=== PATIENT | male | born 1955 | race Hispanic/Latino ===

== ENCOUNTER 2019-05-05 11:26 | Emergency (ER) | payer OTHER ==
[~2019-05-05] VITALS: Ht 180.3 cm; Wt 149.7 kg
[~2019-05-05 11:26] MED LIST changes: -FENTANYL CITRATE/PF 100MCG/2 ML INJ ONE; -LIDOCAINE HCL 2% LOCAL INJ 5 ML SDV VIAL INJ ONE; -MIDAZOLAM HCL 2 MG/2 ML VIAL ONE; -ONDANSETRON HCL INJ 2MG/ML 2ML 2 MG/ML VIAL ONE; -PROPOFOL IV EMULSION 10 MG/ML 20 ML VIAL ONE
--- NOTE | 2019-05-05 12:22 | Diagnostic Imaging Report ---
EXAM: HIP LEFT 2-3 VW (+/- PELVIS) DATE: 05/05/2019 11:31 AM INDICATION: Fall, hip pain COMPARISON: None FINDINGS: AP view of the pelvis as well as 2 views of the left hip obtained. There is no evidence for acute fracture or dislocation. No focal lytic or blastic abnormality is identified. There is mild joint space narrowing noted bilaterally. There are degenerative changes of the visualized lumbosacral spine. Suspected phleboliths noted within the pelvis. The remaining visualized intra-abdominal contents are unremarkable. The surrounding soft tissues demonstrate no significant abnormalities. IMPRESSION: No acute radiographic abnormality identified within the pelvis or left hip. Signed by: Dr. Amol Flores MD on 05/05/2019 12:19 PM
--- NOTE | 2019-05-05 12:32 | Diagnostic Imaging Report ---
EXAM: WRIST COMPLETE RIGHT DATE: 05/05/2019 11:31 AM INDICATION: Fall COMPARISON: None IMPRESSION: There are advanced degenerative changes within the wrist with associated soft tissue calcifications and subchondral sclerosis which limits evaluation for acute process. The distal radius and ulna are intact. Suspected chronic changes noted of the scaphoid and lunate. Allowing for limitations, no obvious acute carpal fracture or dislocation is appreciated. Vascular calcifications are noted. No radiopaque foreign body is appreciated. Signed by: Dr. Amol Flores MD on 05/05/2019 12:29 PM
--- NOTE | 2019-05-05 12:39 | Diagnostic Imaging Report ---
History: Fall in front of lobby Comparison studies:None Technique: Axial images were obtained from the brain and cervical spine. Coronal and sagittal images reconstructed from the axial data. Intravenous contrast: None Dose modulation, iterative reconstruction, and/or weight based adjustment of the mA/kV was utilized to reduce the radiation dose to as low as reasonably achievable. Findings: Head CT: Scalp/skull: No abnormalities. No fractures, blastic or lytic lesions. Brain sulci: Appropriate for age. Ventricles: Normal in size and configuration. No hydrocephalus. Extra-axial spaces: No masses. No fluid collections. Parenchyma: Few subtle hypodensities of the periventricular and deep white matter, most commonly seen with mild chronic microvascular ischemic changes. No masses, hemorrhage, acute or chronic cortical vascular insults. Sellar/suprasellar region: No abnormalities. Craniocervical junction: Patent foramen magnum. No Chiari one malformation. Atherosclerotic calcifications of carotid siphons. Cervical spine CT: Fractures: None. Soft tissues: No gross abnormalities. Atlantoaxial articulation: No acute abnormality. Alignment: Straightening of the normal lordosis. No scoliosis. Cervicomedullary junction: No abnormalities. Patent foramen magnum. Vertebrae: No infection or neoplasm. Degenerative changes: Decreased intervertebral space with sclerotic changes at C3-4 and C6-7. Posterior disc osteophyte complex at C3-4 and C6-7 results in mild central canal stenosis. Multilevel degenerative foraminal narrowing, moderate left at C3-4, moderate bilateral at C5-6 and C6-7. Incidental findings: Atherosclerotic calcifications of the carotid bulbs. Impression: Head CT: 1. No acute abnormality. Cervical spine CT: 1. No acute abnormalities. 2. Cannot exclude ligament, spinal cord and or vascular abnormalities on the basis of this examination. Signed by: DR Sam Gonzalez M.D. on 05/05/2019 12:36 PM
== END 2019-05-05 13:48 | disposition home or self-care (01) ==
LOC: ER 11:26
DX: S63.511A Sprain of carpal joint of right wrist, initial encounter (principal); M25.552 Pain in left hip; W01.0XXA Fall on same level from slipping, tripping and stumbling without subsequent striking against object, initial encounter; Y92.238 Other place in hospital as the place of occurrence of the external cause; I10 Essential (primary) hypertension; E11.9 Type 2 diabetes mellitus without complications; D64.9 Anemia, unspecified; K74.60 Unspecified cirrhosis of liver
CPT/HCPCS: 70450; 72125; 99283

== ENCOUNTER → 2019-05-05 | Day surgery (SDC) | payer OTHER ==
[2019-05-01 12:27] LABS: EOSINOPHILS # (AUTO) 0.2 (0.0-0.4); EOSINOPHILS % 5.5 % (0.0-6.0); HEMATOCRIT 31.4 % (38.2-49.6); HEMOGLOBIN 8.9 g/dL (14.0-18.0); LYMPHOCYTES # (AUTO) 0.7 (1.0-3.2); LYMPHOCYTES % 21.5 % (18.0-39.1); MEAN CORPUSCULAR HEMOGLOBIN 22.5 pg (28-32); MEAN CORPUSCULAR HGB CONC 28.3 g/dL (31-35); MEAN CORPUSCULAR VOLUME 79.5 fL (81-99); MONOCYTES # (AUTO) 0.4 (0.2-0.8); MONOCYTES % 13.2 % (4.4-11.3); NEUTROPHILS # (AUTO) 1.8 (2.1-6.9); NEUTROPHILS % 58.5 % (38.7-80.0); PLATELET COUNT 92 x10e3/uL (140-360); RED BLOOD COUNT 3.95 x10e6/uL (4.3-5.7); RED CELL DISTRIBUTION WIDTH 25.8 % (11.7-14.4)
[2019-05-01 12:52] LABS: INR 1.16; PROTHROMBIN TIME 15.6 seconds (11.9-14.5)
[2019-05-01 12:53] LABS: PARTIAL THROMBOPLASTIN TIME 32.4 seconds (23.8-35.5)
[2019-05-01 13:01] LABS: ALANINE AMINOTRANSFERASE 32 IU/L (0-55); ALBUMIN 3.1 g/dL (3.5-5.0); ALBUMIN/GLOBULIN RATIO 0.7 (0.8-2.0); ALKALINE PHOSPHATASE 127 IU/L (40-150); ANION GAP 9.1 mmol/L (8-16); BLOOD UREA NITROGEN 10 mg/dL (7-26); BUN/CREATININE RATIO 13 (6-25); CALCIUM 11.4 mg/dL (8.4-10.2); CARBON DIOXIDE 25 mmol/L (22-29); CHLORIDE 101 mmol/L (98-107); CREATININE, SERUM 0.78 mg/dL (0.72-1.25); EST GLOMERULAR FILTRATION RATE > 60 ML/MIN (60-); GLUCOSE 184 mg/dL (74-118); POTASSIUM 4.1 mmol/L (3.5-5.1); SODIUM 131 mmol/L (136-145)
[2019-05-01 21:00] LABS: HYPOCHROMASIA MODERATE; PLATELET ESTIMATE SLIGHTLY DECREASED; PLATELET MORPHOLOGY COMMENT NORMAL; POIKILOCYTOSIS SLIG; RBC MORPHOLOGY COMMENT NORMAL
[~2019-05-05] MED LIST: ASPIR 8181 MG PO; ATORVASTATIN CA20 MG PO; FENTANYL CITRATE/PF 100MCG/2 ML INJ ONE; GABAPENTIN400 MG PO; GLIPIZIDE ER5 MG PO; IRBESARTAN150 MG PO; IRON PO; LIDOCAINE HCL 2% LOCAL INJ 5 ML SDV VIAL INJ ONE; METFORMIN HCL500 MG PO; MIDAZOLAM HCL 2 MG/2 ML VIAL ONE; ONDANSETRON HCL INJ 2MG/ML 2ML 2 MG/ML VIAL ONE; PEPCID20 MG PO; PROPOFOL IV EMULSION 10 MG/ML 20 ML VIAL ONE; PROPRANOLOL HCL40 MG PO; TRIAMTERENE-HCTZ1 EA PO
--- OUTSIDE RECORDS SUMMARY | 2019-05-05 13:55 | XMS REPORT ---
Author Author [facility] Address Unknown Phone Unavailable Care Team Providers Care Supervisor [employer] Name Role Phone Martell CÁRDENAS Unavailable Unavailable Problems This patient has no known problems. Allergies, Adverse Reactions, Alerts This patient has no known allergies or adverse reactions. Medications This patient has no known medications. Results Test Description Test Time Test Comments Text Results Atomic Results Result Comments CT BRAIN WO 2019-05-05 12:24:00 [facility] [address] [address] Patient Name: JAROD WATT MR #: [id number] : 1955 Age/Sex: 63/M Req #: [id number] Adm Physician: Ordered by: SHANTANU CÁRDENAS MD Report #: [id number] Location: ER Room/Bed: Procedure: [id number] CT/CT BRAIN WO Exam Date: 05/05/19 Exam Time: 1140 REPORT STATUS: Signed History: Fall in front of lobby Comparison studies:None Technique: Axial images were obtained from the brain and cervical spine. Coronal and sagittal images reconstructed from the axial data. Intravenous contrast: None Dose modulation, iterative reconstruction, and/or weight based adjustment of the mA/kV was utilized to reduce the radiation dose to as low as reasonably achievable. Findings: Head CT: Scalp/skull: No abnormalities. No fractures, blastic or lytic lesions. Brain sulci: Appropriate for age. Ventricles: Normal in size and configuration. No hydrocephalus. Extra-axial spaces: No masses. No fluid collections. Parenchyma: Few subtle hypodensities of the periventricular and deep white matter, most commonly seen with mild chronic microvascular ischemic changes. No masses, hemorrhage, acute or chronic cortical vascular insults. Sellar/suprasellar region: No abnormalities. Craniocervical junction: Patent foramen magnum. No Chiari one malformation. Atherosclerotic calcifications of carotid siphons. Cervical spine CT: Fractures: None. Soft tissues: No gross abnormalities. Atlantoaxial articulation: No acute abnormality. Alignment: Straightening of the normal lordosis. No scoliosis. Cervicomedullary junction: No abnormalities. Patent foramen magnum. Vertebrae: No infection or neoplasm. Degenerative changes: Decreased intervertebral space with sclerotic changes at C3-4 and C6-7. Posterior disc osteophyte complex at C3-4 and C6-7 results in mild central canal stenosis. Multilevel degenerative foraminal narrowing, moderate left at C3-4, moderate bilateral at C5-6 and C6-7. Incidental findings: Atherosclerotic calcifications of the carotid bulbs. Impression: Head CT: 1. No acute abnormality. Cervical spine CT: 1. No acute abnormalities. 2. Cannot exclude ligament, spinal cord and or vascular abnormalities on the basis of this examination. Signed by: DR Sam Gonzalez M.D. on 05/05/2019 12:36 PM Dictated By: SAM HERNANDEZ MD 1236 Transcribed By: BELINDA on 05/05/19 1236 COPY TO: SHANTANU CÁRDENAS MD CT CERVICAL SPINE WO 2019-05-05 12:24:00 [address] [address] Patient Name: JAROD WATT MR #: [id number] : 1955 Age/Sex: 63/M Req #: [id number] Adm Physician: Ordered by: SHANTANU CÁRDENAS MD Report #: [id number] Location: ER Room/Bed: Procedure: [id number] CT/CT CERVICAL SPINE WO Exam Date: 05/05/19 Exam Time: 1140 REPORT STATUS: Signed History: Fall in front of lobby Comparison studies:None Technique: Axial images were obtained from the brain and cervical spine. Coronal and sagittal images reconstructed from the axial data. Intravenous contrast: None Dose modulation, iterative reconstruction, and/or weight based adjustment of the mA/kV was utilized to reduce the radiation dose to as low as reasonably achievable. Findings: Head CT: Scalp/skull: No abnormalities. No fractures, blastic or lytic lesions. Brain sulci: Appropriate for age. Ventricles: Normal in size and configuration. No hydrocephalus. Extra-axial spaces: No masses. No fluid collections. Parenchyma: Few subtle hypodensities of the periventricular and deep white matter, most commonly seen with mild chronic microvascular ischemic changes. No masses, hemorrhage, acute or chronic cortical vascular insults. Sellar/suprasellar region: No abnormalities. Craniocervical junction: Patent foramen magnum. No Chiari one malformation. Atherosclerotic calcifications of carotid siphons. Cervical spine CT: Fractures: None. Soft tissues: No gross abnormalities. Atlantoaxial articulation: No acute abnormality. Alignment: Straightening of the normal l ordosis. No scoliosis. Cervicomedullary junction: No abnormalities. Patent foramen magnum. Vertebrae: No infection or neoplasm. Degenerative changes: Decreased intervertebral space with sclerotic changes at C3-4 and C6-7. Posterior disc osteophyte complex at C3-4 and C6-7 results in mild central canal stenosis. Multilevel degenerative foraminal narrowing, moderate left at C3-4, moderate bilateral at C5-6 and C6-7. Incidental findings: Atherosclerotic calcifications of the carotid bulbs. Impression: Head CT: 1. No acute abnormality. Cervical spine CT: 1. No acute abnormalities. 2. Cannot exclude ligament, spinal cord and or vascular abnormalities on the basis of this examination. Signed by: DR Sam Gonzalez M.D. on 05/05/2019 12:36 PM Dictated By: SAM HERNANDEZ MD 1236 Transcribed By: BELINDA on 05/05/19 1236 COPY TO: SHANTANU CÁRDENAS MD WRIST COMPLETE RIGHT 2019-05-05 12:21:00 [address] [address] Patient Name: JAROD WATT MR #: [id number] : 1955 Age/Sex: 63/M Req #: [id number] Adm Physician: Ordered by: SHANTANU CÁRDENAS MD Report #: [id number] Location: ER Room/Bed: Procedure: [id number] DX/WRIST COMPLETE RIGHT Exam Date: 05/05/19 Exam Time: 1140 REPORT STATUS: Signed EXAM: WRIST COMPLETE RIGHT DATE: 05/05/2019 11:31 AM INDICATION: Fall COMPARISON: None IMPRESSION: There are advanced degenerative changes within the wrist with associated soft tissue calcifications and subchondral sclerosis which limits evaluation for acute process. The distal radius and ulna are intact. Suspected chronic changes noted of the scaphoid and lunate. Allowing for limitations, no obvious acute carpal fracture or dislocation is appreciated. Vascular calcifications are noted. No radiopaque foreign body is appreciated. Signed by: Dr. Amol Flores MD on 05/05/2019 12:29 PM Dictated By: AMOL FLORES MD 1229 Transcribed By: BELINDA on 05/05/19 1229 COPY TO: SHANTANU CÁRDENAS MD HIP LEFT 2-3 VW (+/- PELVIS) 2019-05-05 12:16:00 [facility] [place] [address] Patient Name: JAROD WATT MR #: [id number] : 1955 Age/Sex: 63/M Req #: [id number] Adm Physician: Ordered by: SHANTANU CÁRDENAS MD Report #: [id number] Location: ER Room/Bed: Procedure: [id number] DX/HIP LEFT 2-3 VW (+/- PELVIS) Exam Date: Exam Time: REPORT STATUS: Signed EXAM: HIP LEFT 2-3 VW (+/- PELVIS) DATE: 05/05/2019 11:31 AM INDICATION: Fall, hip pain COMPARISON: None FINDINGS: AP view of the pelvis as well as 2 views of the left hip obtained. There is no evidence for acute fracture or dislocation. No focal lytic or blastic abnormality is identified. There is mild joint space narrowing noted bilaterally. There are degenerative changes of the visualized lumbosacral spine. Suspected phleboliths noted within the pelvis. The remaining visualized intra-abdominal contents are unremarkable. The surrounding soft tissues demonstrate no significant abnormalities. IMPRESSION: No acute radiographic abnormality identified within the pelvis or left hip. Signed by: Dr. Amol Flores MD on 05/05/2019 12:19 PM Dictated By: AMOL FLORES MD 18 Transcribed By: BELINDA on 05/05/191218 COPY TO: SHANTANU CÁRDENAS MD
[2019-05-05 17:25] VITALS: BP 154/88
== END | disposition home or self-care (01) ==
LOC: OR 13:53
PROVIDERS: ATTEND Internal Medicine Gastroenterology
DX: K74.60 Unspecified cirrhosis of liver (principal); I85.10 Secondary esophageal varices without bleeding; K29.50 Unspecified chronic gastritis without bleeding; K31.89 Other diseases of stomach and duodenum; K76.6 Portal hypertension; K44.9 Diaphragmatic hernia without obstruction or gangrene; K72.90 Hepatic failure, unspecified without coma; D50.9 Iron deficiency anemia, unspecified; I10 Essential (primary) hypertension; E78.5 Hyperlipidemia, unspecified; E11.9 Type 2 diabetes mellitus without complications; Z01.810 Encounter for preprocedural cardiovascular examination; Z01.812 Encounter for preprocedural laboratory examination; Z79.84 Long term (current) use of oral hypoglycemic drugs; Z79.82 Long term (current) use of aspirin; Z79.899 Other long term (current) drug therapy; Z68.41 Body mass index [BMI] 40.0-44.9, adult; Z80.0 Family history of malignant neoplasm of digestive organs
CPT/HCPCS: 36415; 43239; 80053; 82948; 85025; 85610; 85730; 93005; J2001; J2250; J2405; J3010

== ENCOUNTER 2019-05-07 15:33 | Emergency (ER) | payer OTHER ==
[~2019-05-07] VITALS: Ht 180.3 cm; Wt 149.7 kg
[2019-05-07 16:23] LABS: BASOPHILS % 0.9 % (0.0-1.0); EOSINOPHILS # (AUTO) 0.2 (0.0-0.4); EOSINOPHILS % 5.4 % (0.0-6.0); HEMATOCRIT 35.8 % (38.2-49.6); HEMOGLOBIN 10.5 g/dL (14.0-18.0); LYMPHOCYTES # (AUTO) 0.8 (1.0-3.2); MEAN CORPUSCULAR HEMOGLOBIN 23.3 pg (28-32); MEAN CORPUSCULAR HGB CONC 29.3 g/dL (31-35); MEAN CORPUSCULAR VOLUME 79.6 fL (81-99); MONOCYTES # (AUTO) 0.6 (0.2-0.8); MONOCYTES % 13.7 % (4.4-11.3); NEUTROPHILS # (AUTO) 2.8 (2.1-6.9); NEUTROPHILS % 62.8 % (38.7-80.0); PLATELET COUNT 123 x10e3/uL (140-360); RED CELL DISTRIBUTION WIDTH 23.5 % (11.7-14.4)
[2019-05-07 16:38] LABS: ALANINE AMINOTRANSFERASE 27 IU/L (0-55); ALBUMIN 3.3 g/dL (3.5-5.0); ALBUMIN/GLOBULIN RATIO 0.7 (0.8-2.0); ALKALINE PHOSPHATASE 113 IU/L (40-150); ANION GAP 9.3 mmol/L (8-16); BLOOD UREA NITROGEN 14 mg/dL (7-26); BUN/CREATININE RATIO 10 (6-25); CALCIUM 11.7 mg/dL (8.4-10.2); CARBON DIOXIDE 25 mmol/L (22-29); CHLORIDE 100 mmol/L (98-107); CREATINE KINASE 36 IU/L (30-200); EST GLOMERULAR FILTRATION RATE 51 ML/MIN (60-); GLUCOSE 193 mg/dL (74-118); LIPASE 53 U/L (8-78); POTASSIUM 4.3 mmol/L (3.5-5.1); SODIUM 130 mmol/L (136-145)
== END 2019-05-07 17:29 | disposition home or self-care (01) ==
LOC: ER 15:33
DX: R53.1 Weakness (principal); N28.9 Disorder of kidney and ureter, unspecified; E87.1 Hypo-osmolality and hyponatremia; E83.52 Hypercalcemia
CPT/HCPCS: 36415; 80053; 82550; 82553; 83690; 83880; 84484; 85025; 99283

== ENCOUNTER → 2019-07-03 | Outpatient (CLI) | payer OTHER ==
[~2019-07-03] MED LIST changes: +ASPIRIN EC81 MG PO; +FERROUS SULFAT325 MG PO; +Folic acid PO; +GLIPIZIDE5 MG PO; +IRBESARTAN300 MG PO; +LACTULOSE10 GM/15 M PO; +LACTULOSE20 GM/30 M PO; +PANTOPRAZOLE SO40 MG PO; +PROPRANOLOL HCL20 MG PO; +THERA-M1 EACH PO
[2019-07-03 12:28] LABS: BASOPHILS % 0.8 % (0.0-1.0); EOSINOPHILS # (AUTO) 0.1 (0.0-0.4); EOSINOPHILS % 4.1 % (0.0-6.0); HEMATOCRIT 26.9 % (38.2-49.6); HEMOGLOBIN 7.7 g/dL (14.0-18.0); LYMPHOCYTES # (AUTO) 0.7 (1.0-3.2); LYMPHOCYTES % 27.8 % (18.0-39.1); MEAN CORPUSCULAR HGB CONC 28.6 g/dL (31-35); MEAN CORPUSCULAR VOLUME 76.9 fL (81-99); MONOCYTES # (AUTO) 0.3 (0.2-0.8); MONOCYTES % 11.8 % (4.4-11.3); NEUTROPHILS # (AUTO) 1.4 (2.1-6.9); NEUTROPHILS % 55.1 % (38.7-80.0); PLATELET COUNT 91 x10e3/uL (140-360); RED CELL DISTRIBUTION WIDTH 15.9 % (11.7-14.4)
[2019-07-03 12:43] LABS: INR 1.15; PARTIAL THROMBOPLASTIN TIME 30.8 seconds (23.8-35.5); PROTHROMBIN TIME 15.4 seconds (11.9-14.5)
[2019-07-03 12:52] LABS: ALANINE AMINOTRANSFERASE 42 IU/L (0-55); ALBUMIN 3.1 g/dL (3.5-5.0); ALBUMIN/GLOBULIN RATIO 0.7 (0.8-2.0); ALKALINE PHOSPHATASE 135 IU/L (40-150); ANION GAP 11.2 mmol/L (8-16); BLOOD UREA NITROGEN 12 mg/dL (7-26); BUN/CREATININE RATIO 13 (6-25); CALCIUM 10.9 mg/dL (8.4-10.2); CARBON DIOXIDE 22 mmol/L (22-29); CHLORIDE 109 mmol/L (98-107); CREATININE, SERUM 0.94 mg/dL (0.72-1.25); EST GLOMERULAR FILTRATION RATE > 60 ML/MIN (60-); GLUCOSE 231 mg/dL (74-118); POTASSIUM 4.2 mmol/L (3.5-5.1); SODIUM 138 mmol/L (136-145)
== END ==
LOC: DX 13:30 → EDSTATUS 07-07 08:30
PROVIDERS: ATTEND Internal Medicine Gastroenterology
DX: Z01.818 Encounter for other preprocedural examination (principal); K72.90 Hepatic failure, unspecified without coma; Z11.59 Encounter for screening for other viral diseases
CPT/HCPCS: 36415; 80053; 85025; 85610; 85730; 87635

== ENCOUNTER 2019-07-04 19:23 | Emergency (ER) | payer OTHER ==
[~2019-07-04] VITALS: Ht 180.3 cm; Wt 149.7 kg
[~2019-07-04 19:23] MED LIST changes: -ASPIRIN EC81 MG PO; -FERROUS SULFAT325 MG PO; -Folic acid PO; -GLIPIZIDE5 MG PO; -IRBESARTAN300 MG PO; -LACTULOSE10 GM/15 M PO; -PROPRANOLOL HCL20 MG PO
[2019-07-04] MEDS ORDERED: SODIUM CHLORIDE 0.9% 1000ML 1,000 ML IV STA ×3 (19:29→20:28)
[2019-07-04] MEDS ORDERED: ACETAMINOPHEN 325 MG TAB PO STA (19:36)
[2019-07-04 20:09] LABS: BASOPHILS % 0.2 % (0.0-1.0); EOSINOPHILS # (AUTO) 0.1 (0.0-0.4); EOSINOPHILS % 0.7 % (0.0-6.0); HEMATOCRIT 29.2 % (38.2-49.6); HEMOGLOBIN 8.5 g/dL (14.0-18.0); LYMPHOCYTES # (AUTO) 0.2 (1.0-3.2); LYMPHOCYTES % 2.2 % (18.0-39.1); MEAN CORPUSCULAR HEMOGLOBIN 22.1 pg (28-32); MEAN CORPUSCULAR HGB CONC 29.1 g/dL (31-35); MEAN CORPUSCULAR VOLUME 75.8 fL (81-99); MONOCYTES # (AUTO) 0.3 (0.2-0.8); MONOCYTES % 3.4 % (4.4-11.3); NEUTROPHILS # (AUTO) 8.6 (2.1-6.9); NEUTROPHILS % 93.1 % (38.7-80.0); PLATELET COUNT 93 x10e3/uL (140-360); RED BLOOD COUNT 3.85 x10e6/uL (4.3-5.7); RED CELL DISTRIBUTION WIDTH 15.9 % (11.7-14.4)
[2019-07-04 20:32] LABS: ALANINE AMINOTRANSFERASE 41 IU/L (0-55); ALBUMIN 3.3 g/dL (3.5-5.0); ALBUMIN/GLOBULIN RATIO 0.8 (0.8-2.0); ALKALINE PHOSPHATASE 136 IU/L (40-150); ANION GAP 14.3 mmol/L (8-16); BLOOD UREA NITROGEN 11 mg/dL (7-26); BUN/CREATININE RATIO 11 (6-25); CARBON DIOXIDE 20 mmol/L (22-29); CHLORIDE 106 mmol/L (98-107); CREATINE KINASE 61 IU/L (30-200); EST GLOMERULAR FILTRATION RATE > 60 ML/MIN (60-); GLUCOSE 132 mg/dL (74-118); LIPASE 42 U/L (8-78); POTASSIUM 4.3 mmol/L (3.5-5.1); SODIUM 136 mmol/L (136-145)
--- NOTE | 2019-07-04 20:59 | Diagnostic Imaging Report ---
EXAMINATION: CHEST SINGLE (PORTABLE) INDICATION: Altered mental status COMPARISON: None FINDINGS: TUBES and LINES: None. LUNGS: Low lung volumes. Bibasilar haziness. Prominent central pulmonary vasculature. PLEURA: No pleural effusion or pneumothorax. HEART AND MEDIASTINUM: The cardiomediastinal silhouette is unremarkable. BONES AND SOFT TISSUES: No acute osseous lesion. Soft tissues are unremarkable. UPPER ABDOMEN: Suspect pneumoperitoneum under the right hemidiaphragm. IMPRESSION: Suspect pneumoperitoneum. Recommend abdominal CT. Low lung volumes with subtle haziness in the lower lungs can be due to atelectasis although pneumonia is possible. Findings discussed with Dr. Tay at 8:52 PM on 07/04/[address] Poe via telephone. Signed by: Ish Poe DO on 07/04/2019 8:55 PM
--- NOTE | 2019-07-04 21:03 | Diagnostic Imaging Report ---
CT BRAIN WO HISTORY: Altered mental status COMPARISON: Head CT 05/05/2019 Technique: Noncontrast axial scans were obtained from skull base to the vertex. Coronal and sagittal reconstructions obtained from the axial data. One or more of the following dose reduction techniques were used: Automated exposure control, adjustment of the mA and/or kV according to patient size, and/or utilization of iterative reconstruction technique. Beam hardening artifacts obscure some details. DISCUSSION: Scalp/Skull: Unremarkable. Brain sulci: Mildly prominent. Ventricles: Compensatory dilatation. Extra-axial spaces: No masses or fluid collections. Carotid siphon calcifications are present. Parenchyma: Mild bilateral deep white matter hypodensity is likely chronic microvascular ischemic change. Otherwise, no masses, hemorrhage, or large vascular territory acute infarct. Dural sinuses: No abnormal densities. Sellar/Suprasellar region: Intact. Skull base: Intact. Incidental findings: None. IMPRESSION: 1. No acute intracranial abnormalities. 2. Mild supratentorial chronic microvascular ischemic change. Mild generalized cerebral volume loss. Signed by: Dr. Neville Bang M.D. on 07/04/2019 8:59 PM
[2019-07-04 21:20] LABS: ANISOCYTOSIS SLIGHT; BAND NEUTROPHILS % (MANUAL) 6 %; LYMPHOCYTES % (MANUAL) 2 % (19-48); MICROCYTOSIS SLIGHT; MONOCYTES % (MANUAL) 5 % (3.4-9.0); NEUTROPHILS % (MANUAL) 87 % (40-74); RBC MORPHOLOGY COMMENT NORMAL
[2019-07-04 21:21] LABS: PLATELET ESTIMATE SLIGHTLY DECREASED; PLATELET MORPHOLOGY COMMENT NORMAL
[2019-07-04] MEDS ORDERED: VANCOMYCIN 1GM/NS 250 ML 250 ML IV STA (21:47)
--- NOTE | 2019-07-04 22:14 | Diagnostic Imaging Report ---
EXAM: CT Abdomen and Pelvis WITHOUT contrast INDICATION: Concern for pneumoperitoneum on chest x-ray COMPARISON: None. TECHNIQUE: Abdomen and pelvis were scanned utilizing a multidetector helical scanner from the lung base to the pubic symphysis without administration of IV contrast. Absence of intravenous contrast decreases sensitivity for detection of focal lesions and vascular pathology. Coronal and sagittal reformations were obtained. Routine protocol was performed. IV CONTRAST: None ORAL CONTRAST: None COMPLICATIONS: None RADIATION DOSE: Total DLP: 1629 mGy*cm Estimated effective dose: (DLP x 0.015 x size factor) mSv CTDIvol has been reviewed. It is below the limits set by the Radiation Protocol Committee (RPC). Dose modulation, iterative reconstruction, and/or weight based adjustment of the mA/kV was utilized to reduce the radiation dose to as low as reasonably achievable. FINDINGS: LINES and TUBES: None. LOWER THORAX: Bibasilar atelectasis. Triple vessel coronary artery calcific atherosclerosis. HEPATOBILIARY: Shrunken nodular liver. Trace perihepatic ascites. Multiple calcified hepatic granulomas. Mild heterogeneity in the right hepatic lobe. No biliary ductal dilation. GALLBLADDER: No radio-opaque stones or sludge. No wall thickening. SPLEEN: Splenomegaly. PANCREAS: No focal masses or ductal dilatation. ADRENALS: A 1.7 cm benign lipid rich left adrenal adenoma. KIDNEYS/URETERS: No hydronephrosis. No cystic or solid mass lesions. No stones. Bilateral perinephric fat stranding. GI TRACT: No abnormal distention, wall thickening, or evidence of bowel obstruction. Appendix is not clearly identified. There is however no fat stranding or adenopathy in the right lower quadrant to suggest appendicitis. PELVIC ORGANS/BLADDER: Unremarkable. LYMPH NODES: No lymphadenopathy. VESSELS: Vascular calcifications. PERITONEUM / RETROPERITONEUM: No free air or fluid. BONES: Degenerative changes. SOFT TISSUES: Bilateral gynecomastia. IMPRESSION: 1. No pneumoperitoneum. Low lung volumes with bibasilar atelectasis. Basilar atelectasis likely generated the appearance of pneumoperitoneum on the same day chest x-ray. 2. Hepatic cirrhosis and portal hypertension with splenomegaly. Indeterminate/nonspecific mild right hepatic lobe heterogeneity, recommend nonemergent liver MRI with contrast. 3. Bilateral perinephric fat stranding can be due to renal insufficiency or senescence, although pyelonephritis can cause this finding. Correlate with urinalysis. 4. Triple vessel coronary artery calcific atherosclerosis. Signed by: Ish Poe DO on 07/04/2019 10:11 PM
--- NOTE | 2019-07-04 22:40 | NUR ---
REPORT CALLED TO [facility] AT THIS TIME.
--- NOTE | 2019-07-04 22:43 | NUR ---
Attending PCP: [facility]: Ford Ulrich Lactic acidosis 5.0. Rx as septic shock Febrile syndrome; Urine pending, mildly abnormal kidneys on CT. Abnormal chest radiography, atelectasis vs lung injury (primary pneumonia vs secondary lung injury) + some lung crackles. Immunosuppressed; cirrhosis, DM, weakness, ETOH dependency quit 01/2019 Encephalopathy; toxic/metabolic, hepatic (ammonia level 117) Due to hospital bed issues, defer admit for now. Due to patient need, transfer for higher level of care.
[2019-07-04] MEDS ORDERED: ACETAMINOPHEN 325 MG TAB PO PRN (22:45)
[2019-07-04] MEDS ORDERED: THIAMINE HCL 100 MG TAB PO ONE (22:45)
[2019-07-04] MEDS ORDERED: LACTULOSE SYRUP 20 GM/30 ML UDC PO ONE (22:45)
--- NOTE | 2019-07-04 23:12 | NUR ---
EMS HERE FOR TRANSPORT TO [facility].
[2019-07-05] MEDS ORDERED: PIPER-TAZ 3.375 GM 50 ML IV SCH
--- NOTE | 2019-07-05 00:14 | History and Physical ---
PRIMARY CARE DOCTOR: Dr. Patric Pete. HOSPITAL DOCTOR: Ford Ulrich MD CHIEF COMPLAINT: Weakness. HISTORY OF PRESENT ILLNESS: Mr. Rod is a pleasant 63-year-old gentleman with weakness. The patient was noted to be weaker over last two days. He is barely able to get up even though he has a weak baseline. However, there is a pattern of worsening and progression and the patient not able to get up out of bed at all. He comes to the emergency room. In the emergency room, it is noted that he has temperature of 102.[address] The patient with CT chest demonstrating normal creatinine 1.0, nonspecific, mostly unremarkable LFTs, but lactic acid was 5.0. Chest x-ray was limited inspiration, but otherwise clear. Of note, he had abdominal pelvic CT done because chest x-ray showed possible air under diaphragm, but there was no large amount of air on the abdominal pelvic CT that were noted on preliminary review. However, there was mild ground-glass opacities in the lungs bilaterally, which either due to technique, limitation of poor inspiration versus true pneumonia. At this point, the patient was recommended for hospitalization. PAST MEDICAL HISTORY: Cirrhosis alcoholic, peptic ulcer disease from March 2019, awaiting repeat endoscopy by Dr. Dalton, diabetes, hypertension, hyperlipidemia, obesity, generalized weakness, he is not getting up out of the house at baseline and diabetic neuropathy. MEDICATIONS: Medication list reviewed per the chart record. ALLERGIES: NO KNOWN DRUG ALLERGIES. SOCIAL HISTORY: The patient smoked for about 5 years total, but quit long ago. The patient was drinking alcohol 12-24 beers a day versus 16 ounce daily, but he quit in January 2019 due to medical cirrhosis issues that were evolving. No drugs. The patient lives with his . The patient does not get out the house at all due to COVID-19 pending. His gets out about once a week to the store and they are not seeing family members they profess. FAMILY HISTORY: Noncontributory. REVIEW OF SYSTEMS: Cannot get reliably as the patient is altered. OBJECTIVE: VITAL SIGNS: The patient with 106 temperature now better, other vitals noted per electronic record. Heart rate 102-94. GENERAL: Generally he is pale, in bed, mildly confused. HEENT: Normocephalic, atraumatic. There is no pain around his sinuses or mouth that is perceivable externally. NECK: Supple. Throat midline. LUNGS: Bilateral air entry, few crackles. CARDIOVASCULAR: S1, S2. No murmurs, rubs, or gallops. ABDOMEN: Soft, nontender, obese. EXTREMITIES: No clubbing, no cyanosis. There is 1+ leg edema. INTEGUMENT: No rash. No purpura. NEUROLOGIC: He is alert and oriented x1. He does say this is some kind of medical facility and the patient knows who the President of [employer] is, but does not know who the President of [facility] is. LABORATORY DATA: 4.3 potassium, 20 bicarbonate, 11 BUN, 1.0 creatinine. 11.0 calcium, 37 AST, ammonia level 117, CK 61, BNP 34, albumin 3.3. Lipase normal. 9.2 white count, 29 hematocrit, MCV is 76 with platelet count 93,000. 87% neutrophils and 6% bands. Abdominal pelvic CT has been finalized and they agree there is no pneumoperitoneum, but there is some bilateral perinephric fat stranding around the kidneys, nonspecific with additional indeterminate nonspecific mild right hepatic lobe heterogeneity recommended for liver MRI. IMPRESSION AND PLAN: 1. Severe sepsis. 2. Toxic metabolic encephalopathy. Hepatic encephalopathy. 3. Abnormal chest radiography, pneumonia versus atelectasis versus secondary lung injury. 4. Abnormal renal radiography, possible pyelonephritis versus other UTI complicated. 5. Microcytic anemia. 6. Known cirrhosis alcoholic. 7. Portal hypertension by history. 8. Diabetes. 9. Hypertension. 10. Hyperlipidemia. 11. Obesity. 12. Baseline weakness and debility, partly from diabetic neuropathy. 13. Low platelets. 14. Mild hypoalbuminemia. 15. Lactic acidosis, compatible with septic shock. 16. Continue fluid loading at this time. Antibiotics broad spectrum. We wait await urine specimen and if it is not too diagnostic, we will likely perform chest CT. Follow up electrolytes. Give thiamine as well as lactulose. Check iron studies and thyroid studies. For now, the patient remains in very guarded to critical condition. There will be considerations to transfer him to higher level of care. Follow up calcium, ensure it normalizes. Thank you very much, Dr. Pete and Dr. Ulrich, who I am covering for. Please call for questions. MD LUKE Frank/YON /[id number]
== END 2019-07-04 23:34 | disposition other institution (70) ==
LOC: ER 19:23
DX: R65.21 Severe sepsis with septic shock (principal); N16 Renal tubulo-interstitial disorders in diseases classified elsewhere; K74.60 Unspecified cirrhosis of liver; I25.10 Atherosclerotic heart disease of native coronary artery without angina pectoris; E11.9 Type 2 diabetes mellitus without complications; I10 Essential (primary) hypertension; E78.5 Hyperlipidemia, unspecified; N62 Hypertrophy of breast
CPT/HCPCS: 36415; 70450; 71045; 74176; 80053; 82140; 82550; 82553; 83605; 83690; 83880; 84484; 85025; 87040; 93005; 99284; J2543; J3370; J7030

== ENCOUNTER 2019-07-31 14:25 | Inpatient (IN) | payer OTHER ==
[~2019-07-31] VITALS: Ht 180.3 cm; Wt 149.7 kg
--- OUTSIDE RECORDS SUMMARY | 2019-07-31 14:27 | XMS REPORT | Clinical Summary ---
Author Author [facility] Organization [facility] Address Unknown Phone Unavailable Care Team Providers Care Curriculum Facilitator Name Role Phone PCP Unavailable Allergies Comments Active Allergy Reactions Severity Noted Date Penicillins 07/05/2019 Medications End Date Status Medication Sig Dispensed Refills Start Date Active lactulose (CHRONULAC) 10 Take 10 g by 0 gram/15 mL (15 mL) mouth 2 (two) solution times daily. Active atorvastatin (LIPITOR) 20 Take 20 mg by 0 MG tablet mouth daily. Active famotidine (PEPCID) 40 MG Take 40 mg by 0 tablet mouth 2 (two) times daily. Active propranoloL (INDERAL) 20 Take 20 mg by 0 MG tablet mouth 2 (two) times daily. Active pantoprazole (PROTONIX) Take 40 mg by 0 40 MG tablet mouth daily. Active multivitamin (THERAGRAN) Take 1 tablet 0 tablet by mouth daily. 07/09/2020 Active ferrous sulfate 325 (65 Take 1 tablet 60 tablet 3 FE) MG tablet (325 mg 0 total) by mouth 2 (two) times daily. 07/10/2020 Active folic acid (FOLVITE) 1 MG Take 1 tablet 30 tablet 3 tablet (1 mg total) 0 by mouth daily. Active rifAXIMin 550 mg Tab Take 1 tablet 60 tablet 3 (550 mg 0 total) by mouth 2 (two) times daily. 07/10/2019 Discontinued irbesartan (AVAPRO) 300 Take 300 mg 0 MG tablet by mouth nightly. 07/10/2019 Discontinued triamterene-hydroCHLOROth Take 1 0 iazide (DYAZIDE) 37.5-25 capsule by mg per capsule mouth every morning. 07/10/2019 Discontinued metFORMIN (GLUCOPHAGE) Take 500 mg 0 500 MG tablet by mouth 3 (three) times daily with meals. 07/10/2019 Discontinued glipiZIDE (GLUCOTROL) 5 Take 5 mg by 0 MG tablet mouth 2 (two) times daily before meals. 07/10/2019 Discontinued gabapentin (NEURONTIN) Take 400 mg 0 400 MG capsule by mouth 3 (three) times daily. 07/10/2019 Discontinued amoxicillin-clavulanate Take 1 tablet 14 tablet 0 (AUGMENTIN) 875-125 mg by mouth 0 per tablet every 12 (twelve) hours for 7 days. 07/10/2019 Discontinued ferrous sulfate 325 (65 Take 1 tablet 60 tablet 3 FE) MG tablet (325 mg 0 total) by mouth 2 (two) times daily. 07/10/2019 Discontinued folic acid (FOLVITE) 1 MG Take 1 tablet 30 tablet 3 tablet (1 mg total) 0 by mouth daily. 07/10/2019 Discontinued rifAXIMin 550 mg Tab Take 1 tablet 60 tablet 3 (550 mg 0 total) by mouth 2 (two) times daily. 07/10/2019 Discontinued amoxicillin-clavulanate Take 1 tablet 14 tablet 0 (AUGMENTIN) 875-125 mg by mouth 0 per tablet every 12 (twelve) hours for 7 days. 07/17/2019 amoxicillin-clavulanate Take 1 tablet 14 tablet 0 (AUGMENTIN) 875-125 mg by mouth 0 per tablet every 12 (twelve) hours for 7 days. Active Problems Problem Noted Date Altered mental status, unspecified 07/05/2019 Alcoholic cirrhosis 07/05/2019 Anemia 07/05/2019 Type 2 diabetes mellitus 07/05/2019 Hyperlipidemia 07/05/2019 Acute metabolic encephalopathy 07/05/2019 Severe sepsis 07/05/2019 Coronary artery disease involving [place] coronary art ghada of [place] heart 07/05/2019 without angina pectoris Cirrhosis of liver with ascites 07/05/2019 Thrombocytopenia 07/05/2019 Hypomagnesemia 07/05/2019 Hypophosphatemia 07/05/2019 Iron deficiency anemia 07/05/2019 Encounters Care Team Description Date Type Specialty Brittany Aldridge MA 07/16/2019 Abstract Hepatology 07/05/2019 Travel Luis E Herring MD Trevino Castillo, Sergio, MD Vernon, Kimberly Ann, MD Kulkarni, Becca Van MD Severe sepsis (HCC); Acute metabolic encephalopathy; Alcoholic cirrhosis of liver with ascites (HCC); Iron deficiency anemia, unspecified iron deficiency anemia type; Hypomagnesemia; Hypophosphatemia; Thrombocytopenia (HCC); Acute hepatic encephalopathy; Portal hypertension (HCC); Other ascites; Fever, unspecified fever cause; Pain, dental; Pancytopenia (HCC); Liver masses; Acute periapical abscess; Hepatocellular carcinoma (HCC) 07/04/2019 [facility] Internal Id dicine - Encounter 07/10/2019 Luis E Herring MD transfer 07/04/2019 Telephone Critical Care Medic ine after 07/30/2018 Social History Date Tobacco Use Types Packs/Day Years Used Never Smoker Smokeless Tobacco: Never Used Alcohol Use Drinks/Week oz/Week Comments No quit 7 months ago Alcohol Habits Answer Date Recorded How often do you have a drink containing alcohol? Never 07/05/2019 How many drinks containing alcohol do you have on No t asked a typical day when you are drinking? How often do you have six or more drinks on one Not asked occasion? Sex Assigned at Date Recorded Not on file Industry Job Start Date Occupation Not on file Not on file Not on file Travel End Travel History Travel Start No recent travel history available. Last Filed Vital Signs Time Taken Vital Sign Reading 07/10/2019 4:54 PM CDT Blood Pressure 136/64 07/10/2019 4:54 PM CDT Pulse 88 07/10/2019 4:54 PM CDT Temperature 36.8 C (98.2 F) 07/10/2019 4:54 PM CDT Respiratory Rate 19 07/10/2019 4:54 PM CDT Oxygen Saturation 93% - Inhaled Oxygen - Concentration 07/10/2019 3:00 AM CDT Weight 127.5 kg (281 lb) 07/05/2019 3:00 AM CDT Height 175.2 cm (5' 8.98") 07/10/2019 3:00 AM CDT Body Mass Index 41.53 Plan of Treatment Not on file Procedures Comments Procedure Name Priority Date/Time Associated Diag nosis REPORT OF PROCEDURE - 07/13/2019 ENDOSCOPY SCAN 1:40 PM CDT RHYTHM STRIP - SCAN 07/13/2019 1:40 PM CDT POCT-GLUCOSE METER Routine 07/10/2019 4:57 PM CDT POCT-GLUCOSE METER Routine 07/10/2019 11:55 AM CDT POCT-GLUCOSE METER Routine 07/10/2019 7:12 AM CDT CBC W/PLT COUNT & AUTO Routine 07/10/2019 DIFFERENTIAL 3:31 AM CDT PT/APTT Routine 07/10/2019 3:31 AM CDT CBC W/PLT COUNT & AUTO Routine 07/10/2019 DIFFERENTIAL 3:31 AM CDT POCT-GLUCOSE METER Routine 07/09/2019 8:41 PM CDT TISSUE EXAM AP Routine 07/09/2019 1:18 PM CDT US LIVER BIOPSY Routine 07/09/2019 1:15 PM CDT POCT-GLUCOSE METER Routine 07/09/2019 7:47 AM CDT CBC W/PLT COUNT & AUTO Routine 07/09/2019 DIFFERENTIAL 6:06 AM CDT HISTOPLASMA AB BY Routine 07/09/2019 COMPLEMENT FIXATION 6:06 AM CDT PT/APTT Routine 07/09/2019 6:06 AM CDT CBC W/PLT COUNT & AUTO Routine 07/09/2019 DIFFERENTIAL 6:06 AM CDT POCT-GLUCOSE METER Routine 07/08/2019 8:38 PM CDT TRANSFUSION SERVICE 07/08/2019 REPORT - SCAN 5:52 PM CDT POCT-GLUCOSE METER Routine 07/08/2019 4:36 PM CDT POCT-GLUCOSE METER Routine 07/08/2019 11:47 AM CDT POCT-GLUCOSE METER Routine 07/08/2019 7:50 AM CDT CBC W/PLT COUNT & AUTO Routine 07/08/2019 DIFFERENTIAL 4:57 AM CDT PT/APTT Routine 07/08/2019 4:57 AM CDT CBC W/PLT COUNT & AUTO Routine 07/08/2019 DIFFERENTIAL 4:57 AM CDT PREPARE LEUKO-REDUCED RBC Routine 07/07/2019 11:54 PM CDT ECHOCARDIOGRAM REPORT - 07/07/2019 SCAN 9:10 PM CDT POCT-GLUCOSE METER Routine 07/07/2019 9:06 PM CDT TRANSFUSION SERVICE 07/07/2019 REPORT - SCAN 5:[address] MAXILLOFACIAL WITH IV Routine 07/07/2019 CONTRAST 5:[address] ABDOMEN - LIVER Routine 07/07/2019 EVALUATION WITHOUT/WITH 5:48 PM CDT IV CONTRAST CT CHEST WITH IV CONTRAST Routine 07/07/2019 5:48 PM CDT POCT-GLUCOSE METER Routine 07/07/2019 4:22 PM CDT 2D ECHO W/ DOPPLER Routine 07/07/2019 (CW/PW/COLOR) 11:43 AM CDT POCT-GLUCOSE METER Routine 07/07/2019 11:08 AM CDT POTASSIUM STAT 07/07/2019 10:44 AM CDT PHOSPHORUS Routine 07/07/2019 10:44 AM CDT MAGNESIUM Routine 07/07/2019 10:44 AM CDT VANCOMYCIN LEVEL, TROUGH Timed 07/07/2019 10:44 AM CDT PHOSPHORUS Routine 07/07/2019 6:13 AM CDT MAGNESIUM Routine 07/07/2019 6:13 AM CDT (CELLAVISION MANUAL DIFF) Routine 07/07/2019 4:29 AM CDT CBC W/PLT COUNT & AUTO Routine 07/07/2019 DIFFERENTIAL 4:29 AM CDT CBC W/PLT COUNT & AUTO Routine 07/07/2019 DIFFERENTIAL 4:29 AM CDT BASIC METABOLIC PANEL (7) Add-On 07/07/2019 3:47 AM CDT PT/APTT Routine 07/07/2019 3:47 AM CDT HEPATIC FUNCTION PANEL Routine 07/07/2019 3:47 AM CDT PHOSPHORUS Routine 07/07/2019 3:47 AM CDT MAGNESIUM Routine 07/07/2019 3:47 AM CDT TRANSFUSE LEUKO-REDUCED Routine 07/07/2019 RED BLOOD CELLS 1:10 AM CDT POCT-GLUCOSE METER Routine 07/06/2019 11:51 PM CDT RESPIRATORY PANEL [facility] Routine 07/06/2019 11:08 PM CDT SARS-COV2/RT-PCR (HS & Routine 07/06/2019 REF LABS) 11:08 PM CDT ABORH, MANUAL STAT 07/06/2019 6:48 PM CDT TYPE AND SCREEN, Routine 07/06/2019 AUTOMATED 6:29 PM CDT MR ABDOMEN WITH & WITHOUT Routine 07/06/2019 IV CONTRAST 6:25 PM CDT HEMOGLOBIN AND HEMATOCRIT Routine 07/06/2019 8:41 AM CDT (CELLAVISION MANUAL DIFF) Routine 07/06/2019 4:01 AM CDT CBC W/PLT COUNT & AUTO Routine 07/06/2019 DIFFERENTIAL 4:01 AM CDT BASIC METABOLIC PANEL (7) Routine 07/06/2019 4:01 AM CDT HEPATIC FUNCTION PANEL Routine 07/06/2019 4:01 AM CDT PHOSPHORUS Routine 07/06/2019 4:01 AM CDT MAGNESIUM Routine 07/06/2019 4:01 AM CDT CBC W/PLT COUNT & AUTO Routine 07/06/2019 DIFFERENTIAL 4:01 AM CDT PROCALCITONIN Routine 07/06/2019 4:00 AM CDT PT/APTT Routine 07/06/2019 4:00 AM CDT US ABDOMEN COMPLETE Routine 07/06/2019 3:10 AM CDT BLOOD CULTURE Routine 07/06/2019 12:22 AM CDT BLOOD CULTURE Routine 07/06/2019 12:22 AM CDT POCT-GLUCOSE METER Routine 07/06/2019 12:10 AM CDT POCT-GLUCOSE METER Routine 07/05/2019 5:20 PM CDT LEGIONELLA URINE ANTIGEN Routine 07/05/2019 4:47 PM CDT URINALYSIS W/ REFLEX Routine 07/05/2019 URINE CULTURE 4:47 PM CDT POCT-GLUCOSE METER Routine 07/05/2019 12:02 PM CDT MISCELLANEOUS LAB ORDER Routine 07/05/2019 11:59 AM CDT PHOSPHORUS Routine 07/05/2019 9:23 AM CDT MAGNESIUM Routine 07/05/2019 9:23 AM CDT BASIC METABOLIC PANEL (7) Routine 07/05/2019 9:23 AM CDT POCT-GLUCOSE METER Routine 07/05/2019 6:22 AM CDT ALPHA FETOPROTEIN (AFP), Routine 07/05/2019 TUMOR MARKER 5:52 AM CDT HEPATITIS C ANTIBODY Routine 07/05/2019 5:52 AM CDT LACTIC ACID, VENOUS STAT 07/05/2019 5:52 AM CDT XR CHEST 1 VIEW STAT 07/05/2019 PORTABLE/BEDSIDE 2:40 AM CDT LIPID PANEL Routine 07/05/2019 1:49 AM CDT HEPATITIS A PANEL Routine 07/05/2019 1:25 AM CDT HEPATITIS B PANEL Routine 07/05/2019 1:25 AM CDT LACTATE DEHYDROGENASE Routine 07/05/2019 (LDH) 1:25 AM CDT RETICULOCYTE COUNT Routine 07/05/2019 1:25 AM CDT VITAMIN B12 Routine 07/05/2019 1:25 AM CDT FOLATE, SERUM Routine 07/05/2019 1:25 AM CDT FERRITIN Routine 07/05/2019 1:25 AM CDT IRON, TIBC, % SAT. Routine 07/05/2019 (WITHOUT FERRITIN) 1:25 AM CDT TSH/FREE T4 IF INDICATED Routine 07/05/2019 1:25 AM CDT LIPASE Routine 07/05/2019 1:25 AM CDT HIV-1 ANTIGEN WITH Routine 07/05/2019 HIV-1/2 ANTIBODY 1:25 AM CDT TROPONIN I Routine 07/05/2019 1:25 AM CDT CREATINE KINASE (CK) Routine 07/05/2019 1:25 AM CDT LACTIC ACID, VENOUS Routine 07/05/2019 1:25 AM CDT AMMONIA Routine 07/05/2019 1:25 AM CDT HEPATIC FUNCTION PANEL Routine 07/05/2019 1:25 AM CDT PHOSPHORUS Routine 07/05/2019 1:25 AM CDT MAGNESIUM Routine 07/05/2019 1:25 AM CDT BLOOD CULTURE Routine 07/05/2019 1:25 AM CDT BLOOD GAS, VENOUS Routine 07/05/2019 1:24 AM CDT CBC W/PLT COUNT & AUTO Routine 07/05/2019 DIFFERENTIAL 12:53 AM CDT BASIC METABOLIC PANEL (7) Routine 07/05/2019 12:53 AM CDT FIBRINOGEN Routine 07/05/2019 12:53 AM CDT PROTHROMBIN TIME/INR Routine 07/05/2019 12:53 AM CDT CBC W/PLT COUNT & AUTO Routine 07/05/2019 DIFFERENTIAL 12:53 AM CDT BLOOD CULTURE Routine 07/05/2019 12:53 AM CDT after 07/30/2018 Results * EKG-SCANNED (07/13/2019 1:40 PM CDT) Narrative Performed At This result has an attachment that is n ot available. * RHYTHM STRIP - SCAN (07/13/2019 1:40 PM CDT) Narrative Performed At This result has an attachment that is n ot available. * POC-Glucose meter (07/10/2019 4:57 PM CDT) Only the most recent of 17 results within the time period is included. POC-Glucose Meter 137 (H)Comment: : TESTED AT 70 - 110 mg/dL [place] [id number] [facility] [id number]: Fur Tailor/Etl Analyst ID = [id number] for CELINA MCGOVERN Specimen Blood Performing Organization Address City/State/Zipcode Ph one Number [address] [address] [facility] * PT/aPTT (07/10/2019 3:31 AM CDT) Only the most recent of 5 results within the time period is included. Protime 15.4 (H) 11.9 - 14.2 seconds [facility] INR 1.3 <=5.9 [facility] PTT 36.5 (H) 22.5 - 36.0 seconds [facility] Specimen Blood Narrative Performed At Effective 07/23/2018: PT Reference Range Change [facility] New: 11.9-14.2Previous: 11.7-14.7 [facility] MEDICAL CE NTER RECOMMENDED COUMADIN/WARFARIN INR THERA PY RANGES STANDARD DOSE: 2.0-3.0Includes: PRO PHYLAXIS for venous thrombosis, systemic embolization; TREATMENT for venous thro mbosis and/or pulmonary embolus. HIGH RISK: Target INR is 2.5-3.5 for pa tients wiht mechanical heart valves. Performing Organization Address City/State/Zipcode Ph one Number [place] [address] [facility] * CBC with platelet count + automated diff (07/10/2019 3:31 AM CDT) Only the most recent of 6 results within the time period is included. WBC 3.4 (L) 3.5 - 10.5 K/L [facility] RBC 3.67 (L) 4.63 - 6.08 M/L [facility] Hemoglobin 8.4 (L) 13.7 - 17.5 GM/DL [facility] Hematocrit 28.1 (L) 40.1 - 51.0 % [facility] MCV 76.6 (L) 79.0 - 92.2 fL [facility] MCH 22.9 (L) 25.7 - 32.2 pg [facility] MCHC 29.9 (L) 32.3 - 36.5 GM/DL [facility] RDW 19.5 (H) 11.6 - 14.4 % [facility] Platelets 79 (L) 150 - 450 K/CU MM [facility] MPV Comment: Unable to report due [facility] to abnormal Platelet [facility] population distribution. nRBC 0 0 - 0 /100 WBC [facility] % Neutros 63 % [facility] % Lymphs 22 % [facility] % Monos 11 % [facility] % Eos 3 % [facility] % Baso 1 % [facility] # Neutros 2.12 1.78 - 5.38 K/L [facility] # Lymphs 0.73 (L) 1.32 - 3.57 K/L [facility] # Monos 0.36 0.30 - 0.82 K/L [facility] # Eos 0.10 0.04 - 0.54 K/L [facility] # Baso 0.02 0.01 - 0.08 K/L [facility] Immature 2 (H) 0 - 1 % [facility] Granulocytes-Relative [facility] Specimen Blood Performing Organization Address City/State/Zipcode Ph one Number [facility] [address] [place], [place] [address] [facility]ENTER * Tissue Exam (07/09/2019 1:18 PM CDT) Case Report Surgical Pathology [facility] Case: [id number] Authorizing Provider:Becca Price,Collected: 07/09/2019 01:18 PM Ordering Location: [address] Received: 07/09/2019 03:59 PM Service Pathologist: Javier Palencia MD Specimen:Biopsy, Liver DIAGNOSIS LIVER, NEEDLE BIOPSIES OF MASS [facility] EDUIN [facility] - HEPATOCELLULAR CARCINOMA, [facility] WELL DIFFERENTIATED Signing Pathologist Direct Phone Line: [phone] CPT Code(s) 29113, 96720, 49[address] ARLEEN CORTES [facility] CLINICAL HISTORY Liver mass, approximately 5 cm [facility] Operation: Biopsy [facility] SPECIMEN SOURCE Liver right lobe [facility] HEALT H [facility] GROSS DESCRIPTION Specimen is received in one [facility] part. [facility] Part A. Received in formalin labeled with the patient's name, accession number and "liver biopsy" are three lujan to red-brown needle core biopsies measuring 0.5, 1.0, and 1.7 cm long and are all 0.1 cm in diameter. The specimen is submitted in toto in cassette A1. ALEKSANDAR/pl MICROSCOPIC DESCRIPTION Sections show tumor tissue [facility] Estevan Vann [facility]IN [facility] composed of atypical [facility] hepatocytes disposed in thickened trabeculae with very focal pseudoglandular architecture. The reticulin stain highlights the thickened trabeculae. Immunostain for glypican 3 is negative. SPECIAL STUDIES The interpretation of this [facility] GutierrezEstevan [facility] case included the use of [facility] immunohistochemistry or special stains. Control Slides Examined: In-house known positive controls were evaluated along with the test tissue. These control slides run alongside of the patients sample show appropriate staining. Internal positive and negative controls when available are evaluated Immunohistochemistry technical testing was performed at [facility] Pathology Laboratory where it was developed and its performance characteristics were determined. It has not been cleared or approved by the U.S. Food and Drug Administration. The FDA has determined that such clearance or approval is not necessary. The test is used for clinical purposes. It should not be regarded as investigational or for research. This laboratory is certified under the Clinical Laboratory Improvement Amendments of 1988 (CLIA-88) as qualified to perform high complexity clinical laboratory testing. Specimen Tissue - Biopsy, Liver Performing Organization Address City/State/Zipcode Ph one Number [facility] EDUIN [facility] [address], [place] [address] MEDICAL CENTER * US liver biopsy (07/09/2019 1:15 PM CDT) Specimen Narrative Performed At FINAL REPORT [employer] [facility] Procedure: Ultrasound-Guided right hepa tic mass core biopsy: Pre/post-procedure diagnosis: Hepatic m ass [employer] Shop Manager: Amol Flores MD Assistants: MD Clive (Fellow) Sedation: Moderate sedation was adminis tered. 1 mg of Versed and50 mcg of fentanyl IV was used for moderat e sedation monitored under my direction. Total intra-service time of sedation [id number]. The patient's vital signs were monitored th roughout the procedure and recorded in the patient's medical recor d by the nurse. Local Anesthesia: 8 cc 1% Xylocaine Approach: Right upper quadrant, percuta neous Specimen: Total of three 18 G core biop sy samples; samples were delivered to pathology in formalin solu tion. Estimated blood loss: Less than 5 cc. Technique/findings: Informed written consent was obtained. Discussion of risks, benefits, and alternatives were made with the pat ient. The patient expressed understanding and agreed to proceed. A universal timeout was performed prior to starting the procedu re. Initial ultrasound images demonstrate h eterogeneous solid mass within the right hepatic lobe measuring up to 5.5 x 8.1 cm, corresponding with the lesion noted on the recent steven or CT and MRI examinations. This lesion was targeted for biopsy. Th e right upper quadrant was prepped and draped in sterile fashion. 1% lidocaine was used for local anesthesia. Using ultrasound guid ance, following acquisition of permanent images, a 17-gauge introducer needle was advanced into the right hepatic mass. A 18-gauge core bio psy needle was used coaxially to obtain three core biopsy samples. Th e introducer needle was removed and tract embolized using Gelfo am slurry. A sterile dressing was applied. Post procedure sonogram reveals no clive jose. The patient tolerated the procedure well without immediate co mplication. Impression: Successful, uncomplicated ultrasound-gu ided right hepatic mass core biopsy. Signed: Amol Flores MD Report Verified Date/Time: 0 08:45:00 Reading Location: [place] [id number] Angio Bod y Reading Room Procedure Note Interface, External Ris In - 07/10/2019 8:47 AM CDT FINAL REPORT Procedure: Ultrasound-Guided right hepatic mass core biopsy: Pre/post-procedure diagnosis: Hepatic mass [employer] Shop Manager: Amol Flores MD Assistants: MD Clive (Fellow) Sedation: Moderate sedation was administered. 1 mg of Versed and 50 mcg of fentanyl IV was used for moderate sedation monitored under my direction. Total intra-service time of sedation was 20 minutes. The patient's vital signs were monitored throughout the procedure and recorded in the patient's medical record by the nurse. Local Anesthesia: 8 cc 1% Xylocaine Approach: Right upper quadrant, percutaneous Specimen: Total of three 18 G core biopsy samples; samples were delivered to pathology in formalin solution. Estimated blood loss: Less than 5 cc. Technique/findings: Informed written consent was obtained. Discussion of risks, benefits, and alternatives were made with the patient. The patient expressed understanding and agreed to proceed. A universal timeout was performed prior to starting the procedure. Initial ultrasound images demonstrate heterogeneous solid mass within the right hepatic lobe measuring up to 5.5 x 8.1 cm, corresponding with the lesion noted on the recent prior CT and MRI examinations. This lesion was targeted for biopsy. The right upper quadrant was prepped and draped in sterile fashion. 1% lidocaine was used for local anesthesia. Using ultrasound guidance, following acquisition of permanent images, a 17-gauge introducer needle was advanced into the right hepatic mass. A 18-gauge core biopsy needle was used coaxially to obtain three core biopsy samples. The introducer needle was removed and tract embolized using Gelfoam slurry. A sterile dressing was applied. Post procedure sonogram reveals no hematoma. The patient tolerated the procedure well without immediate complication. Impression: Successful, uncomplicated ultrasound-guided right hepatic mass core biopsy. Signed: Amol Flores MD Report Verified Date/Time: 07/10/2019 08:45:00 Reading Location: [place] [address] Angio Body Reading Room Performing Organization Address City/State/Zipcode Ph one Number [facility] * Histoplasma Ab by Complement fixation (07/09/2019 6:06 AM CDT) Yeast Phase Antibody <1:8 [facility] Mycelial Phase Antibody <1:8 [facility] Comment: INCORPORATED REFERENCE RANGE:<1:8 INTERPRETI VE CRITERIA: <1:8Antibody Not Detected > or = 1:8Antibody Detected Complement-fixation (CF) titers greater than or equal to 1:8 are generally considered evidence indicative of histoplasmosis. Higher titers increase the probability of infection. However, positive titers are also seen with fungal infections other than histoplasmosis, and confirmation of antibody specificity with immunodiffusion procedures is recommended. Changing titers are useful both in diagnosis and in assessment of treatment efficacy. This test was developed and its analytical performance characteristics have been determined by [facility]. It has not been cleared or approved by FDA. This assay has been validated pursuant to the CLIA regulations and is used for clinical purposes. Specimen Blood Narrative Performed At Performing Lab [facility] [employer]. [address] [place] [id number] Natan Whelan MD Performing Organization Address [facility]/Pending Sale To [facility] one Number [facility], [address] [place] [id number] * TRANSFUSION SERVICE REPORT - SCAN (07/08/2019 5:52 PM CDT) Only the most recent of 2 results within the time period is included. Narrative Performed At This result has an attachment that is n ot available. * Prepare Leuko-Red RBC (07/07/2019 11:54 PM CDT) CROSSMATCH COMPATIBLE SAFETRACE TX Unit ABO B Pos SAFETRACE TX UNIT NUMBER [id number] SAFETRACE TX Status TX_TIMEINCHART SAFETRACE TX Blood Bank Product RED BLOOD CELLS SAFETRACE TX PRODUCT CODE [id number] SAFETRACE TX Specimen Other Performing Organization Address [facility] Ph one Number S[facility] [place] * ECHOCARDIOGRAM REPORT - SCAN (07/07/2019 9:10 PM CDT) Narrative Performed At This result has an attachment that is n ot available. * CT abdomen - liver evaluation without/with iv contrast (07/07/2019 5:48 PM CDT) Specimen Narrative Performed At FINAL REPORT [employer] CT of the Chest dated 07/07/2019 CLINICAL INFORMATION: Liver lesion, > 1 cm, US nondiagnostic Comment:Axial images of the chest w ere obtained from thoracic inlet to the upper abdomen trace intravenous contrast. This exam was performed according to r departmental dose-optimization program, which includ es automated exposure control, adjustment of the mA and/or kV accordin g to patient size and/or use of interactive reconstruction technique . Heart is normal in size. Vascular calci fication is seen in the thoracic aorta. Great vessels are unrem arkable. No adenopathy in the mediastinum or perihilar region. Trache a and mainstem bronchi are patent. Vague groundglass pulmonary parenchymal disease is seen in both lungs specifically in the upper lobes. This i s not typical appearance of Covid-19 pneumonia. No nodular, mass le salvador or airspace disease is noted.No interstitial disease or br onchiectasis is present. No pleural effusion or pleural based ma ss seen. Impression: Nonspecific groundglass pul monary parenchyma disease in both lungs. ABDOMINAL CT DATED 07/07/2019 CLINICAL INFORMATION:Liver lesion, > 1cm, US nondiagnostic TECHNIQUE:Axial images of the abdom en were obtained from diaphragm to the upper pelvis with and without in travenous contrast. This exam was performed according to [facility] departmental dose-optimization program, which includ es automated exposure control, adjustment of the mA and/or kV accordin g to patient size and/or use of interactive reconstruction technique . COMMENT: Liver is cirrhotic in appearan ce with the ureter margins. Ill-defined nonenhancing hypodense lesi on is seen in the segment 6 and 7 of the liver measuring approximat cornel 3.8 x 5.4 x 6.8 cm. This lesion is not typical of hepatocellular carcinoma, cannot be excluded. Spleen is enlarged measuring 15.6 x 6.9 x 20 cm. The splenic, superior mesenteric, portal, a nd hepatic veins are patent. Main portal vein measures approximately 1.7 cm. There is recannulization periumbilical vein. Gal lbladder is contracted. No gallstone or biliary dilatation is note d. Pancreas and right adrenal are unremark able.A 1.4 x 2.2 cm mass is seen in the left adrenal. The attenuati on of the left adrenal mass measures 33 Hounsfield units on the pre contrast study, 49 Hounsfield units on the arterial phase examination and, and 45 Hounsfield unit on the images on the delayed examinatio n. Both kidneys are normal in size and fun ctioning with prompt bilateral excretion. No hydronephrosis, solid or cystic mass is seen in either kidney. Scattered diverticular disease is seen in the large bowel without diverticulitis. The small bowel is norm al in caliber. Appendix is not visualized. Vascular calcification is seen in the a bdominal aorta and bilateral iliac arteries. IMPRESSION: 1. Cirrhosis with splenomegaly and port al hypertension. 2. Hypodense mass in the segment 6/7 of the liver. Recommend tissue diagnosis. 3. Left adrenal mass. Signed: Silvestre De Luna MD Report Verified Date/Time: 0 18:18:34 Reading Location: [facility] C013Y CT Body Reading Room Procedure Note Interface, External Ris In - 07/07/2019 6:20 PM CDT FINAL REPORT CT of the Chest dated 07/07/2019 CLINICAL INFORMATION: Liver lesion, > 1cm, US nondiagnostic Comment: Axial images of the chest were obtained from thoracic inlet to the upper abdomen trace intravenous contrast. This exam was performed according to our departmental dose-optimization program, which includes automated exposure control, adjustment of the mA and/or kV according to patient size and/or use of interactive reconstruction technique. Heart is normal in size. Vascular calcification is seen in the thoracic aorta. Great vessels are unremarkable. No adenopathy in the mediastinum or perihilar region. Trachea and mainstem bronchi are patent. Vague groundglass pulmonary parenchymal disease is seen in both lungs specifically in the upper lobes. This is not typical appearance of Covid-19 pneumonia. No nodular, mass lesion or airspace disease is noted. No interstitial disease or bronchiectasis is present. No pleural effusion or pleural based mass seen. Impression: Nonspecific groundglass pulmonary parenchyma disease in both lungs. ABDOMINAL CT DATED 07/07/2019 CLINICAL INFORMATION: Liver lesion, > 1cm, US nondiagnostic TECHNIQUE: Axial images of the abdomen were obtained from diaphragm to the upper pelvis with and without intravenous contrast. This exam was performed according to our departmental dose-optimization program, which includes automated exposure control, adjustment of the mA and/or kV according to patient size and/or use of interactive reconstruction technique. COMMENT: Liver is cirrhotic in appearance with the ureter margins. Ill-defined nonenhancing hypodense lesion is seen in the segment 6 and 7 of the liver measuring approximately 3.8 x 5.4 x 6.8 cm. This lesion is not typical of hepatocellular carcinoma, cannot be excluded. Spleen is enlarged measuring 15.6 x 6.9 x 20 cm. The splenic, superior mesenteric, portal, and hepatic veins are patent. Main portal vein measures approximately 1.7 cm. There is recannulization periumbilical vein. Gallbladder is contracted. No gallstone or biliary dilatation is noted. Pancreas and right adrenal are unremarkable. A 1.4 x 2.2 cm mass is seen in the left adrenal. The attenuation of the left adrenal mass measures 33 Hounsfield units on the precontrast study, 49 Hounsfield units on the arterial phase examination and, and 45 Hounsfield unit on the images on the delayed examination. Both kidneys are normal in size and functioning with prompt bilateral excretion. No hydronephrosis, solid or cystic mass is seen in either kidney. Scattered diverticular disease is seen in the large bowel without diverticulitis. The small bowel is normal in caliber. Appendix is not visualized. Vascular calcification is seen in the abdominal aorta and bilateral iliac arteries. IMPRESSION: 1. Cirrhosis with splenomegaly and salomón l hypertension. 2. Hypodense mass in the segment 6/7 of the liver. Recommend tissue diagnosis. 3. Left adrenal mass. Signed: Silvestre De Luna MD Report Verified Date/Time: 07/07/2019 18:18:34 Reading Location: [address] Body Reading Room Performing Organization Address City/State/Zipcode Ph one Number [employer] * CT maxillofacial with IV contrast (07/07/2019 5:48 PM CDT) Specimen Narrative Performed At FINAL REPORT [employer] EXAM: CT, MAXILLOFACIAL AREA, CONTRAST CLINICAL INDICATION:Dental abscess. TECHNIQUE: Helical CT examination of th e face with IV contrast. Axial, sagittal and coronal reformation s were generated. This exam was performed according to our [facility] dose-optimization program, which includes automated expos ure control, adjustment of the mA and/or kV according to patient size and/or use of iterative reconstruction technique. COMPARISON:None. FINDINGS: Facial Soft Tissues: No ring enhancing collection or fat stranding. Mildly enlarged left level III lymph no de up to 1.8 cm diameter (axial image 52) Osseous Structures: No acute fracture o r dislocation. Degenerative changes of the included cervical spine including advanced degenerative disc disease at C3-C4 mild anterolisthesis of C4 on C5. There are periapical lucencies of the l eft mandibular molars including of teeth numbers 14 and 15. T here is cortical breakthrough on the buccal surface of tooth 15. No s ignificant dental caries. Intraorbital Contents: Prior bilateral lens surgery Included Intracranial Structures: Mild chronic deep white matter ischemic changes. Paranasal Sinuses:Predominantly jovi ar Tympanomastoid Cavities:Clear. IMPRESSION: Mild left mandibular periodontal diseas e including periapical lucency of tooth 15 with cortical breakthrough along the buccal surface. No abscess or soft tissue inflammation. Enlarged left level III lymph node is n onspecific and may be reactive. Signed: Silvestre Hood MD Report Verified Date/Time: 0 23:27:53 Procedure Note Interface, External Ris In - 07/07/2019 11:31 PM CDT FINAL REPORT EXAM: CT, MAXILLOFACIAL AREA, CONTRAST CLINICAL INDICATION: Dental abscess. TECHNIQUE: Helical CT examination of the face with IV contrast. Axial, sagittal and coronal reformations were generated. This exam was performed according to our departmental dose-optimization program, which includes automated exposure control, adjustment of the mA and/or kV according to patient size and/or use of iterative reconstruction technique. COMPARISON: None. FINDINGS: Facial Soft Tissues: No ring enhancing collection or fat stranding. Mildly enlarged left level III lymph node up to 1.8 cm diameter (axial image 52) Osseous Structures: No acute fracture or dislocation. Degenerative changes of the included cervical spine including advanced degenerative disc disease at C3-C4 mild anterolisthesis of C4 on C5. There are periapical lucencies of the left mandibular molars including of teeth numbers 14 and 15. There is cortical breakthrough on the buccal surface of tooth 15. No significant dental caries. Intraorbital Contents: Prior bilateral lens surgery Included Intracranial Structures: Mild chronic deep white matter ischemic changes. Paranasal Sinuses: Predominantly clear Tympanomastoid Cavities: Clear. IMPRESSION: Mild left mandibular periodontal disease including periapical lucency of tooth 15 with cortical breakthrough along the buccal surface. No abscess or soft tissue inflammation. Enlarged left level III lymph node is nonspecific and may be reactive. Signed: Silvestre Hood MD Report Verified Date/Time: 07/07/2019 23:27:53 Performing Organization Address City/State/Zipcode Ph one Number [employer] * CT chest with IV contrast (07/07/2019 5:48 PM CDT) Specimen Narrative Performed At FINAL REPORT [employer] CT of the Chest dated 07/07/2019 CLINICAL INFORMATION: Liver lesion, > 1 cm, US nondiagnostic Comment:Axial images of the chest w ere obtained from thoracic inlet to the upper abdomen trace intravenous contrast. This exam was performed according to [facility] departmental dose-optimization program, which includ es automated exposure control, adjustment of the mA and/or kV accordin g to patient size and/or use of interactive reconstruction technique . Heart is normal in size. Vascular calci fication is seen in the thoracic aorta. Great vessels are unrem arkable. No adenopathy in the mediastinum or perihilar region. Trache a and mainstem bronchi are patent. Vague groundglass pulmonary parenchymal disease is seen in both lungs specifically in the upper lobes. This i s not typical appearance of Covid-19 pneumonia. No nodular, mass le salvador or airspace disease is noted.No interstitial disease or br onchiectasis is present. No pleural effusion or pleural based ma ss seen. Impression: Nonspecific groundglass pul monary parenchyma disease in both lungs. ABDOMINAL CT DATED 07/07/2019 CLINICAL INFORMATION:Liver lesion, > 1cm, US nondiagnostic TECHNIQUE:Axial images of the abdom en were obtained from diaphragm to the upper pelvis with and without in travenous contrast. This exam was performed according to r departmental dose-optimization program, which includ es automated exposure control, adjustment of the mA and/or kV accordin g to patient size and/or use of interactive reconstruction technique . COMMENT: Liver is cirrhotic in appearan ce with the ureter margins. Ill-defined nonenhancing hypodense lesi on is seen in the segment 6 and 7 of the liver measuring approximat cornel 3.8 x 5.4 x 6.8 cm. This lesion is not typical of hepatocellular carcinoma, cannot be excluded. Spleen is enlarged measuring 15.6 x 6.9 x 20 cm. The splenic, superior mesenteric, portal, a nd hepatic veins are patent. Main portal vein measures approximately 1.7 cm. There is recannulization periumbilical vein. Gal lbladder is contracted. No gallstone or biliary dilatation is note d. Pancreas and right adrenal are unremark able.A 1.4 x 2.2 cm mass is seen in the left adrenal. The attenuati on of the left adrenal mass measures 33 Hounsfield units on the pre contrast study, 49 Hounsfield units on the arterial phase examination and, and 45 Hounsfield unit on the images on the delayed examinatio n. Both kidneys are normal in size and fun ctioning with prompt bilateral excretion. No hydronephrosis, solid or cystic mass is seen in either kidney. Scattered diverticular disease is seen in the large bowel without diverticulitis. The small bowel is norm al in caliber. Appendix is not visualized. Vascular calcification is seen in the a bdominal aorta and bilateral iliac arteries. IMPRESSION: 1. Cirrhosis with splenomegaly and port al hypertension. 2. Hypodense mass in the segment 6/7 of the liver. Recommend tissue diagnosis. 3. Left adrenal mass. Signed: Silvestre De Luna MD Report Verified Date/Time: 0 18:18:34 Reading Location: [facility] C013Y CT Body Reading Room Procedure Note Interface, External Ris In - 07/07/2019 6:20 PM CDT FINAL REPORT CT of the Chest dated 07/07/2019 CLINICAL INFORMATION: Liver lesion, > 1cm, US nondiagnostic Comment: Axial images of the chest were obtained from thoracic inlet to the upper abdomen trace intravenous contrast. This exam was performed according to our departmental dose-optimization program, which includes automated exposure control, adjustment of the mA and/or kV according to patient size and/or use of interactive reconstruction technique. Heart is normal in size. Vascular calcification is seen in the thoracic aorta. Great vessels are unremarkable. No adenopathy in the mediastinum or perihilar region. Trachea and mainstem bronchi are patent. Vague groundglass pulmonary parenchymal disease is seen in both lungs specifically in the upper lobes. This is not typical appearance of Covid-19 pneumonia. No nodular, mass lesion or airspace disease is noted. No interstitial disease or bronchiectasis is present. No pleural effusion or pleural based mass seen. Impression: Nonspecific groundglass pulmonary parenchyma disease in both lungs. ABDOMINAL CT DATED 07/07/2019 CLINICAL INFORMATION: Liver lesion, > 1cm, US nondiagnostic TECHNIQUE: Axial images of the abdomen were obtained from diaphragm to the upper pelvis with and without intravenous contrast. This exam was performed according to our departmental dose-optimization program, which includes automated exposure control, adjustment of the mA and/or kV according to patient size and/or use of interactive reconstruction technique. COMMENT: Liver is cirrhotic in appearance with the ureter margins. Ill-defined nonenhancing hypodense lesion is seen in the segment 6 and 7 of the liver measuring approximately 3.8 x 5.4 x 6.8 cm. This lesion is not typical of hepatocellular carcinoma, cannot be excluded. Spleen is enlarged measuring 15.6 x 6.9 x 20 cm. The splenic, superior mesenteric, portal, and hepatic veins are patent. Main portal vein measures approximately 1.7 cm. There is recannulization periumbilical vein. Gallbladder is contracted. No gallstone or biliary dilatation is noted. Pancreas and right adrenal are unremarkable. A 1.4 x 2.2 cm mass is seen in the left adrenal. The attenuation of the left adrenal mass measures 33 Hounsfield units on the precontrast study, 49 Hounsfield units on the arterial phase examination and, and 45 Hounsfield unit on the images on the delayed examination. Both kidneys are normal in size and functioning with prompt bilateral excretion. No hydronephrosis, solid or cystic mass is seen in either kidney. Scattered diverticular disease is seen in the large bowel without diverticulitis. The small bowel is normal in caliber. Appendix is not visualized. Vascular calcification is seen in the abdominal aorta and bilateral iliac arteries. IMPRESSION: 1. Cirrhosis with splenomegaly and salomón l hypertension. 2. Hypodense mass in the segment 6/7 of the liver. Recommend tissue diagnosis. 3. Left adrenal mass. Signed: Silvestre De Luna MD Report Verified Date/Time: 07/07/2019 18:18:34 Reading Location: [facility] B1 C013Y CT Body Reading Room Performing Organization Address City/State/Zipcode Ph one Number [employer] [facility] * 2D Echo W/Doppler(CW/PW/Color) (07/07/2019 11:43 AM CDT) Ejection Fraction [facility] ECHO HEARTLAB [facility] Specimen Narrative Performed At Transthoracic Echocardiography Report (TTE) [facility] ECH O HEARTLAB Demographics [facility] Patient Name JSEUS ROD Date o f Study07/07/2019 [id number] Gender Male Visit Number [id number] Unknown Accession Number [id number] Room Num [id number] Date of Birth1955Refe rring Physician Age63 year(s)Horse [employer] Manager Abed Jaydon Interpreting Physician Luda Rodriguez MD Procedure Type of Study TTE procedure:2DECHO W DO PPLER(CW/PW/COLOR) (Routine) Indications:Evaluation of suspected pul monary hypertension. Clinical History HGB 7.5 HCT 25.3 % DM HTN Contrast Medium: Definity. Amount - 2 m l Height: 69 inches Weight: 131.54 kg (29 0 lbs) BSA: 2.42 m^2 BMI: 42.83 kg/m^2 HR: 80 bpm BP: 132/63 mmHg Summary Global LV systolic function normal No evidence of LV hypertrophy. LA size is mildly enlarged (35-41 ml/m2 ) . LV diastolic function is indeterminate. The right ventricular chamber size and systolic function are within normal limits. Unable to estimate peak systolic PA pre ssure; inadequate TR velocity signal. The estimated RA pressure by IVC dynami cs indeterminate . Previous Study No prior exam available for comparison. Signature Findings Left Ventricle Global L V systolic function normal LVEF by Gonsalves's method of disk assessment is normal (55-60%) . No evidence of LV hypertrophy. LV diastolic function is indeterminate. Left AtriumLA s ize is mildly enlarged (35-41 ml/m2) . Right VentricleThe righ t ventricular chamber size and systolic function are within normal limits. Right Atrium RA siz e is normal. Aortic Valve Normal AoV structure. Mitral Valve Normal MV structure. Mild mitral regurgitation. Tricuspid ValveTV struc ture is normal. Unable to estimate peak systolic PA pressure; inadequate TR velocity signal. Pulmonic Valve Normal P V structure appears normal by available views. Aorta Aortic root size (SInus of Valsalva diameter) is normal . PericardiumNo p ericardial effusion is visualized. IVC/SVC/PA/PV/PleuralThe estimated RA pressure by IVC dynamics indeterminate . Chambers/Structures Left Atrium LA Dimension: 5.33 cm LA Area: 26.28 cm^2 LA Volume: 87.86 ml LA Vol. Index: 36 ml/m^2 Left Ventricle LVIDd: 4.33 cm LVEDV:79.7 ml LVIDs: 2.67 cm LV Septum Diastolic: 1.06 cm LV PW Diastolic: 1.07 cm LV FS: 38.3 % LVEDV Gonsalves's:85.59 ml LVESV Gonsalves's:41.31 ml LVEDVI: 35 ml/m^2 LVEF Gonsalves's: 51.7 % LVESVI: 17 ml/m^2 LVOT Diameter: 2.05 cm Right Ventricle RVOT VTI: 17.54 cm Doppler/Quantitative Measurements Mitral Valve MV Peak E-Wave: 0.88 m/s MV Peak A-Wave: 0.94 m/s E/A Ratio: 0.93 Peak Gradient: 3.08 mmHg Deceleration Time: 243.9 msec MV Jann. Peak: Tissue Doppler E' Septal Velocity: 0.09 m/s E/E': 9.83 E' Lateral Velocity: 0.08 m/s Aortic Valve Peak Velocity: 1.46 m/s Mean Velocity: 0.86 m/s Peak Gradient: 8.56 mmHg Mean Gradient: 3.8 mmHg AV Area (continuity): 3.55 cm^2 AV VTI: 29.31 cm AV DVI: 1.08 LVOT Peak Velocity: 1.35 m/s Peak Gradient: 7.33 mmHg Mean Velocity: 0.87 m/s Mean Gradient: 3.63 mmHg LVOT Diameter: 2.05 cm LVOT VTI: 31.56 cm LVOT Area: 3.3 cm^2 LVOT SV:104.12 ml LVOT CO: 8.33 l/min LVOT CI: 3.44 l/min/m^2 Procedure Note Interface, External Ris In - 07/07/2019 1:43 PM CDT Transthoracic Echocardiography Report (TTE) Demographics Patient Name JESUS ROD Date of Study 07/07/2019 Gender Male Visit Number [id number] Race Unknown Accession Number [id number] Room Number 955 Date of 1955 Referring Physician Age 63 year(s) 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 Clinical History HGB 7.5 HCT 25.3 % DM HTN Contrast Medium: Definity. Amount - 2 ml Height: 69 inches Weight: 131.54 kg (290 lbs) BSA: 2.42 m^2 BMI: 42.83 kg/m^2 HR: 80 bpm BP: 132/63 mmHg Summary Global LV systolic function normal No evidence of LV hypertrophy. LA size is mildly enlarged (35-41 ml/m2) . LV diastolic function is indeterminate. The right ventricular chamber size and systolic function are within normal limits. Unable to estimate peak systolic PA pressure; inadequate TR velocity signal. The estimated RA pressure by IVC dynamics indeterminate . Previous Study No prior exam available for comparison. Signature Findings Left Ventricle Global LV systolic function normal LVEF by Gonsalves's method of disk assessment is normal (55-60%) . No evidence of LV hypertrophy. LV diastolic function is indeterminate. Left Atrium LA size is mildly enlarged (35-41 ml/m2) . Right Ventricle The right ventricular chamber size and systolic function are within normal limits. Right Atrium RA size is normal. Aortic Valve Normal AoV structure. Mitral Valve Normal MV structure. Mild mitral regurgitation. Tricuspid Valve TV structure is normal. Unable to estimate peak systolic PA pressure; inadequate TR velocity signal. Pulmonic Valve Normal PV structure appears normal by available views. Aorta Aortic root size (SInus of Valsalva diameter) is normal . Pericardium No pericardial effusion is visualized. IVC/SVC/PA/PV/Pleural The estimated RA pressure by IVC dynamics indeterminate . Chambers/Structures Left Atrium LA Dimension: 5.33 cm LA Area: 26.28 cm^2 LA Volume: 87.86 ml LA Vol. Index: 36 ml/m^2 Left Ventricle LVIDd: 4.33 cm LVEDV:79.7 ml LVIDs: 2.67 cm LV Septum Diastolic: 1.06 cm LV PW Diastolic: 1.07 cm LV FS: 38.3 % LVEDV Gonsalves's:85.59 ml LVESV Gonsalves's:41.31 ml LVEDVI: 35 ml/m^2 LVEF Gonsalves's: 51.7 % LVESVI: 17 ml/m^2 LVOT Diameter: 2.05 cm Right Ventricle RVOT VTI: 17.54 cm Doppler/Quantitative Measurements Mitral Valve MV Peak E-Wave: 0.88 m/s MV Peak A-Wave: 0.94 m/s E/A Ratio: 0.93 Peak Gradient: 3.08 mmHg Deceleration Time: 243.9 msec MV Jann. Peak: Tissue Doppler E' Septal Velocity: 0.09 m/s E/E': 9.83 E' Lateral Velocity: 0.08 m/s Aortic Valve Peak Velocity: 1.46 m/s Mean Velocity: 0.86 m/s Peak Gradient: 8.56 mmHg Mean Gradient: 3.8 mmHg AV Area (continuity): 3.55 cm^2 AV VTI: 29.31 cm AV DVI: 1.08 LVOT Peak Velocity: 1.35 m/s Peak Gradient: 7.33 mmHg Mean Velocity: 0.87 m/s Mean Gradient: 3.63 mmHg LVOT Diameter: 2.05 cm LVOT VTI: 31.56 cm LVOT Area: 3.3 cm^2 LVOT SV:104.12 ml LVOT CO: 8.33 l/min LVOT CI: 3.44 l/min/m^2 Performing Organization Address [facility]/Pending Sale To [facility] one Number [facility] ECHO HEARTLAB MKCKESSON CPACS * Potassium (07/07/2019 10:44 AM CDT) Potassium 3.5 3.5 - 5.1 meq/L [facility] Specimen Blood Narrative Performed At [employer] [facility] Performing Organization Address [facility]/Pending Sale To [facility] one [place] [phone] [place] [address] * Phosphorus (07/07/2019 10:44 AM CDT) Only the most recent of 6 results within the time period is included. Phosphorus 2.1 (L) 2.3 - 4.7 mg/dL [facility] Specimen Blood Narrative Performed At [employer] [facility] Performing Organization Address [facility]/Pending Sale To [facility] one Number [place] [phone] [place] [address] * Magnesium (07/07/2019 10:44 AM CDT) Only the most recent of 6 results within the time period is included. Magnesium 1.2 (L) 1.6 - 2.6 mg/dL [facility] Specimen Blood Narrative Performed At Fur Tailor ID [facility] Performing Organization Address [facility] Ph one [place] [address] [facility] * Vancomycin level, trough (07/07/2019 10:44 AM CDT) Vancomycin Tr 12.7 10.0 - 20.0 ug/mL [facility] Specimen Blood Narrative Performed At Fur Tailor ID - NTP [facility] Performing Organization Address City/State/Zipcode Ph one Number [address] [address] [facility] * Manual Differential (07/07/2019 4:29 AM CDT) Only the most recent of 2 results within the time period is included. % Neutros 79 % [facility] % Lymphs 11 % [facility] % Monos 6 % [facility] % Eos 1 % [facility] % Bands 2 0 - 10 % [facility] # Neutros 1.90 1.78 - 5.38 K/ul [facility] # Lymphs 0.26 (L) 1.32 - 3.57 K/ul [facility] # Monos 0.14 (L) 0.30 - 0.82 K/uL [facility] # Eos 0.02 (L) 0.04 - 0.54 K/uL [facility] # Bands 0.05 0.00 - 0.80 K/uL [facility] Total Counted 100 [facility] WBC Morphology Normal [facility] Platelet Morphology Normal [facility] Polychromasia 2+ moderate [facility] Hypochromia 1+ few [facility] Target Cells 2+ moderate [facility] Artifact Present [facility] Platelet Conc Decreased [facility] Specimen Blood Narrative Performed At Fur Tailor ID - [id number] [facility] Fur Tailor ID - [facility] User comments: Slide comments: Performing Organization Address [facility] Ph one Number [facility] [address] [place], [place] [address] [facility] * Hepatic function panel (07/07/2019 3:47 AM CDT) Only the most recent of 3 results within the time period is included. Protein, Total 4.8 (L) 6.0 - 8.3 gm/dL [facility] Albumin 2.2 (L) 3.5 - 5.0 g/dL [facility] Total Bilirubin 0.4 0.2 - 1.2 mg/dL [facility] Bilirubin, Direct 0.3 0.1 - 0.5 mg/dL [facility] Alkaline Phosphatase 53 40 - 150 U/L [facility] AST 40 (H) 5 - 34 U/L [facility] ALT 31 6 - 55 U/L [facility] Specimen Blood Narrative Performed At Fur Tailor ID - PIAYA L [facility] Performing Organization Address City/[facility] Ph one Number [place] [phone] [facility] * Basic Metabolic Panel (07/07/2019 3:47 AM CDT) Only the most recent of 4 results within the time period is included. Sodium 138 136 - 145 meq/L [facility] Potassium 2.1 (LL) 3.5 - 5.1 meq/L [facility] Chloride 117 (H) 98 - 107 meq/L [facility] CO2 16 (L) 22 - 29 meq/L [facility] BUN 7 7 - 21 mg/dL [facility] Creatinine 0.61 0.57 - 1.25 mg/dL [facility] Glucose 98 70 - 105 mg/dL [facility] Calcium 7.4 (L) 8.4 - 10.2 mg/dL [facility] EGFR Comment: INSUFFICIENT CLINICAL [facility] DATA TO CALCULATE ESTIMATED [facility] GFR. Specimen Blood Narrative Performed At Fur Tailor ID - LA [facility] Fur Tailor ID - NTP [facility] Performing Organization Address City/State/Zipcode Ph one Number [address] [facility] * Transfuse Leuko-Red RBC (07/07/2019 1:10 AM CDT) Only the most recent of 2 results within the time period is included. * SARS-CoV2/RT-PCR (Symptomatic ONLY) (07/06/2019 11:08 PM CDT) SARS-COV2/RT-PCR Not Detected Not Detected, Negative [facility] SARS-COV-2 PERFORMING LAB [facility] Specimen Other Narrative Performed At Negative results do not preclude SARS-C oV-2 infection and should not be used as [facility] the sole basis for patient management decisions. Nega tive results must be [facility] combined with clinical observations, pa tient history, and epidemiological information. A false negative result ma y occur if a specimen is improperly collected, transported or handled. The limit of detection for this assay i s 250 copies/mL. This SARS CoV-2 test is a rapid, real-t jaye RT-PCR test intended for the qualitative detection of nucleic acid f rom SARS-CoV-2 in a nasopharyngeal swab specimen collected from individuals marci pected of COVID-19 by their healthcare provider. This test has not been Food and Drug Ad ministration (FDA) cleared or approved and has been authorized by FDA under an Emergency Use Authorization (EUA). This EUA will be effective until the declara tion that circumstances exist justifying the authorization of the emergency use of in vitro diagnostic tests for detection and/or diagnosis of COVID-19 is terminated under Section 564(b)(2) of the Act or the EUA is revoked under Sec tion 564(g) of the Act. Fact Sheet for Healthcare Providers: https://www.Only-apartments/Documents/Xpert%20Xpress%20SARS%20CoV-2/Fact%20Sheets/30 2-3802%67TAQV-GTJ-1%20HEALTHCARE%20PROV IDERS%20FACT%20SHEET.pdf Fact Sheet for Healthcare Patients: https://www.Only-apartments/Documents/Xpert%20Xpress%20SARS%20CoV-2/Fact%20Sheets/30 2-3801%89JLCN-EDQ-7%20PATIENT%20FACT%20 SHEET.pdf Performing Laboratory: [address] [place] [address] Performing Organization Address City/State[facility] Ph one Number [place] [address] [facility] * Respiratory Panel [facility] (07/06/2019 11:08 PM CDT) Human Metapneumovirus Not detected Not detected, Equivocal [facility] Rhinovirus Not detected Not detected, Equivocal [facility] Influenza A Not detected Not detected, Equivocal [facility] INFLUENZA A (NO SUBTYPE) [facility] Influenza A subtype H1 [facility] Influenza A Subtype H3 [facility] Influenza A Subtype [facility] H1-2009 [facility] Influenza B Not detected Not detected, Equivocal [facility] Respiratory Syncytial Not detected Not detected, Equivocal [facility] Virus [facility] Parainfluenza Virus 1 Not detected Not detected, Equivocal [facility] Parainfluenza Virus 2 Not detected Not detected, Equivocal [facility] Parainfluenza virus 3 Not detected Not detected, Equivocal [facility] Parainfluenza Virus 4 Not detected Not detected, Equivocal [facility] Adenovirus Not detected Not detected, Equivocal [facility] Coronavirus 229E Not detected Not detected, Equivocal [facility] Coronavirus HKU1 Not detected Not detected, Equivocal [facility] Coronavirus NL63 Not detected Not detected, Equivocal [facility] Coronavirus OC43 Not detected Not detected, Equivocal [facility] Bordetella Pertussis Not detected Not detected, Equivocal [facility] Chlamydophila Pneumoniae Not detected Not detected, Equivoc al [facility] Mycoplasma Pneumoniae Not detected Not detected, Equivocal [facility] Specimen Nasopharyngeal Narrative Performed At Other viruses and bacteria not targeted by this PCR p sharmaine cannot be excluded; [facility] therefore clinical correlation and follow up of serol ogy, culture results, and [facility] other molecular studies is required. Th e results are not intended to be used as the sole means for clinical diagnosis o r patient management decisions. This sample was tested at the [facility] using the [employer] FilmArray Respiratory Panel. It is FDA cleared and has been verified and approved by the [facility] Molecular Diagnos tics Laboratory for clinical use on nasopharyngeal swab specimens. The performance of the FilmArray RP has not been established in individuals who received influenza vaccine.Recent a dministration of a nasal influenza vaccine may cause false positive result s for Influenza A and/or Influenza B. Performing Organization Address City/State/Zipcode Ph one Number [facility] [address] [place] [id number] [facility] * ALISIA, manual (07/06/2019 6:48 PM CDT) ABO Grouping B [facility] Rh Factor POS [facility] Specimen Blood Performing Organization Address City/State/Zipcode Ph one Number [facility] [address] [place] [address] [facility] * Type and screen, automated (07/06/2019 6:29 PM CDT) ABO/RH AUTOMATED (BEAKER) B POSITIVE [facility] Ab Scrn NEGATIVE [facility] Specimen Blood Performing Organization Address City/State/Zipcode Ph one Number [facility] [address] [place] [address] [facility] * MR abdomen without & with IV contrast (07/06/2019 6:25 PM CDT) Specimen Narrative Performed At FINAL REPORT [employer] TECHNIQUE: MRI of the abdomen WITHOUT a nd WITH intravenous contrast. INDICATION: Liver lesion. COMPARISON: Ultrasound earlier today. FINDINGS: Exam is markedly limited seco ndary to motion artifact. Arterial phase exam was not obtained. LOWER THORAX: Unremarkable. LIVER: Cirrhotic morphology of the live r.. In segment 5-6 of the liver there is a 7.2 x 6.3 cm heterogen eous mass which demonstrates peripheral enhancement on postcontrast images.. There is also a 3.5 cm hypoenhancing mass within segment IV b. There is an additional 1.5 cm T2 hyperintense lesion in segment II adjacent to gallbladder fossa. There is also a 1.4 cm T2 hyperi ntense lesion in the periphery of segment . There is also 1.6 cm T2 hyperintense focus inferiorly within segment V. BILIARY: There is mild nonspecific gall bladder wall thickening likely related to cirrhosis.. No biliary ducta l dilatation or filling defect. SPLEEN: Spleen is enlarged measuring 17 cm in craniocaudal dimension.. PANCREAS: No focal masses or ductal dil atation. ADRENALS: 2 cm left adrenal nodule whic h demonstrates signal loss on opposed phase images consistent with li pid rich adenoma.. KIDNEYS/URETERS: No hydronephrosis or s olid mass lesions. PERITONEUM/RETROPERITONEUM: No free flu id. LYMPH NODES: No lymphadenopathy. VESSELS: Unremarkable. GI TRACT: No distention or wall thicken ing. BONES AND SOFT TISSUES: Unremarkable. IMPRESSION: Limited exam secondary to motion artifa ct and lack of arterial phase exam. Cirrhosis with multiple masses in the b ilateral hepatic lobes which are not adequately characterized on thi s exam but are suspicious for hepatocellular carcinoma. Further evalu ation with CT liver protocol is recommended. Sequelae of portal hypertension. No renal mass. Signed: Elizabeth Rankin MD Report Verified Date/Time: 0 18:40:36 Reading Location: [address] Transiti onor Reading Room Procedure Note Interface, External Ris In - 07/06/2019 6:42 PM CDT FINAL REPORT TECHNIQUE: MRI of the abdomen WITHOUT and WITH intravenous contrast. INDICATION: Liver lesion. COMPARISON: Ultrasound earlier today. FINDINGS: Exam is markedly limited secondary to motion artifact. Arterial phase exam was not obtained. LOWER THORAX: Unremarkable. LIVER: Cirrhotic morphology of the liver.. In segment 5-6 of the liver there is a 7.2 x 6.3 cm heterogeneous mass which demonstrates peripheral enhancement on postcontrast images.. There is also a 3.5 cm hypoenhancing mass within segment IVb. There is an additional 1.5 cm T2 hyperintense lesion in segment VIII adjacent to gallbladder fossa. There is also a 1.4 cm T2 hyperintense lesion in the periphery of segment . There is also 1.6 cm T2 hyperintense focus inferiorly within segment V. BILIARY: There is mild nonspecific gallbladder wall thickening likely related to cirrhosis.. No biliary ductal dilatation or filling defect. SPLEEN: Spleen is enlarged measuring 17 cm in craniocaudal dimension.. PANCREAS: No focal masses or ductal dilatation. ADRENALS: 2 cm left adrenal nodule which demonstrates signal loss on opposed phase images consistent with lipid rich adenoma.. KIDNEYS/URETERS: No hydronephrosis or solid mass lesions. PERITONEUM/RETROPERITONEUM: No free fluid. LYMPH NODES: No lymphadenopathy. VESSELS: Unremarkable. GI TRACT: No distention or wall thickening. BONES AND SOFT TISSUES: Unremarkable. IMPRESSION: Limited exam secondary to motion artifact and lack of arterial phase exam. Cirrhosis with multiple masses in the bilateral hepatic lobes which are not adequately characterized on this exam but are suspicious for hepatocellular carcinoma. Further evaluation with CT liver protocol is recommended. Sequelae of portal hypertension. No renal mass. Signed: Elizabeth Rankin MD Report Verified Date/Time: 07/06/2019 18:40:36 Reading Location: [facility] C[facility] Transitional Reading Room Performing Organization Address City/[facility]/Pending [facility] one Number GE CLEMENTE * Hemoglobin and hematocrit (07/06/2019 8:41 AM CDT) Hemoglobin 6.7 (L) 13.7 - 17.5 GM/DL [facility] Hematocrit 23.8 (L) 40.1 - 51.0 % [facility] Specimen Blood Narrative Performed At Fur Tailor ID - [id number] [facility] Performing Organization Address [facility] one Number [place] [address] [facility] * Procalcitonin (07/06/2019 4:00 AM CDT) Procalcitonin 6.60 (H) <0.05 ng/mL [facility] Specimen Blood Narrative Performed At SEPSIS RISK (ng/mL) [facility] Low:0.05-0.50 [facility] Intermediate: 0.51-2.00 High: >=2.01 Performing Organization Address [facility] one Number [place] [address] [facility] * US abdomen complete (07/06/2019 3:10 AM CDT) Specimen Narrative Performed At FINAL REPORT [employer] TECHNIQUE: Grayscale ultrasound of the abdomen. INDICATION: suspected liver cirrhosis. COMPARISON: None. FINDINGS: MIDLINE VASCULATURE: The visualized inf erior vena cava is patent. Portal vein is patent. The maximum visu alized aortic diameter is 2.3 cm. Liver length measured at 17.5 cm. LIVER: Nodular liver contour. No suspic ious lesions. There is a hepatic parenchymal calcification that is 0.9 x 0.6 x 0.9 cm. The main portal vein measures 1.1 cm. BILIARY: Gallbladder: No gallstones or sludge. N o gallbladder wall thickening, pericholecystic fluid, or distention. N egative sonographic Mcmahon sign. Common bile duct was unable to be ident ified secondary to bowel gas. No intrahepatic biliary ductal dilatati on. PANCREAS: Incompletely visualized due t o overlying bowel gas. SPLEEN: Mild splenomegaly. The spleen m easures 14.4 cm. PERITONEUM: No free fluid. KIDNEYS: Normal in size bilaterally. No hydronephrosis. No sonographically evident solid mass lesi on. There is a cystic lesion at the upper pole of the left kidney th at is 5.4 x 4.7 x 3.7 cm with posterior acoustic enhancement and a fe w septa. IMPRESSION: 1. Nodular liver contour compatible wit h cirrhosis. 2. Mild splenomegaly. 3. Left renal cystic lesion mildly comp reina with a few septa. Consider further evaluation with nonemergent CT or MRI renal protocol. Signed: Silvestre Hood MD Report Verified Date/Time: 0 03:42:00 Procedure Note Interface, External Ris In - 07/06/2019 3:44 AM CDT FINAL REPORT TECHNIQUE: Grayscale ultrasound of the abdomen. INDICATION: suspected liver cirrhosis. COMPARISON: None. FINDINGS: MIDLINE VASCULATURE: The visualized inferior vena cava is patent. Portal vein is patent. The maximum visualized aortic diameter is 2.3 cm. Liver length measured at 17.5 cm. LIVER: Nodular liver contour. No suspicious lesions. There is a hepatic parenchymal calcification that is 0.9 x 0.6 x 0.9 cm. The main portal vein measures 1.1 cm. BILIARY: Gallbladder: No gallstones or sludge. No gallbladder wall thickening, pericholecystic fluid, or distention. Negative sonographic Mcmahon sign. Common bile duct was unable to be identified secondary to bowel gas. No intrahepatic biliary ductal dilatation. PANCREAS: Incompletely visualized due to overlying bowel gas. SPLEEN: Mild splenomegaly. The spleen measures 14.4 cm. PERITONEUM: No free fluid. KIDNEYS: Normal in size bilaterally. No hydronephrosis. No sonographically evident solid mass lesion. There is a cystic lesion at the upper pole of the left kidney that is 5.4 x 4.7 x 3.7 cm with posterior acoustic enhancement and a few septa. IMPRESSION: 1. Nodular liver contour compatible with cirrhosis. 2. Mild splenomegaly. 3. Left renal cystic lesion mildly compl ex with a few septa. Consider further evaluation with nonemergent CT or MRI renal protocol. Signed: Silvestre Hood MD Report Verified Date/Time: 07/06/2019 03:42:00 Performing Organization Address City/[facility] one Number GE [facility] * Blood Culture - Routine (Left Venipuncture) (07/06/2019 12:22 AM CDT) Only the most recent of 4 results within the time period is included. Result No growth in 5 days [facility] Specimen Blood Performing Organization Address [facility] Ph one Number [place] [phone] [facility] * Urinalysis w/Microscopic + Reflex to Culture (07/05/2019 4:47 PM CDT) Color, UA Yellow [facility] Clarity, UA Cloudy [facility] Specific [place], UA 1.026 1.001 - 1.035 [facility] pH, UA 5.0 5.0 - 8.0 [facility] Protein, UA 10 mg/dL (A) Negative [facility] Glucose, UA Negative Negative [facility] Ketones, UA Negative Negative [facility] Bilirubin, UA Negative Negative [facility] Blood, UA Negative Negative [facility] Nitrite, UA Negative Negative [facility] Leukocytes, UA Negative Negative [facility] Urobilinogen, UA 0.2 0.2 - 1.0 mg/dL [facility] RBC, UA 1 /HPF [facility] WBC, UA 4 /HPF [facility] Mucus Rare [facility] Squam Epithel, UA 9 /HPF [facility] Hyaline Casts, UA 5 /LPF [facility] Uric Acid Crystals Occasional [facility] Amorphous Crystals Occasional [facility] Specimen Source [facility] Specimen Urine - Urine, Straight Catheter Narrative Performed At Fur Tailor ID - [auto] [facility] Fur Tailor ID - tech [facility] Performing Organization Address City/[facility] Cent[facility] Ph one Number [address] 0 [phone] [address] * Legionella antigen, urine (07/05/2019 4:47 PM CDT) Legionella Urine Antigen Negative - see commentComment: [facility] Negative for L. pneumophila [facility] serogroup 1 antigen, suggesting no recent or current infection with this serogroup. Legionellosis cannot be ruled out since other serogroups and species may cause disease. Specimen Urine Performing Organization Address City/[facility] Ph one Number [address] 7[address] 0 [phone] [address] * Phosphatidylethanol (07/05/2019 11:59 AM CDT) Scan Result [facility] Specimen Blood Narrative Performed At This result has an attachment that is n ot available. Performing Organization Address City/State/Zipcode Ph one Number [facility] [id number] [facility] [place] * Hepatitis C antibody (07/05/2019 5:52 AM CDT) Hepatitis C Ab Nonreactive Nonreactive [facility] Specimen Blood Narrative Performed At Fur Tailor ID - NTP [facility] Performing Organization Address City/State/Zipcode Ph one Number [address] [facility] * Lactic acid, venous (07/05/2019 5:52 AM CDT) Only the most recent of 2 results within the time period is included. Lactate, Venous 1.83 0.50 - 2.20 mmol/L [facility] Specimen Blood Narrative Performed At Fur Tailor ID - ALAN M [facility] Performing Organization Address City/[facility] Ph one Number [facility] [address] [place], [place] [address] [facility] * Alpha fetoprotein (AFP), tumor marker (07/05/2019 5:52 AM CDT) Alpha-Fetoprotein 26.9 (H) <10.0 ng/mL [facility] Specimen Blood Narrative Performed At Fur Tailor ID - NTP [facility] Performing Organization Address [facility] Ph one Number [facility] [address] [place], [place] [address] [facility] * XR chest 1 view portable / bedside (07/05/2019 2:40 AM CDT) Specimen Narrative Performed At FINAL REPORT [facility] INDICATION: shortness of breath COMPARISON: None TECHNIQUE: Single frontal view of the c hest. IMPRESSION: Lungs and pleura: Hypoinflated lungs wi th pulmonary venous congestion. There are hazy bibasilar ai rspace opacities suggestive of edema. Superimposed infection would nee d to be excluded clinically. No effusion. Heart and mediastinum: Mild cardiomegal y. Mediastinal contours are unremarkable. Osseous structures: No acute abnormalit y. Other: None. Signed: Silvestre Hood MD Report Verified Date/Time: 0 02:54:14 Procedure Note Interface, External Ris In - 07/05/2019 2:56 AM CDT FINAL REPORT INDICATION: shortness of breath COMPARISON: None TECHNIQUE: Single frontal view of the chest. IMPRESSION: Lungs and pleura: Hypoinflated lungs with pulmonary venous congestion. There are hazy bibasilar airspace opacities suggestive of edema. Superimposed infection would need to be excluded clinically. No effusion. Heart and mediastinum: Mild cardiomegaly. Mediastinal contours are unremarkable. Osseous structures: No acute abnormality. Other: None. Signed: Silvestre Hood MD Report Verified Date/Time: 07/05/2019 02:54:14 Performing Organization Address [facility] Center/[facility]/Pending Sale To [facility] one Number GE RIS * Lipid panel (07/05/2019 1:49 AM CDT) Triglycerides 43 mg/dL [facility] Cholesterol 55 mg/dL [facility] HDL 23 mg/dL [facility] LDL Calculated 23 mg/dL [facility] Specimen Blood Narrative Performed At Triglyceride Reference Range: [facility] Low Risk <150 [facility] [id number] High Risk 200-499 Very High Risk>=500 Cholesterol Reference Range: Low Risk <200 [id number] High Risk>240 HDL Cholesterol Reference Range: Low Risk >=60 High Risk <40 LDL Cholesterol Reference Range: Optimal<100 Near [id number] Very High >=190 Fur Tailor ID - ALAN Butler Performing Organization Address [facility]/Pending Sale To [facility] one Number [address] [facility] * TSH/Free T4 If Indicated (07/05/2019 1:25 AM CDT) TSH 0.374 0.350 - 4.940 uIU/mL [facility] Specimen Blood Narrative Performed At Fur Tailor ID - ALAN M [facility] Performing Organization Address [facility]/Pending Sale To [facility] one Number [place] [id number] [place], [place] [address] [facility] * Iron, TIBC, % sat. (without ferritin) (07/05/2019 1:25 AM CDT) Iron 12.0 (L) 40.0 - 160.0 ug/dL [facility] TIBC 380 250 - 450 ug/dL [facility] Iron % Saturation 3 (L) 20 - 55 % [facility] Specimen Blood Narrative Performed At Fur Tailor ID - ALAN M [facility] Performing Organization Address City/[facility] one Number [address] [facility] * HIV-1 Antigen with HIV-1/2 Antibody (07/05/2019 1:25 AM CDT) HIV-1 Antigen with HIV Nonreactive Nonreactive [facility] 1& Antibody [facility] Specimen Blood Narrative Performed At Fur Tailor ID - DB [facility] Performing Organization Address [facility] Ph one Number [place] [phone] [place] [address] * Hepatitis B Panel (07/05/2019 1:25 AM CDT) Hep B Core Total Ab Reactive (A) Nonreactive [facility] Hep B S Ab 17.7 (H) <8.0 mIU/mL [facility] HBsAg Screen Nonreactive Nonreactive [facility] Specimen Blood Narrative Performed At Fur Tailor ID - DB [facility] Performing Organization Address City/[facility] Ph one Number [address] [facility] * Hepatitis A Panel (07/05/2019 1:25 AM CDT) Hep A IgM Nonreactive Nonreactive [facility] Hep A IgG Reactive (A) Nonreactive [facility] Specimen Blood Narrative Performed At Fur Tailor ID - [facility] Performing Organization Address City/[facility] one Number [address] [facility] * Troponin I (07/05/2019 1:25 AM CDT) Troponin I <0.01 0.00 - 0.03 ng/mL [facility] Specimen Blood Narrative Performed At Troponin I (TnI) levels must be interpreted in the co ntext of the presenting [facility] symptoms and the clinical findings. Elevated TnI leve ls indicate myocardial [facility] damage, but are not specific for ischem ic heart disease. Elevated TnI levels are seen in patients with other cardiac con ditions (including myocarditis and congestive heart failure), and slight T nI elevations occur in patients with other conditions, including sepsis, jesu al failure, acidosis, acute neurological disease, and persistent tachyarrhythmia . Fur Tailor ID - ALAN Butler Performing Organization Address [facility]/Pending Sale To [facility] one Number [address] [facility] * Reticulocyte count (07/05/2019 1:25 AM CDT) % Retic 2.6 (H) 0.5 - 1.8 % [facility] Specimen Blood Narrative Performed At Fur Tailor ID - [id number] [facility] Performing Organization Address [facility]/Pending Sale To [facility] one Number [address] [facility] * Lipase (07/05/2019 1:25 AM CDT) Lipase 39 8 - 78 U/L [facility] Specimen Blood Narrative Performed At Fur Tailor ID - ALAN M [facility] Performing Organization Address [facility] Ph one Number [address] [facility] * Lactate dehydrogenase (LDH) (07/05/2019 1:25 AM CDT) LDH 133 125 - 220 U/L [facility] Specimen Blood Narrative Performed At Fur Tailor ID - ALAN M [facility] Performing Organization Address City/State/Zipcode Ph one [address] 0 [phone] [place] [address] * Folate, Serum (07/05/2019 1:25 AM CDT) Folate 11.70 >=7.00 ng/mL [facility] Specimen Blood Narrative Performed At Fur Tailor ID - [facility] Performing Organization Address City/[facility]/Zipcode Ph one [address] 0 [phone] [address] * Ferritin (07/05/2019 1:25 AM CDT) Ferritin 6.21 5.00 - 275.00 ng/mL [facility] Specimen Blood Narrative Performed At Fur Tailor ID - ALAN [facility] Performing Organization Address City/[facility] Ph one [address] 0 [phone] [place] [address] * Vitamin B12 (07/05/2019 1:25 AM CDT) Vitamin B12 945 (H) 213 - 816 pg/mL [facility] Specimen Blood Narrative Performed At Fur Tailor ID - [facility] Performing Organization Address City/State/Zipcode Ph one [address] 0 [phone] [place] [address] * Creatine Kinase (CK) (07/05/2019 1:25 AM CDT) Total CK 89 29 - 200 U/L [facility] Specimen Blood Narrative Performed At Fur Tailor ID - [facility] Performing Organization Address City/State/Zipcode Ph one Number [facility] [address] [place] [address] [address] [facility] * Ammonia (07/05/2019 1:25 AM CDT) Ammonia 43 18 - 72 mol/L [facility] Specimen Blood Narrative Performed At Fur Tailor ASHLEE Francis ALAN Butler [facility] Performing Organization Address City/[facility] Ph one Number [address] [facility] * Blood gas, venous (07/05/2019 1:24 AM CDT) pH, Sebastien 7.39 7.32 - 7.42 [facility] pCO2, Sebastien 37 (L) 41 - 51 mmHg [facility] pO2, Sebastien 66 (H) 25 - 40 mmHg [facility] O2 Sat, Sebastien 92.9 (H) 40.0 - 70.0 % [facility] HCO3, Sebastien 22 21 - 29 mmol/L [facility] Base Excess, Sebastien -2.7 (L) -2.0 - 3.0 mmol/L [facility] Patient Temperature 37.0 C [facility] FIO2 21.0 % [facility] Specimen Blood Performing Organization Address City/[facility] Ph one Number [address] [facility] * Prothrombin time/INR (07/05/2019 12:53 AM CDT) Protime 16.7 (H) 11.9 - 14.2 seconds [facility] INR 1.4 <=5.9 [facility] Specimen Blood Narrative Performed At Effective 07/23/2018: PT Reference Range Change [facility] New: 11.9-14.2Previous: 11.7-14.7 [facility]ICAL CE NTER RECOMMENDED COUMADIN/WARFARIN INR THERA PY RANGES STANDARD DOSE: 2.0-3.0Includes: PRO PHYLAXIS for venous thrombosis, systemic embolization; TREATMENT for venous thro mbosis and/or pulmonary embolus. HIGH RISK: Target INR is 2.5-3.5 for pa tients wiht mechanical heart valves. Performing Organization Address City/[facility] Ph one Number [facility] [address] [place] [address] [address] [facility] * Fibrinogen (07/05/2019 12:53 AM CDT) Fibrinogen 234 225 - 434 mg/dl [facility] Specimen Blood Performing Organization Address [facility] Ph one Number [address] [facility] after 07/30/2018 Insurance Payer Benefit Subscriber ID Type Phone Address Plan / Group PEREZ GuavusPLACE PEREZ xxxxxxxxxx [employer]CHANGE CDCREVIEW CDCREVIEW xxxxx[place] [address] [place] [place] [address] Advance Directives For more information, please contact: [address] [phone] Date Inactivated Comments Code Status Date Activated 07/10/2019 10:46 PM Full Code 07/05/2019 12:36 AM This code status was determined by: Patient
--- OUTSIDE RECORDS SUMMARY | 2019-07-31 14:28 | XMS REPORT | Continuity of Care Document ---
Author Author [facility] t Organization [facility] Address [address] [place] [address] Phone Unavailable Care Team Providers Care Small Business Banking Officer Name Role Phone MD Martell POON MD PCP Luis Carlos BENDER, Brittany Attphys Unavailable JOSH, THEE WIGGINS Attphys Unavailable Josh CROWDER, Thee Wiggins Attphys Toma Ty MD, Negrito Attphys Urban CROWDER, Angela Taylor Attphys Albert CROWDER, Carlota Hudson Attphys VERN OLIVEIRA Attphys Unavailable Martell CÁRDENAS Attphys Unavailable THEE MORENO Admphys Unavailable Carrie FAUST Admphys Unavailable Payers Payer Name Policy Type Policy Number Effective Date Expiration Date Estevan GLORIA [employer]ET[employer]AC[employer]ACE EXCHANGExxxxxxxxxx xx xxxxxxxx [facility] CDCREVIEWCD[place]EV[place]xxxxxxxx[place] [address] xxx xxxxx [facility] [employer] NA 2019 00:00:00 [facility] Problems Condition Name Condition Details Condition Category Status Onset Date Resolution Date Last Treatment Date Treating Clinician Comments Source Altered mental status, unspecified Altered mental status, unspec ified Disease Active 2019-07-05 00:00:00 [facility] Alcoholic cirrhosis Alcoholic cirrhosis Disease Active 2019-07-05 00:00 :00 [facility] Anemia Anemia Disease Active 2019-07-05 00:00:00 [facility] Type 2 diabetes mellitus Type 2 diabetes mellitus Disease Acti ve 2019-07-05 00:00:00 [facility] Hyperlipidemia Hyperlipidemia Disease Active 2019-07-05 00:00:00 [facility] Acute metabolic encephalopathy Acute metabolic encephalopathy Disea se Active 2019-07-05 00:00:00 [facility] Severe sepsis Severe sepsis Disease Active 2019-07-05 00:00:00 [facility] Coronary artery disease involving [place] coronary artery of [place]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 artery disease involving [place] coronary artery of [place] heart without angina pectoris Disease Active 2019-07-05 00:00:00 [facility] Cirrhosis of liver with ascites Cirrhosis of liver with ascites Dis ease Active 2019-07-05 00:00:00 [facility] Thrombocytopenia Thrombocytopenia Disease Active 2019-07-05 00:00:00 [facility] Hypomagnesemia Hypomagnesemia Disease Active 2019-07-05 00:00:00 [facility] Hypophosphatemia Hypophosphatemia Disease Active 2019-07-05 00:00:00 [facility] Iron deficiency anemia Iron deficiency anemia Disease Active 2019-07-05 00:00:00 [facility] Problem Condition Active [facility] Allergies, Adverse Reactions, Alerts Allergy Name Allergy Type Status Severity Reaction(s) Onset Date Inacti ve Date Treating Clinician Comments Source Penicillins Propensity to adverse reactions Active 2019 00:00:00 [facility] Social History Social Habit Start Date Stop Date Quantity Comments Source History SDOH Alcohol Std Drinks [facility] History SDOH Alcohol Binge [facility] Sex Assigned At [facility] History SDOH Alcohol Frequency 2019-07-05 00:00:00 2019-07-05 00:00:0 0 1 [facility] Alcohol Comment 2019-07-05 00:00:00 2019-07-05 00:00:00 quit 7 months ago [facility] Smoking Status Start Date Stop Date Source Never smoker [facility] Medications Ordered Medication Name Filled Medication Name Start Date Stop Da te Current Medication? Ordering Clinician Indication Dosage Frequency Signature (SIG) Comments Components Source folic acid (FOLVITE) 1 MG tablet 2019-07-11 00:00:00 07-10 23:59:00 Yes 1mg QD Take 1 tablet (1 mg total) by mouth dain y. [facility] folic acid (FOLVITE) 1 MG tablet 2019-07-11 00:00:00 2019-06 00:00:00 No 1mg QD Take 1 tablet (1 mg total) by mouth daily. [facility] irbesartan (AVAPRO) 300 MG tablet 2019-07-10 16:23:2019 00:00:00 No 300mg QD Take 300 mg by mouth nightly. [facility] triamterene-hydroCHLOROthiazide (DYAZIDE) 37.5-25 mg per cap terrie 2019-07-10 16:23:2019-07-10 00:00:00 No 1{capsule} QD Take 1 capsule by mouth every morning. [facility] metFORMIN (GLUCOPHAGE) 500 MG tablet 2019-07-10 16:23: 2019-07-10 00:00:00 No 500mg Take 500 mg by mouth 3 (three) times radha ly with meals. [facility] glipiZIDE (GLUCOTROL) 5 MG tablet 2019-07-10 16:23:2019 00:00:00 No 5mg Take 5 mg by mouth 2 (two) times daily b efore meals. [facility] gabapentin (NEURONTIN) 400 MG capsule 2019-07-10 16:23 :03 2019-07-10 00:00:00 No 400mg Q.[id number] Take 400 mg b y mouth 3 (three) times daily. [facility] rifAXIMin 550 mg Tab 2019-07-10 00:00:00 Yes 550mg Q.5D Take 1 tablet (550 mg total) by mouth 2 (two) times daily. [facility] ferrous sulfate 325 (65 FE) MG tablet 2019-07-10 00:00 :00 2020-07-09 23:59:00 Yes 325mg Q.5D Take 1 tablet (325 mg total) b y mouth 2 (two) times daily. [facility] amoxicillin-clavulanate (AUGMENTIN) 875-125 mg per tablet 2019-07-10 00:00:00 2019-07-17 23:59:00 No 1{tbl} Take 1 tablet by mouth every 12 (twelve) hours for 7 days. [facility] amoxicillin-clavulanate (AUGMENTIN) 875-125 mg per tablet 2019-07-10 00:00:00 2019-07-10 00:00:00 No 1{tbl} Take 1 tablet by mouth every 12 (twelve) hours for 7 days. [facility] ferrous sulfate 325 (65 FE) MG tablet 2019-07-10 00:00 :00 2019-07-10 00:00:00 No 325mg Q.5D Take 1 tablet (325 mg total) b y mouth 2 (two) times daily. [facility] rifAXIMin 550 mg Tab 2019-07-10 00:00:00 2019-07-10 00:00:00 No 550mg Q.5D Take 1 tablet (550 mg total) by mouth 2 (two) times daily. [facility] amoxicillin-clavulanate (AUGMENTIN) 875-125 mg per tablet 2019-07-10 00:00:00 2019-07-10 00:00:00 No 1{tbl} Take 1 tablet by mouth every 12 (twelve) hours for 7 days. [facility] famotidine (PEPCID) 40 MG tablet 2019-07-05 08:46:24 Yes 40mg Q.5D Take 40 mg by mouth 2 (two) times daily. [facility] propranoloL (INDERAL) 20 MG tablet 2019-07-05 08:46:24 Yes 20mg Q.5D Take 20 mg by mouth 2 (two) times daily. [facility] pantoprazole (PROTONIX) 40 MG tablet 2019-07-05 08:46:24 Ye s 40mg QD Take 40 mg by mouth daily. [facility] multivitamin (THERAGRAN) tablet 2019-07-05 08:46:24 Yes 1{tbl} QD Take 1 tablet by mouth daily. [facility] lactulose (CHRONULAC) 10 gram/15 mL (15 mL) solution 2 08:46:23 Yes 10g Q.5D Take 10 g by mouth 2 (two) times daily. [facility] atorvastatin (LIPITOR) 20 MG tablet 2019-07-05 08:46:23 Yes 20mg QD Take 20 mg by mouth daily. [facility] Aspirin (Aspir 81) 81 Mg TABLET. Aspirin (Aspir 81) 81 Mg TABLET. Yes Daily [facility] Atorvastatin Calcium Atorvastatin Calcium Yes 20 Bedtime [facility] Famotidine (Pepcid) 20 Mg TABLET Famotidine (Pepcid) 20 Mg TABLET Yes 40 Daily [facility] Gabapentin Gabapentin Yes 400 Three Times A Day [facility] Glipizide (Glipizide Er) 5 Mg TAB.ER.24 Glipizide (Glipizide Er) 5 Mg TAB.ER.24 Yes Daily [facility] Irbesartan Irbesartan Yes 300 Daily [facility] Lactulose Lactulose Yes 15 Three Times A Day [facility] Metformin Hcl Metformin Hcl Yes 500 Three Times A Day [facility] Multivits,Th W-Fe,Other Min (Thera-M) 1 Each TABLET Mu ltivits,Th W-Fe,Other Min (Thera-M) 1 Each TABLET Yes Daily [facility] Pantoprazole Sodium (Protonix) 40 Mg TABLET. Pantopr azole Sodium (Protonix) 40 Mg TABLET. Yes 40 Daily [facility] Propranolol Hcl Propranolol Hcl Yes 20 Daily [facility] Triamterene/Hctz (Triamterene-Hctz 37.5-25 Mg Tb) 1 Ea TAB Triamterene/Hctz (Triamterene-Hctz 37.5-25 Mg Tb) 1 Ea TAB Yes 1 Daily [facility] Iron Iron 2019-07-02 00:00:00 No 65 Daily [facility] Vital Signs Vital Name Observation Time Observation Value Comments Source Systolic blood pressure 2019-07-10 16:54:00 136 mm[Hg] [facility] Diastolic blood pressure 2019-07-10 16:54:00 64 mm[Hg] [facility] Heart rate 2019-07-10 16:54:00 88 /min [facility] Body temperature 2019-07-10 16:54:00 36.78 Justina [facility] Respiratory rate 2019-07-10 16:54:00 19 /min [facility] Oxygen saturation in Arterial blood by Pulse oximetry 07-09 16:54:00 93 /min [facility] Body weight Measured 2019-07-10 03:00:00 127.461 kg [facility] BMI 2019-07-10 03:00:00 41.53 kg/m2 [facility] Body height 2019-07-05 03:00:00 175.2 cm [facility] Weight 2019-07-04 19:23:00 330 [lb_av] [facility] BMI (Body Mass Index) 2019-07-04 19:23:00 46.0 kg/m2 [facility] Body Temperature 2019-05-12 11:28:00 97.5 [degF] [facility] Procedures Procedure Date / Time Performed Performing Clinician [facility] e REPORT OF PROCEDURE - ENDOSCOPY SCAN 2019-07-13 13:40:47 Pro vider, Default Scanning [facility] RHYTHM STRIP - SCAN 2019-07-13 13:40:45 Provider, Default Scanni chelsey [facility] POCT-GLUCOSE METER 2019-07-10 16:57:00 Becca Price loyda [facility] POCT-GLUCOSE METER 2019-07-10 11:55:00 [facility] POCT-GLUCOSE METER 2019-07-10 07:12:00 Becca Price loyda [facility] PT/APTT 2019-07-10 03:31:00 Juan, Mundo [facility] CBC W/PLT COUNT & AUTO DIFFERENTIAL 2019-07-10 03:31:00 Hipolito Lex cedenojannie [facility] POCT-GLUCOSE METER 2019-07-09 20:41:00 Becca Price [facility] TISSUE EXAM 2019-07-09 13:18:00 Becca Price [facility] US LIVER BIOPSY 2019-07-09 13:15:00 Carmen Boateng [facility] POCT-GLUCOSE METER 2019-07-09 07:47:00 [facility] 2019-07-09 06:06:00 Juan [facility] HISTOPLASMA AB BY COMPLEMENT FIXATION 2019-07-09 06:06:00 Saul Felix [facility] CBC W/PLT COUNT & AUTO DIFFERENTIAL 2019-07-09 06:06:00 Lex Mcmillan paojannie [facility] POCT-GLUCOSE METER 2019-07-08 20:38:00 Albert [facility] TRANSFUSION SERVICE REPORT - SCAN 2019-07-08 17:52:55 Provid er, Default Scanning [facility] POCT-GLUCOSE METER 2019-07-08 16:36:00 [facility]ER 2019-07-08 11:47:00 [facility] POCT-GLUCOSE METER 2019-07-08 07:50:00 [facility] PT/APTT 2019-07-08 04:57:00 [facility] W/[facility]T COUNT & AUTO DIFFERENTIAL 2019-07-08 04:57:00 Lex Mcmillan [facility] PREPARE LEUKO-REDUCED RBC 2019-07-07 23:54:00 Zachary Price i [facility] ECHOCARDIOGRAM REPORT - SCAN 2019-07-07 21:10:34 Provider, Maximiliano lt Scanning [facility] POCT-GLUCOSE METER 2019-07-07 21:06:00 [facility] TRANSFUSION SERVICE REPORT - SCAN 2019-07-07 17:52:25 Provid er, Default Scanning [facility] CT CHEST WITH IV CONTRAST 2019-07-07 17:48:00 Zachary Price i [facility] CT ABDOMEN - LIVER EVALUATION WITHOUT/WITH IV CONTRAST 07-06 17:48:00 Carmen Boateng [facility] CT MAXILLOFACIAL WITH IV CONTRAST 2019-07-07 17:48:00 Becca Price [facility] POCT-GLUCOSE METER 2019-07-07 16:22:00 Becca Price [facility] 2D ECHO W/ DOPPLER (CW/PW/COLOR) 2019-07-07 11:43:29 Kindra Mcmillan [facility] POCT-GLUCOSE METER 2019-07-07 11:08:00 [facility] VANCOMYCIN LEVEL, TROUGH 2019-07-07 10:44:00 Nilson Kaba [facility] MAGNESIUM 2019-07-07 10:44:00 Dedra [facility] PHOSPHORUS 2019-07-07 10:44:00 Dedra [facility] POTASSIUM 2019-07-07 10:44:00 [facility] MAGNESIUM 2019-07-07 06:13:00 [facility] PHOSPHORUS 2019-07-07 06:13:00 [facility] CBC W/PLT COUNT & AUTO DIFFERENTIAL 2019-07-07 04:29:00 Lex Mcmillan [facility] (CELLAVISION MANUAL DIFF) 2019-07-07 04:29:00 HipolitoKindra huston [facility] MAGNESIUM 2019-07-07 03:47:00 Hipolito, Kindra [facility] PHOSPHORUS 2019-07-07 03:47:00 Hipolito, Kindra [facility] HEPATIC FUNCTION PANEL 2019-07-07 03:47:00 Hipolito, [facility] PT/APTT 2019-07-07 03:47:00 Mundo Martinez [facility] BASIC METABOLIC PANEL (7) 2019-07-07 03:47:00 Geovani Colmenares [facility] TRANSFUSE LEUKO-REDUCED RED BLOOD CELLS 2019-07-07 01:10:22 Becca Price [facility] POCT-GLUCOSE METER 2019-07-06 23:51:00 Becca Price [facility] SARS-COV2/RT-PCR ([facility] REF [facility]) 2019-07-06 23:08:00 Becca Price [facility] RESPIRATORY PANEL [facility] 2019-07-06 23:08:00 Becca Price [facility] ABORH, MANUAL 2019-07-06 18:48:00 Andreina Ridley [facility] TYPE AND SCREEN, AUTOMATED 2019-07-06 18:29:00 Marie Price [facility] MR ABDOMEN WITH & WITHOUT IV CONTRAST 2019-07-06 18:25:00 Akira Alonso [facility] HEMOGLOBIN AND HEMATOCRIT 2019-07-06 08:41:00 Zachary Price i [facility] MAGNESIUM 2019-07-06 04:01:00 Hipolito, Kindra [facility] PHOSPHORUS 2019-07-06 04:01:00 Hipolito, Kindra [facility] HEPATIC FUNCTION PANEL 2019-07-06 04:01:00 Hipolito, Kindra [facility] BASIC METABOLIC PANEL (7) 2019-07-06 04:01:00 Claudia Duggan [facility] CBC W/PLT COUNT & AUTO DIFFERENTIAL 2019-07-06 04:01:00 Lex Mcmillan osjannie [facility] (CELLAVISION MANUAL DIFF) 2019-07-06 04:01:00 Hipolito, Kindra [facility] PT/APTT 2019-07-06 04:00:00 JuanMundo armstrong [facility] PROCALCITONIN 2019-07-06 04:00:00 Mundo Martinez [facility] US ABDOMEN COMPLETE 2019-07-06 03:10:00 Hipolito, [facility] BLOOD CULTURE 2019-07-06 00:22:00 Yuri Hodges [facility] POCT-GLUCOSE METER 2019-07-06 00:10:00 Claudia Duggan [facility] POCT-GLUCOSE METER 2019-07-05 17:20:00 Claudia Duggan [facility] URINALYSIS W/ REFLEX URINE CULTURE 2019-07-05 16:47:00 Hipolito, Ro se [facility] LEGIONELLA URINE ANTIGEN 2019-07-05 16:47:00 Hipolito, Kindra [facility] POCT-GLUCOSE METER 2019-07-05 12:02:00 Negrito Bazan [facility] MISCELLANEOUS LAB ORDER 2019-07-05 11:59:00 Gil Monte [facility] BASIC METABOLIC PANEL (7) 2019-07-05 09:23:00 Hipolito, Kindra [facility] MAGNESIUM 2019-07-05 09:23:00 Hipolito, Kindra [facility] PHOSPHORUS 2019-07-05 09:23:00 Hipolito, Kindra [facility] POCT-GLUCOSE METER 2019-07-05 06:22:00 Luis E Moreno [facility] LACTIC ACID, VENOUS 2019-07-05 05:52:00 Luis E Moreno [facility] HEPATITIS C ANTIBODY 2019-07-05 05:52:00 Luis E Moreno [facility] ALPHA FETOPROTEIN (AFP), TUMOR MARKER 2019-07-05 05:52:00 Luis E Moreno [facility] XR CHEST 1 VIEW PORTABLE/BEDSIDE 2019-07-05 02:40:00 Hipolito, [facility] LIPID PANEL 2019-07-05 01:49:00 Hipolito, [facility] BLOOD CULTURE 2019-07-05 01:25:00 Hipolito, [facility] MAGNESIUM 2019-07-05 01:25:00 Hipolito, [facility] PHOSPHORUS 2019-07-05 01:25:00 Hipolito, [facility] HEPATIC FUNCTION PANEL 2019-07-05 01:25:00 Hipolito, [facility] AMMONIA 2019-07-05 01:25:00 Hipolito, [facility] LACTIC ACID, VENOUS 2019-07-05 01:25:00 Hipolito, [facility] CREATINE KINASE (CK) 2019-07-05 01:25:00 Hipolito, [facility] TROPONIN I 2019-07-05 01:25:00 Hipolito, [facility] HIV-1 ANTIGEN WITH HIV-1/2 ANTIBODY 2019-07-05 01:25:00 Hipolito, R ose [facility] LIPASE 2019-07-05 01:25:00 Hipolito, [facility] TSH/FREE T4 IF INDICATED 2019-07-05 01:25:00 Hipolito, [facility] IRON, TIBC, % SAT. (WITHOUT FERRITIN) 2019-07-05 01:25:00 Hipolito, [facility] FERRITIN 2019-07-05 01:25:00 Hipolito, [facility] FOLATE, SERUM 2019-07-05 01:25:00 Hipolito, [facility] VITAMIN B12 2019-07-05 01:25:00 Hipolito, [facility] RETICULOCYTE COUNT 2019-07-05 01:25:00 Hipolito, [facility] LACTATE DEHYDROGENASE (LDH) 2019-07-05 01:25:00 Hipolito, [facility] HEPATITIS B PANEL 2019-07-05 01:25:00 Hipolito, [facility] HEPATITIS A PANEL 2019-07-05 01:25:00 Hipolito, [facility] BLOOD GAS, VENOUS 2019-07-05 01:24:00 Hipolito, [facility] BLOOD CULTURE 2019-07-05 00:53:00 Hipolito, [facility] PROTHROMBIN TIME/INR 2019-07-05 00:53:00 Hipolito, [facility] FIBRINOGEN 2019-07-05 00:53:00 Hipolito, [facility] BASIC METABOLIC PANEL (7) 2019-07-05 00:53:00 Hipolito, [facility] CBC W/PLT COUNT & AUTO DIFFERENTIAL 2019-07-05 00:53:00 Hipolito, R ose [facility] Computed tomography of brain without radiopaque contrast 2019-06 00:00:00 [facility] CT of abdomen and pelvis without contrast 2019-07-04 00:00:00 [facility] COLONOSCOPY AND BIOPSY 2019-05-12 00:00:00 [facility] COLONOSCOPY W/LESION REMOVAL 2019-05-12 00:00:00 [facility] Computed tomography of brain without radiopaque contrast 00:00:00 SHANTANU CÁRDENAS [facility] Computed tomography of cervical spine without contrast 05-04 00:00:00 SHANTANU CÁRDENAS [facility] EGD BIOPSY SINGLE/MULTIPLE 2019-05-05 00:00:00 Tasia [facility] EGD VARICES LIGATION 2019-05-05 00:00:00 [facility] Encounters Start Date/Time End Date/Time Encounter Type Admission Type [facility] Care Department Encounter ID Source 2019-07-04 19:23:00 2019-07-04 23:34:00 Departed Emergency Room 1 VERN OLIVEIRA [facility] [id number] [facility] 2019-05-12 08:43:00 2019-05-12 08:43:00 Registered Surgical Day Care [facility] [id number] [facility] 2019-05-07 15:33:00 2019-05-07 17:29:00 Departed Emergency Room [facility] [id number] [facility] [place] 2019-05-05 13:53:00 2019-05-05 13:53:00 Registered Surgical Day Care [facility] [id number] [facility] 2019-05-05 11:26:00 2019-05-05 13:48:00 Departed Emergency Room 1 SHANTANU CÁRDENAS [facility] [id number] [facility] Results Test Description Test Time Test Comments Results Result Comments Source MISCELLANEOUS LAB ORDER 2019-07-13 07:33:00 Test Item SCAN RESULT (test code = 1871723) [id number] 07:33:00Scan ResultQUEST NON-INTERFACED [facility] [id number] 13:04:00* Test Item Value Reference Range Interpretation Comments Yeast Phase Antibody (test code = 5411909) <1:8 Mycelial Phase Antibody (test code = 3896512) <1:8 REFERENCE RANGE: <1:8 INTERPRETIVE CRITERIA: <1:8 Antibody Not Detected > or = 1:8 Antibody Detected Complement-fixation (CF) titers greater than orequal to 1:8 are generally considered evidenceindicative of histoplasmosis. Higher titersincrease the probability of infection. However,positive titers are also seen with fungalinfections other than histoplasmosis, andconfirmation of antibody specificity withimmunodiffusion procedures is recommended.Changing titers are useful both in diagnosis andin assessment of treatment efficacy. This test was developed and its analytical performancecharacteristics have been determined by [facility]. It has not been cleared or approved byA. This assay has been validated pursuant to the CLIAregulations and is used for clinical purposes. CHASE (test code = CHASE) Performing Lab *[facility] [employer] [facility] [address] [place] [address] Natan Whelan MD [facility] (Left Venipuncture) 2019-07-11 02:00:00* Test Item Value Reference Range Interpretation Comments Result (test code = 6463-4) No growth in 5 days [facility] [id number] 02:00:00* Test Item Value Reference Range Interpretation Comments CULTURE (BEAKER) (test code = 1095) No growth in 5 days BLOOD [id number] 02:00:00* Test Item Value Reference Range Interpretation Comments CULTURE (BEAKER) (test code = 1095) No growth in 5 days Tissue [id number] 18:14:00* Test Item Value Reference Range Interpretation Comments Case Report (test code = 104) Surgical Pathology Repor t Case: [id number] Authorizing Provider: Becca Price, Collected: 07/09/2019 01:18 PM Ordering Location: [address] Received: 07/09/2019 03:59 PM Service Pathologist: Javier Palencia MD Specimen: Biopsy, Liver DIAGNOSIS (test code = 3220) [id number]cIGxRNwcjwZrSEfmj2QzD4ChWeXlGXngrtTxOQQe EoflwqkwFELnFHL1mvZyUTRuGYeoFTEbDFeuUm1lnCWimYpqFbGpCHHir3rsgaUOgrzfnIe9l0nvNHHb KhA5tPWqUMenN2doxtKhvCDpTPSwERa2yK43PHJxqW 8sxSKvPEoglkFaElF6SEdbRSOsVlN3PFNknPDaVKIxF2bsRXAdHDuxBVIqXShkyGDdDJK9oOwlr0S0sJ YyrCJblTjdBbGdFpIsMORBf2FhRZa6wCteO6MyPNOxXeR8aIHfAPOoDZdjVPBmBMTquvZ6qR43BZhkiv L0dFPsw7Vho86ga119nG2maINrIZY7CZTqHJRmxOLc FXJuMEL7BEWofDYxH8p1EnEmaLJkP7K1LbFrrYDhE5I7ToAxxKWdV2L1IqOkoNTyISLrpTZgSt6hcJAf bOOgqa4otn92QFI5t4RrbKteREI7VLQ6PbXjRz7vhLWpIQSlXK5mYdKyaWLzTNPjwt46bPzbWUmqrgBa uE3yQpZhXRNbwNOuCMYsKN8qcVFxZFAjbC2uevdoEU PvRlClpibjLUPrpBktadNmMy5bmZfqYUI4RQkiH7wohR3tWxX2QSibV7twxR9sLCs3CEcqdNM4JVFjhI 9qTN6hpvslr7xgVnByRV3kdjhml9vdApDqGH7fame9h6miGzHeBX5rwozaf1wlIoIiMMrsJMIaknbmVE Ygg8KsmeibFQQre2CoZ5RmiClcA19kkZatR89aDLRb aCbthE4oaJfosQ1oAgFbWlWqQMewdElmeYOkqzmzAYnxucQyCChfmtlvBPVxRXxsZ4ssMcJySXOqfUez YGsvi8OvWNOzSTYmTtNkQVbUWCEwGE1ZKEPPAKBGXE6LM0wNWwYXVsYKDGUFQTSlbmJdJJcPNXMDC7LG KSeWEWXPWQCTYvMAUk3JXRueP7WCWKHNAMDPLPSTGn XAXEBJSUwtJDKrhZWdIVKviw60WLQ5PdVpd7H2MNC5QTFjBPLsg2fhFZSlzODjViPjXzYnJmRuQxviuC YiSUKvDaBkw1ybm038rMNsn5ggGXRpCmX2kAQjVAXjvLNbL226SALrDRddf9tsh7DfZKJtqJMrh5K9TU WBvygcpYe0wVkuW92kq2L0XhowQ1tzSHDuCNAwM4Ze YA5gFXTgHwv0RKG1IAP0CHFhCFPbS6DjIO9qUWHnsFTnWFw4s7huhXjuAPChJOV7x7dtEIlabdHjYO7r aw9yvRu8x7dgxjJjXRWuDEDgzEBVFARhZ8CtaCdxZv6iuFr2xWhcXmzzTXN7Bgj5AE3itd75wyg1bAbe PMQseiltHmV7COinHBBkfsacAHl7ARojUVLdnSN1HH EriXRaP3XjLMNkBA9vdlq3JAI3IDghYGVsGlV7AFJhjHQoJEIviSblNYwhv639OMD4GjAsNQ1rN9Arq5 Q0wD5mkBNrKENngTHqFwZhOCSbvj3rdVBhUOmlc8IhQNT4sfC1tPKaxGJgMIUgJrV3HIfkVE9zwi03SX XmBER0bf6gqVPlsBpwniVxkYTvZYerC9MxXBKmv891 INUbC6AzSYGgj6C3yiWuCeScYXHjfUY4lnE6WZUwOP1opavrv1wkLIrhGDgiBQShzdE0auV8HYSscOIg W2CnrS8jLLDbFD5avzgre5nkJNU9MAtqMLJuTUV4MvTaLMYop9Erpjc4MnOia8MxaYHbZJwoZ24if685 YENcdsFaN9hbbZHvryulaOIzkyxxGSkfahB1RZYpKH rpmdegGVEzZUjtK0yaOgDrWPEkiXcqERbdf7HsBWNtYYAiGkSjcRNpYJGdSsv8IFKsgHHuTAUjUeBgS4 bdgvggSnKMHOBrw8epP6tanXIJgFFmM4UoENypkrUuKCvqGLbhVVA3AIV1Pc47SzJ1BETpse56 CPT Code(s) (test code = 3357) u9iazZZzOWGvmOFtPgGbBEVhCDGpq4hsJUSlbTKmDvQjYbBuTpOeUnlmuFMyGAHrCxBqv2mkc004gANo j1bpMRSrPdS2yNLwFIUnyLSbF200HJWiWRoxt5elg2ZjVVQdfYVps6C1WKHIgmpcwBr3cIfyW48tr8M3 XabkZ9csOWBoXQKzL7SvBR8cEHIiGwn1QUP4WRH5IK MkCHHgQ7MsSH0eKCFkqOBoJYs6f1eouZyzJUOgYPH0q8lkPFczriEwRX3lqq4htAv9i9kjquFiTUDnWO IkrHNUIZTvL0WsqOlrLb0anJe2hYjdCqodSTE0Llh6JE0zmq81obb5eHozAUGqjokuYjX1PIprAMRgew jqIYb7ARcxADEfnAxrHDxxZVVslqxgBYrsWZHpfAoz RNsaDMQxCqufVVuwZCVtHVY7IIfdl926YEX0SXzdb6xtk6mucVKoHua5QSXkRrZzDvknYGcaq7Ieo3iw FSAuhp7tGHI1cSKmpMuks9D8cPJfLDTatNOyhvCgNMAnYmM9ICbkNI4esv79GRQfOJE2wd8mzZIkkKij vzVfhUDyDPuiF9StGUXop032PXSjR4FpJJGlv2T7wy JoZdMcIDVmaJL0knA9KMLiOXt0aPGkukP0juWhaBJiR5ihiJ36RiGjjVXzF7DnbX04LbGlfAErY8PhzO 61EuHpmIBhZ0DpxM05DfBkjHOaSEXjlIOgGr2kyBVccCVxu7ZxgDSnUAgbI86dx609OYFzoaAlC9mswZ TjohlfiCNniafnSWdfpjN0YAAmRXNxLNdyYWRtYQRo WyNyzMNdEdOlAwGhhEgqgFjiYMhfVlCtZXMuOUtlY2ldRjCcEtNxHAF3DSThKlmkOXuuARQySXr9FaCe XHBhcn0= CLINICAL HISTORY (test code = 3356) s7gueYQnSAHbrJVvVbFdXJLoHYFkt2hwOVCiqZBkQdJiMiVnDoTjIcxiwXCqZCAxGyYrh7bmc093qEOr s8jfRCWbGxY0mQWrSORdjYTcO911z1kgj2cbmfJhwWJ5EYWfNGM5BCpdvzQhjuE8TDabpYWnVbZ9TVeo mtRpOQdpubFtalOhAgq0RUOhT992QWV7qExau9zyTD N7YMAoABTyCmYeOv4ugXYmI531GTVcDIIBVKJxqVg4ETEucsTkfoOoyAFSa165A247g4ruNEVyrvAhqP qWwnjyf5tlX510MLTasFXamzVcIyUhDUZdiUFekDM1YTLdQZ3xlassNmXdMF4qwjndXrCcOU5goyd5Zv PjVS6miggwSwQrIQljBDCluizzYIQzo5ChiarhUT7c R1Ehi8I5gV5jiVBpCJWnuASrKzSoEMVjda1cnWDvHVatp7GePND6irO9wXAhpUVqESYrFS90Opsru1Vo GawgHUL1JPQobfVjd4Vws0jrSrPzymCdU5qkT3ZiOMLsXDZyFCNbDfJubjIgx4Qvd4RngHUdtVt7c0ll RPAtOJQmzMmes3ltJCQ1XRTlQ9N0nQEqw5fnHTkxJM QtcZK1dxckAKbqFSMmyyI9gnqhDQkyKRFguCA7yjssACxeHOOzDdF9kciyEKqmMYUeIDF6XGyej926SZ A5NPlxOjhePGkpATRarkGzraHybCpkJMFfHTFzCJoiHBIgGLwyVBBzSFLgHvEdmFueuOazrS9cUyYfSu UvRUytAR9kXOKcF3lblHGwPRZeMNOyG2nvOvKyoM6o oPgaNVfsxgSzAIdlaqKeRL9ke9TfLLDnmPSapPitNLAkzTuuODPzrVgzVAHhM6XdmhL1qZ7nAoDGdM4j m8cnaUFnnZ== SPECIMEN SOURCE (test code = 3377) c6isiBYzAANowCLjGmRmWXIrNVQgh6lzSBBsoPAiLpTdEeAeXaHcDwroqLOzOOTvXxTvi0dcn817iEYt m4wjZDIwUxN1kSSmWUHlrYSiQ407d7jmr9bimaSsrDA7QDOlEAL8UBlsblKjnaU6LIhcjBWsTzY4DUvu szCqIIejidTungHgXjx5OLJeJ521GSC2fLthl7qjBN P1AVVeEZWqPzPbSt1lkWDkP896ICPyXIVHSFKetOd6CXDhxzWhjhFahLZPh561U098r7rvQBQrdoFiqM rUneiqa0zbM085GXDweOKwjtZmKhVdQSDliRCyrAJ4QYLqLY0wegdtCgTjVL7ofdpmXaUsAJ6jtvk4Ar ZiCI5iwgahJaPiAPbmOPHfroziNVUjt9VmhttyAA8u Y9Zli2X5mY9rcYQiHGBoeHOxWaMsXATeci9fnRBuBBaje2TfIHE1aiX5yMGqzUKwQKKiOJ61Vtuiv9Dx ThqzHLB9EYZmvhEca0Fpv2izGgDdjpEpL7peI8WbQXGqMFYdDJSjJhDwxwHmd5Jrg5ZgpIUbjMq0m3fd JXCpPECudLgtc4jrUJC9MAAmA8O5lBWhe1duAGtkYX QcpES7onhpADyiKEYmuaR0mizzVZetNAEwjTZ8gqpjCXmbINJdJzY3fukpNQunRMEoRIU3LSobh666FW C6PTueNonbKFnaPAYlstNgecIxnBmxQENlSEKbPGnrMOPuPMuuGLBjACFkYxJncZaicBzehJ2bXmLpQl GhGDpwXC3tOCUqC0szmTIzAQYqVBMvH5lxXfNgbF2h tGbqDYudhgLlMRcchtYmWNBcD6g6IVxqAiAayXFtxI== GROSS DESCRIPTION (test code = 3366) i8lbaLNmDIZdiMGnObPiFYCsJSRwy0bhVSBteOTgMvUfWwEsUvViEglspEDtJOYbFlLhy4oug316rWMy z7leLEJiOkT6nIZhXDIuaSSaV397CFXwSWumh9znq2XnIWQleDUag4D1HDYKanvjiTs6iTktW03se2A0 QxqgN8pqDQWbRBciYOSkHImodRCfLZL1ZANrMXI3HE oswlTthbU0WUrloHNgOqV0YAx3i3odpKvjPXYxYZM3b2dfQEerleQdLV4jum7ceBl4o8oferSnEYLjCM NswOXLBPUpO7OhoVqqVf9vxKo6zKxxIrpbAGA5Kfi7VW0cvx48xhk3rFtvHOUyfrusStZ0SYwxTXRddk gsONx5XXkdOTBhyYjqPDbyDXLvktdcVRotVVYdeFzp ISmzAJQvEvkrZUmoEJOnTBZ5EPebf891BXR7MDdjv8jpw7nmeNAeDwq4LHGbQaJjGbazZXvxs5Bdr8lo JTQubt1qKKH9aWUmiRelp1W9oAPaTWDpuCVrykWrHDQoKzL7ZDxfTD3zfp49HRTjIJT7jl8qdPTvmRgl ooCbdQZeUDapJ2DlBHIlz378QLFvZ5MvFTBtx7N0co QzGeUhTDFcqIZ9ynD2QUUzJLf4cTDwjjG9vgEcxAEmW9fniZ93XkEsnDAoX0OruY70AmVowFNaZ8MipP 98XzYpdHEpK0AtsU52HqDreNFuNAOnwDDxOl7oaLSymZBof0JxuDWbUCnkX12de470MCTpijVdN8wuiC FpblxwbGFpblxmMFxmczIwXHFsXHBsYWluXGYwXGZz XmMugQqttN4zBiOtQxYtZJONeYXhwW2qqaPctmCoLJZueBGtSTJpmjDunqQbmTQppC7fTBZhcrpfLRDp BVTsvCWCGePkoMqwkQ2iCaFlOtSkXWGNJHRhoUWuKCYxecGqd1AyLInxctUiICYgnWHsQQmrfCrkdTgf GSSosZsavfKjeqSyGK5qJWSdP8Mlw8Wcn09fscZnMw ZgCDSxCVyqoRTertwtWLjorgMfUNGyuJj0ZZRiZxhqoGV7XbCtxtWkaJgzHWUgtHKnWRGuVWAjGO3ljg 03ucRuXHXafMErV29mPAFhtR0tf5swgdVwEAJquFPkfyxaSJ31TSLaXpCdHSIiRETlMzihA95ogJ5zSf MgonMgUUCaWOWlgIAeJlInO63itM6gIFszjMD7IVLg ITPoNNUjmJZfgJ8ulpLlmdEaiZRucIL7KIBzoL8xmD33zwOmhmUsCQFfDJG4YWDCVV5lSrFleWtfcSMf fQ== MICROSCOPIC DESCRIPTION (test code = 3371) a6nscZNyJUTynCOnSrNoNNEuOHVpi7ftRQRrbFOzRyDuFvCuDtZvDlflwEBkJXNwReWal1fbg501iKLq v2bcURAqVuW0rJKtDAHbtPBxS506KMOxXUudj7mwy4HjANTemFHpl1J4MTSDqcphhEo2oTwvV03hk3A1 PpfwR6aiBPTmZEVyV5SlDT4fQZZmBno1FVG9PZB3LX MdKXErM5UiMY5cEJEhxMUzDAx3t0ldcFzeDCZhKCL4t3twEVllkmWjGT8dxw0bvDm7a5ackjVjVVDgOZ HxmGRTMDGvU4GflYerLq8doYx0qKzcZpupGCF5Enw9WF0sgs00uww1kDkzFDZxwfieDzN7AFraZJUtra xqXEo6DOtwITOrrHuhJOcxPQFuwrvxWTenYWXtdKng YTpgYAPlTxpmCVriTRMyCDI3ZUoyr290DVE4ROmsv2wqc8ompVQoCcb8KOCiAxTtGgzlYIkmk0Fhp2hh NQZlmb9cCNF2aMGplAtfu4Y4eTXjIFHpyMApgfLwYYMvJfT8MUqpNP9ygs72DFMyKTV1ll8vlUYtwGma qnGraFMxJBwfG8WoRZVoq690AUJaT8LtUILfs2J6xv WkNcKqGDMkmAA2cpV3AMAbPZm6qDYkhyJ9umIreFEvQ6snjN37MmMskBWzT2QlvL83OlAsxXAnN4LunX 02HpMliPDvU0JrqR90OqJioNSsAXWmcBDxHx5oyIIeyYRbi7QznHPvLLboM49br255WPGxheWcE7ernI EdyappaNBizzjuEXjunbL4XMSgVEVbSCdoEOOeMYCw TeMwnIIbFkMdYpYwdMofeSgmCLqbYiPeMZHyOUftV6lyBcApFfIbQWYBXMU1tS5retRyvI70JOZ4aZ2j DZNmx9Y2SLXet73hk6YaAKXjHhGxeFpprXVbfUYqFPJvqA8usQPbuoHzaTWrb6ZvNNThsmR1pGspv5Fg KKUxeSOrSnLqfFnxABR4jXMgGRVetiojVx1sMQaybF ChgMYqU1pazqQ7iMKsNHQqE3tzbBWfvRJeTK2wQIqtTCXcbYmnoEdsbzCazPHtlaLphGuqjRyjyBHvRC PxOXU5dVjyi7EdLIZxpOEnRjRhtQrkYH7uSG4ccX1li8GehG5pPo7vDFcnoFLcW7GhQTDnlHHdoiKxWR RpdmUuIFxwYXJccGFyXHBhclxwYXJ9 SPECIAL STUDIES (test code = 3376) [file] YqrTQrLfMoBiUuaUhyyJjiZxnnSqJiGQQbHFboE4ccYlYqZzQjMsauJFN1fV== [facility] [id number] 18:14:00Surgical Pathology Report Case: [id number] Authorizing Provider: Frank Pricekimberleedianne Carlota, Collected: 07/09/2019 01:18 PM Ordering Location: [address] Received: 07/09/2019 03:59 PM Service Pathologist: Javier Palencia MD Specimen: Biopsy, Liver LIVER, NEEDLE BIOPSIES 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 Part A. Received in formali n labeled with the patient's name, accession number and "liver biopsy" are three lujan to red-brown needle core biopsies measuring 0.5, 1.0, and 1.7 cm long and a re all 0.1 cm in diameter. The specimen is submitted in toto in cassette A1. ALEKSANDAR/ plSections show tumor tissue composed of atypical hepatocytes disposed in thicke laura trabeculae with very focal pseudoglandular architecture. The reticulin stain highlights the thickened trabeculae. Immunostain for glypican 3 is negative. Th e interpretation of this case included the use of immunohistochemistry or specia l stains.Control Slides Examined: In-house known positive controls were evaluat ed along with the test tissue. These control slides run alongside of the patien ts sample show appropriate staining. Internal positive and negative controls whe n available are evaluated Immunohistochemistry technical testing was performed a t [facility], Pathology Laboratory where it was developed and its performance characteristics were determined. It has not been cleared or approved by the U.S. Food and Drug Administration. The FDA has determined that s uch clearance or approval is not necessary. The test is used for clinical purpos es. It should not be regarded as investigational or for research. This laborator y is certified under the Clinical Laboratory Improvement Amendments of 1988 (CLI A-88) as qualified to perform high complexity clinical laboratory testing.POC- Glucose [id number] 17:18:00* Test Item Value Reference Range Interpretation Comments POC-Glucose Meter (test code = 1538) 137 mg/dL 70-110 H : TESTED AT [facility] [address] [facility], [address]: Transfer Pumper/Director Industrial ID = [id number] for CELINA MCGOVERN Lab Interpretation (test code = 95690-5) Abnormal [facility]PO[facility] [id number] 17:18:00* Test Item Value Reference Range Interpretation Comments POC-GLUCOSE METER (BEAKER) (test code = 1538) 137 mg/dL 70-110 H : TESTED AT [address], [address]: Transfer Pumper/Director Industrial ID = [id number] for QUARTMAN, CELINA POCT-GLUCOSE [id number] 12:10:00* Test Item Value Reference Range Interpretation Comments POC-GLUCOSE METER (BEAKER) (test code = 1538) 154 mg/dL 70-110 H : TESTED AT [address], [address]: Transfer Pumper/Director Industrial ID = [id number] for QUARTMAN, CELINA U/S, BIOPSY, [id number] 08:45:00Reason for exam:->liver masses on MRI and CT; ultrasounded biopsy from segment 6/7 of liverFINAL REPORT Procedure: Ultrasound-Guided right hepatic mass core biopsy: Pre/post- procedure diagnosis: Hepatic mass Spot Washer: Amol Flores MD Assistants: MD Clive (Fellow) [...] performed prior to starting the procedure. Initial ul trasound images demonstrate heterogeneous solid mass within the right hepatic lo be measuring up to 5.5 x 8.1 cm, corresponding with the lesion noted on the rece nt prior CT and MRI examinations. This lesion was targeted for biopsy. The right upper quadrant was prepped and draped in sterile fashion. 1% lidocaine was used for local anesthesia. Using ultrasound guidance, following acquisition of perma nent images, a 17-gauge introducer needle was advanced into the right hepatic ma ss. A 18-gauge core biopsy needle was used coaxially to obtain three core biopsy samples. The introducer needle was removed and tract embolized using Gelfoam sl urry. A sterile dressing was applied. Post procedure sonogram reveals no hematom a. The patient tolerated the procedure well without immediate complication. Imp ression: Successful, uncomplicated ultrasound-guided right hepatic mass core bi opsy. Signed: Amol Flores MDReport Verified Date/Time: 07/10/2019 08:45:00 Re ading Location: [place] [address] Angio Body Reading Room liver [id number] 08:45:00 Interface, External Ris In - 07/10/2019 8:47 AM CDTFINAL REPORT PATIENT ID: [id number] Procedure: Ultrasound-Guided right hepatic mass core biopsy: Pre/post-pr ocedure diagnosis: Hepatic mass Spot Washer: Amol Flores MD Assistants: Clair robles MD (Fellow) Sedation: Moderate sedation was administered. 1 mg of Verse d and 50 mcg of fentanyl IV was used for moderate sedation monitored under my d irection. Total intra-service time of sedation was 20 minutes. The patient's v ital signs were monitored throughout the procedure and recorded in the patient's medical record by the nurse. Local Anesthesia: 8 cc 1% Xylocaine Approach: Righ t upper quadrant, percutaneous Specimen: Total of three 18 G core biopsy samples ; samples were delivered to pathology in formalin solution. Estimated blood loss : Less than 5 cc. Technique/findings: Informed written consent was obtained. Dis cussion of risks, benefits, and alternatives were made with the patient. The pat ient expressed understanding and agreed to proceed. A universal timeout was per formed prior to starting the procedure. Initial ultrasound images demonstrate heterogeneous solid mass within the right hepatic lobe measuring up to 5.5 x 8.1 cm, corresponding with the lesion noted on the recent prior CT and MRI examinat ions. This lesion was targeted for biopsy. The right upper quadrant was prepped and draped in sterile fashion. 1% lidocaine was used for local anesthesia. Using ultrasound guidance, following acquisition of permanent images, a 17-gauge intr oducer needle was advanced into the right hepatic mass. A 18-gauge core biopsy n eedle was used coaxially to obtain three core biopsy samples. The introducer nee dle was removed and tract embolized using Gelfoam slurry. A sterile dressing was applied. Post procedure sonogram reveals no hematoma. The patient tolerated the procedure well without immediate complication. Impression: Successful, uncomp licated ultrasound-guided right hepatic mass core biopsy. Signed: Amol Flores Verified Date/Time: 07/10/2019 08:45:00 Reading Location: [place] [address] Angio Body Reading Room Electronically signed by: AMOL FLORES MD on 08:45 AM [facility] [id number] 07:35:00* Test Item Value Reference Range Interpretation Comments POC-GLUCOSE METER (BEAKER) (test code = 1538) 84 mg/dL 70-110 : TESTED AT [facility] [address] [facility], [address]: Transfer Pumper/Director Industrial ID = [id number] for CELINA MCGOVERN CBC with platelet count + automated [id number] 04:19:00* Test Item Value Reference Range Interpretation Comments WBC (test code = 6690-2) 3.4 3.5- 10.5 K/L L RBC (test code = 789-8) 3.67 4.63- 6.08 M/L L MCHC (test code = 786-4) 29.9 32.3- 36.5 GM/DL L Hematocrit (test code = 4544-3) 28.1 % 40.1-51 L MCV (test code = 787-2) 76.6 fL 79-92.2 L MCH (test code = 785-6) 22.9 pg 25.7-32.2 L RDW (test code = 788-0) 19.5 % 11.6-14.4 H Platelets (test code = 777-3) 79 150- 450 K/CU MM L MPV (test code = 08318-9) Un able to report due to abnormal Platelet population distribution. nRBC (test code = 413) 0 0- 0 /100 WBC % Neutros (test code = 429) 63 % % Lymphs (test code = 430) 22 % % Monos (test code = 431) 11 % % Eos (test code = 432) 3 % % Baso (test code = 437) 1 % # Neutros (test code = 670) 2.12 1.78- 5.38 K/L # Lymphs (test code = 414) 0.73 1.32- 3.57 K/L L # Monos (test code = 415) 0.36 0.30- 0.82 K/L # Eos (test code = 416) 0.10 0.04- 0.54 K/L # Baso (test code = 417) 0.02 0.01- 0.08 K/L Immature Granulocytes-Relative (test code = 2801) 2 % 0-1 H Lab Interpretation (test code = 30134-0) Abnormal [facility] CenterPT/[id number] 04:19:00* Test Item Value Reference Range Interpretation Comments Protime (test code = 5902-2) 15.4 11.9- 14.2 seconds H INR (test code = 6301-6) 1.3 <=5.9 PTT (test code = 80680-3) 36.5 22.5- 36.0 seconds H CHASE (test code = CHASE) Effective 07/23/2018: PT Refe rence Range ChangeNew: 11.9- 14.2 Previous: 11.7-14.7 RECOMMENDED COUMADIN/WARFARIN INR THERAPY RANGESSTANDARD DOSE: 2.0-3.0 Includes: PROPHYLAXIS for venous thrombosis, sys temic embolization; TREATMENT for venous thrombosis and/or pulmonary embolus.HIGH RISK: Target INR is 2.5-3.5 for patients wiht mechanical heart valves. Lab Interpretation (test code = 99772-1) Abnormal [facility] CenterCBC W/PLT COUNT & AUTO [id number] 04:19:00* Test Item Value Reference Range Interpretation Comments WHITE BLOOD CELL COUNT (BEAKER) (test code = 775) 3.4 K/ L 3.5- 10.5 L RED BLOOD CELL COUNT (BEAKER) (test code = 761) 3.67 M/ L 4.63-6 .08 L HEMOGLOBIN (BEAKER) (test code = 410) 8.4 GM/DL 13.7-17.5 L HEMATOCRIT (BEAKER) (test code = 411) 28.1 % 40.1-51.0 L MEAN CORPUSCULAR VOLUME (BEAKER) (test code = 753) 76.6 fL 79. 0-92.2 L MEAN CORPUSCULAR HEMOGLOBIN (BEAKER) (test code = 751) 22.9 pg 25.7-32.2 L MEAN CORPUSCULAR HEMOGLOBIN CONC (BEAKER) (test code = 752) 29.9 GM/DL 32.3-36.5 L RED CELL DISTRIBUTION WIDTH (BEAKER) (test code = 412) 19.5 % 11.6-14.4 H PLATELET COUNT (BEAKER) (test code = 756) 79 K/CU MM 150-450 L MEAN PLATELET VOLUME (BEAKER) (test code = 754) Unable to report due to abnormal Platelet population distribution. NUCLEATED RED BLOOD CELLS (BEAKER) (test code = 413) 0 /100 WBC 0 -0 NEUTROPHILS RELATIVE PERCENT (BEAKER) (test code = 429) 63 % LYMPHOCYTES RELATIVE PERCENT (BEAKER) (test code = 430) 22 % MONOCYTES RELATIVE PERCENT (BEAKER) (test code = 431) 11 % EOSINOPHILS RELATIVE PERCENT (BEAKER) (test code = 432) 3 % BASOPHILS RELATIVE PERCENT (BEAKER) (test code = 437) 1 % NEUTROPHILS ABSOLUTE COUNT (BEAKER) (test code = 670) 2.12 K/ L 1.78-5.38 LYMPHOCYTES ABSOLUTE COUNT (BEAKER) (test code = 414) 0.73 K/ L 1.32-3.57 L MONOCYTES ABSOLUTE COUNT (BEAKER) (test code = 415) 0.36 K/ L 0. 30-0.82 EOSINOPHILS ABSOLUTE COUNT (BEAKER) (test code = 416) 0.10 K/ L 0.04-0.54 BASOPHILS ABSOLUTE COUNT (BEAKER) (test code = 417) 0.02 K/ L 0. 01-0.08 IMMATURE GRANULOCYTES-RELATIVE PERCENT (BEAKER) (test code = 2801) 2 % 0-1 H [id number] 04:19:00* Test Item Value Reference Range Interpretation Comments PROTIME (BEAKER) (test code = 759) 15.4 seconds 11.9-14.2 H INR (BEAKER) (test code = 370) 1.3 <=5.9 PARTIAL THROMBOPLASTIN TIME (BEAKER) (test code = 760) 36.5 seconds 22.5-36.0 H Effective 07/23/2018: PT Reference Range ChangeNew: 11.9-14.2 Previous: 11.7-14. 7RECOMMENDED COUMADIN/WARFARIN INR THERAPY RANGESSTANDARD DOSE: 2.0-3.0 Include s: PROPHYLAXIS for venous thrombosis, systemic embolization; TREATMENT for venou s thrombosis and/or pulmonary embolus.HIGH RISK: Target INR is 2.5-3.5 for patie nts wiht mechanical heart valves.BLOOD [id number] 03:01:00* Test Item Value Reference Range Interpretation Comments CULTURE (BEAKER) (test code = 1095) No growth in 5 days BLOOD [id number] 02:00:00* Test Item Value Reference Range Interpretation Comments CULTURE (BEAKER) (test code = 1095) No growth in 5 days POCT-GLUCOSE [id number] 20:55:00* Test Item Value Reference Range Interpretation Comments POC-GLUCOSE METER (BEAKER) (test code = 1538) 91 mg/dL 70-110 : TESTED AT [facility] [address] [facility], [address]: Transfer Pumper/Director Industrial ID = [id number] for CASTELLANO ODILON POCT-GLUCOSE [id number] 07:59:00* Test Item Value Reference Range Interpretation Comments POC-GLUCOSE METER (BEAKER) (test code = 1538) 105 mg/dL 70-110 : TESTED AT [facility] [address] [facility], [address]: Transfer Pumper/Director Industrial ID = [id number] for RAFAEL BANKS CBC W/PLT COUNT & AUTO [id number] 06:58:00* Test Item Value Reference Range Interpretation Comments WHITE BLOOD CELL COUNT (BEAKER) (test code = 775) 2.4 K/ L 3.5- 10.5 L RED BLOOD CELL COUNT (BEAKER) (test code = 761) 3.36 M/ L 4.63-6 .08 L HEMOGLOBIN (BEAKER) (test code = 410) 7.9 GM/DL 13.7-17.5 L HEMATOCRIT (BEAKER) (test code = 411) 25.8 % 40.1-51.0 L MEAN CORPUSCULAR VOLUME (BEAKER) (test code = 753) 76.8 fL 79. 0-92.2 L MEAN CORPUSCULAR HEMOGLOBIN (BEAKER) (test code = 751) 23.5 pg 25.7-32.2 L MEAN CORPUSCULAR HEMOGLOBIN CONC (BEAKER) (test code = 752) 30.6 GM/DL 32.3-36.5 L RED CELL DISTRIBUTION WIDTH (BEAKER) (test code = 412) 17.8 % 11.6-14.4 H PLATELET COUNT (BEAKER) (test code = 756) 76 K/CU MM 150-450 L MEAN PLATELET VOLUME (BEAKER) (test code = 754) Unable to report due to abnormal Platelet population distribution. NUCLEATED RED BLOOD CELLS (BEAKER) (test code = 413) 0 /100 WBC 0 -0 NEUTROPHILS RELATIVE PERCENT (BEAKER) (test code = 429) 55 % LYMPHOCYTES RELATIVE PERCENT (BEAKER) (test code = 430) 25 % MONOCYTES RELATIVE PERCENT (BEAKER) (test code = 431) 11 % EOSINOPHILS RELATIVE PERCENT (BEAKER) (test code = 432) 5 % BASOPHILS RELATIVE PERCENT (BEAKER) (test code = 437) 1 % NEUTROPHILS ABSOLUTE COUNT (BEAKER) (test code = 670) 1.30 K/ L 1.78-5.38 L LYMPHOCYTES ABSOLUTE COUNT (BEAKER) (test code = 414) 0.60 K/ L 1.32-3.57 L MONOCYTES ABSOLUTE COUNT (BEAKER) (test code = 415) 0.27 K/ L 0. 30-0.82 L EOSINOPHILS ABSOLUTE COUNT (BEAKER) (test code = 416) 0.11 K/ L 0.04-0.54 BASOPHILS ABSOLUTE COUNT (BEAKER) (test code = 417) 0.02 K/ L 0. 01-0.08 IMMATURE GRANULOCYTES-RELATIVE PERCENT (BEAKER) (test code = 2801) 3 % 0-1 H [id number] 06:47:00* Test Item Value Reference Range Interpretation Comments PROTIME (BEAKER) (test code = 759) 15.5 seconds 11.9-14.2 H INR (BEAKER) (test code = 370) 1.3 <=5.9 PARTIAL THROMBOPLASTIN TIME (BEAKER) (test code = 760) 37.6 seconds 22.5-36.0 H Effective 07/23/2018: PT Reference Range ChangeNew: 11.9-14.2 Previous: 11.7-14. 7RECOMMENDED COUMADIN/WARFARIN INR THERAPY RANGESSTANDARD DOSE: 2.0-3.0 Include s: PROPHYLAXIS for venous thrombosis, systemic embolization; TREATMENT for venou s thrombosis and/or pulmonary embolus.HIGH RISK: Target INR is 2.5-3.5 for patie nts wiht mechanical heart valves.POCT-GLUCOSE [id number] 20:50:00* Test Item Value Reference Range Interpretation Comments POC-GLUCOSE METER (BEAKER) (test code = 1538) 148 mg/dL 70-110 H : Notified RN/MD: TESTED AT [address], [address]: Transfer Pumper/Director Industrial ID = [id number] for MICHAEL SERGIO POCT-GLUCOSE [id number] 16:48:00* Test Item Value Reference Range Interpretation Comments POC-GLUCOSE METER (BEAKER) (test code = 1538) 123 mg/dL 70-110 H : TESTED AT [address], [address]: Transfer Pumper/Director Industrial ID = [id number] for RAFAEL BANKS POCT-GLUCOSE [id number] 11:58:00* Test Item Value Reference Range Interpretation Comments POC-GLUCOSE METER (BEAKER) (test code = 1538) 118 mg/dL 70-110 H : TESTED AT [address], [address]: Transfer Pumper/Director Industrial ID = [id number] for RAFAEL BANKS POCT-GLUCOSE [id number] 08:03:00* Test Item Value Reference Range Interpretation Comments POC-GLUCOSE METER (BEAKER) (test code = 1538) 93 mg/dL 70-110 : TESTED AT [address], [address]: Transfer Pumper/Director Industrial ID = [id number] for RAFAEL BANKS CBC W/PLT COUNT & AUTO [id number] 05:59:00* Test Item Value Reference Range Interpretation Comments WHITE BLOOD CELL COUNT (BEAKER) (test code = 775) 2.5 K/ L 3.5- 10.5 L RED BLOOD CELL COUNT (BEAKER) (test code = 761) 3.37 M/ L 4.63-6 .08 L HEMOGLOBIN (BEAKER) (test code = 410) 7.6 GM/DL 13.7-17.5 L HEMATOCRIT (BEAKER) (test code = 411) 25.5 % 40.1-51.0 L MEAN CORPUSCULAR VOLUME (BEAKER) (test code = 753) 75.7 fL 79. 0-92.2 L MEAN CORPUSCULAR HEMOGLOBIN (BEAKER) (test code = 751) 22.6 pg 25.7-32.2 L MEAN CORPUSCULAR HEMOGLOBIN CONC (BEAKER) (test code = 752) 29.8 GM/DL 32.3-36.5 L RED CELL DISTRIBUTION WIDTH (BEAKER) (test code = 412) 17.3 % 11.6-14.4 H PLATELET COUNT (BEAKER) (test code = 756) 70 K/CU MM 150-450 L MEAN PLATELET VOLUME (BEAKER) (test code = 754) 11.6 fL 9.4-12 .4 NUCLEATED RED BLOOD CELLS (BEAKER) (test code = 413) 2 /100 WBC 0 -0 H NEUTROPHILS RELATIVE PERCENT (BEAKER) (test code = 429) 61 % LYMPHOCYTES RELATIVE PERCENT (BEAKER) (test code = 430) 21 % MONOCYTES RELATIVE PERCENT (BEAKER) (test code = 431) 11 % EOSINOPHILS RELATIVE PERCENT (BEAKER) (test code = 432) 5 % BASOPHILS RELATIVE PERCENT (BEAKER) (test code = 437) 1 % NEUTROPHILS ABSOLUTE COUNT (BEAKER) (test code = 670) 1.50 K/ L 1.78-5.38 L LYMPHOCYTES ABSOLUTE COUNT (BEAKER) (test code = 414) 0.51 K/ L 1.32-3.57 L MONOCYTES ABSOLUTE COUNT (BEAKER) (test code = 415) 0.27 K/ L 0. 30-0.82 L EOSINOPHILS ABSOLUTE COUNT (BEAKER) (test code = 416) 0.11 K/ L 0.04-0.54 BASOPHILS ABSOLUTE COUNT (BEAKER) (test code = 417) 0.02 K/ L 0. 01-0.08 IMMATURE GRANULOCYTES-RELATIVE PERCENT (BEAKER) (test code = 2801) 2 % 0-1 H PT/[id number] 05:55:00* Test Item Value Reference Range Interpretation Comments PROTIME (BEAKER) (test code = 759) 15.7 seconds 11.9-14.2 H INR (BEAKER) (test code = 370) 1.3 <=5.9 PARTIAL THROMBOPLASTIN TIME (BEAKER) (test code = 760) 37.7 seconds 22.5-36.0 H Effective 07/23/2018: PT Reference Range ChangeNew: 11.9-14.2 Previous: 11.7-14. 7RECOMMENDED COUMADIN/WARFARIN INR THERAPY RANGESSTANDARD DOSE: 2.0-3.0 Include s: PROPHYLAXIS for venous thrombosis, systemic embolization; TREATMENT for venou s thrombosis and/or pulmonary embolus.HIGH RISK: Target INR is 2.5-3.5 for patie nts wiht mechanical heart valves.Prepare Leuko-Red [id number] 23:54:00* Test Item Value Reference Range Interpretation Comments CROSSMATCH (test code = 2264) COMPATIBLE Unit ABO (test code = 8916674) B Pos UNIT NUMBER (test code = 934-0) [id number] Status (test code = 1910873) TX_TIMEINCHART Blood Bank Product (test code = 2263) RED BLOOD CELLS PRODUCT CODE (test code = 933-2) [id number] [facility], [id number] 23:27:00 Anesthesia:->NoneFINAL REPORT EXAM: CT, MAXILLOFACIAL AREA, CONTRAST CLINICAL [...] Paranasal Sinuses: Predominantly clear Tympanomastoid Cavities: Clear. IMPRESSION:Mild left mandibular periodontal disease including periapical lucency of tooth 15 with cortical breakthrough along the buccal surface. No abscess or soft tissue inflammation. Enlarged left level III lymph node is nonspecific and may be reactive. Signed: Silvestre Hood MDReport Verified Date/Time: 07/07/2019 23:27:53 maxillofacial with IV contrast 2019-07-07 23:27:00Interface, External Ris In - 07/07/2019 11:31 PM CDTFINAL REPORT EXAM: CT, MAXILLOFACIAL AREA, CONTRAST CLINICAL [...] Paranasal Sinuses: Predominantly clear Tympanomastoid Cavities: Clear. IMPRESSION:Mild left mandibular periodontal disease including periapical lucency of tooth 15 with cortical breakthrough along the buccal surface. No abscess or soft tissue inflammation. Enlarged left level III lymph node is nonspecific and may be reactive. Signed: Silvestre Hoodepyaya Verified Date/Joey e: 07/07/2019 23:27:53 Electronically signed by: SILVESTRE HOOD MD on 11:27 PM [facility]PO[facility] [id number] 21:21:00* Test Item Value Reference Range Interpretation Comments POC-GLUCOSE METER (BEAKER) (test code = 1538) 120 mg/dL 70-110 H : TESTED AT [facility] [address] [facility], [address]: Transfer Pumper/Director Industrial ID = [id number] for DANTE ROY CT, CHEST, WITH [id number] 18:18:00FINAL REPORT CT of the Chest dated 07/07/2019 CLINICAL INFORMATION: Liver lesion, > 1cm, US nondiagnostic Comment: Axial images of the chest were obtained from thoracic inlet to the upper abdomen trace intravenous contrast. This exam was performed according to our departmental dose-optimization program, which include s automated exposure control, adjustment of the mA and/or kV according to patien t size and/or use of interactive reconstruction technique. Heart is normal in si ze. Vascular calcification is seen in the thoracic aorta. Great vessels are unre markable. No adenopathy in the mediastinum or perihilar region. Trachea and main stem bronchi are patent. Vague groundglass pulmonary parenchymal disease is see n in both lungs specifically in the upper lobes. This is not typical appearance of Covid-19 pneumonia. No nodular, mass lesion or airspace disease is noted. No interstitial disease or bronchiectasis is present. No pleural effusion or pleur al based mass seen. Impression: Nonspecific groundglass pulmonary parenchyma dis ease in both lungs. ABDOMINAL CT DATED 07/07/2019 CLINICAL INFORMATION: Liver l esion, > 1cm, US nondiagnostic TECHNIQUE: Axial images of the abdomen were obtained from diaphragm to the upper pelvis with and without intravenous contrast. This exam was performed according to our departmental dose- optimization program, which includes automated exposure control, adjustment [...] arteries. IMPRESSION: 1. Cirrhosis with splenomegaly and portal hypertension.2. Hypodense mass in the segment 6/7 of the liver. Recommend tissue diagnosis.3. Left adrenal mass. Signed: [facility] Verified Date/Time: 07/07/2019 18:18:34 Reading Location: [address] Body Reading Room 06 :[address], ABDOMEN, LIVER EVALUATION, WITHOUT / WITH IV [id number] 18:18:00CT liver protocol to further evaluate liver masses seen on MRIFINAL REPORT CT of the Chest dated 07/07/2019 CLINICAL IN FORMATION: Liver lesion, > 1cm, US nondiagnostic Comment: Axial images of the chest were obtained from thoracic inlet to the upper abdomen trace intravenous contrast. This exam was performed according to our departmental dose- optimization program, which includes automated exposure control, adjustment [...] bronchiectasis is present. No pleural effusion or pleur al based mass seen. Impression: Nonspecific groundglass pulmonary parenchyma dis ease in both lungs. ABDOMINAL CT DATED 07/07/2019 CLINICAL INFORMATION: Liver l esion, > 1cm, US nondiagnostic TECHNIQUE: Axial images of the abdomen were obtained from diaphragm to the upper pelvis with and without intravenous contrast. This exam was performed according to our departmental dose- optimization program, which includes automated exposure control, adjustment [...] arteries. IMPRESSION: 1. Cirrhosis with splenomegaly and portal hypertension.2. Hypodense mass in the segment 6/7 of the liver. Recommend tissue diagnosis.3. Left adrenal mass. Signed: Silvestre De Lunaeport Verified Date/Time: 07/07/2019 18:18:34 Reading Location: [place] [id number] CT Body Reading Room 06 :[address] chest with IV [id number] 18:18:00Interface, External Ris In - 07/07/2019 6:[address] of the Chest dated 07/07/2019 [...] lobes. This is not typical appearance of Covid- 19 pneumonia. No nodular, mass lesion or airspace disease is noted. No interstitial disease or bronchiectasis is present. No pleural effusion or pleur al based mass seen. Impression: Nonspecific groundglass pulmonary parenchyma dis ease in both lungs. ABDOMINAL CT DATED 07/07/2019 CLINICAL INFORMATION: Liver l esion, > 1cm, US nondiagnostic TECHNIQUE: Axial images of the abdomen were obtained from diaphragm to the upper pelvis with and without intravenous contrast. This exam was performed according to our departmental dose- optimization program, which includes automated exposure control, adjustment [...] arteries. IMPRESSION: 1. Cirrhosis with splenomegaly and portal hypertension.2. Hypodense mass in the segment 6/7 of the liver. Recommend tissue diagnosis.3. Left adrenal mass. Signed: Silvestre De Luna MDReport Verified Date/Time: 07/07/2019 18:18:34 Reading Location: [address] Body Reading Room 06 :18 PM [facility] - [facility] evaluation without/with iv [id number] 18:18:00Interface, External Ris In - 07/07/2019 6:[address] of the Chest dated 07/07/2019 [...] bronchiectasis is present. No pleural effusion or pleur al based mass seen. Impression: Nonspecific groundglass pulmonary parenchyma dis ease in both lungs. ABDOMINAL CT DATED 07/07/2019 CLINICAL INFORMATION: Liver l esion, > 1cm, US nondiagnostic TECHNIQUE: Axial images of the abdomen were obtained from diaphragm to the upper pelvis with and without intravenous contrast. This exam was performed according to our departmental dose- optimization program, which includes automated exposure control, adjustment [...] arteries. IMPRESSION: 1. Cirrhosis with splenomegaly and portal hypertension.2. Hypodense mass in the segment 6/7 of the liver. Recommend tissue diagnosis.3. Left adrenal mass. Signed: Silvestre De Luna MDReport Verified Date/Time: 07/07/2019 18:18:34 Reading Location: [facility] C013Y CT Body Reading Room 06 :18 PM [facility] [id number] 16:36:00* Test Item Value Reference Range Interpretation Comments POC-GLUCOSE METER (BESeedpost & Seedpaper) (test code = 1538) 125 mg/dL 70-110 H : TESTED AT [facility] [address] [place], [address]: Transfer Pumper/Director Industrial ID = [id number] for JUSTIN VALENTINE 2D Echo W/Doppler(CW/PW/Color)2019-07-07 13:43:33Ejection FractionSLEH ECHO HEARTLAB MKCKESSON CPACSInterface, External Ris In - 07/07/2019 1:43 PM CDTTransthoracic Echocardiography Report (TTE) Demographics Patient Name JAROD WATT Date of Study 07/07/2019 Gender Male Visit Number [id number] Race Unknown Accession Number [id number] Room Number 955 Date of 1955 Referring Physician Age 63 year(s) Senior Solutions Engineer Abed Jaydon Interpreting Physician Luda Rodriguez MD Procedure Type of Study TTE procedure:2DECHO W DOPPLER(CW/PW/COLOR) (Routine) Indications:Evaluation of suspected pulmonary hyp ertension.Clinical HistoryHGB 7.5HCT 25.3 %DMHTNContrast Medium: Definity. Amoun t - 2 mlHeight: 69 inches Weight: 131.54 kg (290 lbs) BSA: 2.42 m^2 BMI: 42.83kg /m^2HR: 80 bpm BP: 132/63 mmHg Summary Global LV systolic function normal No korin dence of LV hypertrophy. LA size is mildly enlarged (35-41 ml/m2) . LV diastolic function is indeterminate. The right ventricular chamber size and systolic func tion are within normal limits. Unable to estimate peak systolic PA pressure; argelia dequate TR velocity signal. The estimated RA pressure by IVC dynamics indetermin ate . Previous Study No prior exam available for comparison. Signature ------ -------- Findings Left Ventric le Global LV systolic function normal LVEF by Sim pson's method of disk assessment is normal (55-60%) . No evidence of LV hypertrophy. LV sandra stolic function is indeterminate. Left Atrium LA size is mildly enla rged (35-41 ml/m2) . Right Ventricle The right ventricular chamber size and systolic function are within normal limits. Right At rium RA size is normal. Aortic Valve Normal AoV structure. Mitral Valve Normal MV structure. Mild mitral regurgitation. Tricuspid Valve TV structure is normal. Unable to estimate peak systolic PA pressure; inade quate TR velocity signal. Pulmonic Valve Normal PV structure appears no rmal by available views. Aorta Aortic r oot size (SInus of Valsalva diameter) is normal . Perica rdium No pericardial effusion is visualized. IVC/SVC/PA/PV/Pleural The estimated RA pressure by IVC dynamics indeterminate . Chambers/Structures Left Atrium LA Dimension: 5.33 cm LA Area : 26.28 cm^2 LA Volume: 87.86 ml LA Vol. Index: 36 ml/m^2 Left Ventricle LVIDd : 4.33 cm LVEDV:79.7 ml LVIDs: 2.67 cm LV Septum Diastolic: 1.06 cm LV PW Diastolic: 1.07 cm LV FS: 38.3 % LVEDV Gonsalves's:85.59 ml LVESV Gonsalves's:41.31 ml LVEDVI: 35 ml/m^2 LVEF Gonsalves's: 51.7 % LVESVI: 17 ml/m^2 LVO T Diameter: 2.05 cm Right Ventricle RVOT VTI: 17.54 cm Doppler/Quantitative Me asurements Mitral Valve MV Peak E-Wave: 0.88 m/s MV Peak A-Wave: 0 .94 m/s E/A Ratio: 0.93 Peak Gradient: 3.08 mmHg Deceleration Time: 243.9 msec MV Jann. Peak: Tissue Doppler E' Septal Veloc ity: 0.09 m/s E/E': 9.83 E' Lateral Velocity: 0.08 m/s Aortic Valve P eak Velocity: 1.46 m/s Mean Velocity: 0.86 m/s Peak Gradient: 8.56 mmHg Mean Gradient: 3.8 mmHg AV Area (continuity): 3.55 cm ^2 AV VTI: 29.31 cm AV DVI: 1.08 LVOT Peak Velocity: 1.35 m/s Pea k Gradient: 7.33 mmHg Mean Velocity: 0.87 m/s Mean Gradient: 3.63 mm Hg LVOT Diameter: 2.05 cm LVOT VTI: 31.56 cm LVOT Area: 3.3 cm^2 LVOT SV:104.12 ml LVOT CO: 8.33 l/min LVOT CI: 3.4 4 l/min/m^2 [facility]PO[facility] [id number] 11:20:00* Test Item Value Reference Range Interpretation Comments POC-GLUCOSE METER (BEAKER) (test code = 1538) 128 mg/dL 70-110 H : TESTED AT [facility] [address] [facility], [address]: Transfer Pumper/Director Industrial ID = [id number] for JUSTIN VALENTINE [id number] 11:10:00* Test Item Value Reference Range Interpretation Comments Magnesium (test code = 35127-0) 1.2 mg/dL 1.6-2.6 L CHASE (test code = CHASE) Transfer Pumper ID - NTP Lab Interpretation (test code = 32436-7) Abnormal [facility] CenterPhosphorus2020-05-12 11:10:00* Test Item Value Reference Range Interpretation Comments Phosphorus (test code = 2777-1) 2.1 mg/dL 2.3-4.7 L CHASE (test code = CHASE) Transfer Pumper ID - NTP Lab Interpretation (test code = 12805-2) Abnormal [facility] CenterPotassium2020-05-12 11:10:00* Test Item Value Reference Range Interpretation Comments Potassium (test code = 2823-3) 3.5 meq/L 3.5-5.1 CHASE (test code = CHASE) Transfer Pumper ID - NTP Lab Interpretation (test code = 73387-3) Normal [facility] CenterPOTASSIUM2020-05-12 11:10:00* Test Item Value Reference Range Interpretation Comments POTASSIUM (BEAKER) (test code = 379) 3.5 meq/L 3.5-5.1 Transfer Pumper ID - [id number] 11:10:00* Test Item Value Reference Range Interpretation Comments MAGNESIUM (BEAKER) (test code = 627) 1.2 mg/dL 1.6-2.6 L Transfer Pumper ID - [id number] 11:10:00* Test Item Value Reference Range Interpretation Comments PHOSPHORUS (BEAKER) (test code = 604) 2.1 mg/dL 2.3-4.7 L Transfer Pumper ID - NTPVancomycin level, [id number] 11:08:00* Test Item Value Reference Range Interpretation Comments Vancomycin Tr (test code = 4092-3) 12.7 ug/mL 10-20 CHASE (test code = CHASE) Transfer Pumper ID - NTP Lab Interpretation (test code = 44604-6) Normal [facility]ilionVANCOMYCIN LEVEL, [id number] 11:08:00* Test Item Value Reference Range Interpretation Comments VANCOMYCIN TROUGH (BEAKER) (test code = 522) 12.7 ug/mL 10.0-20.0 Transfer Pumper ID - NTPManual [id number] 09:57:00* Test Item Value Reference Range Interpretation Comments % Neutros (test code = 2816) 79 % % Lymphs (test code = 2817) 11 % % Monos (test code = 2818) 6 % % Eos (test code = 2819) 1 % % Bands (test code = 2826) 2 % 0-10 # Neutros (test code = 2830) 1.90 K/ul 1.78-5.38 # Lymphs (test code = 2831) 0.26 K/ul 1.32-3.57 L # Monos (test code = 2832) 0.14 K/uL 0.3-0.82 L # Eos (test code = 2834) 0.02 K/uL 0.04-0.54 L # Bands (test code = 2840) 0.05 K/uL 0-0.8 Total Counted (test code = 1351) 100 WBC Morphology (test code = 487) Normal Platelet Morphology (test code = 486) Normal Polychromasia (test code = 478) 2+ moderate Hypochromia (test code = 963) 1+ few Target Cells (test code = 480) 2+ moderate Artifact (test code = 3432) Present Platelet Conc (test code = 3438) Decreased CHASE (test code = CHASE) Transfer Pumper ID - [id number] I Dung Vincent comments: Slide comments: Lab Interpretation (test code = 64000-1) Abnormal [facility] W/PLT COUNT & AUTO [id number] 09:57:00* Test Item Value Reference Range Interpretation Comments WHITE BLOOD CELL COUNT (BEAKER) (test code = 775) 2.4 K/ L 3.5- 10.5 L RED BLOOD CELL COUNT (BEAKER) (test code = 761) 3.34 M/ L 4.63-6 .08 L HEMOGLOBIN (BEAKER) (test code = 410) 7.5 GM/DL 13.7-17.5 L HEMATOCRIT (BEAKER) (test code = 411) 25.3 % 40.1-51.0 L MEAN CORPUSCULAR VOLUME (BEAKER) (test code = 753) 75.7 fL 79. 0-92.2 L MEAN CORPUSCULAR HEMOGLOBIN (BEAKER) (test code = 751) 22.5 pg 25.7-32.2 L MEAN CORPUSCULAR HEMOGLOBIN CONC (BEAKER) (test code = 752) 29.6 GM/DL 32.3-36.5 L RED CELL DISTRIBUTION WIDTH (BEAKER) (test code = 412) 17.2 % 11.6-14.4 H PLATELET COUNT (BEAKER) (test code = 756) 67 K/CU MM 150-450 L MEAN PLATELET VOLUME (BEAKER) (test code = 754) Unable to report due to abnormal Platelet population distribution. NUCLEATED RED BLOOD CELLS (BEAKER) (test code = 413) 0 /100 WBC 0 -0 (CELLAVISION MANUAL DIFF)2019-07-07 09:57:00* Test Item Value Reference Range Interpretation Comments NEUTROPHILS - REL (CELLAVISION)(BEAKER) (test code = 2816) 79 % LYMPHOCYTES - REL (CELLAVISION)(BEAKER) (test code = 2817) 11 % MONOCYTES - REL (CELLAVISION)(BEAKER) (test code = 2818) 6 % EOSINOPHILS - REL (CELLAVISION)(BEAKER) (test code = 2819) 1 % BANDS - REL (CELLAVISION)(BEAKER) (test code = 2826) 2 % 0 -10 NEUTROPHILS - ABS (CELLAVISION)(BEAKER) (test code = 2830) 1.90 K/ul 1.78-5.38 LYMPHOCYTES - ABS (CELLAVISION)(BEAKER) (test code = 2831) 0.26 K/ul 1.32-3.57 L MONOCYTES - ABS (CELLAVISION)(BEAKER) (test code = 2832) 0.14 K/uL 0.30-0.82 L EOSINOPHILS - ABS (CELLAVISION)(BEAKER) (test code = 2834) 0.02 K/uL 0.04-0.54 L BANDS - ABS (CELLAVISION)(BEAKER) (test code = 2840) 0.05 K/uL 0 .00-0.80 TOTAL COUNTED (BEAKER) (test code = 1351) 100 WBC MORPHOLOGY (BEAKER) (test code = 487) Normal PLT MORPHOLOGY (BEAKER) (test code = 486) Normal POLYCHROMATOPHILLIC RBCS(BEAKER) (test code = 478) 2+ moderate HYPOCHROMIA (BEAKER) (test code = 963) 1+ few TARGET CELLS (BEAKER) (test code = 480) 2+ moderate ARTIFACT (CELLAVISION)(BEAKER) (test code = 3432) Present PLATELET CONCENTRATION (CELLAVISION)(BEAKER) (test code = 3438) Dec reased Transfer Pumper ID - [id number] ID - Halima Carlton comments: Slide comments: Basic Metabolic [id number] 09:18:00* Test Item Value Reference Range Interpretation Comments Sodium (test code = 2951-2) 138 meq/L 136-145 Potassium (test code = 2823-3) 2.1 meq/L 3.5-5.1 LL Chloride (test code = 5-0) 117 meq/L 98-107 H CO2 (test code = 2027-9) 16 meq/L 22-29 L BUN (test code = 3094-0) 7 mg/dL 7-21 Creatinine (test code = 2160-0) 0.61 mg/dL 0.57-1.25 Glucose (test code = 2345-7) 98 mg/dL 70-105 Calcium (test code = 51467-7) 7.4 mg/dL 8.4-10.2 L EGFR (test code = 41431-2) I NSUFFICIENT CLINICAL DATA TO CALCULATE ESTIMATED GFR. CHASE (test code = CHASE) Transfer Pumper ID - LAOperator ID - NTP Lab Interpretation (test code = 38558-0) Abnormal [facility] METABOLIC [id number] 09:18:00* Test Item Value Reference Range Interpretation Comments SODIUM (BEAKER) (test code = 381) 138 meq/L 136-145 POTASSIUM (BEAKER) (test code = 379) 2.1 meq/L 3.5-5.1 LL CHLORIDE (BEAKER) (test code = 382) 117 meq/L 98-107 H CO2 (BEAKER) (test code = 355) 16 meq/L 22-29 L BLOOD UREA NITROGEN (BEAKER) (test code = 354) 7 mg/dL 7-21 CREATININE (BEAKER) (test code = 358) 0.61 mg/dL 0.57-1.25 GLUCOSE RANDOM (BEAKER) (test code = 652) 98 mg/dL 70-105 CALCIUM (BEAKER) (test code = 697) 7.4 mg/dL 8.4-10.2 L EGFR (BEAKER) (test code = 1092) INSUFFICIENT CLINICAL DATA TO CALCULATE ESTIMATED GFR. Transfer Pumper ID - LAOperator ID - [id number] 07:13:00* Test Item Value Reference Range Interpretation Comments MAGNESIUM (BEAKER) (test code = 627) 1.0 mg/dL 1.6-2.6 LL Transfer Pumper ID - JV [id number] 07:07:00* Test Item Value Reference Range Interpretation Comments PHOSPHORUS (BEAKER) (test code = 604) 1.7 mg/dL 2.3-4.7 L Transfer Pumper ID - PIAYA [id number] 05:39:00* Test Item Value Reference Range Interpretation Comments PHOSPHORUS (BEAKER) (test code = 604) 1.0 mg/dL 2.3-4.7 LL Transfer Pumper ID - PIAYA [id number] 05:38:00* Test Item Value Reference Range Interpretation Comments MAGNESIUM (BEAKER) (test code = 627) 0.7 mg/dL 1.6-2.6 LL Transfer Pumper ID - PIAYA LHepatic function [id number] 05:31:00* Test Item Value Reference Range Interpretation Comments Protein, Total (test code = 2885-2) 4.8 6.0- 8.3 gm/dL L Albumin (test code = 47851-5) 2.2 g/dL 3.5-5 L Total Bilirubin (test code = 1975-2) 0.4 mg/dL 0.2-1.2 Bilirubin, Direct (test code = 1968-7) 0.3 mg/dL 0.1-0.5 Alkaline Phosphatase (test code = 6768-6) 53 U/L 40-150 AST (test code = 1920-8) 40 U/L 5-34 H ALT (test code = 1742-6) 31 U/L 6-55 CHASE (test code = CHASE) Transfer Pumper ID - PIAYA L Lab Interpretation (test code = 49449-5) Abnormal [facility]ilionHEPATIC FUNCTION [id number] 05:31:00* Test Item Value Reference Range Interpretation Comments TOTAL PROTEIN (BEAKER) (test code = 770) 4.8 gm/dL 6.0-8.3 L ALBUMIN (BEAKER) (test code = 1145) 2.2 g/dL 3.5-5.0 L BILIRUBIN TOTAL (BEAKER) (test code = 377) 0.4 mg/dL 0.2-1.2 BILIRUBIN DIRECT (BEAKER) (test code = 706) 0.3 mg/dL 0.1-0.5 ALKALINE PHOSPHATASE (BEAKER) (test code = 346) 53 U/L 40-150 AST (SGOT) (BEAKER) (test code = 353) 40 U/L 5-34 H ALT (SGPT) (BEAKER) (test code = 347) 31 U/L 6-55 Transfer Pumper ID - PIAYA LPT/[id number] 04:13:00* Test Item Value Reference Range Interpretation Comments PROTIME (BEAKER) (test code = 759) 18.9 seconds 11.9-14.2 H INR (BEAKER) (test code = 370) 1.6 <=5.9 PARTIAL THROMBOPLASTIN TIME (BEAKER) (test code = 760) 42.6 seconds 22.5-36.0 H Effective 07/23/2018: PT Reference Range ChangeNew: 11.9-14.2 Previous: 11.7-14. 7RECOMMENDED COUMADIN/WARFARIN INR THERAPY RANGESSTANDARD DOSE: 2.0-3.0 Include s: PROPHYLAXIS for venous thrombosis, systemic embolization; TREATMENT for venou s thrombosis and/or pulmonary embolus.HIGH RISK: Target INR is 2.5-3.5 for patie nts wiht mechanical heart valves.Respiratory Panel [id number] 01:42:00* Test Item Value Reference Range Interpretation Comments Human Metapneumovirus (test code = 69479-8) Not detected Not detected, Equivocal Rhinovirus (test code = 80030-2) Not detected Not detected, Equivoc al INFLUENZA A (NO SUBTYPE) (test code = 25403-9) Not detected Not detected, Equivocal Influenza A subtype H1 (test code = 82845-1) Influenza A Subtype H3 (test code = 09550-3) Influenza A Subtype H1-2009 (test code = 62626-7) Influenza B (test code = 75361-6) Not detected Not detected, Equivo luis Respiratory Syncytial Virus (test code = 44192-3) Not detect ed Not detected, Equivocal Parainfluenza Virus 1 (test code = 87307-1) Not detected Not detected, Equivocal Parainfluenza Virus 2 (test code = 40228-0) Not detected Not detected, Equivocal Parainfluenza virus 3 (test code = 98281-7) Not detected Not detected, Equivocal Parainfluenza Virus 4 (test code = 37199-9) Not detected Not detected, Equivocal Adenovirus (test code = 18840-7) Not detected Not detected, Equivoc al Coronavirus 229E (test code = 40736-9) Not detected Not detected, E quivocal Coronavirus HKU1 (test code = 35695-3) Not detected Not detected, E quivocal Coronavirus NL63 (test code = 70137-4) Not detected Not detected, E quivocal Coronavirus OC43 (test code = 00708-9) Not detected Not detected, E quivocal Bordetella Pertussis (test code = 78819-9) Not detected Not d etected, Equivocal Chlamydophila Pneumoniae (test code = 62402-8) Not detected Not detected, Equivocal Mycoplasma Pneumoniae (test code = 91740-5) Not detected Not detected, Equivocal CHASE (test code = CHASE) Other viruses and bacteria n ot targeted by this PCR panel cannot be excluded; therefore clinical correlation and follow up of serology, culture results, and other molecular studies is required. The results are not intended to be used as the sole means for clinical diagnosis or patient management decisions. This sample was tested at the [facility] using the [employer] FilmArray Respiratory Panel. It is FDA cleared and has been verified and approved by the [facility] for clinical use on nasopharyngeal swab specimens. The performance of the FilmArra y RP has not been established in individuals who received influenza vaccine. Recent administration of a nasal influenza vaccine may cause false positive results for Influenza A and/orInfluenza B. [facility]ilion[facility] PAN[facility] [id number] 01:42:00* Test Item Value Reference Range Interpretation Comments HUMAN METAPNEUMOVIRUS (BEAKER) (test code = 2683) Not detect ed Not detected, Equivocal RHINOVIRUS (BEAKER) (test code = 2684) Not detected Not detected, E quivocal INFLUENZA A (BEAKER) (test code = 2685) Not detected Not detected, Equivocal INFLUENZA A (NO SUBTYPE) (test code = 3606) INFLUENZA A SUBTYPE H1 (BEAKER) (test code = 2686) INFLUENZA A SUBTYPE H3 (BEAKER) (test code = 2687) INFLUENZA A SUBTYPE H1-2009 (BEAKER) (test code = 3198) INFLUENZA B (BEAKER) (test code = 2688) Not detected Not detected, Equivocal RESPIRATORY SYNCYTIAL VIRUS (BEAKER) (test code = 3199) Not detected Not detected, Equivocal PARAINFLUENZA VIRUS 1 (BEAKER) (test code = 2691) Not detect ed Not detected, Equivocal PARAINFLUENZA VIRUS 2 (BEAKER) (test code = 2692) Not detect ed Not detected, Equivocal PARAINFLUENZA VIRUS 3 (BEAKER) (test code = 2693) Not detect ed Not detected, Equivocal PARAINFLUENZA VIRUS 4 (BEAKER) (test code = 3200) Not detect ed Not detected, Equivocal ADENOVIRUS (BEAKER) (test code = 2694) Not detected Not detected, E quivocal CORONAVIRUS 229E (BEAKER) (test code = 3201) Not detected Not detected, Equivocal CORONAVIRUS HKU1 (BEAKER) (test code = 3202) Not detected Not detected, Equivocal CORONAVIRUS NL63 (BEAKER) (test code = 3203) Not detected Not detected, Equivocal CORONAVIRUS OC43 (BEAKER) (test code = 3204) Not detected Not detected, Equivocal BORDETELLA PERTUSSIS (BEAKER) (test code = 3205) Not detecte d Not detected, Equivocal CHLAMYDOPHILA PNEUMONIAE (BEAKER) (test code = 3206) Not det ected Not detected, Equivocal MYCOPLASMA PNEUMONIAE (BEAKER) (test code = 3207) Not detect ed Not detected, Equivocal Other viruses and bacteria not targeted by this PCR panel cannot be excluded; th erefore clinical correlation and follow up of serology, culture results, and oth er molecular studies is required. The results are not intended to be used as the sole means for clinical diagnosis or patient management decisions. This sample was tested at the [facility] using the GhosteryA rray Respiratory Panel. It is FDA cleared and has been verified and approved by the [facility] for clinical use on nasopharyngeal sw ab specimens.The performance of the CiiNOWArray RP has not been established in ind ividuals who received influenza vaccine. Recent administration of a nasal influ candice vaccine may cause false positive results for Influenza A and/orInfluenza B. SARS-CoV2/RT-PCR (Symptomatic ONLY)2019-07-07 00:26:00* Test Item Value Reference Range Interpretation Comments SARS-COV2/RT-PCR (test code = 2669483) Not Detected Not Detected, N egative SARS-COV-2 PERFORMING LAB (test code = 0780793) [facility] CHASE (test code = CHASE) Negative results do not prec lude SARS-CoV-2 infection and should not be used as the sole basis for patient management decisions. Negative results must be combined with clinical observations, patient history, and epidemiological information. A false negative result may occur if a specimen is improperly collected, transported or handled. The limit of detection for this assay is 250 copies/mL. This SARS CoV-2 test is a rapid, real-time RT-PCR test intended for the qualitative detection of nucleic acid from SARS-CoV-2 in a nasopharyngeal swab specimen collected from individuals suspected of COVID-19 by their healthcare provider. This test has not been Food and Drug Administration (FDA) cleared or approved and has been authorized by FDA under an Emergency Use Authorization (EUA). This EUA will be effective until the declaration that circumstances exist justifying the authorization of the emergency use of in vitro diagnostic tests for detection and/or diagnosis of COVID-19 is terminated under Section 564(b)(2) of the Act or the EUA is revoked under Section 564(g) of the Act. Fact Sheet for Healthcare Providers:https://www.Yatedo/Documents/Xpert%20Xpress%20SARS%20CoV-2/Fact%2 0Sheets/302-3802%43WDST-NTQ-6%20HEALTHCARE%20PROVIDERS%20FACT%20SHEET.pdf Fact Sheet for Healthcare Patients:https://www.Yatedo/Documents/Xpert%20Xpress%20SARS%20CoV-2/Fact%20 Sheets/302-3801%85BMPE-PHR-0%20PATIENT%20FACT%20SHEET.pdf Performing Laboratory:[facility] [place] [address] [place], [place] [address]ARS-COV2/RT-PCR ([facility])2019-07-07 00:26:00* Test Item Value Reference Range Interpretation Comments SARS-COV2/RT-PCR (test code = 2468079) Not Detected Not Detected, N egative SARS-COV-2 PERFORMING LAB (test code = 7063111) [facility] Negative results do not preclude SARS-CoV-2 infection and should not be used as the sole basis for patient management decisions. Negative results must be combin ed with clinical observations, patient history, and epidemiological information. A false negative result may occur if a specimen is improperly collected, transp orted or handled.The limit of detection for this assay is 250 copies/mL.This [facility] S CoV-2 test is a rapid, real-time RT-PCR test intended for the qualitative dete ction of nucleic acid from SARS-CoV-2 in a nasopharyngeal swab specimen collecte d from individuals suspected of COVID-19 by their healthcare provider.This test has not been Food and Drug Administration (FDA) cleared or approved and has been authorized by FDA under an Emergency Use Authorization (EUA). This EUA will be effective until the declaration that circumstances exist justifying the authoriz ation of the emergency use of in vitro diagnostic tests for detection and/or sandra gnosis of COVID-19 is terminated under Section 564(b)(2) of the Act or the EUA i s revoked under Section 564(g) of the Act.Fact Sheet for Healthcare Providers:ht tps://www.Yatedo/Documents/Xpert%20Xpress%20SARS%20CoV-2/Fact%20Sheets/302- 3802%93PGGI-JWU-0%20HEALTHCARE%20PROVIDERS%20FACT%20SHEET.pdfFact Sheet for Heal thcare Patients:https://www.Yatedo/Documents/Xpert%20Xpress%20SARS%20CoV-2/ Fact%20Sheets/302-3801%58DPFZ-PMJ-1%20PATIENT%20FACT%20SHEET.pdfPerforming Labor atory:[address], [place] [address]BMPA- GLUCOSE [id number] 00:02:00* Test Item Value Reference Range Interpretation Comments POC-GLUCOSE METER (BEAKER) (test code = 1538) 146 mg/dL 70-110 H : TESTED AT [address], [address]: Transfer Pumper/Director Industrial ID = [id number] for ELMERLERALEXANDRA, [id number] 19:21:00* Test Item Value Reference Range Interpretation Comments ABO Grouping (test code = 2588) B Rh Factor (test code = 2589) POS [facility] CenterType and screen, [id number] 19:19:00* Test Item Value Reference Range Interpretation Comments ABO/RH AUTOMATED (BEAKER) (test code = 2260) B POSITIVE Ab Scrn (test code = 890-4) NEGATIVE [facility] CenterMR, ABDOMEN, [id number] 18:40:00FINAL REPORT TECHNIQUE: MRI of the abdomen WITHOUT and WITH intravenous contrast. INDICATION: Liver lesion. COMPARISON: Ultrasound earlier today. FINDINGS: Exam is markedly limited secondary to motion artifact. Arter ial phase exam was not obtained. LOWER THORAX: Unremarkable. LIVER: Cirrhotic mo rphology of the liver.. In segment 5-6 of the liver there is a 7.2 x 6.3 cm hete rogeneous mass which demonstrates peripheral enhancement on postcontrast images. . There is also a 3.5 cm hypoenhancing mass within segment IVb. There is an miguel tional 1.5 cm T2 hyperintense lesion in segment VIII adjacent to gallbladder fos sa. There is also a 1.4 cm T2 hyperintense lesion in the periphery of segment . There is also 1.6 cm T2 hyperintense focus inferiorly within segment V.BILIARY : There is mild nonspecific gallbladder wall thickening likely related to cirrho sis.. No biliary ductal dilatation or filling defect.SPLEEN: Spleen is enlarged measuring 17 cm in craniocaudal dimension..PANCREAS: No focal masses or ductal d ilatation. ADRENALS: 2 cm left adrenal nodule which demonstrates signal loss on opposed phase images consistent with lipid rich adenoma..KIDNEYS/URETERS: No hyd ronephrosis or solid mass lesions. PERITONEUM/RETROPERITONEUM: No free fluid.LYM PH NODES: No lymphadenopathy.VESSELS: Unremarkable. GI TRACT: No distention or w all thickening. BONES AND SOFT TISSUES: Unremarkable. IMPRESSION:Limited exam s econdary to motion artifact and lack of arterial phase exam. Cirrhosis with mult iple masses in the bilateral hepatic lobes which are not adequately characterize d on this exam but are suspicious for hepatocellular carcinoma. Further evaluati on with CT liver protocol is recommended. Sequelae of portal hypertension. No re nal mass. Signed: Elizabeth Rankin MDReport Verified Date/Time: 0 18:40:36 Reading Location: [address] Transitional Reading Room Electronic ally signed by: ELIZABETH RANKIN MD on 07/06/2019 06:40 PM MR abdomen without & with IV [id number] 18:40:00Interface, External Ris In - 07/06/2019 6:42 PM CDTFINAL REPORT TECHNIQUE: MRI of the abdomen WITHOUT [...] images.. There is also a 3.5 cm hyp oenhancing mass within segment IVb. There is an additional 1.5 cm T2 hyperintens e lesion in segment VIII adjacent to gallbladder fossa. There is also a 1.4 cm T 2 hyperintense lesion in the periphery of segment . There is also 1.6 cm T2 hy perintense focus inferiorly within segment V.BILIARY: There is mild nonspecific gallbladder wall thickening likely related to cirrhosis.. No biliary ductal dila tation or filling defect.SPLEEN: Spleen is enlarged measuring 17 cm in craniocau juan jose dimension..PANCREAS: No focal masses or ductal dilatation. ADRENALS: 2 cm le ft adrenal nodule which demonstrates signal loss on opposed phase images consist ent with lipid rich adenoma..KIDNEYS/URETERS: No hydronephrosis or solid mass le sions. PERITONEUM/RETROPERITONEUM: No free fluid.LYMPH NODES: No lymphadenopathy .VESSELS: Unremarkable. GI TRACT: No distention or wall thickening. BONES AND SO FT TISSUES: Unremarkable. IMPRESSION:Limited exam secondary to motion artifact and lack of arterial phase exam. Cirrhosis with multiple masses in the bilateral hepatic lobes which are not adequately characterized on this exam but are suspi cious for hepatocellular carcinoma. Further evaluation with CT liver protocol is recommended. Sequelae of portal hypertension. No renal mass. Signed: Elizabeth Rankin MDReport Verified Date/Time: 07/06/2019 18:40:36 Reading Location: [address] Reading Room [facility] CenterPOCT[facility]SE [id number] 09:51:00* Test Item Value Reference Range Interpretation Comments POC-GLUCOSE METER (BEAKER) (test code = 1538) 137 mg/dL 70-110 H : TESTED AT [address], [address]: Transfer Pumper/Director Industrial ID = [id number] for ODILON CASTELLANO POCT-GLUCOSE [id number] 09:43:00* Test Item Value Reference Range Interpretation Comments POC-GLUCOSE METER (BEAKER) (test code = 1538) 120 mg/dL 70-110 H : TESTED AT [address] [place], : Transfer Pumper/Director Industrial ID = [id number] for VENKAT, ROSA MKEYA POCT-GLUCOSE [id number] 09:37:00* Test Item Value Reference Range Interpretation Comments POC-GLUCOSE METER (BEAKER) (test code = 1538) 132 mg/dL 70-110 H : TESTED AT [address], [address]: Transfer Pumper/Director Industrial ID = [id number] for VENKAT, TIKEYA POCT-GLUCOSE [id number] 09:30:00* Test Item Value Reference Range Interpretation Comments POC-GLUCOSE METER (BEAKER) (test code = 1538) 117 mg/dL 70-110 H : TESTED AT [address], [address]: Transfer Pumper/Director Industrial ID = [id number] for Gavin Malini Hemoglobin and [id number] 08:54:00* Test Item Value Reference Range Interpretation Comments Hemoglobin (test code = 786-4) 6.7 13.7- 17.5 GM/DL L Hematocrit (test code = 4544-3) 23.8 % 40.1-51 L CHASE (test code = CHASE) Transfer Pumper ID - [id number] Lab Interpretation (test code = 52541-8) Abnormal [facility]ilionHEMOGLOBIN AND [id number] 08:54:00* Test Item Value Reference Range Interpretation Comments HEMOGLOBIN (BEAKER) (test code = 410) 6.7 GM/DL 13.7-17.5 L HEMATOCRIT (BEAKER) (test code = 411) 23.8 % 40.1-51.0 L Transfer Pumper ID - [id number] W/PLT COUNT & AUTO [id number] 08:40:00* Test Item Value Reference Range Interpretation Comments WHITE BLOOD CELL COUNT (BEAKER) (test code = 775) 2.7 K/ L 3.5- 10.5 L RED BLOOD CELL COUNT (BEAKER) (test code = 761) 3.03 M/ L 4.63-6 .08 L HEMOGLOBIN (BEAKER) (test code = 410) 6.6 GM/DL 13.7-17.5 L HEMATOCRIT (BEAKER) (test code = 411) 22.4 % 40.1-51.0 L MEAN CORPUSCULAR VOLUME (BEAKER) (test code = 753) 73.9 fL 79. 0-92.2 L MEAN CORPUSCULAR HEMOGLOBIN (BEAKER) (test code = 751) 21.8 pg 25.7-32.2 L MEAN CORPUSCULAR HEMOGLOBIN CONC (BEAKER) (test code = 752) 29.5 GM/DL 32.3-36.5 L RED CELL DISTRIBUTION WIDTH (BEAKER) (test code = 412) 16.3 % 11.6-14.4 H PLATELET COUNT (BEAKER) (test code = 756) 62 K/CU MM 150-450 L MEAN PLATELET VOLUME (BEAKER) (test code = 754) Unable to report due to abnormal Platelet population distribution. NUCLEATED RED BLOOD CELLS (BEAKER) (test code = 413) 0 /100 WBC 0 -0 (CELLAVISION MANUAL DIFF)2019-07-06 08:40:00* Test Item Value Reference Range Interpretation Comments NEUTROPHILS - REL (CELLAVISION)(BEAKER) (test code = 2816) 87 % LYMPHOCYTES - REL (CELLAVISION)(BEAKER) (test code = 2817) 8 % MONOCYTES - REL (CELLAVISION)(BEAKER) (test code = 2818) 3 % BANDS - REL (CELLAVISION)(BEAKER) (test code = 2826) 2 % 0 -10 NEUTROPHILS - ABS (CELLAVISION)(BEAKER) (test code = 2830) 2.35 K/ul 1.78-5.38 LYMPHOCYTES - ABS (CELLAVISION)(BEAKER) (test code = 2831) 0.22 K/ul 1.32-3.57 L MONOCYTES - ABS (CELLAVISION)(BEAKER) (test code = 2832) 0.08 K/uL 0.30-0.82 L BANDS - ABS (CELLAVISION)(BEAKER) (test code = 2840) 0.05 K/uL 0 .00-0.80 TOTAL COUNTED (BEAKER) (test code = 1351) 100 WBC MORPHOLOGY (BEAKER) (test code = 487) Normal PLT MORPHOLOGY (BEAKER) (test code = 486) Normal POLYCHROMATOPHILLIC RBCS(BEAKER) (test code = 478) 1+ few HYPOCHROMIA (BEAKER) (test code = 963) 2+ moderate ARTIFACT (CELLAVISION)(BEAKER) (test code = 3432) Present PLATELET CONCENTRATION (CELLAVISION)(BEAKER) (test code = 3438) Dec reased Transfer Pumper ID - Halima Vincent comments: Slide comments: [id number] 05:52:00* Test Item Value Reference Range Interpretation Comments Procalcitonin (test code = 05559-8) 6.60 ng/mL <0.05 H CHASE (test code = CHASE) SEPSIS RISK (ng/mL)Low: 0.05-0.50Intermediate: 0.51-2.00High: >=2.01 Lab Interpretation (test code = 81446-0) Abnormal [facility] PavilionJrdquyYLWVSSSCFFCLF2507-73-31 05:52:00* Test Item Value Reference Range Interpretation Comments PROCALCITONIN (BEAKER) (test code = 3036) 6.60 ng/mL <0.05 H SEPSIS RISK (ng/mL)Low: 0.05-0.50Intermediate: 0.51-2.00High: > =2.01HEPATIC FUNCTION [id number] 05:25:00* Test Item Value Reference Range Interpretation Comments TOTAL PROTEIN (BEAKER) (test code = 770) 6.3 gm/dL 6.0-8.3 ALBUMIN (BEAKER) (test code = 1145) 2.8 g/dL 3.5-5.0 L BILIRUBIN TOTAL (BEAKER) (test code = 377) 0.7 mg/dL 0.2-1.2 BILIRUBIN DIRECT (BEAKER) (test code = 706) 0.5 mg/dL 0.1-0.5 ALKALINE PHOSPHATASE (BEAKER) (test code = 346) 71 U/L 40-150 AST (SGOT) (BEAKER) (test code = 353) 49 U/L 5-34 H ALT (SGPT) (BEAKER) (test code = 347) 37 U/L 6-55 Transfer Pumper ID - DBBASIC METABOLIC [id number] 05:12:00* Test Item Value Reference Range Interpretation Comments SODIUM (BEAKER) (test code = 381) 136 meq/L 136-145 POTASSIUM (BEAKER) (test code = 379) 3.7 meq/L 3.5-5.1 CHLORIDE (BEAKER) (test code = 382) 109 meq/L 98-107 H CO2 (BEAKER) (test code = 355) 21 meq/L 22-29 L BLOOD UREA NITROGEN (BEAKER) (test code = 354) 14 mg/dL 7-21 CREATININE (BEAKER) (test code = 358) 0.85 mg/dL 0.57-1.25 GLUCOSE RANDOM (BEAKER) (test code = 652) 131 mg/dL 70-105 H CALCIUM (BEAKER) (test code = 697) 9.9 mg/dL 8.4-10.2 EGFR (BEAKER) (test code = 1092) INSUFFICIENT CLINICAL DATA TO CALCULATE ESTIMATED GFR. Transfer Pumper ID - DBPT/[id number] 05:03:00* Test Item Value Reference Range Interpretation Comments PROTIME (BEAKER) (test code = 759) 17.3 seconds 11.9-14.2 H INR (BEAKER) (test code = 370) 1.5 <=5.9 PARTIAL THROMBOPLASTIN TIME (BEAKER) (test code = 760) 40.1 seconds 22.5-36.0 H Effective 07/23/2018: PT Reference Range ChangeNew: 11.9-14.2 Previous: 11.7-14. 7RECOMMENDED COUMADIN/WARFARIN INR THERAPY RANGESSTANDARD DOSE: 2.0-3.0 Include s: PROPHYLAXIS for venous thrombosis, systemic embolization; TREATMENT for venou s thrombosis and/or pulmonary embolus.HIGH RISK: Target INR is 2.5-3.5 for patie nts wiht mechanical heart valves.[id number] 05:00:00* Test Item Value Reference Range Interpretation Comments PHOSPHORUS (BEAKER) (test code = 604) 1.6 mg/dL 2.3-4.7 L Transfer Pumper ID - [id number] 05:00:00* Test Item Value Reference Range Interpretation Comments MAGNESIUM (BEAKER) (test code = 627) 1.3 mg/dL 1.6-2.6 L Transfer Pumper ID - DBU/S, ABDOMINAL, [id number] 03:42:00Reason for exam:-> suspected liver cirrhosiswith dopplerFINAL REPORT TECHNIQUE: Grayscale ultrasound of the abdomen. [...] The main portal vein measures 1.1 cm. BILIARY:Gallbladder: No gallstones or sludge. No gallbladder wall thickening, pericholecystic fluid, or distention. Negative sonographic Mcmahon sign.Common bile duct was unable to be identified secondary to bowel gas. No intrahepatic biliary ductal dilatation. PANCREAS: Incompletely visualized due to overlying bowel gas. SPLEEN: Mild splenomegaly. The spleen measures 14.4 cm. PERITONEUM: No free fluid. KIDNEYS: Normal in size bilaterally. No hydronephrosis. No sonog raphically evident solid mass lesion. There is a cystic lesion at the upper pole of the left kidney that is 5.4 x 4.7 x 3.7 cm with posterior acoustic enhanceme nt and a few septa. IMPRESSION: 1. Nodular liver contour compatible with cirrho sis. 2. Mild splenomegaly. 3. Left renal cystic lesion mildly complex with a few septa. Consider further evaluation with nonemergent CT or MRI renal protocol. S igned: Silvestre Hood MDReport Verified Date/Time: 07/06/2019 03:42:00 Juliana ctronically signed by: SILVESTRE HOOD MD on 07/06/2019 03:42 AM US abdomen [id number] 03:42:00Interface, External Ris In - 07/06/2019 3:44 AM CDTFINAL REPORT TECHNIQUE: Grayscale ultrasound of the abdomen. [...] The main portal vein measures 1.1 cm. BILIARY:Gallbladder: No gallstones or sludge. No gallbladder wall thickening, pericholecystic fluid, or distention. Negative sonographic Mcmahon sign.Common bile duct was unable to be identified [...] splenomegaly. 3. Left renal cystic lesion mildly complex with a few septa. Consider further evaluation with nonemergent CT or MRI renal protocol. Signed: Silvestre Hood MDReport Verified Date/Time: 07/06/2019 03:42:00 [facility] CenterLegionella antigen, [id number] 17:34:00* Test Item Value Reference Range Interpretation Comments Legionella Urine Antigen (test code = 91972-5) Negative - see comme nt Negative for L. pneumophila serogroup 1 antigen, suggesting no recent or current infection with this serogroup. Legionellosis cannot be ruled out since other serogroups and species may cause disease. [facility] CenterLEGIONELLA ANTIGEN, [id number] 17:34:00* Test Item Value Reference Range Interpretation Comments L. PNEUMOPHILA SEROGP 1 UR AG (BEAKER) (test code = 11 56) Negative - see comment Negative for L. pneu mophila serogroup 1 antigen, suggesting no recent or current infection with this serogroup. Legionellosis cannot be ruled out since other serogroups and species may cause disease. Urinalysis w/Microscopic + Reflex to [id number] 17:15:00* Test Item Value Reference Range Interpretation Comments Color, UA (test code = 5778-6) Yellow Clarity, UA (test code = 5767-9) Cloudy Specific [place], UA (test code = 5811-5) 1.026 1.001-1.035 pH, UA (test code = 5803-2) 5.0 5.0-8.0 Protein, UA (test code = 86044-0) 10 mg/dL Negative A Glucose, UA (test code = 365) Negative Negative Ketones, UA (test code = 2514-8) Negative Negative Bilirubin, UA (test code = 16849-2) Negative Negative Blood, UA (test code = 33927-0) Negative Negative Nitrite, UA (test code = 5802-4) Negative Negative Leukocytes, UA (test code = 5799-2) Negative Negative Urobilinogen, UA (test code = 64810-2) 0.2 mg/dL 0.2-1 RBC, UA (test code = 36877-9) 1 /HPF WBC, UA (test code = 5821-4) 4 /HPF Mucus (test code = 8247-9) Rare Squam Epithel, UA (test code = 23283-1) 9 /HPF Hyaline Casts, UA (test code = 41220-4) 5 /LPF Uric Acid Crystals (test code = 1583) Occasional Amorphous Crystals (test code = 14096-0) Occasional Specimen Source (test code = 2795) CHASE (test code = CHASE) Transfer Pumper ID - [auto]Transfer Pumper ID - tech Lab Interpretation (test code = 84135-9) Abnormal [facility]/ REFLEX URINE [id number] 17:15:00* Test Item Value Reference Range Interpretation Comments COLOR (BEAKER) (test code = 470) Yellow CLARITY (BEAKER) (test code = 469) Cloudy SPECIFIC GRAVITY UA (BEAKER) (test code = 468) 1.026 1.001-1 .035 PH UA (BEAKER) (test code = 467) 5.0 5.0-8.0 PROTEIN UA (BEAKER) (test code = 464) 10 mg/dL Negative A GLUCOSE UA (BEAKER) (test code = 365) Negative Negative KETONES UA (BEAKER) (test code = 371) Negative Negative BILIRUBIN UA (BEAKER) (test code = 462) Negative Negative BLOOD UA (BEAKER) (test code = 461) Negative Negative NITRITE UA (BEAKER) (test code = 465) Negative Negative LEUKOCYTE ESTERASE UA (BEAKER) (test code = 466) Negative Negat pooja UROBILINOGEN UA (BEAKER) (test code = 463) 0.2 mg/dL 0.2-1.0 RBC UA (BEAKER) (test code = 519) 1 /HPF WBC UA (BEAKER) (test code = 520) 4 /HPF MUCUS (BEAKER) (test code = 1574) Rare SQUAMOUS EPITHELIAL (BEAKER) (test code = 516) 9 /HPF HYALINE CASTS (BEAKER) (test code = 514) 5 /LPF URIC ACID CRYSTALS (BEAKER) (test code = 1583) Occasional AMORPHOUS CRYSTALS (BEAKER) (test code = 1584) Occasional SOURCE(BEAKER) (test code = 2795) Transfer Pumper ID - [auto]Transfer Pumper ID - techBASIC METABOLIC [id number] 10:05:00* Test Item Value Reference Range Interpretation Comments SODIUM (BEAKER) (test code = 381) 136 meq/L 136-145 POTASSIUM (BEAKER) (test code = 379) 4.1 meq/L 3.5-5.1 CHLORIDE (BEAKER) (test code = 382) 110 meq/L 98-107 H CO2 (BEAKER) (test code = 355) 19 meq/L 22-29 L BLOOD UREA NITROGEN (BEAKER) (test code = 354) 14 mg/dL 7-21 CREATININE (BEAKER) (test code = 358) 0.92 mg/dL 0.57-1.25 GLUCOSE RANDOM (BEAKER) (test code = 652) 117 mg/dL 70-105 H CALCIUM (BEAKER) (test code = 697) 9.9 mg/dL 8.4-10.2 EGFR (BEAKER) (test code = 1092) INSUFFICIENT CLINICAL DATA TO CALCULATE ESTIMATED GFR. Transfer Pumper ID - [id number] 09:56:00* Test Item Value Reference Range Interpretation Comments PHOSPHORUS (BEAKER) (test code = 604) 2.6 mg/dL 2.3-4.7 Transfer Pumper ID - [id number] 09:56:00* Test Item Value Reference Range Interpretation Comments MAGNESIUM (BEAKER) (test code = 627) 1.3 mg/dL 1.6-2.6 L Transfer Pumper ID - NTPAlpha fetoprotein (AFP), tumor [id number] 06:54:00* Test Item Value Reference Range Interpretation Comments Alpha-Fetoprotein (test code = 1834-1) 26.9 ng/mL <10.0 H CHASE (test code = CHASE) Transfer Pumper ID - NTP Lab Interpretation (test code = 78953-3) Abnormal [facility] CenterHepatitis C [id number] 06:54:00* Test Item Value Reference Range Interpretation Comments Hepatitis C Ab (test code = 80334-0) Nonreactive Nonreactive CHASE (test code = CHASE) Transfer Pumper ID - NTP Lab Interpretation (test code = 46539-8) Normal [facility] CenterALPHA FETOPROTEIN (AFP), TUMOR [id number] 06:54:00* Test Item Value Reference Range Interpretation Comments ALPHA-FETOPROTEIN (BEAKER) (test code = 1094) 26.9 ng/mL <10.0 H Transfer Pumper ID - NTPHEPATITIS C [id number] 06:54:00* Test Item Value Reference Range Interpretation Comments HEPATITIS C ANTIBODY (BEAKER) (test code = 367) Nonreactive Nonrea ctive Transfer Pumper ID - NTPLactic acid, [id number] 06:23:00* Test Item Value Reference Range Interpretation Comments Lactate, Venous (test code = 2872) 1.83 mmol/L 0.5-2.2 CHASE (test code = CHASE) Transfer Pumper ID - ALAN M Lab Interpretation (test code = 51004-9) Normal [facility] CenterLACTIC ACID, [id number] 06:23:00* Test Item Value Reference Range Interpretation Comments LACTATE BLOOD VENOUS (2) (BEAKER) (test code = 2872) 1.83 mmol/L 0 .50-2.20 Transfer Pumper ID - ALAN MHepatitis B [id number] 06:19:00* Test Item Value Reference Range Interpretation Comments Hep B Core Total Ab (test code = 42068-0) Reactive Nonreactive A Hep B S Ab (test code = 93077-7) 17.7 <8.0 mIU/mL H HBsAg Screen (test code = 5195-3) Nonreactive Nonreactive CHASE (test code = CHASE) Transfer Pumper ID - DB Lab Interpretation (test code = 97484-8) [facility]normal [facility] CenterHEPATITIS B [id number] 06:19:00* Test Item Value Reference Range Interpretation Comments HEPATITIS B CORE TOTAL ANTIBODY (BEAKER) (test code = 497) React pooja Nonreactive A HEPATITIS B SURFACE ANTIBODY (BEAKER) (test code = 647) 17.7 mIU/mL <8.0 H HEPATITIS B SURFACE ANTIGEN (2) (BEAKER) (test code = 2585) Nonreactive Nonreactive Transfer Pumper ID - DBHepatitis A Omodt3925-60-88 04:18:00* Test Item Value Reference Range Interpretation Comments Hep A IgM (test code = 54768-2) Nonreactive Nonreactive Hep A IgG (test code = 03096-2) Reactive Nonreactive A CHASE (test code = CHASE) Transfer Pumper ID - DB Lab Interpretation (test code = 29859-2) [facility]normal [facility] [id number] 04:18:00* Test Item Value Reference Range Interpretation Comments HEPATITIS A IGM ANTIBODY (BEAKER) (test code = 498) Nonreactive No nreactive HEPATITIS A IGG ANTIBODY (BEAKER) (test code = 2797) Reactive N onreactive [place] [employer] Operator ID - DBHIV-1 Antigen with HIV-1/2 Jaojabyf4740-58-09 03:56:00* Test Item Value Reference Range Interpretation Comments HIV-1 Antigen with HIV 1&2 Antibody (test code = 83071-8) No nreactive Nonreactive CHASE (test code = CHASE) Transfer Pumper ID - DB Lab Interpretation (test code = 48216-1) Normal [facility] CenterHIV-1 ANTIGEN WITH HIV-1/2 [id number] 03:56:00* Test Item Value Reference Range Interpretation Comments HIV-1 ANTIGEN WITH HIV 1\\T\\2 ANTIBODY (2) (BEAKER) (te st code = 2586) Nonreactive Nonreactive Transfer Pumper ID - DBReticulocyte vlthw9161-15-94 03:11:00* Test Item Value Reference Range Interpretation Comments % Retic (test code = 18742-4) 2.6 % 0.5-1.8 H CHASE (test code = CHASE) Transfer Pumper ID - 6000 Lab Interpretation (test code = 69924-8) Abnormal [facility] CenterRETICULOCYTE [id number] 03:11:00* Test Item Value Reference Range Interpretation Comments RETICULOCYTE COUNT PCT (BEAKER) (test code = 575) 2.6 % 0.5- 1.8 H Transfer Pumper ID - 6000RAD, CHEST, 1 VIEW, NON [id number] 02:54:00Reason for exam:->shortness of breathShould this be performed at the bedside?->YesFINAL REPORT INDICATION: shortness of breath COMPARISON: None TECHNIQUE: Single frontal view of the chest. IMPRESSION: Lungs and pleura: Hypoinflated lungs with pulmonary venous congestion. There are hazy bibasilar ai rspace opacities suggestive of edema. Superimposed infection would need to be ex cluded clinically. No effusion.Heart and mediastinum: Mild cardiomegaly. Mediast inal contours are unremarkable.Osseous structures: No acute abnormality.Other: N one. Signed: Silvetsre Hood MDReport Verified Date/Time: 07/05/2019 02:54:14 chest 1 view portable / [id number] 02:54:00Interface, External Ris In - 07/05/2019 2:56 AM CDTFINAL REPORT INDICATION: shortness of breath COMPARISON: None TECHNIQUE: Single frontal view of the chest. IMPRESSION: Lungs and pleura: Hypoinflated lungs with pulmonary venous congestion. There are hazy bibasilar airspace opacities suggestive of edema. Superimposed infection would need to be excluded clinically. No effusion.Heart and mediastinum: Mild cardiomegaly. Mediastinal contours are unremarkab le.Osseous structures: No acute abnormality.Other: None. Signed: Silvestre Hood MD Report Verified Date/Time: 07/05/2019 02:54:14 [facility] CenterLipid [id number] 02:52:00* Test Item Value Reference Range Interpretation Comments Triglycerides (test code = 2571-8) 43 mg/dL Cholesterol (test code = 2093-3) 55 mg/dL HDL (test code = 2085-9) 23 mg/dL LDL Calculated (test code = 41375-2) 23 mg/dL CHASE (test code = CHASE) Triglyceride Reference Range : Low Risk <150 Borderline 150-199 High Risk 200-499 Very High Risk >=500 Cholesterol Reference Range: Low Risk <200 Borderline 200-239 High Risk >240 HDL Cholesterol Reference Range: Low Risk >=60 High Risk <40 LDL Cholesterol Reference Range: Optimal <100 Near Optimal 100-129 Borderline 130-159 High 160-189 Very High >=190 Transfer Pumper ASHLEE Butler [facility] CenterLIPID [id number] 02:52:00* Test Item Value Reference Range Interpretation Comments TRIGLYCERIDES (BEAKER) (test code = 540) 43 mg/dL CHOLESTEROL (BEAKER) (test code = 631) 55 mg/dL HDL CHOLESTEROL (BEAKER) (test code = 976) 23 mg/dL LDL CHOLESTEROL CALCULATED (BEAKER) (test code = 633) 23 mg/dL Triglyceride Reference Range: Low Risk <150 Borderline 150-199 High Risk 200-499 Very High Risk >=500Cholesterol Reference Range: Low Risk <200 Borderline 200-239 High Risk >240HDL Cholesterol Reference Range: Low Risk >=60 High Risk <40LDL Cholesterol Reference Range: Optimal <100 Near Optimal 100-129 Borderline 130-159 High 160-189 Very High >=190 Transfer Pumper ASHLEE Francis ALAN ZMyyrjazs6948-75-14 02:39:00* Test Item Value Reference Range Interpretation Comments Ferritin (test code = 2276-4) 6.21 ng/mL 5-275 CHASE (test code = CHASE) Transfer Pumper ASHLEE Butler Lab Interpretation (test code = 14636-1) Normal [facility] CenterFolate, [id number] 02:39:00* Test Item Value Reference Range Interpretation Comments Folate (test code = 2284-8) 11.70 ng/mL >=7.00 CHASE (test code = CHASE) Transfer Pumper ASHLEE Butler Lab Interpretation (test code = 39936-9) Normal [facility] CenterFERRITIN2020-05-10 02:39:00* Test Item Value Reference Range Interpretation Comments FERRITIN (BEAKER) (test code = 361) 6.21 ng/mL 5.00-275.00 Transfer Pumper ASHLEE PHILLIPS MFOLATE, [id number] 02:39:00* Test Item Value Reference Range Interpretation Comments FOLATE (BEAKER) (test code = 362) 11.70 ng/mL >=7.00 Transfer Pumper ASHLEE PHILLIPS MLACTIC ACID, [id number] 02:38:00* Test Item Value Reference Range Interpretation Comments LACTATE BLOOD VENOUS (2) (BEAKER) (test code = 2872) 2.29 mmol/L 0 .50-2.20 H Transfer Pumper ID - ALAN MVitamin [id number] 02:30:00* Test Item Value Reference Range Interpretation Comments Vitamin B12 (test code = 2132-9) 945 pg/mL 213-816 H CHASE (test code = CHASE) Transfer Pumper ID - ALAN M Lab Interpretation (test code = 99755-1) Abnormal [facility] CenterTSH/Free T4 If [id number] 02:30:00* Test Item Value Reference Range Interpretation Comments TSH (test code = 84462-1) 0.374 0.350- 4.940 uIU/mL CHASE (test code = CHASE) Transfer Pumper ID - ALAN M Lab Interpretation (test code = 16915-1) Normal [facility] CenterVITAMIN [id number] 02:30:00* Test Item Value Reference Range Interpretation Comments VITAMIN B12 (BEAKER) (test code = 774) 945 pg/mL 213-816 H Transfer Pumper ID - ALAN MTSH/FREE T4 IF [id number] 02:30:00* Test Item Value Reference Range Interpretation Comments THYROID STIMULATING HORMONE (BEAKER) (test code = 772) 0.374 uIU /mL 0.350-4.940 Transfer Pumper ID - ALAN [id number] 02:09:00* Test Item Value Reference Range Interpretation Comments PHOSPHORUS (BEAKER) (test code = 604) < mg/dL 2.3-4.7 LL Transfer Pumper ID - ALAN [id number] 02:08:00* Test Item Value Reference Range Interpretation Comments MAGNESIUM (BEAKER) (test code = 627) 0.7 mg/dL 1.6-2.6 LL Transfer Pumper ID - ALAN Shahnaz, TIBC, % sat. (without ferritin)2019-07-05 02:05:00* Test Item Value Reference Range Interpretation Comments Iron (test code = 2498-4) 12.0 ug/dL 40-160 L TIBC (test code = 2500-7) 380 ug/dL 250-450 Iron % Saturation (test code = 2502-3) 3 % 20-55 L CHASE (test code = CHASE) Transfer Pumper ID - ALAN M Lab Interpretation (test code = 59165-7) Abnormal [facility] CenterIRON, TIBC, % SAT. (WITHOUT FERRITIN)2019-07-05 02:05:00* Test Item Value Reference Range Interpretation Comments IRON (BEAKER) (test code = 547) 12.0 ug/dL 40.0-160.0 L TOTAL IRON BINDING CAPACITY (BEAKER) (test code = 769) 380 ug/dL 250-450 IRON % SATURATION (2) (BEAKER) (test code = 2590) 3 % 20-5 5 L Transfer Pumper ASHLEE PHILLIPS MTroponin [id number] 02:04:00* Test Item Value Reference Range Interpretation Comments Troponin I (test code = 87793-5) <0.01 0-0.03 CHASE (test code = CHASE) Troponin I (TnI) levels must be interpreted in the context of the presenting symptoms and the clinical findings. Elevated TnI levels indicate myocardial damage, but are not specific for ischemic heart disease. Elevated TnI levels are seen in patients with other cardiac conditions (including myocarditis and congestive heart failure), and slight TnI elevations occur in patients with other conditions, including sepsis, renal failure, acidosis, acute neurological disease, and persistent tachyarrhythmia.Transfer Pumper ASHLEE PHILLIPS Lab Interpretation (test code = 98451-6) Normal [facility] CenterTROPONIN [id number] 02:04:00* Test Item Value Reference Range Interpretation Comments TROPONIN I (BEAKER) (test code = 397) < ng/mL 0.00-0.03 Troponin I (TnI) levels must be interpreted in the context of the presenting sym ptoms and the clinical findings. Elevated TnI levels indicate myocardial damage, but are not specific for ischemic heart disease. Elevated TnI levels are seen i n patients with other cardiac conditions (including myocarditis and congestive h eart failure), and slight TnI elevations occur in patients with other conditions , including sepsis, renal failure, acidosis, acute neurological disease, and per sistent tachyarrhythmia.Transfer Pumper ASHLEE PHILLIPS MCreatine Kinase (CK)2019-07-05 01:59:00* Test Item Value Reference Range Interpretation Comments Total CK (test code = 2157-6) 89 U/L 29-200 CHASE (test code = CHASE) Transfer Pumper ID - ALAN M Lab Interpretation (test code = 88598-4) Normal [facility] CenterLactate dehydrogenase (LDH)2019-07-05 01:59:00* Test Item Value Reference Range Interpretation Comments LDH (test code = 2532-0) 133 U/L 125-220 CHASE (test code = CHASE) Transfer Pumper ID - ALAN M Lab Interpretation (test code = 46750-3) Normal [facility] CenterLipase2020-05-10 01:59:00* Test Item Value Reference Range Interpretation Comments Lipase (test code = 3040-3) 39 U/L 8-78 CHASE (test code = CHASE) Transfer Pumper ID - ALAN M Lab Interpretation (test code = 79976-2) Normal [facility] CenterHEPATIC FUNCTION [id number] 01:59:00* Test Item Value Reference Range Interpretation Comments TOTAL PROTEIN (BEAKER) (test code = 770) 6.5 gm/dL 6.0-8.3 ALBUMIN (BEAKER) (test code = 1145) 2.9 g/dL 3.5-5.0 L BILIRUBIN TOTAL (BEAKER) (test code = 377) 1.0 mg/dL 0.2-1.2 BILIRUBIN DIRECT (BEAKER) (test code = 706) 0.5 mg/dL 0.1-0.5 ALKALINE PHOSPHATASE (BEAKER) (test code = 346) 93 U/L 40-150 AST (SGOT) (BEAKER) (test code = 353) 33 U/L 5-34 ALT (SGPT) (BEAKER) (test code = 347) 35 U/L 6-55 Transfer Pumper ID - ALAN MCREATINE KINASE (CK)2019-07-05 01:59:00* Test Item Value Reference Range Interpretation Comments CREATINE KINASE TOTAL (BEAKER) (test code = 380) 89 U/L 29-20 0 Transfer Pumper ID - ALAN MLACTATE DEHYDROGENASE (LDH)2019-07-05 01:59:00* Test Item Value Reference Range Interpretation Comments LACTATE DEHYDROGENASE (BEAKER) (test code = 635) 133 U/L 125-2 20 Transfer Pumper ID - ALAN [id number] 01:59:00* Test Item Value Reference Range Interpretation Comments LIPASE (BEAKER) (test code = 749) 39 U/L 8-78 Transfer Pumper ID - ALAN IWwrdvjw5540-73-43 01:50:00* Test Item Value Reference Range Interpretation Comments Ammonia (test code = 73617-3) 43 18- 72 mol/L CHASE (test code = CHASE) Transfer Pumper ID Tito PHILLIPS M Lab Interpretation (test code = 33491-4) Normal [facility]2020-[facility]-10 01:50:00* Test Item Value Reference Range Interpretation Comments AMMONIA (BEAKER) (test code = 348) 43 mol/L 18-72 Transfer Pumper ID Tito PHILLIPS MBASIC METABOLIC [id number] 01:49:00* Test Item Value Reference Range Interpretation Comments SODIUM (BEAKER) (test code = 381) 137 meq/L 136-145 POTASSIUM (BEAKER) (test code = 379) 3.8 meq/L 3.5-5.1 CHLORIDE (BEAKER) (test code = 382) 111 meq/L 98-107 H CO2 (BEAKER) (test code = 355) 20 meq/L 22-29 L BLOOD UREA NITROGEN (BEAKER) (test code = 354) 13 mg/dL 7-21 CREATININE (BEAKER) (test code = 358) 0.98 mg/dL 0.57-1.25 GLUCOSE RANDOM (BEAKER) (test code = 652) 101 mg/dL 70-105 CALCIUM (BEAKER) (test code = 697) 9.8 mg/dL 8.4-10.2 EGFR (BEAKER) (test code = 1092) INSUFFICIENT CLINICAL DATA TO CALCULATE ESTIMATED GFR. Transfer Pumper ID - DBBlood gas, [id number] 01:36:00* Test Item Value Reference Range Interpretation Comments pH, Sebastien (test code = 2746-6) 7.39 7.32-7.42 pCO2, Sebastien (test code = 755) 37 41- 51 mmHg L pO2, Sebastien (test code = 2705-2) 66 25- 40 mmHg H O2 Sat, Sebastien (test code = 2711-0) 92.9 % 40-70 H HCO3, Sebastien (test code = 25052-9) 22 mmol/L 21-29 Base Excess, Sebastien (test code = 1927-3) -2.7 mmol/L -2-3 L Patient Temperature (test code = 8310-5) 37.0 C FIO2 (test code = 1819) 21 % Lab Interpretation (test code = 43788-4) Abnormal [facility]ilionBLOOD GAS, [id number] 01:36:00* Test Item Value Reference Range Interpretation Comments PH VENOUS (BEAKER) (test code = 701) 7.39 7.32-7.42 PCO2 VENOUS (BEAKER) (test code = 755) 37 mmHg 41-51 L PO2 VENOUS (BEAKER) (test code = 702) 66 mmHg 25-40 H O2 SATURATION VENOUS (BEAKER) (test code = 703) 92.9 % 40.0-7 0.0 H HCO3 VENOUS (BEAKER) (test code = 705) 22 mmol/L 21-29 BASE EXCESS VENOUS (BEAKER) (test code = 704) -2.7 mmol/L -2.0-3.0 L PATIENT TEMPERATURE (BEAKER) (test code = 1818) 37.0 C FIO2 (BEAKER) (test code = 1819) 21.0 % CBC W/PLT COUNT & AUTO [id number] 01:27:00* Test Item Value Reference Range Interpretation Comments WHITE BLOOD CELL COUNT (BEAKER) (test code = 775) 9.6 K/ L 3.5- 10.5 RED BLOOD CELL COUNT (BEAKER) (test code = 761) 3.31 M/ L 4.63-6 .08 L HEMOGLOBIN (BEAKER) (test code = 410) 7.3 GM/DL 13.7-17.5 L HEMATOCRIT (BEAKER) (test code = 411) 25.0 % 40.1-51.0 L MEAN CORPUSCULAR VOLUME (BEAKER) (test code = 753) 75.5 fL 79. 0-92.2 L MEAN CORPUSCULAR HEMOGLOBIN (BEAKER) (test code = 751) 22.1 pg 25.7-32.2 L MEAN CORPUSCULAR HEMOGLOBIN CONC (BEAKER) (test code = 752) 29.2 GM/DL 32.3-36.5 L RED CELL DISTRIBUTION WIDTH (BEAKER) (test code = 412) 15.8 % 11.6-14.4 H PLATELET COUNT (BEAKER) (test code = 756) 85 K/CU MM 150-450 L MEAN PLATELET VOLUME (BEAKER) (test code = 754) Unable to report due to abnormal Platelet population distribution. NUCLEATED RED BLOOD CELLS (BEAKER) (test code = 413) 0 /100 WBC 0 -0 NEUTROPHILS RELATIVE PERCENT (BEAKER) (test code = 429) 92 % LYMPHOCYTES RELATIVE PERCENT (BEAKER) (test code = 430) 3 % MONOCYTES RELATIVE PERCENT (BEAKER) (test code = 431) 4 % EOSINOPHILS RELATIVE PERCENT (BEAKER) (test code = 432) 0 % BASOPHILS RELATIVE PERCENT (BEAKER) (test code = 437) 0 % NEUTROPHILS ABSOLUTE COUNT (BEAKER) (test code = 670) 8.76 K/ L 1.78-5.38 H LYMPHOCYTES ABSOLUTE COUNT (BEAKER) (test code = 414) 0.31 K/ L 1.32-3.57 L MONOCYTES ABSOLUTE COUNT (BEAKER) (test code = 415) 0.37 K/ L 0. 30-0.82 EOSINOPHILS ABSOLUTE COUNT (BEAKER) (test code = 416) 0.01 K/ L 0.04-0.54 L BASOPHILS ABSOLUTE COUNT (BEAKER) (test code = 417) 0.02 K/ L 0. 01-0.08 IMMATURE GRANULOCYTES-RELATIVE PERCENT (BEAKER) (test code = 2801) 1 % 0-1 [id number] 01:22:00* Test Item Value Reference Range Interpretation Comments Fibrinogen (test code = 3255-7) 234 mg/dl 225-434 Lab Interpretation (test code = 08365-2) Normal [facility] CenterProthrombin time/[id number] 01:22:00* Test Item Value Reference Range Interpretation Comments Protime (test code = 5902-2) 16.7 11.9- 14.2 seconds H INR (test code = 6301-6) 1.4 <=5.9 CHASE (test code = CHASE) Effective 07/23/2018: PT Refe rence Range ChangeNew: 11.9- 14.2 Previous: 11.7-14.7 RECOMMENDED COUMADIN/WARFARIN INR THERAPY RANGESSTANDARD DOSE: 2.0-3.0 Includes: PROPHYLAXIS for venous thrombosis, sys temic embolization; TREATMENT for venous thrombosis and/or pulmonary embolus.HIGH RISK: Target INR is 2.5-3.5 for patients wiht mechanical heart valves. Lab Interpretation (test code = 68866-2) Abnormal [facility] CenterPROTHROMBIN TIME/[id number] 01:22:00* Test Item Value Reference Range Interpretation Comments PROTIME (BEAKER) (test code = 759) 16.7 seconds 11.9-14.2 H INR (BEAKER) (test code = 370) 1.4 <=5.9 Effective 07/23/2018: PT Reference Range ChangeNew: 11.9-14.2 Previous: 11.7-14. 7RECOMMENDED COUMADIN/WARFARIN INR THERAPY RANGESSTANDARD DOSE: 2.0-3.0 Include s: PROPHYLAXIS for venous thrombosis, systemic embolization; TREATMENT for venou s thrombosis and/or pulmonary embolus.HIGH RISK: Target INR is 2.5-3.5 for patie nts wiht mechanical heart valves.[id number] 01:22:00* Test Item Value Reference Range Interpretation Comments FIBRINOGEN LEVEL (BEAKER) (test code = 658) 234 mg/dl 225-434 Fluoroscopic procedure less than one hour cgvklqmd8503-61-05 22:00:00* Test Item Value Reference Range Interpretation Comments Lactic Acid Level (test code = Lactic Acid Level) 2.6 0.5- 2.0 Results repeated and called to Shavon Gama at 2229 on 07/04/19 by Brody Beavers. Betty meier back and verified.[facility] 2019-07-04 21:59:00 [facility] [address] [place] [address] Patient Name: JAROD WATT MR #: [id number] : 1955 Age/Sex: 63/M Req #: [id number] Adm Physician: Ordered by: VERN OLIVEIRA DO Report #: [id number] Location: ER Room/Bed: Procedure: [id number] CT/CT ABDOMEN/PELVIS WO Exam Date: 07/04/19 Exam Time: 2117 REPORT STATUS: Signed EXAM: CT Abdomen and P cyndee WITHOUT contrast INDICATION: Concern for pneumoperitoneum on chest x-r ay COMPARISON: None. TECHNIQUE: Abdomen and pelvis were scanned utilizing a multidetector helical scanner from the lung base to the pubic symphysis witho ut administration of IV contrast. Absence of intravenous contrast decreases se nsitivity for detection of focal lesions and vascular pathology. Coronal and s agittal reformations were obtained. Routine protocol was performed. IV CONTRAST: None ORAL CONTRAST: None COMPLICATIONS: None RADIATION DOSE: Total DLP: 1629 mGy*cm Estimated effective do se: (DLP x 0.015 x size factor) mSv CTDIvol has been reviewed. It is belo w the limits set by the Radiation Protocol Committee (RPC). Dose modula tion, iterative reconstruction, and/or weight based adjustment of the mA/kV wa s utilized to reduce the radiation dose to as low as reasonably achievable. FINDINGS: LINES and TUBES: None. LOWER THORAX: Bibasilar atelecta sis. Triple vessel coronary artery calcific atherosclerosis. HEPATOBI LIARY: Shrunken nodular liver. Trace perihepatic ascites. Multiple calcified h epatic granulomas. Mild heterogeneity in the right hepatic lobe. No biliar y ductal dilation. GALLBLADDER: No radio-opaque stones or sludge. No wall thickening. SPLEEN: Splenomegaly. PANCREAS: No focal masses or ducta l dilatation. ADRENALS: A 1.7 cm benign lipid rich left adrenal adenoma. KIDNEYS/URETERS: No hydronephrosis. No cystic or solid mass lesions. No stones. Bilateral perinephric fat stranding. GI TRACT: No abnormal dis tention, wall thickening, or evidence of bowel obstruction. Appendix is not clearly identified. There is however no fat stranding or adenopathy in the right lower quadrant to suggest appendicitis. PELVIC ORGANS/BLADDER: Unrem arkable. LYMPH NODES: No lymphadenopathy. VESSELS: Vascular calcificat ions. PERITONEUM / RETROPERITONEUM: No free air or fluid. BONES: D egenerative changes. SOFT TISSUES: Bilateral gynecomastia. IMPRESSION: 1. No pneumoperitoneum. Low lung volumes with bibasi lar atelectasis. Basilar atelectasis likely generated the appearance of pneumo peritoneum on the same day chest x-ray. 2. Hepatic cirrhosis and portal hypertension with splenomegaly. Indeterminate/nonspecific mild right hepatic l obe heterogeneity, recommend nonemergent liver MRI with contrast. 3. Musa ateral perinephric fat stranding can be due to renal insufficiency or senescen ce, although pyelonephritis can cause this finding. Correlate with urinalysis. 4. Triple vessel coronary artery calcific atherosclerosis. Signed by : Ish Sharma DO on 07/04/2019 10:11 PM Dictated By: ISH Forrest 10 Transcribed B y: BELINDA on 07/04/192210 COPY TO: VERN OLIVEIRA DO CT BRAIN WO 2019-07-04 20:57:00 [place] [address] Patient Name: JAROD WATT MR #: [id number] : 1955 Age/Sex: 63/M Req #: [id number] Adm Physician: Ordered by: VERN OLIVEIRA DO Report #: [id number] Location: ER Room/Bed: Procedure: [id number] CT/CT BRAIN WO Exam Date: 07/04/19 Exam Time: 2027 REPORT STATUS: Signed CT BRAIN WO HISTORY: Alter ed mental status COMPARISON: Head CT 05/05/2019 Technique: Noncontr ast axial scans were obtained from skull base to the vertex. Coronal and sagi ttal reconstructions obtained from the axial data. One or more of the followi ng dose reduction techniques were used: Automated exposure control, adjustment of the mA and/or kV according to patient size, and/or utilization of iterativ e reconstruction technique. Beam hardening artifacts obscure some details. DISCUSSION: Scalp/Skull: Unremarkable. Brain sulci: Mildly prominent. Ventricles: Compensatory dilatation. Extra-axial spaces: No masses or fluid c ollections. Carotid siphon calcifications are present. Parenchyma: Mil d bilateral deep white matter hypodensity is likely chronic microvascular isch emic change. Otherwise, no masses, hemorrhage, or large vascular territory ac fredi infarct. Dural sinuses: No abnormal densities. Sellar/Suprasellar re gion: Intact. Skull base: Intact. Incidental findings: None. IMPRESSION : 1. No acute intracranial abnormalities. 2. Mild supratentorial chronic m icrovascular ischemic change. Mild generalized cerebral volume loss. S igned by: Dr. Neville Bang M.D. on 07/04/2019 8:59 PM Dictated By: MAHAD BANG MD 58 Transcribed By: BELINDA on 07/04/192058 COPY TO: VERN OLIVEIRA DO CHEST SINGLE (PORTABLE)2019-07-04 20:50:00 [place] [address] Patient Name: JAROD WATT MR #: [id number] : 1955 Age/Sex: 63/M Req #: [id number] Adm Physician: Ordered by: VERN OLIVEIRA DO Report #: [id number] Location: ER Room/Bed: Procedure: [id number] DX/CHEST SINGLE (POR TABLE) Exam Date: 07/04/19 Exam Time: 2017 REPORT STATUS: Signed EXAMINATION: CHEST SINGLE (PORTABLE) INDICATION: Altered mental status COMPARIS ON: None FINDINGS: TUBES and LINES: None. LUNGS: Low lung volumes. Bibasilar haziness. Prominent central pulmonary vasculature. PLEURA: No pleural effusion or pneumothorax. HEART AND MEDIASTINUM: T he cardiomediastinal silhouette is unremarkable. BONES AND SOFT TISSUES : No acute osseous lesion. Soft tissues are unremarkable. UPPER ABDOME N: Suspect pneumoperitoneum under the right hemidiaphragm. IMPRESSION: Suspect pneumoperitoneum. Recommend abdominal CT. Low lung volumes with s ubtle haziness in the lower lungs can be due to atelectasis although pneumonia is possible. Findings discussed with Dr. Oliveira at 8:52 PM on 07/04/[address] Ivan Sharma via telephone. Signed by: Ish Sharma DO on 07/04/2019 8:55 P M Dictated By: ISH SHARMA DO 54 Transcribed By: BELINDA on 07/04/192054 COPY T O: VERN OLIVEIRA DO Blood leukocytes automated count (number/volume) 2019-07-04 19:45:00* Test Item Value Reference Range Interpretation Comments White Blood Count (test code = 6690-2) 9.22 4.8-10.8 [facility] CampusBlood erythrocytes automated count (number/volume)2019-07-04 19:45:00* Test Item Value Reference Range Interpretation Comments Red Blood Count (test code = 789-8) 3.85 4.3-5.7 [facility] CampusBlood hemoglobin measurement (moles/volume)2019-07-04 19:45:00* Test Item Value Reference Range Interpretation Comments Hemoglobin (test code = 66063-9) 8.5 14.0-18.0 [facility] CampusAutomated blood hematocrit (volume fraction)2019-07-04 19:45:00* Test Item Value Reference Range Interpretation Comments Hematocrit (test code = 4544-3) 29.2 38.2-49.6 [facility] CampusAutomated erythrocyte mean corpuscular dtyzjz2774-14-77 19:45:00* Test Item Value Reference Range Interpretation Comments Mean Corpuscular Volume (test code = 787-2) 75.8 81-99 [facility] CampusAutomated erythrocyte mean corpuscular hemoglobin (mass per erythrocyte)2019-07-04 19:45:00* Test Item Value Reference Range Interpretation Comments Mean Corpuscular Hemoglobin (test code = 785-6) 22.1 28-32 [facility] CampusAutomated erythrocyte mean corpuscular hemoglobin concentration measurement (mass/volume)2019-07-04 19:45:00* Test Item Value Reference Range Interpretation Comments Mean Corpuscular Hemoglobin Concent (test code = 786-4) 29.1 31-35 [facility] CampusRDW ChxWm-Cqy5228-84-09 19:45:00* Test Item Value Reference Range Interpretation Comments Red Cell Distribution Width (test code = 38730-2) 15.9 11.7 -14.4 [facility] CampusAutlevine [facility] blood platelet count (count/volume)2019-07-04 19:45:00* Test Item Value Reference Range Interpretation Comments Platelet Count (test code = 777-3) 93 140-360 [facility]ed [facility] segmented neutrophil count as percentage of total hbcwdkbnfi3277-68-99 19:45:00* Test Item Value Reference Range Interpretation Comments Neutrophils (%) (Auto) (test code = 93058-5) 93.1 38.7-80.0 [facility] blood lymphocyte count as percentage ot total kdhhntotxa1524-87-09 19:45:00* Test Item Value Reference Range Interpretation Comments Lymphocytes (%) (Auto) (test code = 736-9) 2.2 18.0-39.1 [facility] CampusAutatrium healthed blood monocyte count as percentage of total ywmlrcrbwv3839-40-68 19:45:00* Test Item Value Reference Range Interpretation Comments Monocytes (%) (Auto) (test code = 5905-5) 3.4 4.4-11.3 [facility] blood eosinophil count as percentage of total ptkhjwysha2979-17-14 19:45:00* Test Item Value Reference Range Interpretation Comments Eosinophils (%) (Auto) (test code = 713-8) 0.7 0.0-6.0 [facility] CampusAutomated blood basophil count as percentage of total pgzgeztgve8977-85-45 19:45:00* Test Item Value Reference Range Interpretation Comments Basophils (%) (Auto) (test code = 706-2) 0.2 0.0-1.0 [facility] CampusFluoroscopic procedure less than one hour gxwxirov4900-91-04 19:45:00* Test Item Value Reference Range Interpretation Comments IM GRANULOCYTES % (test code = IM GRANULOCYTES %) 0.4 0.0- 1.0 [facility] CampusAutomated blood neutrophil count 2019-07-04 19:45:00* Test Item Value Reference Range Interpretation Comments Neutrophils # (Auto) (test code = 751-8) 8.6 2.1-6.9 [facility] (number/volume) 2019-07-04 19:45:00* Test Item Value Reference Range Interpretation Comments Lymphocytes # (Auto) (test code = 60422-9) 0.2 1.0-3.2 [facility] monocytes automated count (number/volume)2019-07-04 19:45:00* Test Item Value Reference Range Interpretation Comments Monocytes # (Auto) (test code = 742-7) 0.3 0.2-0.8 [facility] CampusAutomated blood eosinophil count 2019-07-04 19:45:00* Test Item Value Reference Range Interpretation Comments Eosinophils # (Auto) (test code = 711-2) 0.1 0.0-0.4 [facility] CampusAutomated blood basophil count (count/volume)2019-07-04 19:45:00* Test Item Value Reference Range Interpretation Comments Basophils # (Auto) (test code = 704-7) 0.0 0.0-0.1 [facility] CampusFluoroscopic procedure less than one hour jjlxxvfc6750-29-65 19:45:00* Test Item Value Reference Range Interpretation Comments Absolute Immature Granulocyte (auto (norah t code = Absolute Immature Granulocyte (auto) 0.04 0-0.1 [facility] CampusFluoroscopic procedure less than one hour wgwhutyf4478-86-23 19:45:00* Test Item Value Reference Range Interpretation Comments Differential Total Cells Counted (test code = Edgar adhikaril Total Cells Counted) 100 [facility]ual [facility]100 leukocytes 2019-07-04 19:45:00* Test Item Value Reference Range Interpretation Comments Neutrophils % (Manual) (test code = 63570-5) 87 40-74 [facility] blood band neutrophils form/100 fmdjorpvew6810-72-30 19:45:00* Test Item Value Reference Range Interpretation Comments Band Neutrophils % (test code = 764-1) 6 [facility] blood lymphocytes/100 leukocytes 2019-07-04 19:45:00* Test Item Value Reference Range Interpretation Comments Lymphocytes % (Manual) (test code = 737-7) 2 19-48 [facility] blood monocytes/100 leukocytes 2019-07-04 19:45:00* Test Item Value Reference Range Interpretation Comments Monocytes % (Manual) (test code = 744-3) 5 3.4-9.0 [facility] CampusBlood platelets count by estimate (number/volume)2019-07-04 19:45:00* Test Item Value Reference Range Interpretation Comments Platelet Estimate (test code = 65714-4) SLIGHTLY DECREASED [facility] CampusPlatelet hmlefvcbya6925-85-91 19:45:00* Test Item Value Reference Range Interpretation Comments Platelet Morphology Comment (test code = 31059-1) NORMAL [facility] CampusBlmurray county medical center anisocytosis detection by light hjgzhxrdpb7903-10-01 19:45:00* Test Item Value Reference Range Interpretation Comments Anisocytosis (test code = 702-1) SLIGHT [facility] CampusBlood microcytes detection by light gauqhbwfip8164-28-44 19:45:00* Test Item Value Reference Range Interpretation Comments Microcytosis (test code = 741-9) SLIGHT [facility] CampusRBC vsyqyzwetx4308-17-97 19:45:00* Test Item Value Reference Range Interpretation Comments Red Cell Morphology Comment (test code = 6742-1) NORMAL [facility] Springserum or plasma sodium measurement (moles/volume)2019-07-04 19:45:00* Test Item Value Reference Range Interpretation Comments Sodium Level (test code = 2951-2) 136 136-145 [facility] Springserum or plasma potassium measurement (moles/volume)2019-07-04 19:45:00* Test Item Value Reference Range Interpretation Comments Potassium Level (test code = 2823-3) 4.3 3.5-5.1 [facility] Springserum or plasma chloride measurement (moles/volume)2019-07-04 19:45:00* Test Item Value Reference Range Interpretation Comments Chloride Level (test code = 2075-0) 106 98-107 [facility] Springserum or plasma carbon dioxide, total measurement (moles/volume)2019-07-04 19:45:00* Test Item Value Reference Range Interpretation Comments Carbon Dioxide Level (test code = 2028-9) 20 22- [facility] Springserum or plasma anion rlq9782-77-73 19:45:00* Test Item Value Reference Range Interpretation Comments Anion Gap (test code = 29106-8) 14.3 8-16 [facility] Springserum or plasma urea nitrogen measurement (mass/volume)2019-07-04 19:45:00* Test Item Value Reference Range Interpretation Comments Blood Urea Nitrogen (test code = 3094-0) 11 7-26 [facility] Springserum or plasma creatinine measurement (mass/volume)2019-07-04 19:45:00* Test Item Value Reference Range Interpretation Comments Creatinine (test code = 2160-0) 1.00 0.72-1.25 [facility] Springserum or plasma urea nitrogen/creatinine mass oammf2221-93-53 19:45:00* Test Item Value Reference Range Interpretation Comments BUN/Creatinine Ratio (test code = 3097-3) 11 6-25 [facility] CampusEstimated glomerular filtration rate (GFR) vvrzutlporlaq2558-99-27 19:45:00* Test Item Value Reference Range Interpretation Comments Estimat Glomerular Filtration Rate (test code = 124134203) > 60 >60 Ranges were taken from the National Kidney Disease Education Program and the [facility] systemal Kidney Foundation literature.Reference ranges:60 or greater: Fqqvdj19-33 ( for 3 consecutive months): Chronic kidney disease 15 or less: Kidney failureThe [facility] of [facility] CampusGlucose luyctwuktll1568-87-32 19:45:00* Test Item Value Reference Range Interpretation Comments Glucose Level (test code = LUB0758) 132 74-118 [facility] Springserum or plasma calcium measurement (mass/volume)2019-07-04 19:45:00* Test Item Value Reference Range Interpretation Comments Calcium Level (test code = 21452-8) 11.0 8.4-10.2 [facility] Springserum or plasma total bilirubin measurement (mass/volume)2019-07-04 19:45:00* Test Item Value Reference Range Interpretation Comments Total Bilirubin (test code = 1975-2) 0.9 0.2-1.2 [facility] CampusFluoroscopic procedure less than one hour dwtetwpj1966-61-61 19:45:00* Test Item Value Reference Range Interpretation Comments Aspartate Amino Transf (AST/SGOT) (test code = Aspartate Amino Transf (AST/SGOT)) 37 5-34 [facility] Springserum or plasma alanine aminotransferase measurement (enzymatic activity/volume)2019-07-04 19:45:00* Test Item Value Reference Range Interpretation Comments Alanine Aminotransferase (ALT/SGPT) (test code = 1742-6) 41 0-55 [facility] CampusAmmonia Wkd-kBwj0216-61-09 19:45:00* Test Item Value Reference Range Interpretation Comments Ammonia (test code = 23252-1) 117 31-123 [facility] Springserum or plasma protein measurement (mass/volume)2019-07-04 19:45:00* Test Item Value Reference Range Interpretation Comments Total Protein (test code = 2885-2) 7.7 6.5-8.1 [facility] Springserum or plasma albumin measurement (mass/volume)2019-07-04 19:45:00* Test Item Value Reference Range Interpretation Comments Albumin (test code = 1751-7) 3.3 3.5-5.0 [facility] CampusPlasma globulin measurement (mass/volume) 2019-07-04 19:45:00* Test Item Value Reference Range Interpretation Comments Globulin (test code = 57642-5) 4.4 2.3-3.5 [facility] Springserum or plasma albumin/globulin mass ulviz9643-57-36 19:45:00* Test Item Value Reference Range Interpretation Comments Albumin/Globulin Ratio (test code = 1759-0) 0.8 0.8-2.0 [facility] Springserum or plasma alkaline phosphatase measurement (enzymatic activity/volume)2019-07-04 19:45:00* Test Item Value Reference Range Interpretation Comments Alkaline Phosphatase (test code = 6768-6) 136 40-150 [facility] CampusBNP Lxf-pWmy8877-77-09 19:45:00* Test Item Value Reference Range Interpretation Comments B-Type Natriuretic Peptide (test code = 91783-7) 34.0 0-100 [facility] Springserum or plasma creatine kinase measurement (enzymatic activity/volume)2019-07-04 19:45:00* Test Item Value Reference Range Interpretation Comments Creatine Kinase (test code = 2157-6) 61 30-200 [facility] Springserum or plasma creatine kinase MB measurement (mass/volume)2019-07-04 19:45:00* Test Item Value Reference Range Interpretation Comments Creatine Kinase MB (test code = 29903-2) 1.00 0-5.0 [facility] CampusTroponin I measurement by highly sensitive enzyme oattifxftfx7574-77-52 19:45:00* Test Item Value Reference Range Interpretation Comments Troponin I (test code = 40286-2) 0.006 0-0.300 [facility] Springserum or plasma lipase measurement (enzymatic activity/volume)2019-07-04 19:45:00* Test Item Value Reference Range Interpretation Comments Lipase (test code = 3040-3) 42 8-78 [facility] CampusCapillary blood glucose measurement by glucometer (mass/volume)2019-05-12 08:55:00* Test Item Value Reference Range Interpretation Comments Bedside Glucose (test code = 61925-2) 119 70-120 Meter ID: [id number] [facility] CampusB-Type Natriuretic Xpjfzza3414-80-65 16:46:00* Test Item Value Reference Range Interpretation Comments B-Type Natriuretic Peptide (test code = 73913-7) 15.9 0-100 [facility] CampusCreatine Kinase JE2512-75-46 16:46:00* Test Item Value Reference Range Interpretation Comments Creatine Kinase MB (test code = 20290-0) 0.90 0-5.0 [facility] CampusTroponin E0469-78-11 16:46:00* Test Item Value Reference Range Interpretation Comments Troponin I (test code = ETU9719) < 0.001 0-0.300 [facility] Springsodium Puiid5084-25-26 16:39:00* Test Item Value Reference Range Interpretation Comments Sodium Level (test code = 2951-2) 130 136-145 L [facility] CampusPotassium Qcach4661-11-04 16:39:00* Test Item Value Reference Range Interpretation Comments Potassium Level (test code = 2823-3) 4.3 3.5-5.1 [facility] CampusChloride Wlgey3358-57-01 16:39:00* Test Item Value Reference Range Interpretation Comments Chloride Level (test code = 2075-0) 100 98-107 [facility] CampusCarbon Dioxide Wvnam4660-26-78 16:39:00* Test Item Value Reference Range Interpretation Comments Carbon Dioxide Level (test code = 2028-9) 25 22-29 [facility] CampusAnion Saq3220-32-26 16:39:00* Test Item Value Reference Range Interpretation Comments Anion Gap (test code = 94392-7) 9.3 8-16 [facility] CampusBlood Urea Uzslqfaa1628-19-02 16:39:00* Test Item Value Reference Range Interpretation Comments Blood Urea Nitrogen (test code = 3094-0) 14 7-26 [facility] CampusCreatinine2020-03-12 16:39:00* Test Item Value Reference Range Interpretation Comments Creatinine (test code = 2160-0) 1.40 0.72-1.25 H [facility] CampusBUN/Creatinine Okqfm6131-02-04 16:39:00* Test Item Value Reference Range Interpretation Comments BUN/Creatinine Ratio (test code = 3097-3) 10 6-25 [facility] CampusEstimat Glomerular Filtration Rate 2019-05-07 16:39:00* Test Item Value Reference Range Interpretation Comments Estimat Glomerular Filtration Rate (test code = 867112421) 51 >60 L Ranges were taken from the National Kidney Disease Education Program and the [facility] Kid[facility] Foundation literature.Reference ranges:60 or greater: Awqzpx90-52 ( for 3 consecutive months): Chronic kidney disease 15 or less: Kidney failureThe [facility] of [facility] CampusGlucose Iuzsr2764-83-26 16:39:00* Test Item Value Reference Range Interpretation Comments Glucose Level (test code = XZT1995) 193 74-118 H [facility] CampusCalcium Wkovk7916-35-83 16:39:00* Test Item Value Reference Range Interpretation Comments Calcium Level (test code = 85294-2) 11.7 8.4-10.2 H [facility] CampusTotal Fpfgahdde2466-13-92 16:39:00* Test Item Value Reference Range Interpretation Comments Total Bilirubin (test code = 1975-2) 0.9 0.2-1.2 [facility] CampusAspartate Amino Transf (AST/SGOT) 2019-05-07 16:39:00* Test Item Value Reference Range Interpretation Comments Aspartate Amino Transf (AST/SGOT) (test code = Aspartate Amino Transf (AST/SGOT)) 36 5-34 H [facility] CampusAlanine Aminotransferase (ALT/SGPT) 2019-05-07 16:39:00* Test Item Value Reference Range Interpretation Comments Alanine Aminotransferase (ALT/SGPT) (test code = 1742-6) 27 0-55 [facility] CampusTotal Hswpihq7624-70-66 16:39:00* Test Item Value Reference Range Interpretation Comments Total Protein (test code = 2885-2) 8.1 6.5-8.1 [facility] CampusAlbumin2020-03-12 16:39:00* Test Item Value Reference Range Interpretation Comments Albumin (test code = 1751-7) 3.3 3.5-5.0 L [facility] CampusGlobulin2020-03-12 16:39:00* Test Item Value Reference Range Interpretation Comments Globulin (test code = 89089-0) 4.8 2.3-3.5 H [facility] CampusAlbumin/Globulin Vcbam9183-91-89 16:39:00 * Test Item Value Reference Range Interpretation Comments Albumin/Globulin Ratio (test code = 1759-0) 0.7 0.8-2.0 L [facility] CampusAlkaline Wencxztzhvj5910-95-84 16:39:00* Test Item Value Reference Range Interpretation Comments Alkaline Phosphatase (test code = 6768-6) 113 40-150 [facility] CampusCreatine Ocfkpu7755-45-96 16:39:00* Test Item Value Reference Range Interpretation Comments Creatine Kinase (test code = 2157-6) 36 30-200 [facility] CampusLipase2020-03-12 16:39:00* Test Item Value Reference Range Interpretation Comments Lipase (test code = 3040-3) 53 8-78 [facility] CampusWhite Blood Hwtkc8271-47-31 16:25:00* Test Item Value Reference Range Interpretation Comments White Blood Count (test code = 6690-2) 4.46 4.8-10.8 L [facility] CampusRed Blood Vnhya0207-25-77 16:25:00* Test Item Value Reference Range Interpretation Comments Red Blood Count (test code = 789-8) 4.50 4.3-5.7 [facility] CampusHemoglobin2020-03-12 16:25:00* Test Item Value Reference Range Interpretation Comments Hemoglobin (test code = 92970-4) 10.5 14.0-18.0 L [facility] CampusHematocrit2020-03-12 16:25:00* Test Item Value Reference Range Interpretation Comments Hematocrit (test code = 4544-3) 35.8 38.2-49.6 L [facility] CampusMean Corpuscular Kyhjze3084-75-42 16:25:00* Test Item Value Reference Range Interpretation Comments Mean Corpuscular Volume (test code = 787-2) 79.6 81-99 L [facility] CampusMean Corpuscular Pltlfigyhm4240-00-84 16:25:00* Test Item Value Reference Range Interpretation Comments Mean Corpuscular Hemoglobin (test code = 785-6) 23.3 28-32 L [facility] CampusMean Corpuscular Hemoglobin Concent 2019-05-07 16:25:00* Test Item Value Reference Range Interpretation Comments Mean Corpuscular Hemoglobin Concent (test code = 786-4) 29.3 31-35 L [facility] CampusRed Cell Distribution Mjjkw9685-95-55 16:25:00* Test Item Value Reference Range Interpretation Comments Red Cell Distribution Width (test code = 52701-5) 23.5 11.7 -14.4 H [facility] CampusPlatelet Amiin6782-49-09 16:25:00* Test Item Value Reference Range Interpretation Comments Platelet Count (test code = 777-3) 123 140-360 L [facility] CampusNeutrophils (%) (Auto)2019-05-07 16:25:00 * Test Item Value Reference Range Interpretation Comments Neutrophils (%) (Auto) (test code = 47555-6) 62.8 38.7-80.0 [facility] CampusLymphocytes (%) (Auto)2019-05-07 16:25:00 * Test Item Value Reference Range Interpretation Comments Lymphocytes (%) (Auto) (test code = 736-9) 17.0 18.0-39.1 L [facility] CampusMonocytes (%) (Auto)2019-05-07 16:25:00* Test Item Value Reference Range Interpretation Comments Monocytes (%) (Auto) (test code = 5905-5) 13.7 4.4-11.3 H [facility] CampusEosinophils (%) (Auto)2019-05-07 16:25:00 * Test Item Value Reference Range Interpretation Comments Eosinophils (%) (Auto) (test code = 713-8) 5.4 0.0-6.0 [facility] CampusBasophils (%) (Auto)2019-05-07 16:25:00* Test Item Value Reference Range Interpretation Comments Basophils (%) (Auto) (test code = 706-2) 0.9 0.0-1.0 [facility] CampusIM GRANULOCYTES %2019-05-07 16:25:00* Test Item Value Reference Range Interpretation Comments IM GRANULOCYTES % (test code = IM GRANULOCYTES %) 0.2 0.0- 1.0 [facility] CampusNeutrophils # (Auto)2019-05-07 16:25:00* Test Item Value Reference Range Interpretation Comments Neutrophils # (Auto) (test code = 751-8) 2.8 2.1-6.9 [facility] CampusLymphocytes # (Auto)2019-05-07 16:25:00* Test Item Value Reference Range Interpretation Comments Lymphocytes # (Auto) (test code = 92007-3) 0.8 1.0-3.2 L [facility] CampusMonocytes # (Auto)2019-05-07 16:25:00* Test Item Value Reference Range Interpretation Comments Monocytes # (Auto) (test code = 742-7) 0.6 0.2-0.8 [facility] CampusEosinophils # (Auto)2019-05-07 16:25:00* Test Item Value Reference Range Interpretation Comments Eosinophils # (Auto) (test code = 711-2) 0.2 0.0-0.4 [facility] CampusBasophils # (Auto)2019-05-07 16:25:00* Test Item Value Reference Range Interpretation Comments Basophils # (Auto) (test code = 704-7) 0.0 0.0-0.1 [facility] CampusAbsolute Immature Granulocyte (auto 2019-05-07 16:25:00* Test Item Value Reference Range Interpretation Comments Absolute Immature Granulocyte (auto (norah t code = Absolute Immature Granulocyte (auto) 0.01 0-0.[address] [facility] Qtknlud5900-28-65 14:38:00* Test Item Value Reference Range Interpretation Comments Bedside Glucose (test code = 92112-8) 144 70-120 H Meter ID: [id number] Glucose 2019-05-05 14:38:00* Test Item Value Reference Range Interpretation Comments Bedside Glucose (test code = 16407-1) 144 70-120 H Meter ID: [id number] [facility] CenterCT BRAIN KW4057-59-87 12:24:00 [facility] [address] [address] Patient Name: JAROD WATT MR #: [id number] : 1955 Age/Sex: 63/M Req #: [id number] Adm Physician: Ordered by: SHANTANU CÁRDENAS MD Report #: [id number] Location: ER Room/Bed: Procedure: [id number] CT/CT SOREN LAUREN WO Exam Date: 05/05/19 Exam Time: 1140 REPORT STATUS: Signed History: Fall in fr ont of lobby Comparison studies:None Technique: Axial images were obtai laura from the brain and cervical spine. Coronal and sagittal images reconstruct ed from the axial data. Intravenous contrast: None Dose modulation, iterativ e reconstruction, and/or weight based adjustment of the mA/kV was utilized to reduce the radiation dose to as low as reasonably achievable. Findings: Head CT: Scalp/skull: No abnormalities. No fractures, blastic or lyt ic lesions. Brain sulci: Appropriate for age. Ventricles: Normal in size and configuration. No hydrocephalus. Extra-axial spaces: No masses. No fluid collections. Parenchyma: Few subtle hypodensities of the periventr icular and deep white matter, most commonly seen with mild chronic microvascul ar ischemic changes. No masses, hemorrhage, acute or chronic cortical vascula r insults. Sellar/suprasellar region: No abnormalities. Craniocervical ju nction: Patent foramen magnum. No Chiari one malformation. Atherosclerotic calcifications of carotid siphons. Cervical spine CT: Fractures: None. S oft tissues: No gross abnormalities. Atlantoaxial articulation: No acute ab normality. Alignment: Straightening of the normal lordosis. No scoliosis. Ce rvicomedullary junction: No abnormalities. Patent foramen magnum. Vertebrae : No infection or neoplasm. Degenerative changes: Decreased intervert ebral space with sclerotic changes at C3-4 and C6-7. Posterior disc osteophyte complex at C3-4 and C6-7 results in mild central canal stenosis. Multilevel d egenerative foraminal narrowing, moderate left at C3-4, moderate bilateral at C5-6 and C6-7. Incidental findings: Atherosclerotic calcifications of the carotid bulbs. Impression: Head CT: 1. No acute abnormality. Cervical spine CT: 1. No acute abnormalities. 2. Cannot exclude ligamen t, spinal cord and or vascular abnormalities on the basis of this examination. Signed by: DR Sam Gonzalez M.D. on 05/05/2019 12:36 PM Dic tated By: SAM HERNANDEZ MD 1236 Transcribed By: BELINDA on 05/05/19 1236 COPY TO: SHANTANU CHAWLA MD CT CERVICAL SPINE [id number] 12:24:00 [place] [address] Patient Name: JAROD WATT MR #: [id number] : 1955 Age/Sex: 63/M Req #: [id number] Adm Physician: Ordered by: SHANTANU CÁRDENAS MD Report #: [id number] Location: [facility]/Bed: Procedure: [id number] CT/CT CE RVICAL SPINE WO Exam Date: 05/05/19 Exam Time: 1140 REPORT STATUS: Signed History: F all in front of lobby Comparison studies:None Technique: Axial images w ere obtained from the brain and cervical spine. Coronal and sagittal images re constructed from the axial data. Intravenous contrast: None Dose modulation, iterative reconstruction, and/or weight based adjustment of the mA/kV was uti lized to reduce the radiation dose to as low as reasonably achievable. Fi ndings: Head CT: Scalp/skull: No abnormalities. No fractures, blast ic or lytic lesions. Brain sulci: Appropriate for age. Ventricles: Normal in size and configuration. No hydrocephalus. Extra-axial spaces: No mas ses. No fluid collections. Parenchyma: Few subtle hypodensities of the periventricular and deep white matter, most commonly seen with mild chronic mi crovascular ischemic changes. No masses, hemorrhage, acute or chronic cortica l vascular insults. Sellar/suprasellar region: No abnormalities. Cranioce rvical junction: Patent foramen magnum. No Chiari one malformation. Athero sclerotic calcifications of carotid siphons. Cervical spine CT: Fractures: None. Soft tissues: No gross abnormalities. Atlantoaxial articulation: No acute abnormality. Alignment: Straightening of the normal lordosis. No scolio sis. Cervicomedullary junction: No abnormalities. Patent foramen magnum. Vertebrae: No infection or neoplasm. Degenerative changes: Decreased intervertebral space with sclerotic changes at C3-4 and C6-7. Posterior disc o steophyte complex at C3-4 and C6-7 results in mild central canal stenosis. Mul tilevel degenerative foraminal narrowing, moderate left at C3-4, moderate bila teral at C5-6 and C6-7. Incidental findings: Atherosclerotic calcificatio ns of the carotid bulbs. Impression: Head CT: 1. No acute abnormali ty. Cervical spine CT: 1. No acute abnormalities. 2. Cannot exclud e ligament, spinal cord and or vascular abnormalities on the basis of this exa mination. Signed by: DR Sam Gonzalez M.D. on 05/05/2019 12:36 PM Dictated By: SAM HERNANDEZ MD 1236 Transcribed By: BELINDA on 05/05/19 1236 COPY TO: SHANTANU CÁRDENAS MD WRIST COMPLETE [id number] 12:21:00 [facility] [address], [place] [address] Patient Name: JAROD WATT MR #: [id number] : 1955 Age/Sex: 63/M Req #: [id number] Adm Physician: Ordered by: SHANTANU CÁRDENAS MD Report #: [id number] Location: ER Ro om/Bed: Procedure: [id number] DX/WRIST COMPLETE RIGHT Exam Date: 05/05/19 Exam Time: 1140 REPORT STATUS: Signed EXAM: WRI ST COMPLETE RIGHT DATE: 05/05/2019 11:31 AM INDICATION: Fall C OMPARISON: None IMPRESSION: There are advanced degenerative changes wi thin the wrist with associated soft tissue calcifications and subchondral scle rosis which limits evaluation for acute process. The distal radius and ulna ar e intact. Suspected chronic changes noted of the scaphoid and lunate. Allowing for limitations, no obvious acute carpal fracture or dislocation is appreciat ed. Vascular calcifications are noted. No radiopaque foreign body is appreciat ed. Signed by: Dr. Amol Flores MD on 05/05/2019 12:29 PM Dictated B y: AMOL FLORES MD 1229 Transcribed By: BELINDA on 05/05/19 1229 COPY TO: SHANTANU CÁRDENAS MD HIP LEFT 2-3 VW (+/- PELVIS)2019-05-05 12:16:00 [facility] [address] [place] [address] Patient Name: JAROD WATT MR #: [id number] : 1955 Age/Sex: 63/M Req #: [id number] Adm Physician: Ordered by: SHANTANU CÁRDENAS MD Report #: [id number] Location: ER Room/Bed: Procedure: [id number] DX/HIP L EFT 2-3 VW (+/- PELVIS) Exam Date: Exam Time: REPORT STATUS: Signed EXAM: HIP LEF T 2-3 VW (+/- PELVIS) DATE: 05/05/2019 11:31 AM INDICATION: Fall, hip pain COMPARISON: None FINDINGS: AP view of the pelvis as well as 2 views of the left hip obtained. There is no evidence for acute fracture o r dislocation. No focal lytic or blastic abnormality is identified. There is m ild joint space narrowing noted bilaterally. There are degenerative changes of the visualized lumbosacral spine. Suspected phleboliths noted within the pelv is. The remaining visualized intra-abdominal contents are unremarkable. The quiroz rrounding soft tissues demonstrate no significant abnormalities. IMPRE SSION: No acute radiographic abnormality identified within the pelvis or le ft hip. Signed by: Dr. Amol Flores MD on 05/05/2019 12:19 PM Dictat ed By: AMOL FLORES MD 12 19 Transcribed By: BELINDA on 05/05/19 1219 COPY TO: SHANTANU CÁRDENAS MD Platelet [id number] 21:00:00* Test Item Value Reference Range Interpretation Comments Platelet Estimate (test code = 87123-5) SLIGHTLY DECREASED [facility] CenterPlate[facility] Morphology [id number] 21:00:00* Test Item Value Reference Range Interpretation Comments Platelet Morphology Comment (test code = 31047-6) NORMAL [facility] [place] [facility]Hypochromasia2020-03-06 21:00:00* Test Item Value Reference Range Interpretation Comments Hypochromasia (test code = 728-6) MODERATE [facility] [place] [facility] CampusPoikilocytosis2020-03-06 21:00:00* Test Item Value Reference Range Interpretation Comments Poikilocytosis (test code = 779-9) SLIG [facility] [place] [facility] CampusRed Cell Morphology [id number] 21:00:00* Test Item Value Reference Range Interpretation Comments Red Cell Morphology Comment (test code = 6742-1) NORMAL [facility] [place] [facility] CampusPlatelet [id number] 21:00:00* Test Item Value Reference Range Interpretation Comments Platelet Estimate (test code = 22759-2) SLIGHTLY DECREASED [facility] [place] [facility] CampusPlatelet Morphology [id number] 21:00:00* Test Item Value Reference Range Interpretation Comments Platelet Morphology Comment (test code = 43248-7) NORMAL [facility] [place] [facility] CampusHypochromasia2020-03-06 21:00:00* Test Item Value Reference Range Interpretation Comments Hypochromasia (test code = 728-6) MODERATE [facility] [place] [facility] CampusPoikilocytosis2020-03-06 21:00:00* Test Item Value Reference Range Interpretation Comments Poikilocytosis (test code = 779-9) SLIG [facility] [place] [facility] CampusRed Cell Morphology [id number] 21:00:00* Test Item Value Reference Range Interpretation Comments Red Cell Morphology Comment (test code = 6742-1) NORMAL [facility] [place] [facility] CampusProthrombin [id number] 13:08:00* Test Item Value Reference Range Interpretation Comments Prothrombin Time (test code = 5902-2) 15.6 11.9-14.5 H [facility] [place] [facility] CampusProthromb Time International Ratio 2019-05-01 13:08:00* Test Item Value Reference Range Interpretation Comments Prothromb Time International Ratio (test code = 6301-6) 1.16 Oral Anticoagulant Therapy INR Values:1. Low Intensity Therapy 1.5 - 2.02 . Moderate Intensity Therapy 2.0 - 3.03. High Intensity Therapy(1) 2.5 - 3. 54. High Intensity Therapy(2) 3.0 - 4.05. Panic Value INR > 5.0 [facility] [place] [facility] CampusActivated Partial Thromboplast Time 2019-05-01 13:08:00* Test Item Value Reference Range Interpretation Comments Activated Partial Thromboplast Time (test code = 17574-9) 32.4 23.8-35.5 [facility] [place] [facility] CampusProthrombin [id number] 13:08:00* Test Item Value Reference Range Interpretation Comments Prothrombin Time (test code = 5902-2) 15.6 11.9-14.5 H [facility] [place] [facility] CampusProthromb Time International Ratio 2019-05-01 13:08:00* Test Item Value Reference Range Interpretation Comments Prothromb Time International Ratio (test code = 6301-6) 1.16 Oral Anticoagulant Therapy INR Values:1. Low Intensity Therapy 1.5 - 2.02 . Moderate Intensity Therapy 2.0 - 3.03. High Intensity Therapy(1) 2.5 - 3. 54. High Intensity Therapy(2) 3.0 - 4.05. Panic Value INR > 5.0 [facility] [place] [facility] CampusActivated Partial Thromboplast Time 2019-05-01 13:08:00* Test Item Value Reference Range Interpretation Comments Activated Partial Thromboplast Time (test code = 54000-6) 32.4 23.8-35.5 [facility] Springsodium Badgi8778-88-44 13:07:00* Test Item Value Reference Range Interpretation Comments Sodium Level (test code = 2951-2) 131 136-145 L [facility] [place] [facility] CampusPotassium Mfzpj9756-06-40 13:07:00* Test Item Value Reference Range Interpretation Comments Potassium Level (test code = 2823-3) 4.1 3.5-5.1 [facility] [place] [facility] CampusChloride Eolhb3098-06-32 13:07:00* Test Item Value Reference Range Interpretation Comments Chloride Level (test code = 2075-0) 101 98-107 [facility] [place] [facility] CampusCarbon Dioxide Siacx8084-70-45 13:07:00* Test Item Value Reference Range Interpretation Comments Carbon Dioxide Level (test code = 2028-9) 25 22-29 [facility] [place] [facility] CampusAnion Zdr5900-73-69 13:07:00* Test Item Value Reference Range Interpretation Comments Anion Gap (test code = 64426-6) 9.1 8-16 [facility] [place] [facility] CampusBlood Urea Ymhnrylm4787-85-96 13:07:00* Test Item Value Reference Range Interpretation Comments Blood Urea Nitrogen (test code = 3094-0) 10 7-26 [facility] [place] [facility] CampusCreatinine2020-03-06 13:07:00* Test Item Value Reference Range Interpretation Comments Creatinine (test code = 2160-0) 0.78 0.72-1.25 [facility] [place] [facility] CampusBUN/Creatinine Fbciq9904-82-42 13:07:00* Test Item Value Reference Range Interpretation Comments BUN/Creatinine Ratio (test code = 3097-3) 13 6 [facility] [place] [facility] CampusEstimat Glomerular Filtration Rate 2019-05-01 13:07:00* Test Item Value Reference Range Interpretation Comments Estimat Glomerular Filtration Rate (test code = 884592536) > 60 >60 Ranges were taken from the National Kidney Disease Education Program and the [facility] systemal Kidney Foundation literature.Reference ranges:60 or greater: Vtwhej92-11 ( for 3 consecutive months): Chronic kidney disease 15 or less: Kidney failureThe [facility] of [place] [facility] CampusGlucose Ngmjd3072-37-72 13:07:00* Test Item Value Reference Range Interpretation Comments Glucose Level (test code = VFF4875) 184 74-118 H [facility] [place] [facility] CampusCalcium Kogjl8501-14-55 13:07:00* Test Item Value Reference Range Interpretation Comments Calcium Level (test code = 05678-9) 11.4 8.4-10.2 H [facility] [place] [facility] CampusTotal Zhhvslqte3964-67-47 13:07:00* Test Item Value Reference Range Interpretation Comments Total Bilirubin (test code = 1975-2) 0.9 0.2-1.2 [facility] [place] [facility] CampusAspartate Amino Transf (AST/SGOT) 2019-05-01 13:07:00* Test Item Value Reference Range Interpretation Comments Aspartate Amino Transf (AST/SGOT) (test code = Aspartate Amino Transf (AST/SGOT)) 35 5-34 H [facility] [place] [facility] CampusAlanine Aminotransferase (ALT/SGPT) 2019-05-01 13:07:00* Test Item Value Reference Range Interpretation Comments Alanine Aminotransferase (ALT/SGPT) (test code = 1742-6) 32 0-55 [facility] [place] [facility] CampusTotal Qgdzqpc3906-24-70 13:07:00* Test Item Value Reference Range Interpretation Comments Total Protein (test code = 2885-2) 7.7 6.5-8.1 [facility] [place] [facility] CampusAlbumin2020-03-06 13:07:00* Test Item Value Reference Range Interpretation Comments Albumin (test code = 1751-7) 3.1 3.5-5.0 L [facility] [place] [facility] CampusGlobulin2020-03-06 13:07:00* Test Item Value Reference Range Interpretation Comments Globulin (test code = 42777-3) 4.6 2.3-3.5 H [facility] [place] [facility] CampusAlbumin/Globulin Uirco3868-13-52 13:07:00 * Test Item Value Reference Range Interpretation Comments Albumin/Globulin Ratio (test code = 1759-0) 0.7 0.8-2.0 L [facility] [place] [facility] CampusAlkaline Wsghkmvaxjf1510-82-59 13:07:00* Test Item Value Reference Range Interpretation Comments Alkaline Phosphatase (test code = 6768-6) 127 40-150 [facility] [place] [facility] CampusWhite Blood Xvftw8488-18-33 12:28:00* Test Item Value Reference Range Interpretation Comments White Blood Count (test code = 6690-2) 3.11 4.8-10.8 L [facility] [place] [facility] CampusRed Blood Ijtal6732-88-19 12:28:00* Test Item Value Reference Range Interpretation Comments Red Blood Count (test code = 789-8) 3.95 4.3-5.7 L [facility] [place] [facility] CampusHemoglobin2020-03-06 12:28:00* Test Item Value Reference Range Interpretation Comments Hemoglobin (test code = 11063-7) 8.9 14.0-18.0 L [facility] [place] [facility] CampusHematocrit2020-03-06 12:28:00* Test Item Value Reference Range Interpretation Comments Hematocrit (test code = 4544-3) 31.4 38.2-49.6 L [facility] [place] [facility] CampusMean Corpuscular Ykwdas2652-88-97 12:28:00* Test Item Value Reference Range Interpretation Comments Mean Corpuscular Volume (test code = 787-2) 79.5 81-99 L [facility] [place] [facility] CampusMean Corpuscular Bncxkmogqf6199-57-81 12:28:00* Test Item Value Reference Range Interpretation Comments Mean Corpuscular Hemoglobin (test code = 785-6) 22.5 28-32 L [facility] Corpuscular Hemoglobin Concent 2019-05-01 12:28:00* Test Item Value Reference Range Interpretation Comments Mean Corpuscular Hemoglobin Concent (test code = 786-4) 28.3 31-35 L [facility] [place] [facility] CampusRed Cell Distribution Vcoll0141-11-64 12:28:00* Test Item Value Reference Range Interpretation Comments Red Cell Distribution Width (test code = 38857-1) 25.8 11.7 -14.4 H [facility] [place] [facility] CampusPlatelet Fwbpm3054-51-41 12:28:00* Test Item Value Reference Range Interpretation Comments Platelet Count (test code = 777-3) 92 140-360 L [facility] [place] [facility] CampusNeutrophils (%) (Auto)2019-05-01 12:28:00 * Test Item Value Reference Range Interpretation Comments Neutrophils (%) (Auto) (test code = 22970-3) 58.5 38.7-80.0 [facility] [place] [facility] CampusLymphocytes (%) (Auto)2019-05-01 12:28:00 * Test Item Value Reference Range Interpretation Comments Lymphocytes (%) (Auto) (test code = 736-9) 21.5 18.0-39.1 [facility] [place] [facility] CampusMonocytes (%) (Auto)2019-05-01 12:28:00* Test Item Value Reference Range Interpretation Comments Monocytes (%) (Auto) (test code = 5905-5) 13.2 4.4-11.3 H [facility] [place] [facility] CampusEosinophils (%) (Auto)2019-05-01 12:28:00 * Test Item Value Reference Range Interpretation Comments Eosinophils (%) (Auto) (test code = 713-8) 5.5 0.0-6.0 [facility] [place] [facility] CampusBasophils (%) (Auto)2019-05-01 12:28:00* Test Item Value Reference Range Interpretation Comments Basophils (%) (Auto) (test code = 706-2) 1.0 0.0-1.0 [facility] [place] [facility] CampusIM GRANULOCYTES %2019-05-01 12:28:00* Test Item Value Reference Range Interpretation Comments IM GRANULOCYTES % (test code = IM GRANULOCYTES %) 0.3 0.0- 1.0 [facility] [place] [facility] CampusNeutrophils # (Auto)2019-05-01 12:28:00* Test Item Value Reference Range Interpretation Comments Neutrophils # (Auto) (test code = 751-8) 1.8 2.1-6.9 L [facility] [place] [facility] CampusLymphocytes # (Auto)2019-05-01 12:28:00* Test Item Value Reference Range Interpretation Comments Lymphocytes # (Auto) (test code = 77301-4) 0.7 1.0-3.2 L [facility] [place] [facility] CampusMonocytes # (Auto)2019-05-01 12:28:00* Test Item Value Reference Range Interpretation Comments Monocytes # (Auto) (test code = 742-7) 0.4 0.2-0.8 [facility] [place] [facility] CampusEosinophils # (Auto)2019-05-01 12:28:00* Test Item Value Reference Range Interpretation Comments Eosinophils # (Auto) (test code = 711-2) 0.2 0.0-0.4 [facility] [place] [facility] CampusBasophils # (Auto)2019-05-01 12:28:00* Test Item Value Reference Range Interpretation Comments Basophils # (Auto) (test code = 704-7) 0.0 0.0-0.1 [facility] [place] [facility] CampusAbsolute Immature Granulocyte (auto 2019-05-01 12:28:00* Test Item Value Reference Range Interpretation Comments Absolute Immature Granulocyte (auto (norah t code = Absolute Immature Granulocyte (auto) 0.01 0-0.1 [facility] [place] [facility] CampusBlood hypochromia detection by light klzbleiroz5753-71-45 11:20:00* Test Item Value Reference Range Interpretation Comments Hypochromasia (test code = 728-6) MODERATE [facility] [place] [facility] CampusBlood poikilocytosis detection by light btcmzoewzl8792-01-47 11:20:00* Test Item Value Reference Range Interpretation Comments Poikilocytosis (test code = 779-9) SLIG [facility] [place] [facility] CampusProthrombin time (PT) in platelet poor plasma by coagulation bbwbq1216-33-08 11:20:00* Test Item Value Reference Range Interpretation Comments Prothrombin Time (test code = 5902-2) 15.6 11.9-14.5 [facility] [place] [facility] CampusINR in Platelet poor plasma by Coagulation yjywb7375-77-78 11:20:00* Test Item Value Reference Range Interpretation Comments Prothromb Time International Ratio (test code = 6301-6) 1.16 Oral Anticoagulant Therapy INR Values:1. Low Intensity Therapy 1.5 - 2.02 . Moderate Intensity Therapy 2.0 - 3.03. High Intensity Therapy(1) 2.5 - 3. 54. High Intensity Therapy(2) 3.0 - 4.05. Panic Value INR > 5.0 [facility] [place] [facility] CampusActivated partial thromboplastin time (aPTT) in platelet poor plasma by coagulation kzupc0622-34-35 11:20:00* Test Item Value Reference Range Interpretation Comments Activated Partial Thromboplast Time (test code = 37619-9) 32.4 23.8-35.5 [facility]
--- NOTE | 2019-07-31 15:06 | Emergency Department Note ---
History of Present Illnes History of Present Illness Chief Complaint: General Medicine Complaints History of Present Illness This is a 63 year old male arrives to the ED for abnormal labs. at bedside states patient has liver cancer and was diagnosed on July 03. Patient had lab work done on Saturday and received a call today saying he is to go to the emergency department immediately because his sodium is low and his calcium is e levated. Patient complaining of generalized malaise and weakness states chemotherapy and radiation not started yet he cut his patient is too weak.. Chief Complaint Comment PATIENT IN FROM HOME WITH COMPLAINTS OF LOW SODIUM AND HIGH CALCIUM; PATIENT WITH LIVER CANCER AND WAS SEEN AT THE ONCOLOGIST SATURDAY AND HAD BLOOD WORK. PATIENT DENIES PAIN, RESP EVEN AND NONLABORED, AP PEARS IN NO DISTRESS Historian: Patient, Family Member Arrival Mode: Car Severity: moderate Onset quality: unable to specify Duration (how long): day(s) Progression: unable to specify Context: other (liver cancer) Past Medical/Family History Physician Review I have reviewed the patient's past medical and family history. Any updates have been documented here. Past Medical History Recent Fever: No Clinical Suspicion of Infectio: No New/Unexplained Change in Ment: No Past Medical History: Hypertension, Diabetes, Cancer, Anemia, GERD, Hyperlipedemia Other Medical History: LIVER CIRRHOSIS FLUID RETENTION LIVER CANCER Past Surgical History: Appendectomy Family History Family history of heart diseas: No Other Last Tetanus: UNK Review of Systems Review of Systems Constitutional: no symptoms, malaise, weakness EENTM: no symptoms Cardiovascular: no symptoms Respiratory: no symptoms Gastrointestinal: no symptoms Genitourinary: no symptoms Musculoskeletal: no symptoms Neurological: no symptoms Psychological: no symptoms Endocrine: no symptoms Hematological/Lymphatic: no symptoms Review of other systems All other systems reviewed and negative. Physical Exam Related Data Allergies: Coded Allergies: No Known Allergies (Unverified , 05/01/19) Triage Vital Signs Vital Signs Date Time Temp Pulse Resp B/P (MAP) Pulse Ox O2 Delivery O2 Flow Rate FiO2 07/31/19 14:25 100.0 80 20 124/63 96 Vital signs reviewed: Yes Physical Exam CONSTITUTIONAL Constitutional: well-developed, well-nourished, ill appearing HENT HENT: normocephalic, atraumatic, oropharynx clear/moist, nose normal HENT L/R: left ext ear normal, right ext ear normal EYES Eyes: PERRL, conjunctivae normal NECK Neck: ROM normal PULMONARY Pulmonary: effort normal, breath sounds normal CARDIOVASCULAR Cardiovascular: regular rhythm, heart sounds normal, capillary refill normal, normal rate GASTROINTESTINAL Abdominal: soft, nontender, bowel sounds normal GENITOURINARY Genitourinary: exam deferred SKIN Skin: warm, dry MUSCULOSKELETAL Musculoskeletal: ROM normal NEUROLOGICAL Neurological: alert, oriented x 3, no gross motor or sensory deficits PSYCHOLOGICAL Psychological: mood/affect normal, judgement normal Results Laboratory Lab results reviewed: Yes Imaging Imaging results reviewed: Yes Procedures 12 Lead ECG Interpretation Phlebotomy Program Coordinator: Interpreted by ED physician Prior NURSE INFECTION CONTROL tracings: reviewed Rhythm: sinus rhythm BPM: 77 QRS axis: normal ST segments normal: Yes T waves normal: Yes Clinical Impression: normal ECG Critical Care Time Subsequent provider I assumed direction of critical care for this patient from another provider of my specialty. Assessment & Plan Assessment & Plan Final Impression: (1) HYPO-OSMOLALITY AND HYPONATREMIA (2) HYPERCALCEMIA Assessment & Plan cbc, cmp, EKG Depart Disposition: ADMITTED Last Vital Signs Date Time Temp Pulse Resp B/P (MAP) Pulse Ox O2 Delivery O2 Flow Rate FiO2 07/31/19 14:25 100.0 80 20 124/63 96 Home Meds Reported Medications Multivits,Th W-Fe,Other Min (THERA-M) 1 Each Tablet, PO DAILY 07/02/19 Lactulose (LACTULOSE) 20 Gm/30 Ml Solution, 15 MG PO TID, EACH 07/02/19 Pantoprazole Sodium* (PROTONIX) 40 Mg Tablet.dr, 40 MG PO DAILY, TAB 07/02/19 Atorvastatin Calcium (ATORVASTATIN CALCIUM) 20 Mg Tablet, 20 MG PO HS, #30 TAB 05/01/19 Gabapentin (GABAPENTIN) 400 Mg Capsule, 400 MG PO TID, #30 CAP 05/01/19 Glipizide (GLIPIZIDE ER) 5 Mg Tab.er.24, PO DAILY 05/01/19 Irbesartan (IRBESARTAN) 150 Mg Tablet, 300 MG PO DAILY, #30 TAB 05/01/19 Aspirin (ASPIR 81) 81 Mg Tablet.dr, PO DAILY 05/01/19 Famotidine (PEPCID) 20 Mg Tablet, 40 MG PO DAILY, #60 TAB 05/01/19 Metformin Hcl (METFORMIN HCL) 500 Mg Tablet, 500 MG PO TID, #60 TAB 05/01/19 Propranolol Hcl (PROPRANOLOL HCL) 40 Mg Tablet, 20 MG PO DAILY, #60 TAB 05/01/19 Triamterene/Hctz (TRIAMTERENE-HCTZ 37.5-25 MG TB) 1 Ea Tab, 1 EACH PO DAILY, TAB 05/01/19 NADER NEGRETE, DO Jul 31, 2019 15:22
[2019-07-31 15:08] LABS: BASOPHILS # (AUTO) 0.1 (0.0-0.1); BASOPHILS % 1.2 % (0.0-1.0); EOSINOPHILS # (AUTO) 0.2 (0.0-0.4); EOSINOPHILS % 5.9 % (0.0-6.0); HEMATOCRIT 37.5 % (38.2-49.6); HEMOGLOBIN 11.4 g/dL (14.0-18.0); LYMPHOCYTES % 24.9 % (18.0-39.1); MEAN CORPUSCULAR HEMOGLOBIN 25.1 pg (28-32); MEAN CORPUSCULAR HGB CONC 30.4 g/dL (31-35); MEAN CORPUSCULAR VOLUME 82.4 fL (81-99); MONOCYTES # (AUTO) 0.5 (0.2-0.8); MONOCYTES % 12.5 % (4.4-11.3); NEUTROPHILS # (AUTO) 2.3 (2.1-6.9); PLATELET COUNT 81 x10e3/uL (140-360); RED BLOOD COUNT 4.55 x10e6/uL (4.3-5.7); RED CELL DISTRIBUTION WIDTH 23.5 % (11.7-14.4)
[2019-07-31 15:23] LABS: ALANINE AMINOTRANSFERASE 42 IU/L (0-55); ALBUMIN 3.2 g/dL (3.5-5.0); ALBUMIN/GLOBULIN RATIO 0.7 (0.8-2.0); ALKALINE PHOSPHATASE 128 IU/L (40-150); ANION GAP 10.5 mmol/L (8-16); BLOOD UREA NITROGEN 19 mg/dL (7-26); BUN/CREATININE RATIO 19 (6-25); CALCIUM 12.6 mg/dL (8.4-10.2); CARBON DIOXIDE 22 mmol/L (22-29); CHLORIDE 102 mmol/L (98-107); CREATINE KINASE 30 IU/L (30-200); CREATININE, SERUM 0.99 mg/dL (0.72-1.25); EST GLOMERULAR FILTRATION RATE > 60 ML/MIN (60-); GLUCOSE 175 mg/dL (74-118); POTASSIUM 4.5 mmol/L (3.5-5.1); SODIUM 130 mmol/L (136-145)
[2019-07-31 16:36] LABS: CLARITY,URINE SL CLOUDY (CLEAR); COLOR,URINE STRAW (YELLOW); LEUKOCYTE ESTERASE ,URINE NEGATIVE (NEGATIVE); NITRITE,URINE NEGATIVE (NEGATIVE); PROTEIN,URINE DIPSTICK NEGATIVE (NEGATIVE)
[2019-07-31 16:37] LABS: BILIRUBIN,URINE NEGATIVE (NEGATIVE); KETONES,URINE TRACE (NEGATIVE); URINE UROBILINOGEN 0.2 mg/dL (0.2 - 1)
[2019-07-31 16:51] LABS: BACTERIA,URINE MODERATE /HPF; EPITHELIAL CELLS,URINE MODERATE /LPF
--- NOTE | 2019-07-31 19:05 | NUR ---
Aeen pt lying on bed awake & alert, Orientedx2. Family at bedside updated with bed placement. No further demand made at this time.
[2019-07-31 20:49] LABS: EOSINOPHILS % (MANUAL) 3 % (0-7); LYMPHOCYTES % (MANUAL) 56 % (19-48); MONOCYTES % (MANUAL) 8 % (3.4-9.0); NEUTROPHILS % (MANUAL) 31 % (40-74)
[2019-07-31 20:50] LABS: ANISOCYTOSIS SLIGHT; PLATELET ESTIMATE SLIGHTLY DECREASED; PLATELET MORPHOLOGY COMMENT NORMAL; POIKILOCYTOSIS MODERATE; RBC MORPHOLOGY COMMENT NORMAL
--- NOTE | 2019-07-31 21:20 | NUR ---
Handoff report given to Génesis RODRIGUEZ of [id number].
[2019-07-31 22:04] VITALS: BP 148/64
[2019-07-31] MEDS ORDERED: FERROUS SULFAT325 MG PO (22:09)
[2019-07-31] MEDS ORDERED: Folic acid PO (22:09)
[2019-07-31] MEDS ORDERED: GLIPIZIDE5 MG PO (22:09)
[2019-07-31] MEDS ORDERED: ASPIRIN EC81 MG PO (22:11)
[2019-07-31] MEDS ORDERED: IRBESARTAN300 MG PO (22:12)
[2019-07-31] MEDS ORDERED: PROPRANOLOL HCL20 MG PO (22:13)
--- OUTSIDE RECORDS SUMMARY | 2019-07-31 22:13 | XMS REPORT | Clinical Summary ---
Author Author ARLEEN [facility] Organization [facility] Address Unknown Phone Unavailable Care Team Providers Care Combatant Diver Qualified Name Role Phone PCP Unavailable Allergies Comments [...] Severe sepsis 07/05/2019 Coronary artery disease involving [place] coronary art ghada of [place] tribes heart 07/05/2019 without angina pectoris Cirrhosis of [...] Acute periapical abscess; Hepatocellular carcinoma (HCC) 07/04/2019 [facility] Internal Vt dicine - Encounter 07/10/2019 Luis E Herring [...] : TESTED AT 70 - 110 mg/dL [place] [id number] [facility] [id number]: Stationary Engineer Supervisor/Body Design Checker ID = [id number] for CELINA MCGOVERN Specimen Blood Performing Organization Address City/State/Zipcode Ph one Number [address] [facility] * PT/aPTT (07/10/2019 3:31 AM CDT) Only the most recent of 5 results within the time period is included. Protime 15.4 (H) 11.9 - 14.2 seconds [facility] INR 1.3 <=5.9 [facility] PTT 36.5 (H) 22.5 - 36.0 seconds [facility] Specimen Blood Narrative Performed At Effective 07/23/2018: PT Reference Range Change [facility] New: 11.9-14.2Previous: 11.7-14.7 [facility] RECOMMENDED COUMADIN/WARFARIN INR THERA PY RANGES STANDARD DOSE: 2.0-3.0Includes: PRO PHYLAXIS for venous thrombosis, systemic embolization; TREATMENT for venous thro mbosis and/or pulmonary embolus. HIGH RISK: Target INR is 2.5-3.5 for pa tients wiht mechanical heart valves. Performing Organization Address City/State/Zipcode Ph one Number [place] [address] [facility] * CBC with platelet count + automated diff (07/10/2019 3:31 AM CDT) Only the most recent of 6 results within the time period is included. WBC 3.4 (L) 3.5 - 10.5 K/L [facility] RBC 3.67 (L) 4.63 - 6.08 M/L [facility] Hemoglobin 8.4 (L) 13.7 - 17.5 GM/DL [facility] Hematocrit 28.1 (L) 40.1 - 51.0 % [facility] MCV 76.6 (L) 79.0 - 92.2 fL [facility] MCH 22.9 (L) 25.7 - 32.2 pg [facility] MCHC 29.9 (L) 32.3 - 36.5 GM/DL [facility] RDW 19.5 (H) 11.6 - 14.4 % [facility] Platelets 79 (L) 150 - 450 K/CU MM [facility] MPV Comment: Unable to report due [facility] to abnormal Platelet [facility] population distribution. nRBC 0 0 - 0 /100 WBC [facility] % Neutros 63 % [facility] % Lymphs 22 % [facility] % Monos 11 % [facility] % Eos 3 % [facility] % Baso 1 % [facility] # Neutros 2.12 1.78 - 5.38 K/L [facility] # Lymphs 0.73 (L) 1.32 - 3.57 K/L [facility] # Monos 0.36 0.30 - 0.82 K/L [facility] # Eos 0.10 0.04 - 0.54 K/L [facility] # Baso 0.02 0.01 - 0.08 K/L [facility] Immature 2 (H) 0 - 1 % [facility] Granulocytes-Relative [facility] Specimen Blood Performing Organization Address City/State/Zipcode Ph one Number [facility] [address] [place], [place] [address] MED[facility]ENTER * Tissue Exam (07/09/2019 1:18 PM CDT) Case Report Surgical Pathology [facility] TH [facility] Case: [id number] Authorizing Provider:Becca Price,Collected: 07/09/2019 01:18 PM Ordering Location: [address] Received: 07/09/2019 03:59 PM Service Pathologist: Javier Palencia MD Specimen:Biopsy, Liver DIAGNOSIS LIVER, NEEDLE BIOPSIES OF MASS [facility] EDUIN [facility] - HEPATOCELLULAR CARCINOMA, [facility] WELL DIFFERENTIATED Signing Pathologist Direct Phone Line: [phone] CPT Code(s) 02111, 31955, 24740 ARLEEN CORTES [facility] CLINICAL HISTORY Liver mass, approximately 5 cm [facility] Operation: Biopsy [facility] SPECIMEN SOURCE Liver right lobe [facility] HEALT H [facility] GROSS DESCRIPTION Specimen is received in one [facility] part. [facility] Part A. Received in formalin labeled with the patient's name, accession number and "liver biopsy" are three lujan to red-brown needle core biopsies measuring 0.5, 1.0, and 1.7 cm long and are all 0.1 cm in diameter. The specimen is submitted in toto in cassette A1. ALEKSANDAR/pl MICROSCOPIC DESCRIPTION Sections show tumor tissue [facility] Estevan Vann EDUIN [facility] composed of atypical [facility] hepatocytes disposed in thickened trabeculae with very focal pseudoglandular architecture. The reticulin stain highlights the thickened trabeculae. Immunostain for glypican 3 is negative. SPECIAL STUDIES The interpretation of this [facility]US[facility]win GutierrezEstevan [facility] case included the use of [facility] immunohistochemistry or special stains. Control Slides Examined: In-house known positive controls were evaluated along with the test tissue. These control slides run alongside of the patients sample show appropriate staining. Internal positive and negative controls when available are evaluated Immunohistochemistry technical testing was performed at [facility], Pathology Laboratory where it was developed and [...] Performing Organization Address City/State/Zipcode Ph one Number [facility] EDUIN [facility] [address], [place] [address] MEDICAL CENTER * US liver biopsy (07/09/2019 1:15 PM CDT) Specimen Narrative Performed At FINAL REPORT [employer] [facility] Procedure: Ultrasound-Guided right hepa tic mass core biopsy: Pre/post-procedure diagnosis: Hepatic m ass Passenger Interline Clerk: Amol Flores MD Assistants: MD Clive (Fellow) Sedation: Moderate sedation was adminis tered. 1 mg of Versed and50 mcg of fentanyl IV was used for moderat e sedation monitored under my direction. Total intra-service time of sedation [id number]. The patient's vital signs were monitored th [...] Report Verified Date/Time: 0 08:45:00 Reading Location: [place] [id number] Angio Bod y Reading Room Procedure Note Interface, External Ris In - 07/10/2019 8:47 AM CDT FINAL REPORT Procedure: Ultrasound-Guided right hepatic mass core biopsy: Pre/post-procedure diagnosis: Hepatic mass Passenger Interline Clerk: Amol Flores MD Assistants: MD Clive (Fellow) [...] right hepatic mass core biopsy. Signed: Amol Floers MD Report Verified Date/Time: 07/10/2019 08:45:00 Reading Location: [place] [address] Angio Body Reading Room Performing Organization Address [...] analytical performance characteristics have been determined by [facility]. It has not been cleared or approved by FDA. This assay has been validated pursuant to the CLIA regulations and is used for clinical purposes. Specimen Blood Narrative Performed At Performing Lab [facility] [facility] is[employer]ive Bias. [address] [place] [phone] Natan Whelan MD Performing Organization Address [facility] one Number [facility][1], [address] [place] [id number] * TRANSFUSION SERVICE REPORT - SCAN (07/08/2019 5:52 PM CDT) Only the most recent of 2 results within the time period is included. Narrative Performed At This result has an attachment that is n ot available. * Prepare Leuko-Red RBC (07/07/2019 11:54 PM CDT) CROSSMATCH COMPATIBLE SAFETRACE TX Unit ABO B Pos SAFETRACE TX UNIT NUMBER [id number] SAFETRACE TX Status TX_TIMEINCHART SAFETRACE TX Blood Bank Product RED BLOOD CELLS SAFETRACE TX PRODUCT CODE [id number] [facility] [place] Specimen Other Performing Organization Address [facility] Ph one Number [facility] [place] * ECHOCARDIOGRAM REPORT - SCAN (07/07/2019 9:10 PM CDT) Narrative Performed At This result has an attachment that is n ot available. * CT abdomen - liver evaluation without/with iv contrast (07/07/2019 5:48 PM CDT) Specimen Narrative Performed At FINAL REPORT [place] CT of the Chest dated 07/07/2019 CLINICAL [...] contrast. This exam was performed according to [facility] departmental dose-optimization program, which includ es automated [...] Report Verified Date/Time: 0 18:18:34 Reading Location: [facility] C013Y CT Body Reading Room Procedure [...] Report Verified Date/Time: 07/07/2019 18:18:34 Reading Location: [address] Body Reading Room Performing Organization Address City/State/Zipcode Ph one Number [place] * CT maxillofacial with IV contrast (07/07/2019 5:48 PM CDT) Specimen Narrative Performed At FINAL REPORT [place] EXAM: CT, MAXILLOFACIAL AREA, CONTRAST CLINICAL INDICATION:Dental abscess. TECHNIQUE: Helical CT examination of th e face with IV contrast. Axial, sagittal and coronal reformation s were generated. This exam was performed according to our [facility] dose-optimization program, which includes automated expos [...] Performing Organization Address City/State/Zipcode Ph one Number [employer] RIS * CT chest with IV contrast (07/07/2019 5:48 PM CDT) Specimen Narrative Performed At FINAL REPORT [place] CT of the Chest dated 07/07/2019 CLINICAL INFORMATION: Liver lesion, > 1 cm, US nondiagnostic Comment:Axial images of the chest w ere obtained from thoracic inlet to the upper abdomen trace intravenous contrast. This exam was performed according to [facility] departmental dose-optimization program, which includ es automated [...] Report Verified Date/Time: 0 18:18:34 Reading Location: [facility] C013Y CT Body Reading Room Procedure [...] Report Verified Date/Time: 07/07/2019 18:18:34 Reading Location: [facility] B1 C013Y [address] Body Reading Room Performing Organization Address City/State/Zipcode Ph one Number [facility] * 2D Echo W/Doppler(CW/PW/Color) (07/07/2019 11:43 AM CDT) Ejection Fraction [facility] ECHO HEARTLAB [facility] Specimen Narrative Performed At Transthoracic Echocardiography Report (TTE) [facility] ECH O HEARTLAB Demographics [facility] Patient Name JESUS ROD Date o f Study07/07/2019 [id number] Gender Male Visit Number [id number] Unknown Accession Number [id number] Room Num [id number] Date of Birth1955Refe rring Physician Age63 year(s)Business Management Manager Abed Jaydon Interpreting Physician Luda Rodrigeuz MD Procedure Type of Study TTE procedure:2DECHO [...] of Study 07/07/2019 Gender Male Visit Number [id number] Race Unknown Accession Number [id number] Room Number 955 Date of 1955 Referring Physician Age 63 year(s) Business Management Manager Abed Jaydon Interpreting Physician Luda Rodriguez [...] LVOT CI: 3.44 l/min/m^2 Performing Organization Address [facility] one Number [facility] ECHO HEARTLAB [facility] * Potassium (07/07/2019 10:44 AM CDT) Potassium 3.5 3.5 - 5.1 meq/L [facility] Specimen Blood Narrative Performed At Stationary Engineer Supervisor ID [facility] Performing Organization Address [facility] one [place] [phone] [place] [address] * Phosphorus (07/07/2019 10:44 AM CDT) Only the most recent of 6 results within the time period is included. Phosphorus 2.1 (L) 2.3 - 4.7 mg/dL [facility] Specimen Blood Narrative Performed At Stationary Engineer Supervisor ID [facility] Performing Organization Address [facility] one Number [place] [address] 0 [phone] [place] [address] * Magnesium (07/07/2019 10:44 AM CDT) Only the most recent of 6 results within the time period is included. Magnesium 1.2 (L) 1.6 - 2.6 mg/dL [facility] Specimen Blood Narrative Performed At Stationary Engineer Supervisor ID [facility] Performing Organization Address [facility] Ph one [place] [address] [facility] * Vancomycin level, trough (07/07/2019 10:44 AM CDT) Vancomycin Tr 12.7 10.0 - 20.0 ug/mL [facility] Specimen Blood Narrative Performed At Stationary Engineer Supervisor ID - [id number] [facility] Performing Organization Address City/State/Zipcode Ph one Number [address] [facility] * Manual Differential (07/07/2019 4:29 AM CDT) Only the most recent of 2 results within the time period is included. % Neutros 79 % [facility] % Lymphs 11 % [facility] % Monos 6 % [facility] % Eos 1 % [facility] % Bands 2 0 - 10 % [facility] # Neutros 1.90 1.78 - 5.38 K/ul [facility] # Lymphs 0.26 (L) 1.32 - 3.57 K/ul [facility] # Monos 0.14 (L) 0.30 - 0.82 K/uL [facility] # Eos 0.02 (L) 0.04 - 0.54 K/uL [facility] # Bands 0.05 0.00 - 0.80 K/uL [facility] Total Counted 100 [facility] WBC Morphology Normal [facility] Platelet Morphology Normal [facility] Polychromasia 2+ moderate [facility] Hypochromia 1+ few [facility] Target Cells 2+ moderate [facility] Artifact Present [facility] Platelet Conc Decreased [facility] Specimen Blood Narrative Performed At Stationary Engineer Supervisor ID - [id number] [facility] Stationary Engineer Supervisor ID - Halima [facility] User comments: Slide comments: Performing Organization Address [facility] Ph one Number [facility] [address], [place] [address] [facility] * Hepatic function panel (07/07/2019 3:47 AM CDT) Only the most recent of 3 results within the time period is included. Protein, Total 4.8 (L) 6.0 - 8.3 gm/dL [facility] Albumin 2.2 (L) 3.5 - 5.0 g/dL [facility] Total Bilirubin 0.4 0.2 - 1.2 mg/dL [facility] Bilirubin, Direct 0.3 0.1 - 0.5 mg/dL [facility] Alkaline Phosphatase 53 40 - 150 U/L [facility] AST 40 (H) 5 - 34 U/L [facility] ALT 31 6 - 55 U/L [facility] Specimen Blood Narrative Performed At Stationary Engineer Supervisor ID - PIAYA L [facility] Performing Organization Address City/[facility] Ph one Number [place] [address] [facility] * Basic Metabolic Panel (07/07/2019 3:47 AM CDT) Only the most recent of 4 results within the time period is included. Sodium 138 136 - 145 meq/L [facility] Potassium 2.1 (LL) 3.5 - 5.1 meq/L [facility] Chloride 117 (H) 98 - 107 meq/L [facility] CO2 16 (L) 22 - 29 meq/L [facility] BUN 7 7 - 21 mg/dL [facility] Creatinine 0.61 0.57 - 1.25 mg/dL [facility] Glucose 98 70 - 105 mg/dL [facility] Calcium 7.4 (L) 8.4 - 10.2 mg/dL [facility] EGFR Comment: INSUFFICIENT CLINICAL [facility] DATA TO CALCULATE ESTIMATED [facility] GFR. Specimen Blood Narrative Performed At Stationary Engineer Supervisor ID - LA [facility] Stationary Engineer Supervisor ID - [id number] [facility] Performing Organization Address City/State/Zipcode Ph one Number [address] [facility] * Transfuse Leuko-Red RBC (07/07/2019 1:10 AM CDT) Only the most recent of 2 results within the time period is included. * SARS-CoV2/RT-PCR (Symptomatic ONLY) (07/06/2019 11:08 PM CDT) SARS-COV2/RT-PCR Not Detected Not Detected, Negative [facility] SARS-COV-2 PERFORMING LAB [facility] Specimen Other Narrative Performed At Negative results do not preclude SARS-C oV-2 infection and should not be used as [facility] the sole basis for patient management decisions. Nega tive results must be [facility] combined with clinical observations, pa tient [...] the Act. Fact Sheet for Healthcare Providers: https://www.iHandle/Documents/Xpert%20Xpress%20SARS%20CoV-2/Fact%20Sheets/30 2-3802%13JUHL-ZKE-1%20HEALTHCARE%20PROV IDERS%20FACT%20SHEET.pdf Fact Sheet for Healthcare Patients: https://www.iHandle/Documents/Xpert%20Xpress%20SARS%20CoV-2/Fact%20Sheets/30 2-3801%34LTXE-MNX-4%20PATIENT%20FACT%20 SHEET.pdf Performing Laboratory: [address] [place] [address] Performing Organization Address City/State/[facility] Ph one Number [place] [address] [facility]ENTER * Respiratory Panel [facility] (07/06/2019 11:08 PM CDT) Human Metapneumovirus Not detected Not detected, Equivocal [facility] Rhinovirus Not detected Not detected, [employer]ivocal [facility] Influenza A Not detected Not detected, [employer]ivocal [facility] INFLUENZA A (NO SUBTYPE) [facility] Influenza A subtype H1 [facility] Influenza A Subtype H3 [facility] Influenza A Subtype [facility] H1-2009 [facility] Influenza B Not detected Not detected, [employer] [facility] Respiratory Syncytial Not detected Not detected, Equivocal [facility] Virus [facility] Parainfluenza Virus 1 Not detected Not detected, Equivocal [facility] Parainfluenza Virus 2 Not detected Not detected, Equivocal [facility] Parainfluenza virus 3 Not detected Not detected, Equivocal [facility] Parainfluenza Virus 4 Not detected Not detected, [employer]ivocal [facility] Adenovirus Not detected Not detected, [employer]ivocal [facility] Coronavirus 229E Not detected Not detected, Equivocal [facility] Coronavirus HKU1 Not detected Not detected, Equivocal [facility] Coronavirus NL63 Not detected Not detected, [employer]iv[employer] [facility] Coronavirus OC43 Not detected Not detected, Equivocal [facility] Bordetella Pertussis Not detected Not detected, [employer]ocal [facility] Chlamydophila Pneumoniae Not detected Not detected, Equivoc al [facility] Mycoplasma Pneumoniae Not detected Not detected, Equivocal [facility] Specimen Nasopharyngeal Narrative Performed At Other viruses and bacteria not targeted by this PCR p sharmaine cannot be excluded; [facility] therefore clinical correlation and follow up of serol ogy, culture results, and [facility] other molecular studies is required. Th e results are not intended to be used as the sole means for clinical diagnosis o r patient management decisions. This sample was tested at the [facility] using the [employer] FilmArray Respiratory Panel. It is FDA cleared and has been verified and approved by the [facility] Molecular Diagnos tics Laboratory for clinical use on nasopharyngeal swab specimens. The performance of the FilmArray RP has not been established in individuals who received influenza vaccine.Recent a dministration of a nasal influenza vaccine may cause false positive result s for Influenza A and/or Influenza B. Performing Organization Address City/State/Zipcode Ph one Number [facility] [address] [place] [phone] MEDICAL CENTER * ALISIA, manual (07/06/2019 6:48 PM CDT) ABO Grouping B [facility] Rh Factor POS [facility] Specimen Blood Performing Organization Address City/State/Zipcode Ph one Number [facility] [address] [place] [address] [facility] * Type and screen, automated (07/06/2019 6:29 PM CDT) ABO/RH AUTOMATED (BEAKER) B POSITIVE [facility] Ab Scrn NEGATIVE [facility] Specimen Blood Performing Organization Address City/State/Zipcode Ph one Number [facility] [address] [place] [address] [phone] [facility] * MR abdomen without & with IV contrast (07/06/2019 6:25 PM CDT) Specimen Narrative Performed At FINAL REPORT [place] TECHNIQUE: MRI of the abdomen WITHOUT a [...] Report Verified Date/Time: 0 18:40:36 Reading Location: [address] Transiti onme Reading Room Procedure Note Interface, External Ris [...] Report Verified Date/Time: 07/06/2019 18:40:36 Reading Location: [facility] C0[facility] Transitional Reading Room Performing Organization Address City/[facility] one Number GE [facility] * Hemoglobin and hematocrit (07/06/2019 8:41 AM CDT) Hemoglobin 6.7 (L) 13.7 - 17.5 GM/DL [facility] Hematocrit 23.8 (L) 40.1 - 51.0 % [facility] Specimen Blood Narrative Performed At Stationary Engineer Supervisor ID - [id number] [facility] Performing Organization Address [facility] one Number [place] [address] [facility] * Procalcitonin (07/06/2019 4:00 AM CDT) Procalcitonin 6.60 (H) <0.05 ng/mL [facility] Specimen Blood Narrative Performed At SEPSIS RISK (ng/mL) [facility] Low:0.05-0.50 [facility] Intermediate: 0.51-2.00 High: >=2.01 Performing Organization Address [facility] one Number [place] [address] [facility] * US abdomen complete (07/06/2019 3:10 AM CDT) Specimen Narrative Performed At FINAL REPORT [employer] [employer] TECHNIQUE: Grayscale ultrasound of the abdomen. INDICATION: [...] Verified Date/Time: 07/06/2019 03:42:00 Performing Organization Address City/[facility] Ph one Number [facility] * Blood Culture - Routine (Left Venipuncture) (07/06/2019 12:22 AM CDT) Only the most recent of 4 results within the time period is included. Result No growth in 5 days [facility] Specimen Blood Performing Organization Address [facility] Ph one Number [place] [address] [facility] * Urinalysis w/Microscopic + Reflex to Culture (07/05/2019 4:47 PM CDT) Color, UA Yellow [facility] Clarity, UA Cloudy [facility] Specific [place], UA 1.026 1.001 - 1.035 [facility] pH, UA 5.0 5.0 - 8.0 [facility] Protein, UA 10 mg/dL (A) Negative [facility] Glucose, UA Negative Negative [facility] Ketones, UA Negative Negative [facility] Bilirubin, UA Negative Negative [facility] Blood, UA Negative Negative [facility] Nitrite, UA Negative Negative [facility] Leukocytes, UA Negative Negative [facility] Urobilinogen, UA 0.2 0.2 - 1.0 mg/dL [facility] RBC, UA 1 /HPF [facility] WBC, UA 4 /HPF [facility] Mucus Rare [facility] Squam Epithel, UA 9 /HPF [facility] Hyaline Casts, UA 5 /LPF [facility] Uric Acid Crystals Occasional [facility] Amorphous Crystals Occasional [facility] Specimen Source [facility] Specimen Urine - Urine, Straight Catheter Narrative Performed At Stationary Engineer Supervisor ID - [auto] [facility] Stationary Engineer Supervisor ID - tech [facility] Performing Organization Address City/[facility] Ph one Number [address] 0 [phone] [address] * Legionella antigen, urine (07/05/2019 4:47 PM CDT) Legionella Urine Antigen Negative - see commentComment: [facility] Negative for L. pneumophila [facility] serogroup 1 antigen, suggesting no recent or current infection with this serogroup. Legionellosis cannot be ruled out since other serogroups and species may cause disease. Specimen Urine Performing Organization Address City/[facility] Ph one Number [address] 0 [phone] [address] * Phosphatidylethanol (07/05/2019 11:59 AM CDT) Scan Result [facility] Specimen Blood Narrative Performed At This result has an attachment that is n ot available. Performing Organization Address City/State/Zipcode Ph one Number [facility] [address] [facility], [place] * Hepatitis C antibody (07/05/2019 5:52 AM CDT) Hepatitis C Ab Nonreactive Nonreactive [facility] Specimen Blood Narrative Performed At Stationary Engineer Supervisor ID - NTP [facility] Performing Organization Address City/State/Zipcode Ph one Number [address] [facility] * Lactic acid, venous (07/05/2019 5:52 AM CDT) Only the most recent of 2 results within the time period is included. Lactate, Venous 1.83 0.50 - 2.20 mmol/L [facility] Specimen Blood Narrative Performed At Stationary Engineer Supervisor ID - ALAN M [facility] Performing Organization Address City/[facility] Ph one Number [facility] [address] [place], [place] [address] [facility] * Alpha fetoprotein (AFP), tumor marker (07/05/2019 5:52 AM CDT) Alpha-Fetoprotein 26.9 (H) <10.0 ng/mL [facility] Specimen Blood Narrative Performed At Stationary Engineer Supervisor ID - NTP [facility] Performing Organization Address [facility] Ph one Number [facility] [address] [place], [place] [address] [facility] * XR chest 1 view portable [...] Verified Date/Time: 07/05/2019 02:54:14 Performing Organization Address [facility] one Number GE RIS * Lipid panel (07/05/2019 1:49 AM CDT) Triglycerides 43 mg/dL [facility] Cholesterol 55 mg/dL [facility] HDL 23 mg/dL [facility] LDL Calculated 23 mg/dL [facility] Specimen Blood Narrative Performed At Triglyceride Reference Range: [facility] Low Risk <150 [facility] [id number] High Risk 200-499 Very High Risk>=500 Cholesterol Reference Range: Low Risk <200 [id number] High Risk>240 HDL Cholesterol Reference Range: Low Risk >=60 High Risk <40 LDL Cholesterol Reference Range: Optimal<100 Near [id number] [id number] [id number] Very High >=190 Stationary Engineer Supervisor ID - ALAN Butler Performing Organization Address [facility] one Number [address] [facility] * TSH/Free T4 If Indicated (07/05/2019 1:25 AM CDT) TSH 0.374 0.350 - 4.940 uIU/mL [facility] Specimen Blood Narrative Performed At Stationary Engineer Supervisor ID - ALAN M [facility] Performing Organization Address [facility] one Number [place] [phone] [place], [place] [address] [facility] * Iron, TIBC, % sat. (without ferritin) (07/05/2019 1:25 AM CDT) Iron 12.0 (L) 40.0 - 160.0 ug/dL [facility] TIBC 380 250 - 450 ug/dL [facility] Iron % Saturation 3 (L) 20 - 55 % [facility] Specimen Blood Narrative Performed At Stationary Engineer Supervisor ID - ALAN M [facility] Performing Organization Address City/[facility] Ph one Number [address] [facility] * HIV-1 Antigen with HIV-1/2 Antibody (07/05/2019 1:25 AM CDT) HIV-1 Antigen with HIV Nonreactive Nonreactive [facility] 1& Antibody [facility] Specimen Blood Narrative Performed At Stationary Engineer Supervisor ID - DB [facility] Performing Organization Address [facility] Ph one Number [place] [address] 0 [phone] [place] [address] * Hepatitis B Panel (07/05/2019 1:25 AM CDT) Hep B Core Total Ab Reactive (A) Nonreactive [facility] Hep B S Ab 17.7 (H) <8.0 mIU/mL [facility] HBsAg Screen Nonreactive Nonreactive [facility] Specimen Blood Narrative Performed At Stationary Engineer Supervisor ID - DB [facility] Performing Organization Address City/[facility] Ph one Number [address] [facility] * Hepatitis A Panel (07/05/2019 1:25 AM CDT) Hep A IgM Nonreactive Nonreactive [facility] Hep A IgG Reactive (A) Nonreactive [facility] Specimen Blood Narrative Performed At Stationary Engineer Supervisor ID - [facility] Performing Organization Address City/[facility] Ph one Number [address] [facility] * Troponin I (07/05/2019 1:25 AM CDT) Troponin I <0.01 0.00 - 0.03 ng/mL [facility] Specimen Blood Narrative Performed At Troponin I (TnI) levels must be interpreted in the co ntext of the presenting [facility] symptoms and the clinical findings. Elevated TnI leve ls indicate myocardial [facility] damage, but are not specific for ischem ic heart disease. Elevated TnI levels are seen in patients with other cardiac con ditions (including myocarditis and congestive heart failure), and slight T nI elevations occur in patients with other conditions, including sepsis, jesu al failure, acidosis, acute neurological disease, and persistent tachyarrhythmia . Stationary Engineer Supervisor ID - ALAN Butler Performing Organization Address [facility] one Number [address] [facility] * Reticulocyte count (07/05/2019 1:25 AM CDT) % Retic 2.6 (H) 0.5 - 1.8 % [facility] Specimen Blood Narrative Performed At Stationary Engineer Supervisor ID - [id number] [facility] Performing Organization Address [facility] one Number [address] [facility] * Lipase (07/05/2019 1:25 AM CDT) Lipase 39 8 - 78 U/L [facility] Specimen Blood Narrative Performed At Stationary Engineer Supervisor ID - ALAN M [facility] Performing Organization Address [facility] Ph one Number [address] [facility] * Lactate dehydrogenase (LDH) (07/05/2019 1:25 AM CDT) LDH 133 125 - 220 U/L [facility] Specimen Blood Narrative Performed At Stationary Engineer Supervisor ID - ALAN M [facility] Performing Organization Address City/State/Zipcode Ph one [address] 0 [phone] [place] [address] * Folate, Serum (07/05/2019 1:25 AM CDT) Folate 11.70 >=7.00 ng/mL [facility] Specimen Blood Narrative Performed At Stationary Engineer Supervisor ID - [facility] Performing Organization Address City/[facility]/Zipcode Ph one [address] 0 [phone] [address] * Ferritin (07/05/2019 1:25 AM CDT) Ferritin 6.21 5.00 - 275.00 ng/mL [facility] Specimen Blood Narrative Performed At Stationary Engineer Supervisor ID - ALAN [facility] Performing Organization Address City/[facility] Ph one [address] 0 [phone] [place] [address] * Vitamin B12 (07/05/2019 1:25 AM CDT) Vitamin B12 945 (H) 213 - 816 pg/mL [facility] Specimen Blood Narrative Performed At Stationary Engineer Supervisor ID - [facility] Performing Organization Address City/State/Zipcode Ph one [address] 0 [phone] [place] [address] * Creatine Kinase (CK) (07/05/2019 1:25 AM CDT) Total CK 89 29 - 200 U/L [facility] Specimen Blood Narrative Performed At Stationary Engineer Supervisor ID - [facility] Performing Organization Address City/State/Zipcode Ph one Number [facility] [address] [place] [address] [address] [facility] * Ammonia (07/05/2019 1:25 AM CDT) Ammonia 43 18 - 72 mol/L [facility] Specimen Blood Narrative Performed At Stationary Engineer Supervisor ASHLEE Francis ALAN Butler [facility] Performing Organization Address City/[facility] Ph one Number [address] [facility] * Blood gas, venous (07/05/2019 1:24 AM CDT) pH, Sebastien 7.39 7.32 - 7.42 [facility] pCO2, Sebastien 37 (L) 41 - 51 mmHg [facility] pO2, Sebastien 66 (H) 25 - 40 mmHg [facility] O2 Sat, Sebastien 92.9 (H) 40.0 - 70.0 % [facility] HCO3, Sebastien 22 21 - 29 mmol/L [facility] Base Excess, Sebastien -2.7 (L) -2.0 - 3.0 mmol/L [facility] Patient Temperature 37.0 C [facility] FIO2 21.0 % [facility] Specimen Blood Performing Organization Address City/[facility] Ph one Number [address] [facility] * Prothrombin time/INR (07/05/2019 12:53 AM CDT) Protime 16.7 (H) 11.9 - 14.2 seconds [facility] INR 1.4 <=5.9 [facility] Specimen Blood Narrative Performed At Effective 07/23/2018: PT Reference Range Change [facility] New: 11.9-14.2Previous: 11.7-14.7 [facility] RECOMMENDED COUMADIN/WARFARIN INR THERA PY RANGES STANDARD DOSE: 2.0-3.0Includes: PRO PHYLAXIS for venous thrombosis, systemic embolization; TREATMENT for venous thro mbosis and/or pulmonary embolus. HIGH RISK: Target INR is 2.5-3.5 for pa tients wiht mechanical heart valves. Performing Organization Address City/[facility] Ph one Number [facility] [address] [place] [address] [address] [facility] * Fibrinogen (07/05/2019 12:53 AM CDT) Fibrinogen 234 225 - 434 mg/dl [facility] Specimen Blood Performing Organization Address [facility] Ph one Number [address] [facility] after 07/30/2018 Insurance Payer Benefit Subscriber ID Type Phone Address Plan / Group PEREZ A [employer] PEREZ xxxxxxxxxx [employer] EXCHANGE CDCREVIEW CDCREVIEW xxxxx[place] [address] Advance Directives For more information, please contact: [address] [phone] Date Inactivated Comments Code Status Date Activated 07/10/2019 10:46 PM Full Code 07/05/2019 12:36 AM This code status was determined by: Patient
--- OUTSIDE RECORDS SUMMARY | 2019-07-31 22:14 | XMS REPORT | Continuity of Care Document ---
Author Author [facility] t Organization [facility] Address [address] [place] [address] Phone Unavailable Care Team Providers Care Branch Chief Name Role Phone CLEVE CROWDER, MD Martell OSEGUERA PCP Luis Carlos BENDER, Brittany Attphys Unavailable JOSH, THEE KIMBROUGH Attphys Unavailable Josh CROWDER, Thee Kimbrough Attphys Toma Ty MD, Negrito Attphys [phone] Urban CROWDER, Angela Taylor Attphys Albert CROWDER, Carlota Hudson Attphys VERN OLIVEIRA Attphys Unavailable Martell CÁRDENAS Attphys Unavailable JOSH, THEE KIMBROUGH Admphys Unavailable Carrie FAUST Admphys Unavailable Payers Payer Name Policy Type Policy Number Effective Date Expiration Date S ource Other Medicare Replacement [id number] [facility] [employer]PlayPLACEMOLINA MARKETPLACE EXCHANGExxxxxxxxxx xx [id number] [facility] CDCREVIEWCDCREVIEWxxxxxxxx[place] [address] [facility] Problems Condition Name Condition Details Condition Category Status Onset Date Resolution Date Last Treatment Date Treating Clinician Comments Source Altered mental status, unspecified Altered mental status, unspec ified Disease Active 2019-07-05 00:00:00 [facility] Alcoholic cirrhosis Alcoholic cirrhosis Disease Active 2019-07-05 00:00 [facility] Anemia Disease Active 2019-07-05 00:00:00 [facility] Type 2 diabetes mellitus Type 2 diabetes mellitus Disease Acti ve 2019-07-05 00:00:00 [facility] Hyperlipidemia Hyperlipidemia Disease Active 2019-07-05 00:00:00 [facility] Acute metabolic encephalopathy Acute metabolic encephalopathy Disea se Active 2019-07-05 00:00:00 [facility] Severe sepsis Severe sepsis Disease Active 2019-07-05 00:00:00 [facility] 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 artery disease involving [place] coronary artery of [place] heart without angina pectoris Disease Active 2019-07-05 00:00:00 [facility] Cirrhosis of liver with ascites Cirrhosis of liver with ascites Dis ease Active 2019-07-05 00:00:00 [facility] Thrombocytopenia Thrombocytopenia Disease Active 2019-07-05 00:00:00 [facility] Hypomagnesemia Hypomagnesemia Disease Active 2019-07-05 00:00:00 [facility] Hypophosphatemia Hypophosphatemia Disease Active 2019-07-05 00:00:00 [facility] Iron deficiency anemia Iron deficiency anemia Disease Active 2019-07-05 00:00:00 [facility] Allergies, Adverse Reactions, Alerts Allergy Name Allergy Type Status Severity Reaction(s) Onset Date Inacti ve Date Treating Clinician Comments Source Penicillins Propensity to adverse reactions Active 2019 00:00:00 [facility] Social History Social Habit Start Date Stop Date Quantity Comments Source History SDOH Alcohol Std Drinks [facility] History SDOH Alcohol Binge [facility] Sex Assigned At [facility] History SDOH Alcohol Frequency 2019-07-05 00:00:00 2019-07-05 00:00:0 0 1 [facility] Alcohol Comment 2019-07-05 00:00:00 2019-07-05 00:00:00 quit 7 months ago [facility] Smoking Status Start Date Stop Date Source Never smoker [facility] Medications Ordered Medication Name Filled Medication Name Start Date Stop Da te Current Medication? Ordering Clinician Indication Dosage Frequency Signature (SIG) Comments Components Source folic acid (FOLVITE) 1 MG tablet 2019-07-11 00:00:00 07-10 23:59:00 Yes 1mg QD Take 1 tablet (1 mg total) by mouth dain y. [facility] folic acid (FOLVITE) 1 MG tablet 2019-07-11 00:00:00 2019-06 00:00:00 No 1mg QD Take 1 tablet (1 mg total) by mouth daily. [facility] irbesartan (AVAPRO) 300 MG tablet 2019-07-10 16:23:2019 00:00:00 No 300mg QD Take 300 mg by mouth nightly. [facility] triamterene-hydroCHLOROthiazide (DYAZIDE) 37.5-25 mg per cap terrie 2019-07-10 16:23:2019-07-10 00:00:00 No 1{capsule} QD Take 1 capsule by mouth every morning. [facility] metFORMIN (GLUCOPHAGE) 500 MG tablet 2019-07-10 16:23: 2019-07-10 00:00:00 No 500mg Take 500 mg by mouth 3 (three) times radha ly with meals. [facility] glipiZIDE (GLUCOTROL) 5 MG tablet 2019-07-10 16:23:2019 00:00:00 No 5mg Take 5 mg by mouth 2 (two) times daily b efore meals. [facility] gabapentin (NEURONTIN) 400 MG capsule 2019-07-10 16:23 :2019-07-10 00:00:00 No 400mg Q.[id number] Take 400 mg b y mouth 3 (three) times daily. [facility] rifAXIMin 550 mg Tab 2019-07-10 00:00:00 Yes 550mg Q.5D Take 1 tablet (550 mg total) by mouth 2 (two) times daily. [facility] ferrous sulfate 325 (65 FE) MG tablet 2019-07-10 00:00 :00 2020-07-09 23:59:00 Yes 325mg Q.5D Take 1 tablet (325 mg total) b y mouth 2 (two) times daily. [facility] amoxicillin-clavulanate (AUGMENTIN) 875-125 mg per tablet 2019-07-10 00:00:00 2019-07-17 23:59:00 No 1{tbl} Take 1 tablet by mouth every 12 (twelve) hours for 7 days. [facility] amoxicillin-clavulanate (AUGMENTIN) 875-125 mg per tablet 2019-07-10 00:00:00 2019-07-10 00:00:00 No 1{tbl} Take 1 tablet by mouth every 12 (twelve) hours for 7 days. [facility] ferrous sulfate 325 (65 FE) MG tablet 2019-07-10 00:00 :00 2019-07-10 00:00:00 No 325mg Q.5D Take 1 tablet (325 mg total) b y mouth 2 (two) times daily. [facility] rifAXIMin 550 mg Tab 2019-07-10 00:00:00 2019-07-10 00:00:00 No 550mg Q.5D Take 1 tablet (550 mg total) by mouth 2 (two) times daily. [facility] amoxicillin-clavulanate (AUGMENTIN) 875-125 mg per tablet 2019-07-10 00:00:00 2019-07-10 00:00:00 No 1{tbl} Take 1 tablet by mouth every 12 (twelve) hours for 7 days. [facility] famotidine (PEPCID) 40 MG tablet 2019-07-05 08:46:24 Yes 40mg Q.5D Take 40 mg by mouth 2 (two) times daily. [facility] propranoloL (INDERAL) 20 MG tablet 2019-07-05 08:46:24 Yes 20mg Q.5D Take 20 mg by mouth 2 (two) times daily. [facility] pantoprazole (PROTONIX) 40 MG tablet 2019-07-05 08:46:24 Ye s 40mg QD Take 40 mg by mouth daily. [facility] multivitamin (THERAGRAN) tablet 2019-07-05 08:46:24 Yes 1{tbl} QD Take 1 tablet by mouth daily. [facility] lactulose (CHRONULAC) 10 gram/15 mL (15 mL) solution 2 08:46:23 Yes 10g Q.5D Take 10 g by mouth 2 (two) times daily. [facility] atorvastatin (LIPITOR) 20 MG tablet 2019-07-05 08:46:23 Yes 20mg QD Take 20 mg by mouth daily. [facility] Aspirin (Aspir 81) 81 Mg TABLET. Aspirin (Aspir 81) 81 Mg TABLET. Yes Daily [facility] Atorvastatin Calcium Atorvastatin Calcium Yes 20 Bedtime [facility] Famotidine (Pepcid) 20 Mg TABLET Famotidine (Pepcid) 20 Mg TABLET Yes 40 Daily [facility] Gabapentin Gabapentin Yes 400 Three Times A Day [facility] Glipizide (Glipizide Er) 5 Mg TAB.ER.24 Glipizide (Glipizide Er) 5 Mg TAB.ER.24 Yes Daily [facility] Irbesartan Irbesartan Yes 300 Daily [facility] Lactulose Lactulose Yes 15 Three Times A Day [facility] Metformin Hcl Metformin Hcl Yes 500 Three Times A Day [facility] Multivits,Th W-Fe,Other Min (Thera-M) 1 Each TABLET Mu ltivits, W-Fe,Other Min (Thera-M) 1 Each TABLET Yes Daily [facility] Pantoprazole Sodium (Protonix) 40 Mg TABLET. Pantopr azole Sodium (Protonix) 40 Mg TABLET. Yes 40 Daily [facility] Propranolol Hcl Propranolol Hcl Yes 20 Daily [facility] Triamterene/Hctz (Triamterene-Hctz 37.5-25 Mg Tb) 1 Ea TAB Triamterene/Hctz (Triamterene-Hctz 37.5-25 Mg Tb) 1 Ea TAB Yes 1 Daily [facility] Iron Iron 2019-07-02 00:00:00 No 65 Daily [facility] Vital Signs Vital Name Observation Time Observation Value Comments Source Weight 2019-07-31 14:25:00 330 [lb_av] [facility] BMI (Body Mass Index) 2019-07-31 14:25:00 46.0 kg/m2 [facility] Systolic blood pressure 2019-07-10 16:54:00 136 mm[Hg] [facility] Diastolic blood pressure 2019-07-10 16:54:00 64 mm[Hg] [facility] Heart rate 2019-07-10 16:54:00 88 /min [facility] Body temperature 2019-07-10 16:54:00 36.78 Justina [facility] Respiratory rate 2019-07-10 16:54:00 19 /min [facility] Oxygen saturation in Arterial blood by Pulse oximetry 07-09 16:54:00 93 /min [facility] Body weight Measured 2019-07-10 03:00:00 127.461 kg [facility] BMI 2019-07-10 03:00:00 41.53 kg/m2 [facility] Body height 2019-07-05 03:00:00 175.2 cm [facility] Weight 2019-07-04 19:23:00 330 [lb_av] [facility] BMI (Body Mass Index) 2019-07-04 19:23:00 46.0 kg/m2 [facility] Body Temperature 2019-05-12 11:28:00 97.5 [degF] [facility] Procedures Procedure Date / Time Performed Performing Clinician [facility] e REPORT OF PROCEDURE - ENDOSCOPY SCAN 2019-07-13 13:40:47 Pro vider, Default Scanning [facility] RHYTHM STRIP - SCAN 2019-07-13 13:40:45 Provider, Default Scanmodesto barbosa [facility] POCT-GLUCOSE METER 2019-07-10 16:57:00 Becca Price [facility] POCT-GLUCOSE METER 2019-07-10 11:55:00 Albert Becca [facility] POCT-GLUCOSE METER 2019-07-10 07:12:00 [facility] 2019-07-10 03:31:00 Mundo Martinez [facility] CBC W/PLT COUNT & AUTO DIFFERENTIAL 2019-07-10 03:31:00 HipolitoLex [facility] POCT-GLUCOSE METER 2019-07-09 20:41:00 Albert [facility] TISSUE EXAM 2019-07-09 13:18:00 Albert [facility] US LIVER BIOPSY 2019-07-09 13:15:00 Carmen Boateng [facility] POCT-GLUCOSE METER 2019-07-09 07:47:00 Albert [facility] PT/APTT 2019-07-09 06:06:00 Mundo Martinez [facility] HISTOPLASMA AB BY COMPLEMENT FIXATION 2019-07-09 06:06:00 Saul Felix [facility] CBC W/PLT COUNT & AUTO DIFFERENTIAL 2019-07-09 06:06:00 Lex Mcmillan [facility] POCT-GLUCOSE METER 2019-07-08 20:38:00 Albert [facility] TRANSFUSION SERVICE REPORT - SCAN 2019-07-08 17:52:55 Provid er, Default Scanning [facility] POCT-GLUCOSE METER 2019-07-08 16:36:00 Albert [facility] POCT-GLUCOSE METER 2019-07-08 11:47:00 Albert [facility] POCT-GLUCOSE METER 2019-07-08 07:50:00 Albert [facility] PT/APTT 2019-07-08 04:57:00 Mundo Martinez Geraldo [facility] CBC W/PLT COUNT & AUTO DIFFERENTIAL 2019-07-08 04:57:00 Lex Mcmillan [facility] PREPARE LEUKO-REDUCED RBC 2019-07-07 23:54:00 Zachary Price i [facility] ECHOCARDIOGRAM REPORT - SCAN 2019-07-07 21:10:34 Maximiliano Griffin lt Scanning [facility] POCT-GLUCOSE METER 2019-07-07 21:06:00 Becca Price [facility] TRANSFUSION SERVICE REPORT - SCAN 2019-07-07 17:52:25 Provid er, Default Scanning [facility] CT CHEST WITH IV CONTRAST 2019-07-07 17:48:00 Zachary Price i [facility] CT ABDOMEN - LIVER EVALUATION WITHOUT/WITH IV CONTRAST 07-06 17:48:00 Carmen Boateng [facility] CT MAXILLOFACIAL WITH IV CONTRAST 2019-07-07 17:48:00 Becca Price [facility] POCT-GLUCOSE METER 2019-07-07 16:22:00 Becca Price [facility] 2D ECHO W/ DOPPLER (CW/PW/COLOR) 2019-07-07 11:43:29 Kindra Mcmillan [facility] POCT-GLUCOSE METER 2019-07-07 11:08:00 Becca Price loyda [facility] VANCOMYCIN LEVEL, TROUGH 2019-07-07 10:44:00 Nilson Kaba [facility] MAGNESIUM 2019-07-07 10:44:00 Dedra [facility] PHOSPHORUS 2019-07-07 10:44:00 Dedra [facility] POTASSIUM 2019-07-07 10:44:00 Becca Price [facility] MAGNESIUM 2019-07-07 06:13:00 Albert, Mrinalini [facility] PHOSPHORUS 2019-07-07 06:13:00 Becca Price [facility] CBC W/PLT COUNT & AUTO DIFFERENTIAL 2019-07-07 04:29:00 Lex Mcmillan [facility] (CELLAVISION MANUAL DIFF) 2019-07-07 04:29:00 HipolitoKindra [facility] MAGNESIUM 2019-07-07 03:47:00 Hipolito, Kindra [facility] PHOSPHORUS 2019-07-07 03:47:00 Hipolito, Kindra [facility] HEPATIC FUNCTION PANEL 2019-07-07 03:47:00 Hipolito, [facility] PT/APTT 2019-07-07 03:47:00 Mundo Martinez [facility] BASIC METABOLIC PANEL (7) 2019-07-07 03:47:00 Geovani Colmenares [facility] TRANSFUSE LEUKO-REDUCED RED BLOOD CELLS 2019-07-07 01:10:22 Becca Price [facility] POCT-GLUCOSE METER 2019-07-06 23:51:00 Becca Price [facility] SARS-COV2/RT-PCR ([facility]) 2019-07-06 23:08:00 Becca Price [facility] RESPIRATORY PANEL [facility] 2019-07-06 23:08:00 Becca Price [facility] ABORH, MANUAL 2019-07-06 18:48:00 Andreina Ridley [facility] TYPE AND SCREEN, AUTOMATED 2019-07-06 18:29:00 Marie Price [facility] MR ABDOMEN WITH & WITHOUT IV CONTRAST 2019-07-06 18:25:00 Akira Alonso [facility] HEMOGLOBIN AND HEMATOCRIT 2019-07-06 08:41:00 Zachary Price i [facility] MAGNESIUM 2019-07-06 04:01:00 HipolitoKindra [facility] PHOSPHORUS 2019-07-06 04:01:00 Hipolito, Kindra [facility] HEPATIC FUNCTION PANEL 2019-07-06 04:01:00 Hipolito, Kindra [facility] BASIC METABOLIC PANEL (7) 2019-07-06 04:01:00 Claudia Duggan [facility] CBC W/PLT COUNT & AUTO DIFFERENTIAL 2019-07-06 04:01:00 Hipolito R ose [facility] (CELLAVISION MANUAL DIFF) 2019-07-06 04:01:00 Hipolito, Kindra [facility] PT/APTT 2019-07-06 04:00:00 Mundo Martinez [facility] PROCALCITONIN 2019-07-06 04:00:00 Mundo Martinez [facility] US ABDOMEN COMPLETE 2019-07-06 03:10:00 Kindra Mcmillan [facility] BLOOD CULTURE 2019-07-06 00:22:00 Yuri Hodges [facility] POCT-GLUCOSE METER 2019-07-06 00:10:00 Claudia Duggan [facility] POCT-GLUCOSE METER 2019-07-05 17:20:00 Claudia Duggan [facility] URINALYSIS W/ REFLEX URINE CULTURE 2019-07-05 16:47:00 Dionne Mcmillan se [facility] LEGIONELLA URINE ANTIGEN 2019-07-05 16:47:00 Kindra Mcmillan [facility] POCT-GLUCOSE METER 2019-07-05 12:02:00 Negrito Bazan [facility] MISCELLANEOUS LAB ORDER 2019-07-05 11:59:00 Gil Monte [facility] BASIC METABOLIC PANEL (7) 2019-07-05 09:23:00 Hipolito, Kindra [facility] MAGNESIUM 2019-07-05 09:23:00 Hipolito, Kindra [facility] PHOSPHORUS 2019-07-05 09:23:00 Hipolito, [facility] POCT-GLUCOSE METER 2019-07-05 06:22:00 Luis E Herring Thee [facility] LACTIC ACID, VENOUS 2019-07-05 05:52:00 Luis E Herring [facility] HEPATITIS C ANTIBODY 2019-07-05 05:52:00 Luis E Herring HI [facility] ALPHA FETOPROTEIN (AFP), TUMOR MARKER 2019-07-05 05:52:00 [facility] VIEW PORTABLE/BEDSIDE 2019-07-05 02:40:00 Hipolito, [facility] LIPID PANEL 2019-07-05 01:49:00 Hipolito, [facility] BLOOD CULTURE 2019-07-05 01:25:00 Hipolito, [facility] MAGNESIUM 2019-07-05 01:25:00 Hipolito, [facility] PHOSPHORUS 2019-07-05 01:25:00 Hipolito, [facility] HEPATIC FUNCTION PANEL 2019-07-05 01:25:00 Hipolito, [facility] AMMONIA 2019-07-05 01:25:00 Hipolito, [facility] LACTIC ACID, VENOUS 2019-07-05 01:25:00 Hipolito, [facility] CREATINE KINASE (CK) 2019-07-05 01:25:00 Hipolito, [facility] TROPONIN I 2019-07-05 01:25:00 Hipolito, [facility] HIV-1 ANTIGEN WITH HIV-1/2 ANTIBODY 2019-07-05 01:25:00 Hipolito, R ose [facility] LIPASE 2019-07-05 01:25:00 Hipolito, [facility] TSH/FREE T4 IF INDICATED 2019-07-05 01:25:00 Hipolito, [facility] IRON, TIBC, % SAT. (WITHOUT FERRITIN) 2019-07-05 01:25:00 Hipolito, [facility] FERRITIN 2019-07-05 01:25:00 Hipolito, [facility] FOLATE, SERUM 2019-07-05 01:25:00 Hipolito, [facility] VITAMIN B12 2019-07-05 01:25:00 Hipolito, [facility] RETICULOCYTE COUNT 2019-07-05 01:25:00 Hipolito, [facility] LACTATE DEHYDROGENASE (LDH) 2019-07-05 01:25:00 Hipolito, [facility] HEPATITIS B PANEL 2019-07-05 01:25:00 Hipolito, [facility] HEPATITIS A PANEL 2019-07-05 01:25:00 Hipolito, [facility] BLOOD GAS, VENOUS 2019-07-05 01:24:00 Hipolito, [facility] BLOOD CULTURE 2019-07-05 00:53:00 Hipolito, [facility] PROTHROMBIN TIME/INR 2019-07-05 00:53:00 Hipolito, [facility] FIBRINOGEN 2019-07-05 00:53:00 Hipolito, [facility] BASIC METABOLIC PANEL (7) 2019-07-05 00:53:00 Hipolito, [facility] CBC W/PLT COUNT & AUTO DIFFERENTIAL 2019-07-05 00:53:00 Hipolito, R ose [facility] Computed tomography of brain without radiopaque contrast 2019-06 00:00:00 [facility] CT of abdomen and pelvis without contrast 2019-07-04 00:00:00 [facility] COLONOSCOPY AND BIOPSY 2019-05-12 00:00:00 [facility] COLONOSCOPY W/LESION REMOVAL 2019-05-12 00:00:00 [facility] Computed tomography of brain without radiopaque contrast 00:00:00 SHANTANU CÁRDENAS [facility] Computed tomography of cervical spine without contrast 05-04 00:00:00 SHANTANU CÁRDENAS [facility] EGD BIOPSY SINGLE/MULTIPLE 2019-05-05 00:00:00 [facility] EGD VARICES LIGATION 2019-05-05 00:00:00 [facility] Encounters Start Date/Time End Date/Time Encounter Type Admission Type Attendi [facility] Care Department Encounter ID Source 2019-07-31 14:25:00 2019-07-31 21:20:00 Departed Emergency Room [facility] Center [id number] [facility] 2019-07-04 19:23:00 2019-07-04 23:34:00 Departed Emergency Room 1 VERN OLIVEIRA [facility] [id number] [facility] 2019-05-12 08:43:00 2019-05-12 08:43:00 Registered Surgical Day Care [facility] [id number] [facility] 2019-05-07 15:33:00 2019-05-07 17:29:00 Departed Emergency Room [facility] [place] Patients [facility] Center [id number] [facility] 2019-05-05 13:53:00 2019-05-05 13:53:00 Registered Surgical Day Care [facility] [id number] [facility] 2019-05-05 11:26:00 2019-05-05 13:48:00 Departed Emergency Room 1 [facility] [id number] [facility] Results Test Description Test Time Test Comments Results Result Comments Source Blood leukocytes automated count (number/volume) 2019-07-31 14:47:00 Test Item White Blood Count (test code = 6690-2) 4.09 4.8-10.8 [facility] automated count (number/volume)2019-07-31 14:47:00* Test Item Value Reference Range Interpretation Comments Red Blood Count (test code = 789-8) 4.55 4.3-5.7 [facility] hemoglobin measurement (moles/volume)2019-07-31 14:47:00* Test Item Value Reference Range Interpretation Comments Hemoglobin (test code = 85230-0) 11.4 14.0-18.0 [facility] hematocrit (volume fraction)2019-07-31 14:47:00* Test Item Value Reference Range Interpretation Comments Hematocrit (test code = 4544-3) 37.5 38.2-49.6 [facility] erythrocyte mean corpuscular [id number] 14:47:00* Test Item Value Reference Range Interpretation Comments Mean Corpuscular Volume (test code = 787-2) 82.4 81-99 [facility] eryth[facility] mean corpuscular hemoglobin (mass per erythrocyte)2019-07-31 14:47:00* Test Item Value Reference Range Interpretation Comments Mean Corpuscular Hemoglobin (test code = 785-6) 25.1 28-32 [facility] eryth[facility] mean corpuscular hemoglobin concentration measurement (mass/volume)2019-07-31 14:47:00* Test Item Value Reference Range Interpretation Comments Mean Corpuscular Hemoglobin Concent (test code = 786-4) 30.4 31-35 [facility] Resources[facility]DW [id number] 14:47:00* Test Item Value Reference Range Interpretation Comments Red Cell Distribution Width (test code = 73566-3) 23.5 11.7 -14.4 [facility] platelet count (count/volume)2019-07-31 14:47:00* Test Item Value Reference Range Interpretation Comments Platelet Count (test code = 777-3) 81 140-360 [facility] segmented neutrophil count as percentage of total [id number] 14:47:00* Test Item Value Reference Range Interpretation Comments Neutrophils (%) (Auto) (test code = 40950-8) 55.0 38.7-80.0 [facility] lymphocyte count as percentage ot total [id number] 14:47:00* Test Item Value Reference Range Interpretation Comments Lymphocytes (%) (Auto) (test code = 736-9) 24.9 18.0-39.1 [facility] blood monocyte count as percentage of total tjgygnneqi3007-52-52 14:47:00* Test Item Value Reference Range Interpretation Comments Monocytes (%) (Auto) (test code = 5905-5) 12.5 4.4-11.3 [facility] ResourcesAutom[facility] blood eosinophil count as percentage of total gxqttloxpr2809-07-75 14:47:00* Test Item Value Reference Range Interpretation Comments Eosinophils (%) (Auto) (test code = 713-8) 5.9 0.0-6.0 [facility] ResourcesAutc[facility] blood basophil count as percentage of total ceekbdbzgq5379-92-99 14:47:00* Test Item Value Reference Range Interpretation Comments Basophils (%) (Auto) (test code = 706-2) 1.2 0.0-1.0 [facility] ResourcesFluoroscopic procedure less than one hour gzqjjnuk9131-24-20 14:47:00* Test Item Value Reference Range Interpretation Comments IM GRANULOCYTES % (test code = IM GRANULOCYTES %) 0.5 0.0- 1.0 [facility]Aut[facility] blood neutrophil count 2019-07-31 14:47:00* Test Item Value Reference Range Interpretation Comments Neutrophils # (Auto) (test code = 751-8) 2.3 2.1-6.9 [facility] ResourcesBlood lymphocytes count (number/volume) 2019-07-31 14:47:00* Test Item Value Reference Range Interpretation Comments Lymphocytes # (Auto) (test code = 82693-5) 1.0 1.0-3.2 [facility] ResourcesBlood monocytes automated count (number/volume)2019-07-31 14:47:00* Test Item Value Reference Range Interpretation Comments Monocytes # (Auto) (test code = 742-7) 0.5 0.2-0.8 [facility] ResourcesAutomated blood eosinophil count 2019-07-31 14:47:00* Test Item Value Reference Range Interpretation Comments Eosinophils # (Auto) (test code = 711-2) 0.2 0.0-0.4 [facility] ResourcesAutomated blood basophil count (count/volume)2019-07-31 14:47:00* Test Item Value Reference Range Interpretation Comments Basophils # (Auto) (test code = 704-7) 0.1 0.0-0.1 [facility] ResourcesFluoroscopic procedure less than one hour bikhoyng5554-67-64 14:47:00* Test Item Value Reference Range Interpretation Comments Absolute Immature Granulocyte (auto (norah t code = Absolute Immature Granulocyte (auto) 0.02 0-0.1 [facility] ResourcesFluoroscopic procedure less than one hour ylvhdrnu4006-94-12 14:47:00* Test Item Value Reference Range Interpretation Comments Differential Total Cells Counted (test code = Edgar tial Total Cells Counted) 100 [facility] blood neutrophils/100 leukocytes 2019-07-31 14:47:00* Test Item Value Reference Range Interpretation Comments Neutrophils % (Manual) (test code = 52155-7) 31 40-74 [facility] blood lymphocytes/100 leukocytes 2019-07-31 14:47:00* Test Item Value Reference Range Interpretation Comments Lymphocytes % (Manual) (test code = 737-7) 56 19-48 [facility] blood monocytes/100 leukocytes 2019-07-31 14:47:00* Test Item Value Reference Range Interpretation Comments Monocytes % (Manual) (test code = 744-3) 8 3.4-9.0 [facility] blood eosinophil count as percentage of total btatdcalsf1023-93-19 14:47:00* Test Item Value Reference Range Interpretation Comments Eosinophils % (Manual) (test code = 714-6) 3 0-7 [facility] lymphocytes variant count (number/volume)2019-07-31 14:47:00* Test Item Value Reference Range Interpretation Comments Reactive Lymphocytes (test code = 18033-5) [facility] by estimate (number/volume)2019-07-31 14:47:00* Test Item Value Reference Range Interpretation Comments Platelet Estimate (test code = 05001-0) SLIGHTLY DECREASED [facility] ResourcesPlatelet jexqrjpmyt6245-89-23 14:47:00* Test Item Value Reference Range Interpretation Comments Platelet Morphology Comment (test code = 13045-9) NORMAL [facility] ResourcesBlood poikilocytosis detection by light kjlwrmwhki0338-31-16 14:47:00* Test Item Value Reference Range Interpretation Comments Poikilocytosis (test code = 779-9) MODERATE [facility] ResourcesBlood anisocytosis detection by light zqeixjcwap6567-74-17 14:47:00* Test Item Value Reference Range Interpretation Comments Anisocytosis (test code = 702-1) SLIGHT [facility] ResourcesRBC vwiedjhfuw1091-33-12 14:47:00* Test Item Value Reference Range Interpretation Comments Red Cell Morphology Comment (test code = 6742-1) NORMAL [facility] ResourcesUrine color xhllosedvkcsa8981-22-96 14:47:00* Test Item Value Reference Range Interpretation Comments Urine Color (test code = 5778-6) STRAW YELLOW [facility] ResourcesUrine pgvyblt2876-05-97 14:47:00* Test Item Value Reference Range Interpretation Comments Urine Clarity (test code = 93399-2) SL CLOUDY CLEAR [facility] gravity of Urine by Test strip 2019-07-31 14:47:00* Test Item Value Reference Range Interpretation Comments Urine Specific [place] (test code = 5811-5) 1.030 1.010-1.02 5 [facility] ResourcesUrine pH measurement by automated test yqaxr1214-99-65 14:47:00* Test Item Value Reference Range Interpretation Comments Urine pH (test code = 15301-8) 5.5 5-7 [facility] ResourcesUrine leukocyte esterase detection by edjnyzuj5745-73-22 14:47:00* Test Item Value Reference Range Interpretation Comments Urine Leukocyte Esterase (test code = 5799-2) NEGATIVE NEGATIVE [facility] ResourcesUrine nitrite svchrfdia4205-02-44 14:47:00* Test Item Value Reference Range Interpretation Comments Urine Nitrite (test code = 59700-6) NEGATIVE NEGATIVE [facility] ResourcesUrine protein measurement by test strip (mass/volume)2019-07-31 14:47:00* Test Item Value Reference Range Interpretation Comments Urine Protein (test code = 5804-0) NEGATIVE NEGATIVE [facility] ResourcesUrine glucose oijggkobw7686-63-14 14:47:00* Test Item Value Reference Range Interpretation Comments Urine Glucose (UA) (test code = 2349-9) NEGATIVE NEGATIVE [facility] ResourcesUrine ketones detection by automated test infha6607-96-04 14:47:00* Test Item Value Reference Range Interpretation Comments Urine Ketones (test code = 99623-7) TRACE NEGATIVE [facility] ResourcesUrine urobilinogen measurement by test strip (mass/volume)2019-07-31 14:47:00* Test Item Value Reference Range Interpretation Comments Urine Urobilinogen (test code = 77133-4) 0.2 0.2-1 [facility] ResourcesUrine total bilirubin measurement (mass/volume)2019-07-31 14:47:00* Test Item Value Reference Range Interpretation Comments Urine Bilirubin (test code = 1978-6) NEGATIVE NEGATIVE [facility] ResourcesUrine erythrocytes pbxyqnuks6960-62-59 14:47:00* Test Item Value Reference Range Interpretation Comments Urine Blood (test code = 37501-9) NEGATIVE NEGATIVE [facility] ResourcesAutomated urine sediment leukocyte count by microscopy (number/high power field)2019-07-31 14:47:00* Test Item Value Reference Range Interpretation Comments Urine WBC (test code = 5821-4) NONE 0-5 [facility] ResourcesErythrocytes detection in urine sediment by light eljzhafiix5513-15-56 14:47:00* Test Item Value Reference Range Interpretation Comments Urine RBC (test code = 53898-1) NONE 0-5 [facility] ResourcesBacteria detection in urine sediment by light hfltumxpxx7956-36-49 14:47:00* Test Item Value Reference Range Interpretation Comments Urine Bacteria (test code = 23228-7) MODERATE NONE [facility] ResourcesEpithelial cells detection in urine sediment by light zwageaiqad0494-02-21 14:47:00* Test Item Value Reference Range Interpretation Comments Urine Epithelial Cells (test code = 67698-5) MODERATE NONE [facility] or plasma sodium measurement (moles/volume)2019-07-31 14:47:00* Test Item Value Reference Range Interpretation Comments Sodium Level (test code = 2951-2) 130 136-145 [facility] Klebergerum or plasma potassium measurement (moles/volume)2019-07-31 14:47:00* Test Item Value Reference Range Interpretation Comments Potassium Level (test code = 2823-3) 4.5 3.5-5.1 [facility] or plasma chloride measurement (moles/volume)2019-07-31 14:47:00* Test Item Value Reference Range Interpretation Comments Chloride Level (test code = 2075-0) 102 98-107 [facility]bergerum or plasma carbon dioxide, total measurement (moles/volume)2019-07-31 14:47:00* Test Item Value Reference Range Interpretation Comments Carbon Dioxide Level (test code = 2028-9) 22 22-29 [facility] or plasma anion imo7368-71-95 14:47:00* Test Item Value Reference Range Interpretation Comments Anion Gap (test code = 27382-7) 10.5 8-16 [facility]um or plasma urea nitrogen measurement (mass/volume)2019-07-31 14:47:00* Test Item Value Reference Range Interpretation Comments Blood Urea Nitrogen (test code = 3094-0) 19 7-26 [facility]berger[facility] or plasma creatinine measurement (mass/volume)2019-07-31 14:47:00* Test Item Value Reference Range Interpretation Comments Creatinine (test code = 2160-0) 0.99 0.72-1.25 [facility] or plasma urea nitrogen/creatinine mass wbzrx0024-45-15 14:47:00* Test Item Value Reference Range Interpretation Comments BUN/Creatinine Ratio (test code = 3097-3) 19 6-25 [facility] ResourcesEstimated glomerular filtration rate (GFR) xhmntslliceeu0146-67-94 14:47:00* Test Item Value Reference Range Interpretation Comments Estimat Glomerular Filtration Rate (test code = 950323026) > 60 >60 Ranges were taken from the National Kidney Disease Education Program and the [facility] literature.Reference ranges:60 or greater: Zyftbr84-94 ( for 3 consecutive months): Chronic kidney disease 15 or less: Kidney failureJoint [facility] between [facility] and [facility] ResourcesGlucose uofqdwpqbie0184-38-49 14:47:00* Test Item Value Reference Range Interpretation Comments Glucose Level (test code = RJW9149) 175 74-118 [facility] or plasma calcium measurement (mass/volume)2019-07-31 14:47:00* Test Item Value Reference Range Interpretation Comments Calcium Level (test code = 03838-4) 12.6 8.4-10.2 [facility] or plasma total bilirubin measurement (mass/volume)2019-07-31 14:47:00* Test Item Value Reference Range Interpretation Comments Total Bilirubin (test code = 1975-2) 0.9 0.2-1.2 [facility] ResourcesFluoroscopic procedure less than one hour kqihaout5627-62-55 14:47:00* Test Item Value Reference Range Interpretation Comments Aspartate Amino Transf (AST/SGOT) (test code = Aspartate Amino Transf (AST/SGOT)) 58 5-34 [facility] or plasma alanine aminotransferase measurement (enzymatic activity/volume)2019-07-31 14:47:00* Test Item Value Reference Range Interpretation Comments Alanine Aminotransferase (ALT/SGPT) (test code = 1742-6) 42 0-55 [facility] or plasma protein measurement (mass/volume)2019-07-31 14:47:00* Test Item Value Reference Range Interpretation Comments Total Protein (test code = 2885-2) 7.7 6.5-8.1 [facility] or plasma albumin measurement (mass/volume)2019-07-31 14:47:00* Test Item Value Reference Range Interpretation Comments Albumin (test code = 1751-7) 3.2 3.5-5.0 [facility] ResourcesPlasma globulin measurement (mass/volume) 2019-07-31 14:47:00* Test Item Value Reference Range Interpretation Comments Globulin (test code = 54171-1) 4.5 2.3-3.5 [facility] or plasma albumin/globulin mass tpgsd7645-72-55 14:47:00* Test Item Value Reference Range Interpretation Comments Albumin/Globulin Ratio (test code = 1759-0) 0.7 0.8-2.0 [facility] or plasma alkaline phosphatase measurement (enzymatic activity/volume)2019-07-31 14:47:00* Test Item Value Reference Range Interpretation Comments Alkaline Phosphatase (test code = 6768-6) 128 40-150 [facility] or plasma creatine kinase measurement (enzymatic activity/volume)2019-07-31 14:47:00* Test Item Value Reference Range Interpretation Comments Creatine Kinase (test code = 2157-6) 30 30-200 [facility] or plasma creatine kinase MB measurement (mass/volume)2019-07-31 14:47:00* Test Item Value Reference Range Interpretation Comments Creatine Kinase MB (test code = 18991-3) 0.80 0-5.0 [facility] ResourcesTroponin I measurement by highly sensitive enzyme ballqcplwzw0635-73-91 14:47:00* Test Item Value Reference Range Interpretation Comments Troponin I (test code = 23516-2) 0.014 0-0.300 [facility] ResourcesMISCELLANEOUS LAB AZVUX9993-14-88 07:33:00* Test Item Value Reference Range Interpretation Comments SCAN RESULT (test code = 1189059) Dmezcrvnhoafmmontoa6991-95-89 07:33:00Scan ResultQUEST NON-INTERFACED LABKaiser Foundation HospitalHistoplasma Ab by Complement orgjmsia3012-02-40 13:04:00* Test Item Value Reference Range Interpretation Comments Yeast Phase Antibody (test code = 4775900) <1:8 Mycelial Phase Antibody (test code = 6284554) <1:8 REFERENCE RANGE: <1:8 INTERPRETIVE CRITERIA: <1:8 [...] its analytical performancecharacteristics have been determined by [facility]. It has not been cleared or approved byA. This assay has been validated pursuant to the CLIAregulations and is used for clinical purposes. CHASE (test code = CHASE) Performing Lab *[facility] [address] [place] [address] Natan Whelan MD [facility] HospitalBlood Culture - Routine (Left Venipuncture) 2019-07-11 02:00:00* Test Item Value Reference Range Interpretation Comments Result (test code = 6463-4) No growth in 5 days [facility] HospitalBLOOD OJMZDKQ5337-13-73 02:00:00* Test Item Value Reference Range Interpretation Comments CULTURE (BEAKER) (test code = 1095) No growth in 5 days BLOOD NHEYNVG1624-04-84 02:00:00* Test Item Value Reference Range Interpretation Comments CULTURE (BEAKER) (test code = 1095) No growth in 5 days Tissue Mrxm5211-88-87 18:14:00* Test Item Value Reference Range Interpretation Comments Case Report (test code = 104) Surgical Pathology Repor t Case: [id number] Authorizing Provider: Becca Price, Collected: 07/09/2019 01:18 PM Ordering Location: [address] Received: 07/09/2019 03:59 PM Service Pathologist: Javier Palencia MD Specimen: Biopsy, Liver DIAGNOSIS (test code = 3220) x4aefKJjJRQhe1mjQKJvyZIqXlSnRvGkLjWzXiqayLVvYUlerkVlTQqye5MsC4AoAdDiRRxoboUyXZKp GsyhzwinQEYeNVN3boIyRKZdRMeeDSFsRHdcRo9fvBGgaTmgCvRxSIOvu0cctaGFatpjpUn9v7bdIHWv QrC8qLDiNEoaE5xhlsQprRLyAHWpAOr2rF69PSQowB 5cvAGlEZyrmqTrRyB1XPuoPFNeWaC6JXEzlFFyOVKfT9hoEKUcDDueRFCkBLpsdFQfZXS8hTmos6L6mU UamYVwsPscIqPxTlVkCOOYs5UkSVd6sJagM0IyJITpZlO0eWNgVQOjHLvoXWLfVLIspgR7hP39HLjdgk E8mXSpb5Ikm12gi735cC8juOKgQYO3PNCuXGGsxMBc MFDfBAM5DAWhlANuF4b2XuRbdUKuU0E2SeOejTKhO8C9YvOncCCpH0I2ZrVkvKMuXUFquPVmYs0jpRZr vLNweb4mjf07XJQ9r5KsbDkrEPR5FFK3PwFpYf8qlKEtZULeXG5sNwYmfJQmXIGnvh13rLdtHLthriIy hC8vCbNhKQMaoJGsOOWnDB9prYHoDMBdxA8fllrsKF ZwKuEjwbnbWBEaxZilxwQpJt5ksWoiBCC3EJnhL5aljL9qYiU2OPxjS8ubuZ3oROb8HPyzhMU0MJFjlE 0zYQ7husxfh2kiAzJdDN2jkqdbi2aoQjAjKC5czrn7v5glInOsUT5mdxgmc0mbJzKiVMtwDBKmfxuuGA Wkq5BttkwlJDIqo6OtX6SvbYchY80hqBwaN74hHDVz nPfjzJ5wzOrcqD7aUoXiRiCiPBbtnJhypDGgmdgnDMszfmQhITtqesqgTNMoVYngN0yhFqNaEEZjaMme CGbnu2WaKAIcAWRgFzFmLIkEWJEbQX2JOINVKZMWOG0ES1pFEwWCQrGJARLTKTFzleXsNBrVNJKQR4ZC CLuHVRRFEBNCCdCJBv5WSNquR3ZFWBXWZHDHTLVGEr CQWKZBHSlgVQTrrKDsMWTqjn94MZC4JeVcx5M9ZRU6SMQlIZCfr7koOZRpwVEiTzAqQmSzTmLhUbtdpI UfMKLcCwJdh2xcy830fKUcr4gxAGNdLdF7xPCyKQHuzUWjM313CYUdUAzhu5thb3UqKTNzbEAlf1R4GQ WAgbpwzYd5nFlhZ99ry4D7IvggW5flTKMrOAYuS7Cd WO2qJCCgNvn2GKF1YYG1BUFwETVtN9KdYA4pYUSggKYtGLx2c7vhjFezWTQbXOQ6x0puZEeuwnYqLJ0q da9nzMj3c6wdlnCkTCXzREBorDGLXZWhZ7KbpZdwMv0upFb1iMffQevgRJX1Tdj3UU2cxt98ght9sDxq MFEwgockLqL6CFrvDPHrrjzsCCv0FArzAAFwtSE5ZQ AhnYGsK8DoAUFdOK0qnaw1ZKV0CBkxKUAqVoV5KZNaqMUcNEMtjVyjBRnen807FFY2XrKaJM0dG9Cct8 U0vK9qeLNxSJVxjEIbJlSkTEGmew3hkUPsWLrnw1MqUQW4caB9jSCxuPTfOZOiHaF1JDpfMA8mpq84SN LnYLB5yc5omHNqqNujyyOguVQtFLfbA8XcPEHjr093 AIMfM4IoRJAzo3Z7jcNhNnZiETQdrGT3jdD3ONDzDJ6pmrksa4sfMObvGQpiSSWkfrG1tnK0UPDvhFJf Q6DdgG6lEMFfIY8cmqhrd4knPGY5XAthMRTuJJM4KjMeADLbp2Tmnlc1GiRta6DkhYIcBKupW51fj878 DXHztaJpP7wsgKJsxtsdkPPhfchaXPdjwaN7HYKlHL eokkqeIEUoQFvnP2vrIeAePGJcbGjyEUdwf7UbHALpGNAaGiSixQAfLTGdNpf5JJGquXViTNPxIzBqZ0 nvzyshEuZVSXOqg0ztI0tmcVIDyLJcF9CvKYbtsrIiZDlzIRhoWIH2MWT1Kp93IyX7KMQcve50 CPT Code(s) (test code = 3357) i9almXAdZDVvhVMyPtBvBXLnDFUxc2imZPDiiOVxDdQeRhVrVqArWzgbsTIlIAFrDgOol4tzs436fUZs f2spZJUzBsW1sBXxGRPcdZCeE781TEPvFIqtw5elt6RwXJRenQDmk1A0ZHHOtzjyoSs8gLmcO51sf1V1 KgbsT4vtDYXuDUDeF5LwZH5cCXFdFeu4ANC9OIA3BC UjMHCwX7EgWV0fKSWfgHOfAEi0f1yxjLseFAMmYYE4i8koDCfrrqSwKD2pqf3hrDx1w7ixbcVbJTZeTA XpfWJADBTpG9VfkBwzAr6ulHt0ePskTpdcWRL4Mgl9XG8bfm61iyy6oSzyWZOamhvrOtH7EUedJZKrxz llCKl3QSvdGJEzxCsfTDykDVExweuzJQltXACxmOgr AYxzQUZjDgskQSpvSABdZBN4COeet238CDV3NGcai9rup7wgcOAwRsb7LLGeEuIeBvghJKhgz9Fyx7rv THBhaw4tJOU7tEDkwSpum9Y4gIXgRRYoiKNeunWuSPLfEwO7MDzhON4bjl69LQExKRC0av3tyPFcpZoh lwSrzEDvENsyO2DoHVKmh072QUAwY4TrVHKpg5D5gz GiDbNoOGCsrKF3zxC7PPJdIGv2jKOinzE1pdSsrDMsM9hxhG05FoKjiHCpS7OmnR66GrTgvFBqF7ZctZ 58FsTgvZUbP6CopU76JgWamHLmMHKueAPkUb2zvKWxnJRma6EjjDOjXKozJ70fe614OVOdzdCdK8kizH WvcjdynKSofiviKKqabnA7IBJfEJIcPRipYIBoRKNn LjYsqPVjWpZxDmEbxGwsnXbuYDkxAvKxCEOwJWnuQ9hvMiThRuQbROS0VOOhRltlIBcoULJqWAw7AvQg XHBhcn0= CLINICAL HISTORY (test code = 3356) q0dnmYMoLTWhlESxTpCxFEOfCGUby2vnPVRexLIyHjZxLqUuLvDaBlrwfHBuNZEgDjQkv8fzc261bFSu f0jaESVpLoU7xADxFXEvxINwS015q7ulu0aiekXiuDZ3TSCwDYD0IOrramZacuO8QVtgoNQwUwK7DXwn qfWzKQdmkvCmoySjKdy2WXNhT508POM8nStxj0uxKO O5CQXqCTEaIeNxMu4noGNeY463FYMaDAZERWVaqMi3NRYbteActeSpqODTw230V978a7uhGZEqnkSjsW rJjzqav7pqC809HAHssYTilyZnSnAwYVDspYOcfWH2DDFiJB5vtfqgJuMkJH2omhttPbHbRD3sjdm8Nu PvLJ5qkegnZdVeBJiwMYGvtaclUZOxu7ZydipfHL3m K4Oju1F3lH3zbLHrVTPnwBLzYeCeEIIvvp0gfALmZEwdj5ZlYCM9wtD3zAGdsEBsAXHzDD78Nwctf0Ic HbwsLJV7DKLgcqIgn6Vdh4rnReHolkMzG0wwN0HdBOBvFLXoPXDoLzPtruSni8Mbp9WneGAknHx4j1bu OSUhVBNurYwjz6afCHC3PYZzR9U5hVHiq3cgPTztRK OxzCU3sbehSYmuXAKzgpQ6bmigCWzcJJCemLS6laxpIZfgWZGkYiC5zkdhERslYQWsBMG5FIfvy477ZX F1ZByvKfbkEMhyBZApngMjnlGhoMydPIGjSGBvKLtpIVWxGCoqXQVyCYAkTzXqaBigpMfacB0pHrHqMp TmDIbwZN8bFMUmI4xvfKQqQTXpFVSvG6brSlEfxF1y iDpzOVzhwcWaSRulceDbGP1bn6UbLOBvrBRvyAygGSYyeOdvHZGefKmoWCJlU1ViltZ9pP4gZqUUfF0c p1hreDFefN== SPECIMEN SOURCE (test code = 3377) t0efeCFaSXFldXQwEsVrJJAzIJEfl1vmCGOvbJMpQmSwYhLwZtLjCgtsmUGkSCGhTxNwc1ior089aVMz a9axVTNcZyC8zYCyJKXdoCZcP655m7hod5euzfIgoOD6RBEbRZD6YWldwkHsbjF9KUhriTNpAsF2KOsr wnQzPKbzqhAquyFpTlm9ZOEmS293RVB0tSxrx0czYX A4WXAtXPIvMgHhOq8vzHHvC015SNQrQDJXCEQbjLc8RUMvdiRyulKipHBGq925I055o6aeLNFvprDpdZ tOiepvr1taP425DBDucFWfgvZsWhJpEGBvjFLpsDR1SNXnZR6ceikoDoYuUD6xcubqTjQnXG7zfuw2Qt PeAP8uikdpHvNtZMyvSSLpuggfMHXlx3HkanrqVW5c N7Kjs0E8qJ7znWHkVBRvwPRsKcTiWQIkmr5hyLMrSQohr1LiZPE2rlM1rNGhvPWqHUMjIN48Mrkvf2Hf BiwhCLG9MQChkeZaj2Ofm8jhQiBdhhCrB9keK4QfQGSxFKEwDHNeAfAmxxPjo8Mdm7SkdODmyUr2x3vq EDTwVODidMqmp3cvUQG7RCOuK5U3lVItj3bxXJnzGH CoyRT1kdgdUGbkTIBltxR1mwycCVzlZHYyuQE5aeebYFldVYKkLmF9nrahLEqnUNGaEIC2ZGfte907MH Q0FKqnSviwBUmjXBHytaMjozPinBlkGMZeYFKmDIfxXVNlCAgiERFzFJLbUkRwzTbwiBqugQ8qPzJkAf CkNHduJR0nQHHrT5mfiMSoVGSvBAXeT6agBnDmkS3n qKveVHuuerTlHQyodeHySITeM1c4BDbbSrUlsKEvqO== GROSS DESCRIPTION (test code = 3366) t6cflFPyXIAhkLHmXmItPYGrXVWxu7plSGTleVWhIgMfXhWaQgLlMkisaIZlUIVbZsUwd4kpt867wZWm w5ghMICjAvW8rKCxGXFopROwS197JANeYVslj6nei8TjAAPksXWqj0I9VUHFomgowGa3qDjuX25ua7T4 ApjfP4sfPJDiAFnpMZLaZKpgdQOoIUS5TCAoWWO3DA awxwOtsmH4CZuhkWGsTkP6PLh6t7mquKjbYNUvHEI2z7dfQJgxjbZqIN2bsb1dxRs4o8nirgBvKSNhIG VceHOLSTQfW1WmkWnxLs7nwTd4lMiuWwhzPYM1Yzf1DX2tnj41ryj7rSudUDZyddbzAzR6HZecWOJtwe ocGUe1SQgwTTIzfUavUIxfKDDekgmtEQaeGZNaqWjv DLtkVCDnDqbtQYolLKNaNAR8GQhro997JGC1VGedi4rmf7jhaACuPfd1CRVoNdXqMlfbRVyfj6Vop0ht CXJucc0qPYK6xZYdlXsew8T1yVGcQAXyrCXjayHiUDKxQxN0PGslWX9tod06FBSnIEK2xe8seVGqgZfq ezCgiHXyZHvaO0VpLLSnw686PILwT2DpNVBdf2A5py AnRtYsYBEatKA6khV8MBMrDQk8wDHjiaG7qfIkfKZdQ1xhvC33LcVnzCFeA5XfdL44MeEusRZoB6ZzpE 87SkGbgDRbG3AjiL22ZxWjxSKeMGZqpXZiSg2xdTFnlDYza5KzbNSbKIgfG76km288PEFauiNtT3eazN FpblxwbGFpblxmMFxmczIwXHFsXHBsYWluXGYwXGZz XwOyfLldtI7gVkBsLzEkLOWOcVMaaP2xqxLczqBhKYKkaADxABLmjcNnaiWhcCZreD7dFBLhtyalTAVi JGBxaNRTVfUvoBscaK6jJyFiMtNiGXHYKBZatSLxMNWdnqUuo0CvMXdyyfPkXFAfhZMrCOrfrMnyjIke CQYriVbsewFmwuWuXD6jPLYeB0Esz9Gao08bneNgGo UuSWHqBVnpwFUsjoofSCeervSaCHZxxJb6IOMzDoikoEO7BqEmgbKivXsgBCJzgAFdMMWhXHZcJF8ckt 55vkOjTYExpKYnA22uVFBujX8pl3muzfLhCIHziLBvmnzdOK35FRGaJtQkZCRwRMNaVowbA63fwQ4qHb NfstSsHRSrCGVvrLWuSeEfE93hsW0mNAmwxFM5GIAl FIJdWVTijBMyaN6bsvWjqvSciGAqvJE0ANNnpK7qlN42sjUsauTjGVKvSOT8ZXEMZZ9fTgWplEwwgXHo fQ== MICROSCOPIC DESCRIPTION (test code = 3371) f7jipYKcYSEokUMpJuMpLVGsXKLyu8grFGJawJHjQzOzUsWwSjIeJywzoXKrUJEeMaDio1rto601ySJq y4plTAGtMiM7eCCrZNXrvAHuP305CGEnBCfdi5fdp6ZfMXMbfDBly3R8LTWAcfestZu8mWydA32qd2A5 RusvJ6nkFGNcJEKeM9ByAS8dUFIkNft8SYT3PXB4RJ DlWLJqK6RxCX6pFRMxpKIkGJh6z5byvBhgTIBcXAX6a4ueHItuouUhFA0ufi5oqOx2t4gvahViVEJyFP ZznJHMAYMaW1ImqBslTw0dcRd4iAnsSwwsLAX5Obm0TP5pph65qkl5wXvkIJXidpovUcH2FJidZLOtyc oxMLy0AFxcFWAkiSkdUKxvFBRvnncrAUfhWLJobEwj RVjaKMKiVfteFBjeJYVfHPX1GAejo726TKE9HVrqe1kji4mimHOcRav3LKEzLgSvXfapTKzzp5Mdb2yq WHHftm3tBJC4fBTwxEprn0K2tCHpXUQilQNtzgCmZOZnTtJ6KSudDD7lcg00AWQoBAO1kv9fkFLghUhu ctPfyDGxQJljY4OcMTQkz905IHRaN8AaHXGds3Z2zw KmIfBvZDHvqYQ1eoB0XQYoNYy3eSUqobV0ynJpmCRxC4uayB81FsBotGFiW2KklM29CbEibLIaZ3PbsZ 92OxUrxRCeM8EdbY58TvKeyLXtXKVqfDOzAc4hlOMyqYWms2ZkhVZkWCjmQ47bp067XCQgffCxK8pzgZ PjnhmbtRCotyyaMFlaiuK0BGVsYBIvDKjeLOOsEAGe XcHjaFGuVlXxLeYgkSiwxUyqWMxrOdJoJKEfGIyxP3ktArCiFkElXJXKRYM0jT7umhBrjJ22QTR6sW8c EGYxm6X1HGEvg46vg7SvOYJiYuSvfAhkrGJqlZUlLPExkX7wiVLeobIuzEHjc6KeHEBdavJ9gBjzq9Dc NMHnaAVhLyBtpVmiYWK8dMLrQSNhxafqSy0aSAlpeK PqyBZqY0zpeyI8yLEsIUNkE9temFCjcZIaVI9aMRgyFIJcfXcifZfaliQrxPPhruHxfArjlSaevEHjXT VzPVI9aXzle0QwKGMzgBQpWbJakRucET1sDL0qoK6tn8YphB6tIh0vFLtkeYGzJ7TgLLXhzLBrpbZmDZ RpdmUuIFxwYXJccGFyXHBhclxwYXJ9 SPECIAL STUDIES (test code = 3376) [file] YoqDOdQqRoQqFbrOhvqBnsWnhcFmKkNVBpJHncK4obHhVwKjRzMdutULX9oZ== [facility] [id number] 18:14:00Surgical Pathology Report Case: [id number] Authorizing Provider: Becca Price, Collected: 07/09/2019 01:18 PM Ordering Location: [address] Received: 07/09/2019 03:59 PM Service Pathologist: Javier Palencia MD Specimen: Biopsy, Liver LIVER, NEEDLE BIOPSIES 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 It has not been cleared or approved by the [place]. Food and Drug Administration. The FDA has determined that s [facility] clearance or approval is not necessary. The test is used for clinical purpos es. It should not be regarded as investigational or for research. This laborator y is certified under the Clinical Laboratory Improvement Amendments of 1988 (CLI A-88) as qualified to perform high complexity clinical laboratory testing.POC- Glucose [id number] 17:18:00* Test Item Value Reference Range Interpretation Comments POC-Glucose Meter (test code = 1538) 137 mg/dL 70-110 H : TESTED AT [address], [address]: Roll Cleaner/Music Grapher ID = [id number] for QUARTMAN, CELINA Lab Interpretation (test code = 38116-3) [facility]normal [facility] [id number] 17:18:00* Test Item Value Reference Range Interpretation Comments POC-GLUCOSE METER (BEAKER) (test code = 1538) 137 mg/dL 70-110 H : TESTED AT [address], [address]: Roll Cleaner/Music Grapher ID = [id number] for QUARTMAN, CELINA POCT-GLUCOSE [id number] 12:10:00* Test Item Value Reference Range Interpretation Comments POC-GLUCOSE METER (BEAKER) (test code = 1538) 154 mg/dL 70-110 H : TESTED AT [address], [address]: Roll Cleaner/Music Grapher ID = [id number] for QUARTMAN, CELINA U/S, BIOPSY, [id number] 08:45:00Reason for exam:->liver masses on MRI and CT; ultrasounded biopsy from segment 6/7 of liverFINAL REPORT Procedure: Ultrasound-Guided right hepatic mass core biopsy: Pre/post- procedure diagnosis: Hepatic mass Vice President: Amol Flores MD Assistants: MD Clive (Fellow) [...] hepatic mass core bi opsy. Signed: Amol Florse MDReport Verified Date/Time: 07/10/2019 08:45:00 Re ading Location: [place] [address] Angio Body Reading Room liver ptnlti2019-01-42 08:45:00 Interface, External Ris In - 07/10/2019 8:47 AM CDTFINAL REPORT PATIENT ID: [id number] Procedure: Ultrasound-Guided right hepatic mass core biopsy: Pre/post-pr ocedure diagnosis: Hepatic mass Vice President: Amol Flores MD Assistants: Clair robles MD (Fellow) Sedation: Moderate sedation was administered. 1 mg of Verse d and 50 mcg of fentanyl IV was used for moderate sedation monitored under elieser meier irection. Total intra-service time of sedation was [...] hepatic mass core biopsy. Signed: Amol Flores MDReport Verified Date/Time: 07/10/2019 08:45:00 Reading Location: [place] [address] Angio Body Reading Room Electronically signed by: AMOL FLORES MD on 08:45 AM [facility] [id number] 07:35:00* Test Item Value Reference Range Interpretation Comments POC-GLUCOSE METER (BEAKER) (test code = 1538) 84 mg/dL 70-110 : TESTED AT [facility] [address] [facility], [address]: Roll Cleaner/Music Grapher ID = [id number] for CELINA MCGOVERN CBC with platelet count + automated [id number] 04:19:00* Test Item Value Reference Range Interpretation [...] K/CU MM L MPV (test code = 04984-3) Un able to report due to abnormal [...] 0-1 H Lab Interpretation (test code = 36643-6) Abnormal [facility] CenterPT/[id number] 04:19:00* Test Item Value Reference Range Interpretation Comments Protime (test code = 5902-2) 15.4 11.9- 14.2 seconds H INR (test code = 6301-6) 1.3 <=5.9 PTT (test code = 80835-2) 36.5 22.5- 36.0 seconds H CHASE (test code = CHASE) Effective 07/23/2018: PT Refe rence Range ChangeNew: 11.9- 14.2 Previous: 11.7-14.7 RECOMMENDED COUMADIN/WARFARIN INR THERAPY RANGESSTANDARD DOSE: 2.0-3.0 Includes: PROPHYLAXIS for venous thrombosis, sys temic embolization; TREATMENT for venous thrombosis and/or pulmonary embolus.HIGH RISK: Target INR is 2.5-3.5 for patients wiht mechanical heart valves. Lab Interpretation (test code = 08779-3) Abnormal [facility] W/PLT COUNT & AUTO [id number] 04:19:00* Test Item Value Reference Range Interpretation [...] code = 2801) 2 % 0-1 H PT/[id number] 04:19:00* Test Item Value Reference Range Interpretation [...] for patie nts wiht mechanical heart valves.BLOOD [id number] 03:01:00* Test Item Value Reference Range Interpretation Comments CULTURE (BEAKER) (test code = 1095) No growth in 5 days BLOOD [id number] 02:00:00* Test Item Value Reference Range Interpretation Comments CULTURE (BEAKER) (test code = 1095) No growth in 5 days POCT-GLUCOSE [id number] 20:55:00* Test Item Value Reference Range Interpretation Comments POC-GLUCOSE METER (BEAKER) (test code = 1538) 91 mg/dL 70-110 : TESTED AT [facility] [address] [facility], [address]: Roll Cleaner/Music Grapher ID = [id number] for ODILON CASTELLANO POCT-GLUCOSE [id number] 07:59:00* Test Item Value Reference Range Interpretation Comments POC-GLUCOSE METER (BEAKER) (test code = 1538) 105 mg/dL 70-110 : TESTED AT [facility] [address] [facility], [address]: Roll Cleaner/Music Grapher ID = [id number] for RAFAEL BANKS CBC W/PLT COUNT & AUTO [id number] 06:58:00* Test Item Value Reference Range Interpretation [...] code = 2801) 3 % 0-1 H PT/[id number] 06:47:00* Test Item Value Reference Range Interpretation [...] for patie nts wiht mechanical heart valves.POCT-GLUCOSE [id number] 20:50:00* Test Item Value Reference Range Interpretation Comments POC-GLUCOSE METER (BEAKER) (test code = 1538) 148 mg/dL 70-110 H : Notified RN/MD: TESTED AT [address], [address]: Roll Cleaner/Music Grapher ID = [id number] for MICHAEL SERGIO POCT-GLUCOSE [id number] 16:48:00* Test Item Value Reference Range Interpretation Comments POC-GLUCOSE METER (BEAKER) (test code = 1538) 123 mg/dL 70-110 H : TESTED AT [address], [address]: Roll Cleaner/Music Grapher ID = [id number] for RAFAEL BANKS POCT-GLUCOSE [id number] 11:58:00* Test Item Value Reference Range Interpretation Comments POC-GLUCOSE METER (BEAKER) (test code = 1538) 118 mg/dL 70-110 H : TESTED AT [address], [address]: Roll Cleaner/Music Grapher ID = [id number] for TONI BANKSA POCT-GLUCOSE [id number] 08:03:00* Test Item Value Reference Range Interpretation Comments POC-GLUCOSE METER (BEAKER) (test code = 1538) 93 mg/dL 70-110 : TESTED AT [facility] [address] [facility] [place], [address]: Roll Cleaner/Music Grapher ID = [id number] for RAFAEL BANKS CBC W/PLT COUNT & AUTO [id number] 05:59:00* Test Item Value Reference Range Interpretation [...] code = 2801) 2 % 0-1 H PT/[id number] 05:55:00* Test Item Value Reference Range Interpretation [...] patie nts wiht mechanical heart valves.Prepare Leuko-Red [id number] 23:54:00* Test Item Value Reference Range Interpretation Comments CROSSMATCH (test code = 2264) COMPATIBLE Unit ABO (test code = 1482318) B Pos UNIT NUMBER (test code = 934-0) [id number] Status (test code = 2327402) TX_TIMEINCHART Blood Bank Product (test code = 2263) RED BLOOD CELLS PRODUCT CODE (test code = 933-2) [id number] [facility], MAXILLOFAC[facility], [id number] 23:27:00 Anesthesia:->NoneFINAL REPORT EXAM: CT, MAXILLOFACIAL AREA, [...] be reactive. Signed: Silvestre Hood MDReport Verified Date/Joey e: 07/07/2019 23:27:53 Electronically signed by: SILVESTRE HOOD MD on 11:27 PM [facility] [id number] 21:21:00* Test Item Value Reference Range Interpretation Comments POC-GLUCOSE METER (BEAKER) (test code = 1538) 120 mg/dL 70-110 H : TESTED AT [facility] [address] [facility], [address]: Roll Cleaner/Music Grapher ID = [id number] for DANTE ROY CT, CHEST, WITH [id number] 18:18:00FINAL REPORT CT of the Chest dated [...] Left adrenal mass. Signed: Silvestre De Luna Verified Date/Time: 07/07/2019 18:18:34 Reading Location: [address] Body Reading Room 06 :[address], ABDOMEN, LIVER EVALUATION, WITHOUT / WITH IV [id number] 18:18:00CT liver protocol to further evaluate liver [...] MDReport Verified Date/Time: 07/07/2019 18:18:34 Reading Location: [facility] B1 C013Y CT Body Reading Room 06 :[address] chest with IV vskyoglr8217-49-47 18:18:00Interface, External Ris In - 07/07/2019 6:20 [...] MDReport Verified Date/Time: 07/07/2019 18:18:34 Reading Location: [facility] C013Y CT Body Reading Room 06 :18 PM [facility] liver evaluation without/with iv [id number] 18:18:00Interface, External Ris In - 07/07/2019 6:20 [...] Left adrenal mass. Signed: Silvestre De Luna Verified Date/Time: 07/07/2019 18:18:34 Reading Location: [facility] C013Y CT Body Reading Room 06 :18 PM [facility] [id number] 16:36:00* Test Item Value Reference Range Interpretation Comments POC-GLUCOSE METER (YUMIKO) (test code = 1538) 125 mg/dL 70-110 H : TESTED AT [facility] [address] [facility], [address]: Roll Cleaner/Music Grapher ID = [id number] for JUSTIN VALENTINE 2D Echo W/Doppler(CW/PW/Color)2019-07-07 13:43:33Ejection FractionSLEH ECHO HEARTLAB MKCKESSON CPACSInterface, External Ris In - 07/07/2019 1:43 PM CDTTransthoracic Echocardiography Report (TTE) Demographics Patient Name JAROD WATT Date of Study 07/07/2019 Gender Male Visit Number [id number] Race Unknown Accession Number [id number] Room Number 955 Date of 1955 Referring Physician Age 63 year(s) Pull Socket Assembler Abed Jaydon Interpreting Physician Luda Rodriguez MD [...] l/min LVOT CI: 3.4 4 l/min/m^2 [facility] [id number] 11:20:00* Test Item Value Reference Range Interpretation Comments POC-GLUCOSE METER (BEAKER) (test code = 1538) 128 mg/dL 70-110 H : TESTED AT [address], [address]: Roll Cleaner/Music Grapher ID = [id number] for JUSTIN VALENTINE Ecxtmwyac0994-61-81 11:10:00* Test Item Value Reference Range Interpretation Comments Magnesium (test code = 65712-3) 1.2 mg/dL 1.6-2.6 L CHASE (test code = CHASE) Roll Cleaner ID - NTP Lab Interpretation (test code = 35059-4) Abnormal [facility] HospitalPhosphorus2020-05-12 11:10:00* Test Item Value Reference Range Interpretation Comments Phosphorus (test code = 2777-1) 2.1 mg/dL 2.3-4.7 L CHASE (test code = CHASE) Roll Cleaner ID - NTP Lab Interpretation (test code = 20555-8) Abnormal [facility] HospitalPotassium2020-05-12 11:10:00* Test Item Value Reference Range Interpretation Comments Potassium (test code = 2823-3) 3.5 meq/L 3.5-5.1 CHASE (test code = CHASE) Roll Cleaner ID - NTP Lab Interpretation (test code = 58348-7) Normal [facility] HospitalPOTASSIUM2020-05-12 11:10:00* Test Item Value Reference Range Interpretation Comments POTASSIUM (BEAKER) (test code = 379) 3.5 meq/L 3.5-5.1 Roll Cleaner ID - [id number] 11:10:00* Test Item Value Reference Range Interpretation Comments MAGNESIUM (BEAKER) (test code = 627) 1.2 mg/dL 1.6-2.6 L Roll Cleaner ID - PDCIVJUYAFYXU1155-18-03 11:10:00* Test Item Value Reference Range Interpretation Comments PHOSPHORUS (BEAKER) (test code = 604) 2.1 mg/dL 2.3-4.7 L Roll Cleaner ID - NTPVancomycin level, ooupgb1587-77-37 11:08:00* Test Item Value Reference Range Interpretation Comments Vancomycin Tr (test code = 4092-3) 12.7 ug/mL 10-20 CHASE (test code = CHASE) Roll Cleaner ID - NTP Lab Interpretation (test code = 69243-8) Normal [facility] CenterVANCOMYCIN LEVEL, [id number] 11:08:00* Test Item Value Reference Range Interpretation Comments VANCOMYCIN TROUGH (BEAKER) (test code = 522) 12.7 ug/mL 10.0-20.0 Roll Cleaner ID - NTPManual Oahrgjgwirvh3732-57-84 09:57:00* Test Item Value Reference Range Interpretation [...] 3438) Decreased CHASE (test code = CHASE) Roll Cleaner ID - [id number] Caruso Dung Tito Varghese Carlton comments: Slide comments: Lab Interpretation (test code = 54731-3) Abnormal [facility] W/PLT COUNT & AUTO [id number] 09:57:00* Test Item Value Reference Range Interpretation [...] (CELLAVISION)(BEAKER) (test code = 3438) Dec reased Roll Cleaner ID - [id number] ID - Halima Vincent comments: Slide comments: Basic Metabolic Ncnzo1179-53-29 09:18:00* Test Item Value Reference Range Interpretation [...] 98 mg/dL 70-105 Calcium (test code = 95871-0) 7.4 mg/dL 8.4-10.2 L EGFR (test code = 76087-1) I NSUFFICIENT CLINICAL DATA TO CALCULATE ESTIMATED GFR. CHASE (test code = CHASE) Roll Cleaner ID - LAOperator ID - NTP Lab Interpretation (test code = 99681-5) Abnormal [facility] METABOLIC [id number] 09:18:00* Test Item Value Reference Range Interpretation [...] INSUFFICIENT CLINICAL DATA TO CALCULATE ESTIMATED GFR. Roll Cleaner ID - LAOperator ID - SGWLMJIIDMGS1313-05-06 07:13:00* Test Item Value Reference Range Interpretation Comments MAGNESIUM (BEAKER) (test code = 627) 1.0 mg/dL 1.6-2.6 LL Roll Cleaner ID - PIAYA [id number] 07:07:00* Test Item Value Reference Range Interpretation Comments PHOSPHORUS (BEAKER) (test code = 604) 1.7 mg/dL 2.3-4.7 L Roll Cleaner ID - PIAYA WGQXWXGYIMD6604-41-86 05:39:00* Test Item Value Reference Range Interpretation Comments PHOSPHORUS (BEAKER) (test code = 604) 1.0 mg/dL 2.3-4.7 LL Roll Cleaner ID - PIAYA HIZZMIIJOC0595-88-13 05:38:00* Test Item Value Reference Range Interpretation Comments MAGNESIUM (BEAKER) (test code = 627) 0.7 mg/dL 1.6-2.6 LL Roll Cleaner ID - JV LHepatic function [id number] 05:31:00* Test Item Value Reference Range Interpretation Comments Protein, Total (test code = 2885-2) 4.8 6.0- 8.3 gm/dL L Albumin (test code = 61239-4) 2.2 g/dL 3.5-5 L Total Bilirubin (test code = 1975-2) 0.4 mg/dL 0.2-1.2 Bilirubin, Direct (test code = 1968-7) 0.3 mg/dL 0.1-0.5 Alkaline Phosphatase (test code = 6768-6) 53 U/L 40-150 AST (test code = 1920-8) 40 U/L 5-34 H ALT (test code = 1742-6) 31 U/L 6-55 CHASE (test code = CHASE) Roll Cleaner ID - NGAAYA L Lab Interpretation (test code = 46746-7) Abnormal [facility] CenterHEPATIC FUNCTION [id number] 05:31:00* Test Item Value Reference Range Interpretation [...] (test code = 347) 31 U/L 6-55 Roll Cleaner ID - JV LPT/JIBH4532-84-46 04:13:00* Test Item Value Reference Range Interpretation [...] patie nts wiht mechanical heart valves.Respiratory Panel [id number] 01:42:00* Test Item Value Reference Range Interpretation Comments Human Metapneumovirus (test code = 12399-7) Not detected Not detected, Equivocal Rhinovirus (test code = 37795-2) Not detected Not detected, Equivoc al INFLUENZA A (NO SUBTYPE) (test code = 17331-3) Not detected Not detected, Equivocal Influenza A subtype H1 (test code = 47868-2) Influenza A Subtype H3 (test code = 47097-7) Influenza A Subtype H1-2009 (test code = 40392-0) Influenza B (test code = 47745-0) Not detected Not detected, Equivo luis Respiratory Syncytial Virus (test code = 46244-6) Not detect ed Not detected, Equivocal Parainfluenza Virus 1 (test code = 46763-2) Not detected Not detected, Equivocal Parainfluenza Virus 2 (test code = 72978-8) Not detected Not detected, Equivocal Parainfluenza virus 3 (test code = 18086-2) Not detected Not detected, Equivocal Parainfluenza Virus 4 (test code = 16188-6) Not detected Not detected, Equivocal Adenovirus (test code = 95632-1) Not detected Not detected, Equivoc al Coronavirus 229E (test code = 07494-9) Not detected Not detected, E quivocal Coronavirus HKU1 (test code = 79718-4) Not detected Not detected, E quivocal Coronavirus NL63 (test code = 15905-8) Not detected Not detected, E quivocal Coronavirus OC43 (test code = 75683-9) Not detected Not detected, E quivocal Bordetella Pertussis (test code = 36466-8) Not detected Not d etected, Equivocal Chlamydophila Pneumoniae (test code = 87610-3) Not detected Not detected, Equivocal Mycoplasma Pneumoniae (test code = 74211-0) Not detected Not detected, Equivocal CHASE (test [...] This sample was tested at the [facility] Molecular Diagnostics Laboratory using the LDK SolarArray Respiratory Panel. It is FDA cleared and has been verified and approved by the [facility] Molecular Diagnostics Laboratory for clinical use on nasopharyngeal swab specimens. The performance of the FilmArra y RP has not been established in individuals who received influenza vaccine. Recent administration of a nasal influenza vaccine may cause false positive results for Influenza A and/orInfluenza B. [facility] HospitalRESPIRATORY PANEL [id number] 01:42:00* Test Item Value Reference Range Interpretation [...] PARAINFLUENZA VIRUS 4 (BEAKER) (test code = 4120) Not detect ed Not detected, Equivocal ADENOVIRUS [...] This sample was tested at the [facility] Molecular Diagnostics Laboratory using the LDK SolarA rray Respiratory Panel. It is FDA cleared and has been verified and approved by the [facility] Molecular Diagnostics Laboratory for clinical use on nasopharyngeal sw ab specimens.The performance of the FilmArray RP has not been established in ind ividuals who received influenza vaccine. Recent administration of a nasal influ candice vaccine may cause false positive results for Influenza A and/orInfluenza B. SARS-CoV2/RT-PCR (Symptomatic ONLY)2019-07-07 00:26:00* Test Item Value Reference Range Interpretation Comments SARS-COV2/RT-PCR (test code = 7937404) Not Detected Not Detected, N egative SARS-COV-2 PERFORMING LAB (test code = 9452678) [facility] CHASE (test code = CHASE) Negative results [...] of the Act. Fact Sheet for Healthcare Providers:https://www.Wordseye/Documents/Xpert%20Xpress%20SARS%20CoV-2/Fact%2 0Sheets/3023802%17JMMS-WGX-0%20HEALTHCARE%20PROVIDERS%20FACT%20SHEET.pdf Fact Sheet for Healthcare Patients:https://www.Wordseye/Documents/Xpert%20Xpress%20SARS%20CoV-2/Fact%20 Sheets/3023801%75LYMD-YAJ-6%20PATIENT%20FACT%20SHEET.pdf Performing Laboratory:[facility], [place] [address] [place], [place] [address]ARS-COV2/RT-PCR ([facility])2019-07-07 00:26:00* Test Item Value Reference Range Interpretation Comments SARS-COV2/RT-PCR (test code = 4791357) Not Detected Not Detected, N egative SARS-COV-2 PERFORMING LAB (test code = 0472579) [facility] Negative results do not preclude SARS-CoV-2 infection and should not be used as the sole basis for patient management decisions. Negative results must be combin ed with clinical observations, patient history, and epidemiological information. A false negative result may occur if a specimen is improperly collected, transp orted or handled.The limit of detection for this assay is 250 copies/mL.This [facility] CoV-2 test is a rapid, real-time RT-PCR [...] of the Act.Fact Sheet for Healthcare Providers:ht tps://www.Wordseye/Documents/Xpert%20Xpress%20SARS%20CoV-2/Fact%20Sheets/302- 3802%55BTLA-BKF-4%20HEALTHCARE%20PROVIDERS%20FACT%20SHEET.pdfFact Sheet for Heal thcare Patients:https://www.Wordseye/Documents/Xpert%20Xpress%20SARS%20CoV-2/ Fact%20Sheets/302-3801%69RJDE-ZNF-3%20PATIENT%20FACT%20SHEET.pdfPerforming Labor atory:[address], [place] [address]ENPA- GLUCOSE [id number] 00:02:00* Test Item Value Reference Range Interpretation Comments POC-GLUCOSE METER (BEAKER) (test code = 1538) 146 mg/dL 70-110 H : TESTED AT [address], [address]: Roll Cleaner/Music Grapher ID = [id number] for ALEXANDRA WILKINSON ABORH, [id number] 19:21:00* Test Item Value Reference Range Interpretation Comments ABO Grouping (test code = 2588) B Rh Factor (test code = 2589) POS [facility] HospitalType and screen, rxetphnbr4704-97-63 19:19:00* Test Item Value Reference Range Interpretation Comments ABO/RH AUTOMATED (BEAKER) (test code = 2260) B POSITIVE Ab Scrn (test code = 890-4) NEGATIVE [facility] HospitalMR, ABDOMEN, [id number] 18:40:00FINAL REPORT TECHNIQUE: MRI of the abdomen [...] MDReport Verified Date/Time: 0 18:40:36 Reading Location: [address] Transitional Reading Room Electronic ally signed by: ELIZABETH RANKIN MD on 07/06/2019 06:40 PM MR abdomen without & with IV [id number] 18:40:00Interface, External Ris In - 07/06/2019 6:42 [...] MDReport Verified Date/Time: 07/06/2019 18:40:36 Reading Location: [facility] C0[facility] Transitional Reading Room [facility] HospitalPOCT-GLUCOSE [id number] 09:51:00* Test Item Value Reference Range Interpretation Comments POC-GLUCOSE METER (BEAKER) (test code = 1538) 137 mg/dL 70-110 H : TESTED AT [facility] [address] [facility], [address]: Roll Cleaner/Music Grapher ID = [id number] for CASTELLANO, ODILON POCT-GLUCOSE [id number] 09:43:00* Test Item Value Reference Range Interpretation Comments POC-GLUCOSE METER (BEAKER) (test code = 1538) 120 mg/dL 70-110 H : TESTED AT [place] [id number] [facility], [address]: Roll Cleaner/Music Grapher ID = [id number] for ROSA M ROBLEDOKEYA POCT-GLUCOSE [id number] 09:37:00* Test Item Value Reference Range Interpretation Comments POC-GLUCOSE METER (BEAKER) (test code = 1538) 132 mg/dL 70-110 H : TESTED AT [address], [address]: Roll Cleaner/Music Grapher ID = [id number] for VENKAT, TIKEYA POCT-GLUCOSE [id number] 09:30:00* Test Item Value Reference Range Interpretation Comments POC-GLUCOSE METER (BEAKER) (test code = 1538) 117 mg/dL 70-110 H : TESTED AT [address], [address]: Roll Cleaner/Music Grapher ID = [id number] for Ihenakroula, Cyndi Hemoglobin and awxilcqduj7988-37-45 08:54:00* Test Item Value Reference Range Interpretation Comments Hemoglobin (test code = 786-4) 6.7 13.7- 17.5 GM/DL L Hematocrit (test code = 4544-3) 23.8 % 40.1-51 L CHASE (test code = CHASE) Roll Cleaner ID - 6000 Lab Interpretation (test code = 13439-3) Abnormal [facility] CenterHEMOGLOBIN AND [id number] 08:54:00* Test Item Value Reference Range Interpretation Comments HEMOGLOBIN (BEAKER) (test code = 410) 6.7 GM/DL 13.7-17.5 L HEMATOCRIT (BEAKER) (test code = 411) 23.8 % 40.1-51.0 L Roll Cleaner ID - 6000CBC W/PLT COUNT & AUTO HJNAMKWZIZTC4265-72-94 08:40:00* Test Item Value Reference Range Interpretation [...] (CELLAVISION)(BEAKER) (test code = 3438) Dec reased Roll Cleaner ID - Halima Vincent comments: Slide comments: Eyzotakjyyyqn0151-42-14 05:52:00* Test Item Value Reference Range Interpretation Comments Procalcitonin (test code = 15395-0) 6.60 ng/mL <0.05 H CHASE (test code = CHASE) SEPSIS RISK (ng/mL)Low: 0.05-0.50Intermediate: 0.51-2.00High: >=2.01 Lab Interpretation (test code = 64318-8) Abnormal [facility] CenterHjylvhUXEMUVXTJKANI7689-18-77 05:52:00* Test Item Value Reference Range Interpretation Comments PROCALCITONIN (BEAKER) (test code = 3036) 6.60 ng/mL <0.05 H SEPSIS RISK (ng/mL)Low: 0.05-0.50Intermediate: 0.51-2.00High: > =2.01HEPATIC FUNCTION [id number] 05:25:00* Test Item Value Reference Range Interpretation [...] (test code = 347) 37 U/L 6-55 Roll Cleaner ID - DBBASIC METABOLIC HWDYS3944-90-87 05:12:00* Test Item Value Reference Range Interpretation [...] INSUFFICIENT CLINICAL DATA TO CALCULATE ESTIMATED GFR. Roll Cleaner ID - DBPT/AMXG0238-79-43 05:03:00* Test Item Value Reference Range Interpretation [...] 2.5-3.5 for patie nts wiht mechanical heart valves.IIACIMAXFE8355-23-71 05:00:00* Test Item Value Reference Range Interpretation Comments PHOSPHORUS (BEAKER) (test code = 604) 1.6 mg/dL 2.3-4.7 L Roll Cleaner ID - MOTUIVBSQKF8853-08-96 05:00:00* Test Item Value Reference Range Interpretation Comments MAGNESIUM (BEAKER) (test code = 627) 1.3 mg/dL 1.6-2.6 L Roll Cleaner ID - DBU/S, ABDOMINAL, MFCFBHGQ3734-14-55 03:42:00Reason for exam:-> suspected liver cirrhosiswith dopplerFINAL [...] MD on 07/06/2019 03:42 AM US abdomen ddwvdhyh2457-82-37 03:42:00Interface, External Ris In - 07/06/2019 3:44 [...] Hood MDReport Verified Date/Time: 07/06/2019 03:42:00 [facility] HospitalLegionella antigen, [id number] 17:34:00* Test Item Value Reference Range Interpretation Comments Legionella Urine Antigen (test code = 07809-6) Negative - see comme nt Negative for L. pneumophila serogroup 1 antigen, suggesting no recent or current infection with this serogroup. Legionellosis cannot be ruled out since other serogroups and species may cause disease. [facility] HospitalLEGIONELLA ANTIGEN, [id number] 17:34:00* Test Item Value Reference Range Interpretation Comments L. PNEUMOPHILA SEROGP 1 UR AG (BEAKER) (test code = 11 56) Negative - see comment Negative for L. pneu mophila serogroup 1 antigen, suggesting no recent or current infection with this serogroup. Legionellosis cannot be ruled out since other serogroups and species may cause disease. Urinalysis w/Microscopic + Reflex to Zuilzzk2362-76-93 17:15:00* Test Item Value Reference Range Interpretation Comments Color, UA (test code = 5778-6) Yellow Clarity, UA (test code = 5767-9) Cloudy Specific [place], UA (test code = 5811-5) 1.026 1.001-1.035 pH, UA (test code = 5803-2) 5.0 5.0-8.0 Protein, UA (test code = 29075-4) 10 mg/dL Negative A Glucose, UA (test code = 365) Negative Negative Ketones, UA (test code = 2514-8) Negative Negative Bilirubin, UA (test code = 97364-8) Negative Negative Blood, UA (test code = 96521-7) Negative Negative Nitrite, UA (test code = 5802-4) Negative Negative Leukocytes, UA (test code = 5799-2) Negative Negative Urobilinogen, UA (test code = 43448-0) 0.2 mg/dL 0.2-1 RBC, UA (test code = 36051-3) 1 /HPF WBC, UA (test code = 5821-4) 4 /HPF Mucus (test code = 8247-9) Rare Squam Epithel, UA (test code = 88040-6) 9 /HPF Hyaline Casts, UA (test code = 60541-8) 5 /LPF Uric Acid Crystals (test code = 1583) Occasional Amorphous Crystals (test code = 39903-6) Occasional Specimen Source (test code = 2795) CHASE (test code = CHASE) Roll Cleaner ID - [auto]Roll Cleaner ID - tech Lab Interpretation (test code = 65063-6) [facility] REFLEX URINE [id number] 17:15:00* Test Item Value Reference Range Interpretation [...] 1584) Occasional SOURCE(BEAKER) (test code = 2795) Roll Cleaner ID - [auto]Roll Cleaner ID - techBASIC METABOLIC [id number] 10:05:00* Test Item Value Reference Range Interpretation [...] INSUFFICIENT CLINICAL DATA TO CALCULATE ESTIMATED GFR. Roll Cleaner ID - [id number] 09:56:00* Test Item Value Reference Range Interpretation Comments PHOSPHORUS (BEAKER) (test code = 604) 2.6 mg/dL 2.3-4.7 Roll Cleaner ID - [id number] 09:56:00* Test Item Value Reference Range Interpretation Comments MAGNESIUM (BEAKER) (test code = 627) 1.3 mg/dL 1.6-2.6 L Roll Cleaner ID - NTPAlpha fetoprotein (AFP), tumor sqyshh1258-37-91 06:54:00* Test Item Value Reference Range Interpretation Comments Alpha-Fetoprotein (test code = 1834-1) 26.9 ng/mL <10.0 H CHASE (test code = CHASE) Roll Cleaner ID - NTP Lab Interpretation (test code = 47552-6) Abnormal [facility] HospitalHepatitis C smhasbot0021-21-21 06:54:00* Test Item Value Reference Range Interpretation Comments Hepatitis C Ab (test code = 94674-0) Nonreactive Nonreactive CHASE (test code = CHASE) Roll Cleaner ID - NTP Lab Interpretation (test code = 42735-4) Normal [facility] HospitalALPHA FETOPROTEIN (AFP), TUMOR [id number] 06:54:00* Test Item Value Reference Range Interpretation Comments ALPHA-FETOPROTEIN (BEAKER) (test code = 1094) 26.9 ng/mL <10.0 H Roll Cleaner ID - NTPHEPATITIS C [id number] 06:54:00* Test Item Value Reference Range Interpretation Comments HEPATITIS C ANTIBODY (BEAKER) (test code = 367) Nonreactive Nonrea ctive Roll Cleaner ID - NTPLactic acid, adwgqm0487-21-94 06:23:00* Test Item Value Reference Range Interpretation Comments Lactate, Venous (test code = 2872) 1.83 mmol/L 0.5-2.2 CHASE (test code = CHASE) Roll Cleaner ID - ALAN M Lab Interpretation (test code = 78043-6) Normal [facility] HospitalLACTIC ACID, [id number] 06:23:00* Test Item Value Reference Range Interpretation Comments LACTATE BLOOD VENOUS (2) (BEAKER) (test code = 2872) 1.83 mmol/L 0 .50-2.20 Roll Cleaner ID - ALAN MHepatitis B Vwdny7162-21-47 06:19:00* Test Item Value Reference Range Interpretation Comments Hep B Core Total Ab (test code = 67127-7) Reactive Nonreactive A Hep B S Ab (test code = 26449-7) 17.7 <8.0 mIU/mL H HBsAg Screen (test code = 5195-3) Nonreactive Nonreactive CHASE (test code = CHASE) Roll Cleaner ID - DB Lab Interpretation (test code = 73210-0) Abnormal [facility] HospitalHEPATITIS B [id number] 06:19:00* Test Item Value Reference Range Interpretation Comments HEPATITIS B CORE TOTAL ANTIBODY (BEAKER) (test code = 497) React pooja Nonreactive A HEPATITIS B SURFACE ANTIBODY (BEAKER) (test code = 647) 17.7 mIU/mL <8.0 H HEPATITIS B SURFACE ANTIGEN (2) (BEAKER) (test code = 2585) Nonreactive Nonreactive Roll Cleaner ID - DBHepatitis A Tjpzu7975-03-53 04:18:00* Test Item Value Reference Range Interpretation Comments Hep A IgM (test code = 25495-0) Nonreactive Nonreactive Hep A IgG (test code = 35418-6) Reactive Nonreactive A CHASE (test code = CHASE) Roll Cleaner ID - DB Lab Interpretation (test code = 23874-0) Abnormal [facility] A [id number] 04:18:00* Test Item Value Reference Range Interpretation Comments HEPATITIS A IGM ANTIBODY (BEAKER) (test code = 498) Nonreactive No nreactive HEPATITIS A IGG ANTIBODY (BEAKER) (test code = 2797) Reactive N onreactive Labor Delivery Specialist ID - DBHIV-1 Antigen with HIV-1/2 Sidthdqm1746-30-60 03:56:00* Test Item Value Reference Range Interpretation Comments HIV-1 Antigen with HIV 1&2 Antibody (test code = 34866-6) No nreactive Nonreactive CHASE (test code = CHASE) Roll Cleaner ID - DB Lab Interpretation (test code = 02140-7) Normal [facility] HospitalHIV-1 ANTIGEN WITH HIV-1/2 [id number] 03:56:00* Test Item Value Reference Range Interpretation Comments HIV-1 ANTIGEN WITH HIV 1\\T\\2 ANTIBODY (2) (BEAKER) (te st code = 2586) Nonreactive Nonreactive Roll Cleaner ID - DBReticulocyte ivgqs5278-47-33 03:11:00* Test Item Value Reference Range Interpretation Comments % Retic (test code = 68339-2) 2.6 % 0.5-1.8 H CHASE (test code = CHASE) Roll Cleaner ID - 6000 Lab Interpretation (test code = 57115-2) Abnormal [facility] HospitalRETICULOCYTE [id number] 03:11:00* Test Item Value Reference Range Interpretation Comments RETICULOCYTE COUNT PCT (BEAKER) (test code = 575) 2.6 % 0.5- 1.8 H Roll Cleaner ID - 6000RAD, CHEST, 1 VIEW, NON [id number] 02:54:00Reason for exam:->shortness of breathShould this be [...] structures: No acute abnormality.Other: N one. Signed: Silvestre Hood MDReport Verified Date/Time: 07/05/2019 02:54:14 chest 1 view portable / [id number] 02:54:00Interface, External Ris In - 07/05/2019 2:56 [...] MD Report Verified Date/Time: 07/05/2019 02:54:14 [facility] HospitalLipid [id number] 02:52:00* Test Item Value Reference Range Interpretation Comments Triglycerides (test code = 2571-8) 43 mg/dL Cholesterol (test code = 2093-3) 55 mg/dL HDL (test code = 2085-9) 23 mg/dL LDL Calculated (test code = 77109-3) 23 mg/dL CHASE (test code = CHASE) Triglyceride Reference Range : Low Risk <150 Borderline 150-199 High Risk 200-499 Very High Risk >=500 Cholesterol Reference Range: Low Risk <200 Borderline 200-239 High Risk >240 HDL Cholesterol Reference Range: Low Risk >=60 High Risk <40 LDL Cholesterol Reference Range: Optimal <100 Near Optimal 100-129 Borderline 130-159 High 160-189 Very High >=190 Roll Cleaner ASHLEE Butler [facility] HospitalLIPID [id number] 02:52:00* Test Item Value Reference Range Interpretation [...] Borderline 130-159 High 160-189 Very High >=190 Roll Cleaner ASHLEE ANDERSENA JZfblqenm9960-09-49 02:39:00* Test Item Value Reference Range Interpretation Comments Ferritin (test code = 2276-4) 6.21 ng/mL 5-275 CHASE (test code = CHASE) Roll Cleaner ID Tito Butler Lab Interpretation (test code = 89154-2) Normal [facility] HospitalFolate, Quqgb0881-98-55 02:39:00* Test Item Value Reference Range Interpretation Comments Folate (test code = 2284-8) 11.70 ng/mL >=7.00 CHASE (test code = CHASE) Roll Cleaner ID Tito PHILLIPS M Lab Interpretation (test code = 06626-9) Normal [facility] HospitalFERRITIN2020-05-10 02:39:00* Test Item Value Reference Range Interpretation Comments FERRITIN (BEAKER) (test code = 361) 6.21 ng/mL 5.00-275.00 Roll Cleaner ID Tito ANDERSENA MFOLATE, [id number] 02:39:00* Test Item Value Reference Range Interpretation Comments FOLATE (BEAKER) (test code = 362) 11.70 ng/mL >=7.00 Roll Cleaner ID - ALAN MLACTIC ACID, [id number] 02:38:00* Test Item Value Reference Range Interpretation Comments LACTATE BLOOD VENOUS (2) (BEAKER) (test code = 2872) 2.29 mmol/L 0 .50-2.20 H Roll Cleaner ID - ALAN MVitamin [id number] 02:30:00* Test Item Value Reference Range Interpretation Comments Vitamin B12 (test code = 2132-9) 945 pg/mL 213-816 H CHASE (test code = CHASE) Roll Cleaner ID - ALAN M Lab Interpretation (test code = 61139-8) Abnormal [facility] HospitalTSH/Free T4 If Arkncwvob8451-49-68 02:30:00* Test Item Value Reference Range Interpretation Comments TSH (test code = 75817-2) 0.374 0.350- 4.940 uIU/mL CHASE (test code = CHASE) Roll Cleaner ID - ALAN M Lab Interpretation (test code = 83343-6) Normal [facility] HospitalVITAMIN [id number] 02:30:00* Test Item Value Reference Range Interpretation Comments VITAMIN B12 (BEAKER) (test code = 774) 945 pg/mL 213-816 H Roll Cleaner ID - ALAN MTSH/FREE T4 IF [id number] 02:30:00* Test Item Value Reference Range Interpretation Comments THYROID STIMULATING HORMONE (BEAKER) (test code = 772) 0.374 uIU /mL 0.350-4.940 Roll Cleaner ID - ALAN WMOKTCJIAHF8857-64-97 02:09:00* Test Item Value Reference Range Interpretation Comments PHOSPHORUS (BEAKER) (test code = 604) < mg/dL 2.3-4.7 LL Roll Cleaner ID - ALAN JBVQMNMOWU5310-02-61 02:08:00* Test Item Value Reference Range Interpretation Comments MAGNESIUM (BEAKER) (test code = 627) 0.7 mg/dL 1.6-2.6 LL Roll Cleaner ID - ALAN Shahnaz, TIBC, % sat. (without ferritin)2019-07-05 02:05:00* Test Item Value Reference Range Interpretation Comments Iron (test code = 2498-4) 12.0 ug/dL 40-160 L TIBC (test code = 2500-7) 380 ug/dL 250-450 Iron % Saturation (test code = 2502-3) 3 % 20-55 L CHASE (test code = CHASE) Roll Cleaner ASHLEE Butler Lab Interpretation (test code = 80683-3) Abnormal [facility] HospitalIRON, TIBC, % SAT. (WITHOUT FERRITIN)2019-07-05 02:05:00* Test Item Value Reference Range Interpretation Comments IRON (BEAKER) (test code = 547) 12.0 ug/dL 40.0-160.0 L TOTAL IRON BINDING CAPACITY (BEAKER) (test code = 769) 380 ug/dL 250-450 IRON % SATURATION (2) (BEAKER) (test code = 2590) 3 % 20-5 5 L Roll Cleaner ASHLEE PHILLIPS MTroponin [id number] 02:04:00* Test Item Value Reference Range Interpretation Comments Troponin I (test code = 50568-5) <0.01 0-0.03 CHASE (test code = CHASE) [...] failure, acidosis, acute neurological disease, and persistent tachyarrhythmia.Roll Cleaner ASHLEE Butler Lab Interpretation (test code = 15539-6) Normal [facility] HospitalTROPONIN [id number] 02:04:00* Test Item Value Reference Range Interpretation [...] acidosis, acute neurological disease, and per sistent tachyarrhythmia.Roll Cleaner ID - ALAN MCreatine Kinase (CK)2019-07-05 01:59:00* Test Item Value Reference Range Interpretation Comments Total CK (test code = 2157-6) 89 U/L 29-200 CHASE (test code = CHASE) Roll Cleaner ID - ALAN M Lab Interpretation (test code = 87410-1) Normal [facility] HospitalLactate dehydrogenase (LDH)2019-07-05 01:59:00* Test Item Value Reference Range Interpretation Comments LDH (test code = 2532-0) 133 U/L 125-220 CHASE (test code = CHASE) Roll Cleaner ID - ALAN M Lab Interpretation (test code = 45368-5) Normal [facility] HospitalLipase2020-05-10 01:59:00* Test Item Value Reference Range Interpretation Comments Lipase (test code = 3040-3) 39 U/L 8-78 CHASE (test code = CHASE) Roll Cleaner ID - [facility] Lab Interpretation (test code = 43952-6) Normal [facility] HospitalHEPATIC FUNCTION [id number] 01:59:00* Test Item Value Reference Range Interpretation [...] (test code = 347) 35 U/L 6-55 Roll Cleaner ID - ALAN MCREATINE KINASE (CK)2019-07-05 01:59:00* Test Item Value Reference Range Interpretation Comments CREATINE KINASE TOTAL (BEAKER) (test code = 380) 89 U/L 29-20 0 Roll Cleaner ID - ALAN MLACTATE DEHYDROGENASE (LDH)2019-07-05 01:59:00* Test Item Value Reference Range Interpretation Comments LACTATE DEHYDROGENASE (BEAKER) (test code = 635) 133 U/L 125-2 20 Roll Cleaner ID - ALAN [id number] 01:59:00* Test Item Value Reference Range Interpretation Comments LIPASE (BEAKER) (test code = 749) 39 U/L 8-78 Roll Cleaner ID - ALAN CYwxvyud9330-10-43 01:50:00* Test Item Value Reference Range Interpretation Comments Ammonia (test code = 02563-9) 43 18- 72 mol/L CHASE (test code = CHASE) Roll Cleaner ID - ALAN M Lab Interpretation (test code = 23661-2) [facility] 01:50:00* Test Item Value Reference Range Interpretation Comments AMMONIA (BEAKER) (test code = 348) 43 mol/L 18-72 Roll Cleaner ID - ALAN MBASIC METABOLIC [id number] 01:49:00* Test Item Value Reference Range Interpretation [...] INSUFFICIENT CLINICAL DATA TO CALCULATE ESTIMATED GFR. Roll Cleaner ID - DBBlood gas, ugnjbm2691-95-73 01:36:00* Test Item Value Reference Range Interpretation Comments pH, Sebastien (test code = 2746-6) 7.39 7.32-7.42 pCO2, Sebastien (test code = 755) 37 41- 51 mmHg L pO2, Sebastien (test code = 2705-2) 66 25- 40 mmHg H O2 Sat, Sebastien (test code = 2711-0) 92.9 % 40-70 H HCO3, Sebastien (test code = 97948-5) 22 mmol/L 21-29 Base Excess, Sebastien (test code = 1927-3) -2.7 mmol/L -2-3 L Patient Temperature (test code = 8310-5) 37.0 C FIO2 (test code = 1819) 21 % Lab Interpretation (test code = 57549-9) Abnormal [facility] CenterBLOOD GAS, [id number] 01:36:00* Test Item Value Reference Range Interpretation [...] 21.0 % CBC W/PLT COUNT & AUTO GDUGCERWVFFG4819-99-10 01:27:00* Test Item Value Reference Range Interpretation [...] (test code = 2801) 1 % 0-1 Kmxwgdseyx8620-49-31 01:22:00* Test Item Value Reference Range Interpretation Comments Fibrinogen (test code = 3255-7) 234 mg/dl 225-434 Lab Interpretation (test code = 99386-2) Normal [facility] HospitalProthrombin time/MKX7667-27-90 01:22:00* Test Item Value Reference Range Interpretation [...] heart valves. Lab Interpretation (test code = 58874-3) Abnormal [facility] HospitalPROTHROMBIN TIME/[id number] 01:22:00* Test Item Value Reference Range Interpretation [...] 2.5-3.5 for patie nts wiht mechanical heart valves.LBTWEARKWP6512-60-20 01:22:00* Test Item Value Reference Range Interpretation Comments FIBRINOGEN LEVEL (BEAKER) (test code = 658) 234 mg/dl 225-434 Fluoroscopic procedure less than one hour qafapmpa7327-63-22 22:00:00* Test Item Value Reference Range Interpretation Comments Lactic Acid Level (test code = Lactic Acid Level) 2.6 0.5- 2.0 Results repeated and called to [facility] at 2229 on 07/04/19 by Brody Beavers. Betty meier back and verified.[facility] ResourcesFluoroscopic procedure less than one hour iqcvwogd1197-68-05 22:00:00* Test Item Value Reference Range Interpretation Comments Lactic Acid Level (test code = Lactic Acid Level) 2.6 0.5- 2.0 Results repeated and called to [facility] at 2229 on 07/04/19 by Brody Beavers. Betty meier back and verified.[facility] ResourcesCT ABDOMEN/PELVIS WO 2019-07-04 21:59:00 [place] [address] Patient Name: JAROD WATT MR #: [id number] : 1955 Age/Sex: 63/M Req #: [id number] Adm Physician: Ordered by: VERN OLIVEIRA DO Report #: [id number] Location: ER Room/Bed: Procedure: [id number] CT/CT ABDOMEN/PELVIS WO Exam Date: 07/04/19 Exam [...] on 07/04/2019 10:11 PM Dictated By: ISH Meier O 10 Transcribed B y: BELINDA on 07/04/192210 COPY TO: VERN OLIVEIRA DO CT BRAIN WO 2019-07-04 20:57:00 [place] [address] Patient Name: JAROD WATT MR #: [id number] : 1955 Age/Sex: 63/M Req #: [id number] Adm Physician: Ordered by: VERN OLIVEIRA DO Report #: [id number] Location: ER Room/Bed: Procedure: [id number] CT/CT BRAIN WO Exam Date: 07/04/19 Exam [...] masses, hemorrhage, or large vascular territory ac [place] infarct. Dural sinuses: No abnormal densities. Sellar/Suprasellar [...] VERN OLIVEIRA DO CHEST SINGLE (PORTABLE)2019-07-04 20:50:00 [place] [address] Patient Name: JAROD WATT MR #: [id number] : 1955 Age/Sex: 63/M Req #: [id number] Adm Physician: Ordered by: VERN OLIVEIRA DO Report #: [id number] Location: ER Room/Bed: Procedure: [id number] DX/CHEST SINGLE (POR TABLE) Exam Date: 07/04/19 [...] COPY T O: VERN OLIVEIRA DO Blood kqconmu8297-02-55 20:00:00* Test Item Value Reference Range Interpretation Comments Blood Culture (test code = 93311236) NO GROWTH AFTER 5 DAYS, FINAL REPORT [facility] ResourcesBlood leukocytes automated count (number/volume)2019-07-04 19:45:00* Test Item Value Reference Range Interpretation Comments White Blood Count (test code = 6690-2) 9.22 4.8-10.8 [facility] ResourcesBl[facility] erythrocytes automated count (number/volume)2019-07-04 19:45:00* Test Item Value Reference Range Interpretation Comments Red Blood Count (test code = 789-8) 3.85 4.3-5.7 [facility] ResourcesBlood hemoglobin measurement (moles/volume)2019-07-04 19:45:00* Test Item Value Reference Range Interpretation Comments Hemoglobin (test code = 59878-4) 8.5 14.0-18.0 [facility] ResourcesAutomated blood hematocrit (volume fraction)2019-07-04 19:45:00* Test Item Value Reference Range Interpretation Comments Hematocrit (test code = 4544-3) 29.2 38.2-49.6 [facility] ResourcesAutomated erythrocyte mean corpuscular acaqtj1374-73-81 19:45:00* Test Item Value Reference Range Interpretation Comments Mean Corpuscular Volume (test code = 787-2) 75.8 81-99 [facility] ResourcesAutomated erythrocyte mean corpuscular hemoglobin (mass per erythrocyte)2019-07-04 19:45:00* Test Item Value Reference Range Interpretation Comments Mean Corpuscular Hemoglobin (test code = 785-6) 22.1 28-32 [facility] ResourcesAutomated erythrocyte mean corpuscular hemoglobin concentration measurement (mass/volume)2019-07-04 19:45:00* Test Item Value Reference Range Interpretation Comments Mean Corpuscular Hemoglobin Concent (test code = 786-4) 29.1 31-35 [facility] ResourcesRDW PtjQs-Lvq9739-36-09 19:45:00* Test Item Value Reference Range Interpretation Comments Red Cell Distribution Width (test code = 81051-2) 15.9 11.7 -14.4 [facility] ResourcesAutomated blood platelet count (count/volume)2019-07-04 19:45:00* Test Item Value Reference Range Interpretation Comments Platelet Count (test code = 777-3) 93 140-360 [facility] ResourcesAutcape fear [facility] blood segmented neutrophil count as percentage of total elxfutdkke8076-26-48 19:45:00* Test Item Value Reference Range Interpretation Comments Neutrophils (%) (Auto) (test code = 72175-4) 93.1 38.7-80.0 [facility] ResourcesAutomated blood lymphocyte count as percentage ot total xcqbndujvd8204-97-52 19:45:00* Test Item Value Reference Range Interpretation Comments Lymphocytes (%) (Auto) (test code = 736-9) 2.2 18.0-39.1 [facility] ResourcesAutomated blood monocyte count as percentage of total nhlzburfek1291-97-89 19:45:00* Test Item Value Reference Range Interpretation Comments Monocytes (%) (Auto) (test code = 5905-5) 3.4 4.4-11.3 [facility] ResourcesAutomated blood eosinophil count as percentage of total mwsqgcxkyu7565-43-66 19:45:00* Test Item Value Reference Range Interpretation Comments Eosinophils (%) (Auto) (test code = 713-8) 0.7 0.0-6.0 [facility] ResourcesAutomated blood basophil count as percentage of total pttqqmpfro2890-48-86 19:45:00* Test Item Value Reference Range Interpretation Comments Basophils (%) (Auto) (test code = 706-2) 0.2 0.0-1.0 [facility] ResourcesFluoroscopic procedure less than one hour plgfbkha6357-54-28 19:45:00* Test Item Value Reference Range Interpretation Comments IM GRANULOCYTES % (test code = IM GRANULOCYTES %) 0.4 0.0- 1.0 [facility] ResourcesAutomated blood neutrophil count 2019-07-04 19:45:00* Test Item Value Reference Range Interpretation Comments Neutrophils # (Auto) (test code = 751-8) 8.6 2.1-6.9 [facility] ResourcesBlood lymphocytes count (number/volume) 2019-07-04 19:45:00* Test Item Value Reference Range Interpretation Comments Lymphocytes # (Auto) (test code = 00735-1) 0.2 1.0-3.2 [facility] ResourcesBlood monocytes automated count (number/volume)2019-07-04 19:45:00* Test Item Value Reference Range Interpretation Comments Monocytes # (Auto) (test code = 742-7) 0.3 0.2-0.8 [facility] ResourcesAutomated blood eosinophil count 2019-07-04 19:45:00* Test Item Value Reference Range Interpretation Comments Eosinophils # (Auto) (test code = 711-2) 0.1 0.0-0.4 [facility] ResourcesAutomated blood basophil count (count/volume)2019-07-04 19:45:00* Test Item Value Reference Range Interpretation Comments Basophils # (Auto) (test code = 704-7) 0.0 0.0-0.1 [facility] ResourcesFluoroscopic procedure less than one hour ecblpfpw0329-54-48 19:45:00* Test Item Value Reference Range Interpretation Comments Absolute Immature Granulocyte (auto (norah t code = Absolute Immature Granulocyte (auto) 0.04 0-0.1 [facility] ResourcesFluoroscopic procedure less than one hour yqfzbhyx9438-16-24 19:45:00* Test Item Value Reference Range Interpretation Comments Differential Total Cells Counted (test code = Differen tial Total Cells Counted) 100 [facility] blood neutrophils/100 leukocytes 2019-07-04 19:45:00* Test Item Value Reference Range Interpretation Comments Neutrophils % (Manual) (test code = 53985-2) 87 40-74 [facility] blood band neutrophils form/100 ckpqnjpkaf0636-72-22 19:45:00* Test Item Value Reference Range Interpretation Comments Band Neutrophils % (test code = 764-1) 6 [facility] blood lymphocytes/100 leukocytes 2019-07-04 19:45:00* Test Item Value Reference Range Interpretation Comments Lymphocytes % (Manual) (test code = 737-7) 2 19-48 [facility] blood monocytes/100 leukocytes 2019-07-04 19:45:00* Test Item Value Reference Range Interpretation Comments Monocytes % (Manual) (test code = 744-3) 5 3.4-9.0 [facility] ResourcesBlood platelets count by estimate (number/volume)2019-07-04 19:45:00* Test Item Value Reference Range Interpretation Comments Platelet Estimate (test code = 92743-6) SLIGHTLY DECREASED [facility] ResourcesPlatelet rcecjsyfhd0451-93-85 19:45:00* Test Item Value Reference Range Interpretation Comments Platelet Morphology Comment (test code = 20308-7) NORMAL [facility] ResourcesBlood anisocytosis detection by light guhispapsk8411-76-33 19:45:00* Test Item Value Reference Range Interpretation Comments Anisocytosis (test code = 702-1) SLIGHT [facility] ResourcesBlood microcytes detection by light jdqyiaexqg3351-61-30 19:45:00* Test Item Value Reference Range Interpretation Comments Microcytosis (test code = 741-9) SLIGHT [facility] ResourcesRBC uzgvhyfxzz7277-24-21 19:45:00* Test Item Value Reference Range Interpretation Comments Red Cell Morphology Comment (test code = 6742-1) [facility]ORMAL [facility] sodium measurement (moles/volume)2019-07-04 19:45:00* Test Item Value Reference Range Interpretation Comments Sodium Level (test code = 2951-2) 136 136-145 [facility] potassium measurement (moles/volume)2019-07-04 19:45:00* Test Item Value Reference Range Interpretation Comments Potassium Level (test code = 2823-3) 4.3 3.5-5.1 [facility] chloride measurement (moles/volume)2019-07-04 19:45:00* Test Item Value Reference Range Interpretation Comments Chloride Level (test code = 2075-0) 106 98-107 [facility] plasma carbon dioxide, total measurement (moles/volume)2019-07-04 19:45:00* Test Item Value Reference Range Interpretation Comments Carbon Dioxide Level (test code = 2028-9) 20 22-29 [facility] anion avd8193-03-04 19:45:00* Test Item Value Reference Range Interpretation Comments Anion Gap (test code = 15732-9) 14.3 8-16 [facility] urea nitrogen measurement (mass/volume)2019-07-04 19:45:00* Test Item Value Reference Range Interpretation Comments Blood Urea Nitrogen (test code = 3094-0) 11 7-26 [facility] creatinine measurement (mass/volume)2019-07-04 19:45:00* Test Item Value Reference Range Interpretation Comments Creatinine (test code = 2160-0) 1.00 0.72-1.25 [facility] urea nitrogen/creatinine mass ltbvc5998-41-26 19:45:00* Test Item Value Reference Range Interpretation Comments BUN/Creatinine Ratio (test code = 3097-3) 11 6-25 [facility] ResourcesEstimated glomerular filtration rate (GFR) extqxtpptyzto4625-11-32 19:45:00* Test Item Value Reference Range Interpretation Comments Estimat Glomerular Filtration Rate (test code = 769132665) > 60 >60 Ranges were taken from the National Kidney Disease Education Program and the [facility] Foundation literature.Reference ranges:60 or greater: Wiynaj08-94 ( for 3 consecutive months): Chronic kidney disease 15 or less: Kidney failureJoint [facility] between [facility] ResourcesGlucose wwsukkkigiv4932-11-80 19:45:00* Test Item Value Reference Range Interpretation Comments Glucose Level (test code = UTQ1388) 132 74-118 [facility] calcium measurement (mass/volume)2019-07-04 19:45:00* Test Item Value Reference Range Interpretation Comments Calcium Level (test code = 12973-0) 11.0 8.4-10.2 [facility] total bilirubin measurement (mass/volume)2019-07-04 19:45:00* Test Item Value Reference Range Interpretation Comments Total Bilirubin (test code = 1975-2) 0.9 0.2-1.2 [facility] ResourcesFluoroscopic procedure less than one hour rofcavmb4466-52-44 19:45:00* Test Item Value Reference Range Interpretation Comments Aspartate Amino Transf (AST/SGOT) (test code = Aspartate Amino Transf (AST/SGOT)) 37 5-34 [facility] alanine aminotransferase measurement (enzymatic activity/volume)2019-07-04 19:45:00* Test Item Value Reference Range Interpretation Comments Alanine Aminotransferase (ALT/SGPT) (test code = 1742-6) 41 0-55 [facility] ResourcesAmmonia Fmo-jKry0618-67-09 19:45:00* Test Item Value Reference Range Interpretation Comments Ammonia (test code = 37480-7) 117 31-123 [facility] protein measurement (mass/volume)2019-07-04 19:45:00* Test Item Value Reference Range Interpretation Comments Total Protein (test code = 2885-2) 7.7 6.5-8.1 [facility] albumin measurement (mass/volume)2019-07-04 19:45:00* Test Item Value Reference Range Interpretation Comments Albumin (test code = 1751-7) 3.3 3.5-5.0 [facility] ResourcesPlasma globulin measurement (mass/volume) 2019-07-04 19:45:00* Test Item Value Reference Range Interpretation Comments Globulin (test code = 24257-4) 4.4 2.3-3.5 [facility] albumin/globulin mass uoybz9616-51-84 19:45:00* Test Item Value Reference Range Interpretation Comments Albumin/Globulin Ratio (test code = 1759-0) 0.8 0.8-2.0 [facility] alkaline phosphatase measurement (enzymatic activity/volume)2019-07-04 19:45:00* Test Item Value Reference Range Interpretation Comments Alkaline Phosphatase (test code = 6768-6) 136 40-150 [facility] ResourcesBNP Grc-nYmb3706-71-09 19:45:00* Test Item Value Reference Range Interpretation Comments B-Type Natriuretic Peptide (test code = 60587-2) 34.0 0-100 [facility] creatine kinase measurement (enzymatic activity/volume)2019-07-04 19:45:00* Test Item Value Reference Range Interpretation Comments Creatine Kinase (test code = 2157-6) 61 30-200 [facility] plasma creatine kinase MB measurement (mass/volume)2019-07-04 19:45:00* Test Item Value Reference Range Interpretation Comments Creatine Kinase MB (test code = 47733-7) 1.00 0-5.0 [facility] ResourcesTroponin I measurement by highly sensitive enzyme ndsyimvilsh9836-69-54 19:45:00* Test Item Value Reference Range Interpretation Comments Troponin I (test code = 09806-4) 0.006 0-0.300 [facility] lipase measurement (enzymatic activity/volume)2019-07-04 19:45:00* Test Item Value Reference Range Interpretation Comments Lipase (test code = 3040-3) 42 8-78 [facility] ResourcesManual blood band neutrophils form/100 zrqjedylka1928-56-44 19:45:00* Test Item Value Reference Range Interpretation Comments Band Neutrophils % (test code = 764-1) 6 [facility] ResourcesBlood microcytes detection by light jpitxojpad1656-70-78 19:45:00* Test Item Value Reference Range Interpretation Comments Microcytosis (test code = 741-9) SLIGHT [facility] ResourcesAmmonia Jln-mZhz0245-49-09 19:45:00* Test Item Value Reference Range Interpretation Comments Ammonia (test code = 48885-9) 117 31-123 [facility] ResourcesBNP Sry-zTgi7782-95-09 19:45:00* Test Item Value Reference Range Interpretation Comments B-Type Natriuretic Peptide (test code = 03894-2) 34.0 0-100 [facility] lipase measurement (enzymatic activity/volume)2019-07-04 19:45:00* Test Item Value Reference Range Interpretation Comments Lipase (test code = 3040-3) 42 8-78 [facility] ResourcesCapillary blood glucose measurement by glucometer (mass/volume)2019-05-12 08:55:00* Test Item Value Reference Range Interpretation Comments Bedside Glucose (test code = 52289-1) 119 70-120 Meter ID: [id number] [facility] ResourcesCapillary blood glucose measurement by glucometer (mass/volume)2019-05-12 08:55:00* Test Item Value Reference Range Interpretation Comments Bedside Glucose (test code = 82190-2) 119 70-120 Meter ID: [id number] [facility] between [facility] ResourcesB-Type Natriuretic Wjqmtpl2106-40-59 16:46:00* Test Item Value Reference Range Interpretation Comments B-Type Natriuretic Peptide (test code = 46774-0) 15.9 0-100 [facility] [place] [facility] ResourcesCreatine Kinase HO1226-56-77 16:46:00* Test Item Value Reference Range Interpretation Comments Creatine Kinase MB (test code = 86548-4) 0.90 0-5.0 [facility] ResourcesTroponin T8645-62-39 16:46:00* Test Item Value Reference Range Interpretation Comments Troponin I (test code = PYP9969) < 0.001 0-0.300 [facility] Pkyhk1550-52-38 16:39:00* Test Item Value Reference Range Interpretation Comments Sodium Level (test code = 2951-2) 130 136-145 L [facility] ResourcesPotassium Dyyef4749-50-66 16:39:00* Test Item Value Reference Range Interpretation Comments Potassium Level (test code = 2823-3) 4.3 3.5-5.1 [facility] ResourcesChloride Fwair0503-70-33 16:39:00* Test Item Value Reference Range Interpretation Comments Chloride Level (test code = 2075-0) 100 98-107 [facility] [place] [facility] ResourcesCarbon Dioxide Visck8640-40-14 16:39:00* Test Item Value Reference Range Interpretation Comments Carbon Dioxide Level (test code = 2028-9) 25 22-29 [facility] ResourcesAnion Njm5291-47-18 16:39:00* Test Item Value Reference Range Interpretation Comments Anion Gap (test code = 24921-2) 9.3 8-16 [facility] ResourcesBlood Urea Pewhvlwy8383-81-64 16:39:00* Test Item Value Reference Range Interpretation Comments Blood Urea Nitrogen (test code = 3094-0) 14 7-26 [facility] ResourcesCreatinine2020-03-12 16:39:00* Test Item Value Reference Range Interpretation Comments Creatinine (test code = 2160-0) 1.40 0.72-1.25 H [facility] ResourcesBUN/Creatinine Swclz8012-24-41 16:39:00* Test Item Value Reference Range Interpretation Comments BUN/Creatinine Ratio (test code = 3097-3) 10 6-25 [facility] [place] [facility] ResourcesEstimat Glomerular Filtration Rate 2019-05-07 16:39:00* Test Item Value Reference Range Interpretation Comments Estimat Glomerular Filtration Rate (test code = 410864852) 51 >60 L Ranges were taken from the National Kidney Disease Education Program and the [place] [facility] literature.Reference ranges:60 or greater: Azadul99-72 ( for 3 consecutive months): Chronic kidney disease 15 or less: Kidney failureJoint [facility] between [facility] ResourcesGlucose Bthdr3115-64-66 16:39:00* Test Item Value Reference Range Interpretation Comments Glucose Level (test code = XBU1859) 193 74-118 H [facility] ResourcesCalcium Ldqyr9307-55-83 16:39:00* Test Item Value Reference Range Interpretation Comments Calcium Level (test code = 71003-0) 11.7 8.4-10.2 H [facility] ResourcesTotal Dpwwqptmi0279-35-81 16:39:00* Test Item Value Reference Range Interpretation Comments Total Bilirubin (test code = 1975-2) 0.9 0.2-1.2 [facility] [place] [facility] ResourcesAspartate Amino Transf (AST/SGOT) 2019-05-07 16:39:00* Test Item Value Reference Range Interpretation Comments Aspartate Amino Transf (AST/SGOT) (test code = Aspartate Amino Transf (AST/SGOT)) 36 5-34 H [facility] [place] [facility] ResourcesAlanine Aminotransferase (ALT/SGPT) 2019-05-07 16:39:00* Test Item Value Reference Range Interpretation Comments Alanine Aminotransferase (ALT/SGPT) (test code = 1742-6) 27 0-55 [facility] ResourcesTotal Jlztvng1222-88-85 16:39:00* Test Item Value Reference Range Interpretation Comments Total Protein (test code = 2885-2) 8.1 6.5-8.1 [facility] [place] [facility] ResourcesAlbumin2020-03-12 16:39:00* Test Item Value Reference Range Interpretation Comments Albumin (test code = 1751-7) 3.3 3.5-5.0 L [facility] ResourcesGlobulin2020-03-12 16:39:00* Test Item Value Reference Range Interpretation Comments Globulin (test code = 35323-3) 4.8 2.3-3.5 H [facility] [place] [facility] ResourcesAlbumin/Globulin Pmqum5597-39-56 16:39:00 * Test Item Value Reference Range Interpretation Comments Albumin/Globulin Ratio (test code = 1759-0) 0.7 0.8-2.0 L [facility] ResourcesAlkaline Rrrhzjadvfa6777-45-88 16:39:00* Test Item Value Reference Range Interpretation Comments Alkaline Phosphatase (test code = 6768-6) 113 40-150 [facility] ResourcesCreatine Fzkbwo1692-98-56 16:39:00* Test Item Value Reference Range Interpretation Comments Creatine Kinase (test code = 2157-6) 36 30-200 [facility] [place] [facility] ResourcesLipase2020-03-12 16:39:00* Test Item Value Reference Range Interpretation Comments Lipase (test code = 3040-3) 53 8-78 [facility] ResourcesWhite Blood Vpqkx0969-98-22 16:25:00* Test Item Value Reference Range Interpretation Comments White Blood Count (test code = 6690-2) 4.46 4.8-10.8 L [facility] ResourcesRed Blood Vtsss6630-60-37 16:25:00* Test Item Value Reference Range Interpretation Comments Red Blood Count (test code = 789-8) 4.50 4.3-5.7 [facility] ResourcesHemoglobin2020-03-12 16:25:00* Test Item Value Reference Range Interpretation Comments Hemoglobin (test code = 10930-2) 10.5 14.0-18.0 L [facility] ResourcesHematocrit2020-03-12 16:25:00* Test Item Value Reference Range Interpretation Comments Hematocrit (test code = 4544-3) 35.8 38.2-49.6 L [facility] ResourcesMean Corpuscular Srdpkq2035-37-75 16:25:00* Test Item Value Reference Range Interpretation Comments Mean Corpuscular Volume (test code = 787-2) 79.6 81-99 L [facility] ResourcesMean Corpuscular Sijvmqmzwp9264-28-31 16:25:00* Test Item Value Reference Range Interpretation Comments Mean Corpuscular Hemoglobin (test code = 785-6) 23.3 28-32 L [facility] ResourcesMean Corpuscular Hemoglobin Concent 2019-05-07 16:25:00* Test Item Value Reference Range Interpretation Comments Mean Corpuscular Hemoglobin Concent (test code = 786-4) 29.3 31-35 L [facility] ResourcesRed Cell Distribution Ntqtn9326-50-41 16:25:00* Test Item Value Reference Range Interpretation Comments Red Cell Distribution Width (test code = 85268-0) 23.5 11.7 -14.4 H [facility] ResourcesPlatelet Bdbuy0897-19-75 16:25:00* Test Item Value Reference Range Interpretation Comments Platelet Count (test code = 777-3) 123 140-360 L [facility] ResourcesNeutrophils (%) (Auto)2019-05-07 16:25:00 * Test Item Value Reference Range Interpretation Comments Neutrophils (%) (Auto) (test code = 59912-9) 62.8 38.7-80.0 [facility] [place] [facility] ResourcesLymphocytes (%) (Auto)2019-05-07 16:25:00 * Test Item Value Reference Range Interpretation Comments Lymphocytes (%) (Auto) (test code = 736-9) 17.0 18.0-39.1 L [facility] [place] [facility] ResourcesMonocytes (%) (Auto)2019-05-07 16:25:00* Test Item Value Reference Range Interpretation Comments Monocytes (%) (Auto) (test code = 5905-5) 13.7 4.4-11.3 H [facility] ResourcesEosinophils (%) (Auto)2019-05-07 16:25:00 * Test Item Value Reference Range Interpretation Comments Eosinophils (%) (Auto) (test code = 713-8) 5.4 0.0-6.0 [facility] ResourcesBasophils (%) (Auto)2019-05-07 16:25:00* Test Item Value Reference Range Interpretation Comments Basophils (%) (Auto) (test code = 706-2) 0.9 0.0-1.0 [facility] [place] [facility] ResourcesIM GRANULOCYTES %2019-05-07 16:25:00* Test Item Value Reference Range Interpretation Comments IM GRANULOCYTES % (test code = IM GRANULOCYTES %) 0.2 0.0- 1.0 [facility] ResourcesNeutrophils # (Auto)2019-05-07 16:25:00* Test Item Value Reference Range Interpretation Comments Neutrophils # (Auto) (test code = 751-8) 2.8 2.1-6.9 [facility] ResourcesLymphocytes # (Auto)2019-05-07 16:25:00* Test Item Value Reference Range Interpretation Comments Lymphocytes # (Auto) (test code = 16934-7) 0.8 1.0-3.2 L [facility] ResourcesMonocytes # (Auto)2019-05-07 16:25:00* Test Item Value Reference Range Interpretation Comments Monocytes # (Auto) (test code = 742-7) 0.6 0.2-0.8 [facility] ResourcesEosinophils # (Auto)2019-05-07 16:25:00* Test Item Value Reference Range Interpretation Comments Eosinophils # (Auto) (test code = 711-2) 0.2 0.0-0.4 [facility] ResourcesBasophils # (Auto)2019-05-07 16:25:00* Test Item Value Reference Range Interpretation Comments Basophils # (Auto) (test code = 704-7) 0.0 0.0-0.1 [facility] ResourcesAbsolute Immature Granulocyte (auto 2019-05-07 16:25:00* Test Item Value Reference Range Interpretation Comments Absolute Immature Granulocyte (auto (norah t code = Absolute Immature Granulocyte (auto) 0.01 0-0.1 [facility] ResourcesBedside Knwubug4649-88-18 14:38:00* Test Item Value Reference Range Interpretation Comments Bedside Glucose (test code = 28275-3) 144 70-120 H Meter ID: [id number] venture between [facility] ResourcesBedside Glucose 2019-05-05 14:38:00* Test Item Value Reference Range Interpretation Comments Bedside Glucose (test code = 35491-4) 144 70-120 H Meter ID: [id number] [facility]lakeCT BRAIN GQ6846-53-49 12:24:00 [facility] [address] [address] Patient Name: JAROD WATT MR #: [id number] : 1955 Age/Sex: 63/M Req #: [id number] Adm Physician: Ordered by: SHANTANU CÁRDENAS MD Report #: [id number] Location: ER Room/Bed: Procedure: [id number] CT/CT SOREN LAUREN WO Exam Date: 05/05/19 [...] TO: SHANTANU CHAWLA MD CT CERVICAL SPINE NB5385-30-96 12:24:00 [address] [address] Patient Name: JAROD WATT MR #: [id number] : 1955 Age/Sex: 63/M Req #: [id number] Adm Physician: Ordered by: SHANTANU CÁRDENAS MD Report #: [id number] Location: ER [facility]/Bed: Procedure: [id number] CT/CT CE RVICAL SPINE WO Exam Date: [...] COPY TO: SHANTANU CÁRDENAS MD WRIST COMPLETE PDVGL3140-92-47 12:21:00 [facility] [address] [address] Patient Name: JAROD WATT MR #: [id number] : 1955 Age/Sex: 63/M Req #: [id number] Adm Physician: Ordered by: SHANTANU CÁRDENAS MD Report #: [id number] Location: ER Ro om/Bed: Procedure: [id number] DX/WRIST COMPLETE RIGHT Exam Date: 05/05/19 Exam [...] HIP LEFT 2-3 VW (+/- PELVIS)2019-05-05 12:16:00 [facility] [address] [place] [address] Patient Name: JAROD WATT MR #: [id number] : 1955 Age/Sex: 63/M Req #: [id number] Adm Physician: Ordered by: SHANTANU CÁRDENAS MD Report #: [id number] Location: ER Room/Bed: Procedure: [id number] DX/HIP L EFT 2-3 VW (+/- PELVIS) [...] 1219 COPY TO: SHANTANU CÁRDENAS MD Platelet Hkylkqes5281-13-22 21:00:00* Test Item Value Reference Range Interpretation Comments Platelet Estimate (test code = 60256-0) SLIGHTLY DECREASED [facility]lakePlatelet Morphology Tknndse0639-86-47 21:00:00* Test Item Value Reference Range Interpretation Comments Platelet Morphology Comment (test code = 18564-9) NORMAL [facility] ResourcesHypochromasia2020-03-06 21:00:00* Test Item Value Reference Range Interpretation Comments Hypochromasia (test code = 728-6) MODERATE [facility] ResourcesPoikilocytosis2020-03-06 21:00:00* Test Item Value Reference Range Interpretation Comments Poikilocytosis (test code = 779-9) SLIG [facility] ResourcesRed Cell Morphology Kehtssp5846-01-51 21:00:00* Test Item Value Reference Range Interpretation Comments Red Cell Morphology Comment (test code = 6742-1) NORMAL [facility] ResourcesPlatelet Ioaaipmr8680-90-11 21:00:00* Test Item Value Reference Range Interpretation Comments Platelet Estimate (test code = 33523-4) SLIGHTLY DECREASED [facility] ResourcesPlatelet Morphology Wxqduuu2231-09-82 21:00:00* Test Item Value Reference Range Interpretation Comments Platelet Morphology Comment (test code = 93772-7) NORMAL [facility] ResourcesHypochromasia2020-03-06 21:00:00* Test Item Value Reference Range Interpretation Comments Hypochromasia (test code = 728-6) MODERATE [facility] ResourcesPoikilocytosis2020-03-06 21:00:00* Test Item Value Reference Range Interpretation Comments Poikilocytosis (test code = 779-9) IG [facility] ResourcesRed Cell Morphology Ltkxnzq7604-97-70 21:00:00* Test Item Value Reference Range Interpretation Comments Red Cell Morphology Comment (test code = 6742-1) NORMAL [facility] ResourcesProthrombin Ncbt9866-45-20 13:08:00* Test Item Value Reference Range Interpretation Comments Prothrombin Time (test code = 5902-2) 15.6 11.9-14.5 H [facility] ResourcesProthromb Time International Ratio 2019-05-01 13:08:00* Test Item Value Reference Range Interpretation Comments Prothromb Time International Ratio (test code = 6301-6) 1.16 Oral Anticoagulant Therapy INR Values:1. Low Intensity Therapy 1.5 - 2.02 . Moderate Intensity Therapy 2.0 - 3.03. High Intensity Therapy(1) 2.5 - 3. 54. High Intensity Therapy(2) 3.0 - 4.05. Panic Value INR > 5.0 [facility] ResourcesActivated Partial Thromboplast Time 2019-05-01 13:08:00* Test Item Value Reference Range Interpretation Comments Activated Partial Thromboplast Time (test code = 76497-1) 32.4 23.8-35.5 [facility] ResourcesProthrombin Ofbv2541-54-35 13:08:00* Test Item Value Reference Range Interpretation Comments Prothrombin Time (test code = 5902-2) 15.6 11.9-14.5 H [facility] ResourcesProthromb Time International Ratio 2019-05-01 13:08:00* Test Item Value Reference Range Interpretation Comments Prothromb Time International Ratio (test code = 6301-6) 1.16 Oral Anticoagulant Therapy INR Values:1. Low Intensity Therapy 1.5 - 2.02 . Moderate Intensity Therapy 2.0 - 3.03. High Intensity Therapy(1) 2.5 - 3. 54. High Intensity Therapy(2) 3.0 - 4.05. Panic Value INR > 5.0 [facility] ResourcesActivated Partial Thromboplast Time 2019-05-01 13:08:00* Test Item Value Reference Range Interpretation Comments Activated Partial Thromboplast Time (test code = 06792-8) 32.4 23.8-35.5 [facility] Klifw7417-01-07 13:07:00* Test Item Value Reference Range Interpretation Comments Sodium Level (test code = 2951-2) 131 136-145 L [facility] ResourcesPotassium Oboyd9638-10-32 13:07:00* Test Item Value Reference Range Interpretation Comments Potassium Level (test code = 2823-3) 4.1 3.5-5.1 [facility] ResourcesChloride Wdvrm9957-53-61 13:07:00* Test Item Value Reference Range Interpretation Comments Chloride Level (test code = 2075-0) 101 98-107 [facility] ResourcesCarbon Dioxide Kxsui2090-06-24 13:07:00* Test Item Value Reference Range Interpretation Comments Carbon Dioxide Level (test code = 2028-9) 25 22-29 [facility] ResourcesAnion Krj1169-09-80 13:07:00* Test Item Value Reference Range Interpretation Comments Anion Gap (test code = 95573-8) 9.1 8-16 [facility] ResourcesBlood Urea Noipgpsu3726-91-11 13:07:00* Test Item Value Reference Range Interpretation Comments Blood Urea Nitrogen (test code = 3094-0) 10 7-26 [facility] ResourcesCreatinine2020-03-06 13:07:00* Test Item Value Reference Range Interpretation Comments Creatinine (test code = 2160-0) 0.78 0.72-1.25 [facility] ResourcesBUN/Creatinine Heedp7534-71-55 13:07:00* Test Item Value Reference Range Interpretation Comments BUN/Creatinine Ratio (test code = 3097-3) 13 6- [facility] ResourcesEstimat Glomerular Filtration Rate 2019-05-01 13:07:00* Test Item Value Reference Range Interpretation Comments Estimat Glomerular Filtration Rate (test code = 589213659) > 60 >60 Ranges were taken from the National Kidney Disease Education Program and the [place] [employer] literature.Reference ranges:60 or greater: Jfwtoo29-86 ( for 3 consecutive months): Chronic kidney disease 15 or less: Kidney failureJoint venture between [facility] and [facility] ResourcesGlucose Swaud1657-42-91 13:07:00* Test Item Value Reference Range Interpretation Comments Glucose Level (test code = EZM6999) 184 74-118 H [facility] ResourcesCalcium Xwvqb9648-35-54 13:07:00* Test Item Value Reference Range Interpretation Comments Calcium Level (test code = 62121-0) 11.4 8.4-10.2 H [facility] ResourcesTotal Mattgkndv1987-76-04 13:07:00* Test Item Value Reference Range Interpretation Comments Total Bilirubin (test code = 1975-2) 0.9 0.2-1.2 [facility] [place] [facility] ResourcesAspartate Amino Transf (AST/SGOT) 2019-05-01 13:07:00* Test Item Value Reference Range Interpretation Comments Aspartate Amino Transf (AST/SGOT) (test code = Aspartate Amino Transf (AST/SGOT)) 35 5-34 H [facility] ResourcesAlanine Aminotransferase (ALT/SGPT) 2019-05-01 13:07:00* Test Item Value Reference Range Interpretation Comments Alanine Aminotransferase (ALT/SGPT) (test code = 1742-6) 32 0-55 [facility] ResourcesTotal Izluerc2707-24-41 13:07:00* Test Item Value Reference Range Interpretation Comments Total Protein (test code = 2885-2) 7.7 6.5-8.1 [facility] ResourcesAlbumin2020-03-06 13:07:00* Test Item Value Reference Range Interpretation Comments Albumin (test code = 1751-7) 3.1 3.5-5.0 L [facility] ResourcesGlobulin2020-03-06 13:07:00* Test Item Value Reference Range Interpretation Comments Globulin (test code = 84806-0) 4.6 2.3-3.5 H [facility] ResourcesAlbumin/Globulin Zuajz2223-55-23 13:07:00 * Test Item Value Reference Range Interpretation Comments Albumin/Globulin Ratio (test code = 1759-0) 0.7 0.8-2.0 L [facility] ResourcesAlkaline Frmpszhkngp8329-20-81 13:07:00* Test Item Value Reference Range Interpretation Comments Alkaline Phosphatase (test code = 6768-6) 127 40-150 [facility] ResourcesWhite Blood Guquu9133-84-81 12:28:00* Test Item Value Reference Range Interpretation Comments White Blood Count (test code = 6690-2) 3.11 4.8-10.8 L [facility] ResourcesRed Blood Yzmyh9822-94-91 12:28:00* Test Item Value Reference Range Interpretation Comments Red Blood Count (test code = 789-8) 3.95 4.3-5.7 L [facility] ResourcesHemoglobin2020-03-06 12:28:00* Test Item Value Reference Range Interpretation Comments Hemoglobin (test code = 22141-7) 8.9 14.0-18.0 L [facility] ResourcesHematocrit2020-03-06 12:28:00* Test Item Value Reference Range Interpretation Comments Hematocrit (test code = 4544-3) 31.4 38.2-49.6 L [facility] ResourcesMean Corpuscular Resuse5854-11-92 12:28:00* Test Item Value Reference Range Interpretation Comments Mean Corpuscular Volume (test code = 787-2) 79.5 81-99 L [facility] ResourcesMean Corpuscular Dexijhhath2165-60-64 12:28:00* Test Item Value Reference Range Interpretation Comments Mean Corpuscular Hemoglobin (test code = 785-6) 22.5 28-32 L [facility] ResourcesMean Corpuscular Hemoglobin Concent 2019-05-01 12:28:00* Test Item Value Reference Range Interpretation Comments Mean Corpuscular Hemoglobin Concent (test code = 786-4) 28.3 31-35 L [facility] ResourcesRed Cell Distribution Xipps1898-45-48 12:28:00* Test Item Value Reference Range Interpretation Comments Red Cell Distribution Width (test code = 55352-3) 25.8 11.7 -14.4 H [facility] ResourcesPlatelet Nsdro0642-25-98 12:28:00* Test Item Value Reference Range Interpretation Comments Platelet Count (test code = 777-3) 92 140-360 L [facility] ResourcesNeutrophils (%) (Auto)2019-05-01 12:28:00 * Test Item Value Reference Range Interpretation Comments Neutrophils (%) (Auto) (test code = 83082-1) 58.5 38.7-80.0 [facility] ResourcesLymphocytes (%) (Auto)2019-05-01 12:28:00 * Test Item Value Reference Range Interpretation Comments Lymphocytes (%) (Auto) (test code = 736-9) 21.5 18.0-39.1 [facility] [place] [facility] ResourcesMonocytes (%) (Auto)2019-05-01 12:28:00* Test Item Value Reference Range Interpretation Comments Monocytes (%) (Auto) (test code = 5905-5) 13.2 4.4-11.3 H [facility] ResourcesEosinophils (%) (Auto)2019-05-01 12:28:00 * Test Item Value Reference Range Interpretation Comments Eosinophils (%) (Auto) (test code = 713-8) 5.5 0.0-6.0 [facility] ResourcesBasophils (%) (Auto)2019-05-01 12:28:00* Test Item Value Reference Range Interpretation Comments Basophils (%) (Auto) (test code = 706-2) 1.0 0.0-1.0 [facility] ResourcesIM GRANULOCYTES %2019-05-01 12:28:00* Test Item Value Reference Range Interpretation Comments IM GRANULOCYTES % (test code = IM GRANULOCYTES %) 0.3 0.0- 1.0 [facility] ResourcesNeutrophils # (Auto)2019-05-01 12:28:00* Test Item Value Reference Range Interpretation Comments Neutrophils # (Auto) (test code = 751-8) 1.8 2.1-6.9 L [facility] ResourcesLymphocytes # (Auto)2019-05-01 12:28:00* Test Item Value Reference Range Interpretation Comments Lymphocytes # (Auto) (test code = 12915-1) 0.7 1.0-3.2 L [facility] ResourcesMonocytes # (Auto)2019-05-01 12:28:00* Test Item Value Reference Range Interpretation Comments Monocytes # (Auto) (test code = 742-7) 0.4 0.2-0.8 [facility] ResourcesEosinophils # (Auto)2019-05-01 12:28:00* Test Item Value Reference Range Interpretation Comments Eosinophils # (Auto) (test code = 711-2) 0.2 0.0-0.4 [facility] ResourcesBasophils # (Auto)2019-05-01 12:28:00* Test Item Value Reference Range Interpretation Comments Basophils # (Auto) (test code = 704-7) 0.0 0.0-0.1 [facility] ResourcesAbsolute Immature Granulocyte (auto 2019-05-01 12:28:00* Test Item Value Reference Range Interpretation Comments Absolute Immature Granulocyte (auto (norah t code = Absolute Immature Granulocyte (auto) 0.01 0-0.1 [facility] ResourcesBlood hypochromia detection by light kgomnqsmsw0281-20-29 11:20:00* Test Item Value Reference Range Interpretation Comments Hypochromasia (test code = 728-6) MODERATE [facility] ResourcesBlood poikilocytosis detection by light gafuyruahg1842-86-26 11:20:00* Test Item Value Reference Range Interpretation Comments Poikilocytosis (test code = 779-9) SLIG [facility] [place] [facility] ResourcesProthrombin time (PT) in platelet poor plasma by coagulation szncd4404-91-07 11:20:00* Test Item Value Reference Range Interpretation Comments Prothrombin Time (test code = 5902-2) 15.6 11.9-14.5 [facility] [place] [facility] ResourcesINR in Platelet poor plasma by Coagulation whanc9927-14-84 11:20:00* Test Item Value Reference Range Interpretation Comments Prothromb Time International Ratio (test code = 6301-6) 1.16 Oral Anticoagulant Therapy INR Values:1. Low Intensity Therapy 1.5 - 2.02 . Moderate Intensity Therapy 2.0 - 3.03. High Intensity Therapy(1) 2.5 - 3. 54. High Intensity Therapy(2) 3.0 - 4.05. Panic Value INR > 5.0 [facility] [place] [facility] ResourcesActivated partial thromboplastin time (aPTT) in platelet poor plasma by coagulation xhfsw5452-16-58 11:20:00* Test Item Value Reference Range Interpretation Comments Activated Partial Thromboplast Time (test code = 60652-6) 32.4 23.8-35.5 [facility] ResourcesBlood hypochromia detection by light dvxwmnnabe9791-08-66 11:20:00* Test Item Value Reference Range Interpretation Comments Hypochromasia (test code = 728-6) MODERATE [facility] ResourcesProthrombin time (PT) in platelet poor plasma by coagulation uegnd4990-16-13 11:20:00* Test Item Value Reference Range Interpretation Comments Prothrombin Time (test code = 5902-2) 15.6 11.9-14.5 [facility] [place] [facility] ResourcesINR in Platelet poor plasma by Coagulation ytoiz6203-80-37 11:20:00* Test Item Value Reference Range Interpretation Comments Prothromb Time International Ratio (test code = 6301-6) 1.16 Oral Anticoagulant Therapy INR Values:1. Low Intensity Therapy 1.5 - 2.02 . Moderate Intensity Therapy 2.0 - 3.03. High Intensity Therapy(1) 2.5 - 3. 54. High Intensity Therapy(2) 3.0 - 4.05. Panic Value INR > 5.0 [facility] [place] [facility] ResourcesActivated partial thromboplastin time (aPTT) in platelet poor plasma by coagulation ypzuc9605-99-90 11:20:00* Test Item Value Reference Range Interpretation Comments Activated Partial Thromboplast Time (test code = 99683-7) 32.4 23.8-35.5 [facility]
--- NOTE | 2019-07-31 22:22 | NUR ---
Spoke to Dr. Ulrich and received orders for chest x-ray and to draw ammonia and ABG level.
[2019-07-31 23:15] VITALS: BP 148/64
--- NOTE | 2019-07-31 23:50 | NUR ---
Dr. Ulrich here to see patient. Speaking with daughter on phone to obtain patient history. Patient appears alert and oriented, no s/s of distress at this time.
--- NOTE | 2019-07-31 23:52 | NUR ---
Patient seen and evaluated Events noted Reason for hospitalization: Hypocalcemia and low sodium History of Present Illnes: 53-year-old gentleman who presented to the emergency department as he was advised to do so by patient's oncologist in view of abnormal labs consistent with hypercalcemia. The patient is known to have a history of liver cancer whic h was recently diagnosed. He has been complaining of general malaise and weakness. He has not received chemotherapy or radiation treatment as he has been feeling very weak. The patient denies fever, no chills. No chest pain or shortness of breath. No abdominal pain, no nausea, no vomiting, no diarrhea. Past Medical History: Hypertension, Diabetes, Cancer, Anemia, GERD, Hyperlipedemia Other Medical History: LIVER CIRRHOSIS FLUID RETENTION LIVER CANCER Past Surgical History: Appendectomy Family History Family history of heart diseas: No Home Meds Reported Medications Multivits,-,Other Min (THERA-M) 1 Each Tablet, PO DAILY 07/02/19 Lactulose (LACTULOSE) 20 Gm/30 Ml Solution, 15 MG PO TID, EACH 07/02/19 Pantoprazole Sodium* (PROTONIX) 40 Mg Tablet.dr, 40 MG PO DAILY, TAB 07/02/19 Atorvastatin Calcium (ATORVASTATIN CALCIUM) 20 Mg Tablet, 20 MG PO HS, #30 TAB 05/01/19 Gabapentin (GABAPENTIN) 400 Mg Capsule, 400 MG PO TID, #30 CAP 05/01/19 Glipizide (GLIPIZIDE ER) 5 Mg Tab.er.24, PO DAILY 05/01/19 Irbesartan (IRBESARTAN) 150 Mg Tablet, 300 MG PO DAILY, #30 TAB 05/01/19 Aspirin (ASPIR 81) 81 Mg Tablet.dr, PO DAILY 05/01/19 Famotidine (PEPCID) 20 Mg Tablet, 40 MG PO DAILY, #60 TAB 05/01/19 Metformin Hcl (METFORMIN HCL) 500 Mg Tablet, 500 MG PO TID, #60 TAB 05/01/19 Propranolol Hcl (PROPRANOLOL HCL) 40 Mg Tablet, 20 MG PO DAILY, #60 TAB 05/01/19 Triamterene/Hctz (TRIAMTERENE-HCTZ 37.5-25 MG TB) 1 Ea Tab, 1 EACH PO DAILY, TAB 05/01/19 Review of system: Constitutional: No Fever, No chills. Complaining of weaknes. HEENT: No complaints Cardiovascular: Denies chest pain, palpitations, PND, swelling of the legs. Respiratory: No Cough, hemoptysis or SOB GI: Denies Nausea/V/D, hematemesis, melena. : Denies Hematuria, Dysuria, Frequency Musculoskeletal: Denies joint pain Neuro: No focal weakness Psych: No anxiety or depression. Skin: No rashes, Itching, Hives Physical exam:. Patient was alert oriented person time place. The patient did not appear to be in distress. Reportedly there was a concern about him being confused. He was fully alert at the time of my evaluation. Vital signs: Blood pressure 124/63, respiration 20, pulse 80, temperature 100.0. O2 sat 96% on room air HEENT: No gross abnormalities Neck: Supple no JVD Lungs: Clear to auscultation Heart: Regular rate and rhythm, no murmurs no gallops Abdomen: Soft non tender, no guarding. Extremities: No edema Neurologic: Alert oriented 3, no focal weakness. Psychiatrist: Normal mood, normal judgment. Skin: No rashes Lab data: Sodium 130, potassium 4.5, chloride 102, CO2 22, BUN 19, creatinine 0.99, glucose 125, calcium 12.6, AST 58, ALT 42, Assessment & Plan Final Impression: (1) HYPO-OSMOLALITY AND HYPONATREMIA (2) HYPERCALCEMIA (3) Liver cancer (4) DM (5)HTN Assessment & Plan cbc, cmp, EKG Plan of care: Monitor labs. Normal saline at the rate of 100 cc an hour Monitor BP and pulse Reconcile home medication Glycemic control Follow-up on ammonia level. DVT prophylaxis.
--- NOTE | 2019-07-31 23:58 | Diagnostic Imaging Report ---
EXAMINATION: CHEST SINGLE (PORTABLE) COMPARISON: Chest x-ray 07/04/2019 INDICATION: ^Hypercalcemia, cirrhosis of liver ^[id number] ^2330 DISCUSSION: Frontal view of the chest obtained at 2329 hours. HEART AND MEDIASTINUM: The cardiomediastinal silhouette is unremarkable. LINES: None. 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 No pneumonia or pulmonary edema. No pleural effusion or pneumothorax. BONES AND SOFT TISSUES: No focal osseous lesion. The soft tissues are normal. IMPRESSION: Stable chest. No active disease. Signed by: Dr. Renae Costa MD on 07/31/2019 11:54 PM
[2019-08-01] VITALS (7 sets, daily range): BP systolic 115–144; BP diastolic 60–71
--- NOTE | 2019-08-01 00:26 | NUR ---
Informed Dr. Ulrich that patient's home meds have been entered into the chart. Per MD he will review them later.
[2019-08-01] MEDS: SODIUM CHLORIDE 0.9% 1000ML 1,000 ML IV SCH ×3 (01:53→23:57)
[2019-08-01] MEDS: GLIPIZIDE 5 MG TAB PO SCH ×2 (07:30→16:30)
[2019-08-01] MEDS: FERROUS SULFATE 325 MG TAB PO SCH ×2 (09:00→17:00)
[2019-08-01] MEDS: GABAPENTIN 400 MG CAP PO SCH ×3 (09:00→21:21)
[2019-08-01] MEDS: FAMOTIDINE 20 MG TAB PO SCH ×2 (09:00→17:00)
[2019-08-01] MEDS: PANTOPRAZOLE SOD 40 MG TABEC PO SCH (09:00)
[2019-08-01] MEDS: ASPIRIN 81 MG ENTERIC COATED PO SCH (09:00)
[2019-08-01] MEDS: LACTULOSE SYRUP 20 GM/30 ML UDC PO SCH ×3 (09:04→21:21)
--- NOTE | 2019-08-01 09:16 | NUR ---
Patient confused, trying to pull the IV out, took the Tele box out, spitted out the morning pills. redirected him to bed, Talked to family , they said his will be here stay with him around 1100am, keep monitoring
[2019-08-01 14:20] LABS: ALANINE AMINOTRANSFERASE 41 IU/L (0-55); ALBUMIN 3.1 g/dL (3.5-5.0); ALBUMIN/GLOBULIN RATIO 0.7 (0.8-2.0); ALKALINE PHOSPHATASE 111 IU/L (40-150); ANION GAP 10.3 mmol/L (8-16); BLOOD UREA NITROGEN 15 mg/dL (7-26); BUN/CREATININE RATIO 19 (6-25); CALCIUM 11.7 mg/dL (8.4-10.2); CARBON DIOXIDE 23 mmol/L (22-29); CHLORIDE 102 mmol/L (98-107); CREATININE, SERUM 0.77 mg/dL (0.72-1.25); EST GLOMERULAR FILTRATION RATE > 60 ML/MIN (60-); GLUCOSE 173 mg/dL (74-118); POTASSIUM 4.3 mmol/L (3.5-5.1); SODIUM 131 mmol/L (136-145)
[2019-08-01] MEDS ORDERED: PAMIDRONATE DISODIUM 90 MG in SODIUM CHLORIDE 0.9% 1000ML 1,000 ML IV ONE (15:30)
--- NOTE | 2019-08-01 19:27 | NUR ---
Resumed care of patient. Patient resting in bed, respirations even and unlabored, no s/s of distress at this time. Bed locked and in low position, side rails up x3, alarm on, call light placed within reach. All safety measures in place. Will continue to monitor.
[2019-08-01] MEDS ORDERED: LACTULOSE10 GM/15 M PO (20:07)
[2019-08-01] MEDS ORDERED: LACTULOSE SYRUP 20 GM/30 ML UDC PO SCH (21:00)
[2019-08-02] VITALS (8 sets, daily range): BP systolic 133–150; BP diastolic 71–88
--- NOTE | 2019-08-02 00:56 | Consultation ---
DATE OF CONSULTATION: 08/01/[address] Ulrich for this consultation. REASON FOR CONSULTATION: Liver cancer with hypercalcemia. HISTORY OF PRESENT ILLNESS: This is a 63-year-old gentleman with past medical history includes diabetes, hypertension, alcoholic chronic liver disease/liver cirrhosis with portal hypertension and splenomegaly, and recently diagnosed liver cancer. He has been following a [facility], Dr. Giang for liver cancer. Has not received any treatment. He was admitted to [facility] last month with worsening confusion and hepatic encephalopathy. During that admission, he was diagnosed with 7 cm liver mass, acquired liver biopsy pathology report confirmed liver cancer. All history obtained from the . No medical records available at current. The patient is currently in the hospital with generalized weakness, fatigue, lethargic, and tiredness. He had blood work, which showed hyponatremia and hypercalcemia. The patient has no evidence of any GI bleed. The patient has been constipated, not responding to the lactulose treatment. PAST MEDICAL HISTORY: Hypertension, diabetes, liver cancer, portal hypertension, and hepatic encephalopathy. ALLERGIES: NKDA. MEDICATIONS: List reviewed. SOCIAL HISTORY: The patient has history of alcohol abuse. Stopped drinking alcohol last year. No smoking or drugs. REVIEW OF SYSTEMS: A 12-point review as per HPI. PHYSICAL EXAMINATION: GENERAL: Alert, awake, well-developed. HEENT: Normocephalic, atraumatic. Sclerae pale. Conjunctivae clear. NECK: Supple. CHEST: Decreased breath sounds in the bases. CARDIOVASCULAR: Regular rate and rhythm. ABDOMEN: Soft, nontender. EXTREMITIES: No clubbing, cyanosis, or edema. [employer]ING [employer]MENT: Confusion. LABORATORY AND IMAGING DATA: Reviewed. ASSESSMENT: The patient with a history of multiple medical conditions includes: 1. Diabetes. 2. Hypertension. 3. Liver cirrhosis. 4. Portal hypertension with recently diagnosed hepatocellular carcinoma. 5. The patient currently in hospital with hyponatremia and hypercalcemia. 6. Hypercalcemia, possibly related with underlying malignancy. Recent CAT scan did not show any bone involvement. RECOMMENDATIONS: 1. Bisphosphonate treatment. 2. IV hydration. 3. Monitor the patient very closely. 4. The patient will need PET-CT or imaging workup to look for skeletal involvement with cancer. 5. Hepatocellular carcinoma, recently diagnosed. 6. Workup and diagnosis were done at [facility]. Following [facility]. 7. At this point, we defer further treatment to primary oncologist. 8. The patient will benefit with transarterial chemoembolization. We will follow. 9. Confusion, possibility of static encephalopathy. 10. The patient is constipated. 11. Ammonia level within normal limits. 12. Continue lactulose. 13. Monitor the patient very closely and we will follow. MD DEBRA Ramon/YON /[id number]
[2019-08-02 06:42] LABS: BASOPHILS % 0.9 % (0.0-1.0); EOSINOPHILS # (AUTO) 0.1 (0.0-0.4); EOSINOPHILS % 5.9 % (0.0-6.0); HEMATOCRIT 36.5 % (38.2-49.6); LYMPHOCYTES # (AUTO) 0.6 (1.0-3.2); LYMPHOCYTES % 26.7 % (18.0-39.1); MEAN CORPUSCULAR HEMOGLOBIN 25.4 pg (28-32); MEAN CORPUSCULAR HGB CONC 30.1 g/dL (31-35); MEAN CORPUSCULAR VOLUME 84.3 fL (81-99); MONOCYTES # (AUTO) 0.3 (0.2-0.8); MONOCYTES % 14.9 % (4.4-11.3); NEUTROPHILS # (AUTO) 1.1 (2.1-6.9); NEUTROPHILS % 51.1 % (38.7-80.0); PLATELET COUNT 58 x10e3/uL (140-360); RED BLOOD COUNT 4.33 x10e6/uL (4.3-5.7); RED CELL DISTRIBUTION WIDTH 22.6 % (11.7-14.4)
--- NOTE | 2019-08-02 06:53 | NUR ---
Bedside report given to day nurse. Patient awake and resting in bed, no s/s of distress at this time. All safety measures in place.
[2019-08-02 07:20] LABS: ANION GAP 11.3 mmol/L (8-16); BLOOD UREA NITROGEN 10 mg/dL (7-26); BUN/CREATININE RATIO 13 (6-25); CALCIUM 11.3 mg/dL (8.4-10.2); CARBON DIOXIDE 25 mmol/L (22-29); CHLORIDE 104 mmol/L (98-107); CREATININE, SERUM 0.76 mg/dL (0.72-1.25); EST GLOMERULAR FILTRATION RATE > 60 ML/MIN (60-); GLUCOSE 128 mg/dL (74-118); POTASSIUM 4.3 mmol/L (3.5-5.1); SODIUM 136 mmol/L (136-145)
[2019-08-02] MEDS: GABAPENTIN 400 MG CAP PO SCH ×3 (08:28→21:29)
[2019-08-02] MEDS: PANTOPRAZOLE SOD 40 MG TABEC PO SCH (08:28)
[2019-08-02] MEDS: LACTULOSE SYRUP 20 GM/30 ML UDC PO SCH ×3 (08:28→21:29)
[2019-08-02] MEDS: FAMOTIDINE 20 MG TAB PO SCH ×2 (08:28→17:19)
[2019-08-02] MEDS: FERROUS SULFATE 325 MG TAB PO SCH ×2 (08:28→17:19)
[2019-08-02] MEDS: ASPIRIN 81 MG ENTERIC COATED PO SCH (08:28)
[2019-08-02] MEDS: GLIPIZIDE 5 MG TAB PO SCH ×2 (08:28→17:19)
--- NOTE | 2019-08-02 08:28 | NUR ---
Patient sitting up in chair, did eat breakfast, not in any distress, call light in reach
[2019-08-02] MEDS: SODIUM CHLORIDE 0.9% 1000ML 1,000 ML IV SCH ×2 (13:15→23:48)
--- NOTE | 2019-08-02 19:21 | NUR ---
Patient received siting up in bed. AAO x 3. Patient had no complaints of pain. Respirations even and non-labored. Safety measures in place. Patient instructed to call for assistance when needed. Call light within reach.
--- NOTE | 2019-08-02 23:39 | NUR ---
Subjective the patient was doing fine at time of my evaluation. Patient was in no distress. Patient will follow commands properly. Denies chest pain, no shortness of breath, no fever no chills. No abdominal pain. Objective: Patient alert oriented to person time place. Patient in no distress. Vital signs: Blood pressure 115/60, respiration 18, pulse 89, temperature 97.7 HEENT: No gross abnormalities Neck: Supple no JVD Lungs: Clear to auscultation Heart: Regular rate and rhythm, no murmurs no gallops Abdomen: Soft non tender, no guarding. Extremities: No edema Neurologic: Alert oriented 3, no focal weakness. Psychiatrist: Normal mood, normal judgment. Skin: No rashes Lab data: Hemoglobin 9.0, WBC 10.1, platelet count 58,000 Assessment & Plan Final Impression: (1) HYPO-OSMOLALITY AND HYPONATREMIA (2) HYPERCALCEMIA (3) Liver cancer (4) DM (5)HTN (6) thrombocytopenia Plan of care: Oncology consultation requested for management of hypercalcemia. Continue IV fluids Monitor labs Glycemic control DVT prophylaxis .
[2019-08-03] VITALS: BP 143/77
--- NOTE | 2019-08-03 00:56 | Progress Note ---
DATE: 08/01/2019 SUBJECTIVE: The patient was seen on August 01, 2019. The patient was in no distress at the time of my evaluation. Vital signs noted, stable vital signs. OBJECTIVE: VITAL SIGNS: Blood pressure 141/57, respirations 19, pulse 75, temperature 97.9. GENERAL: Reveals the patient is alert, oriented to person, time, and place. HEENT: Head is normocephalic and atraumatic. NECK: Supple. No JVD. LUNGS: Clear to auscultation. HEART: Regular rate and rhythm. No murmurs or gallops. ABDOMEN: Soft, nontender. EXTREMITIES: No edema. NEURO: Alert and oriented x3. LABORATORY DATA: Noted. Calcium level 11.7. Rest of labs; CBCs revealed as of July 31, 2019, hemoglobin 11.4, white blood cell count 4.09, and platelet count 81,000. ASSESSMENT: 1. Electrolyte imbalance consisting of hyponatremia and hypercalcemia. 2. Liver cancer. 3. Diabetes mellitus. 4. Hypertension. 5. Thrombocytopenia. PLAN OF CARE: Oncology consultation is requested. IV fluids. Management of hypercalcemia as advised. List of medications noted. MD WALKER Iniguez/YON /[id number]
[2019-08-03 04:00] VITALS: BP 148/72
[2019-08-03] MEDS: SODIUM CHLORIDE 0.9% 1000ML 1,000 ML IV SCH ×2 (05:34→13:15)
--- NOTE | 2019-08-03 07:00 | NUR ---
Walking rounds done. Patient resting comfortably. Shift report given to oncoming nurse regarding patient status.
--- NOTE | 2019-08-03 07:10 | NUR ---
RCD PT AT BED PT IS ALERT AND ORIENTED PT RESTING ON BED IV PATENT BY SALINE FLUSH BED LOW AND LOCKED CALL LIGHT IN REACH
[2019-08-03] MEDS: GLIPIZIDE 5 MG TAB PO SCH ×2 (07:30→16:30)
[2019-08-03 07:54] VITALS: BP 128/69
[2019-08-03 08:33] VITALS: BP 128/69
[2019-08-03] MEDS: GABAPENTIN 400 MG CAP PO SCH ×2 (09:00→15:00)
[2019-08-03] MEDS: ASPIRIN 81 MG ENTERIC COATED PO SCH (09:00)
[2019-08-03] MEDS: FAMOTIDINE 20 MG TAB PO SCH ×2 (09:00→17:00)
[2019-08-03] MEDS: FERROUS SULFATE 325 MG TAB PO SCH ×2 (09:00→17:00)
[2019-08-03] MEDS: LACTULOSE SYRUP 20 GM/30 ML UDC PO SCH ×2 (09:00→15:00)
[2019-08-03] MEDS: PANTOPRAZOLE SOD 40 MG TABEC PO SCH (09:00)
--- NOTE | 2019-08-03 09:37 | Progress Note ---
DATE: 08/03/2019 SUBJECTIVE: The patient seen and examined today. The patient appears better. Calcium is trending downward. Denies any new symptom. PHYSICAL EXAMINATION: GENERAL: Alert, awake, and communicative. HEENT: Normocephalic and atraumatic. Sclerae pale. Conjunctivae clear. NECK: Supple. CHEST: Clear to auscultation. CARDIOVASCULAR: Regular rate and rhythm. ABDOMEN: Soft. EXTREMITIES: No edema. LABS AND IMAGING: Reviewed. ASSESSMENT/PLAN: The patient with history of multiple medical condition includes diabetes, hypertension, alcoholic, chronic liver disease/liver cirrhosis and recently diagnosed liver cancer. Liver cancer. The patient currently following [facility]. The patient already had tissue biopsy. The patient was supposed to start further treatment. We will defer further care by private oncologist. The patient will benefit with transarterial chemoembolization. The patient will need a staging workup with outpatient. Continue nutrition support, social support. Hypercalcemia. Related possibly because of hepatocellular carcinoma. The patient required bisphosphonate treatment. Calcium is trending downward. Clinical condition is improving. We will monitor the patient closely. Chronic liver disease. Continue lactulose. Defer further care to primary care physician. Pancytopenia. Related with chronic liver disease. The patient's white blood cell count slightly dropped. Neutrophil is still above 1.5. RECOMMENDATION: Close observation. At this point, we will continue remaining care. We will follow the patient closely. MD DEBRA Ramon/YON /[id number]
[2019-08-03 11:46] VITALS: BP 137/63
--- NOTE | 2019-08-03 13:00 | NUR ---
AC TO DR ROSALES PT CAN GO HOME IF OK WITH DR ACEVEDO SO PAGED DR ACEVEDO TO NOTIFY THAT AND LEFT THE MESSAGE
[2019-08-03 15:18] VITALS: BP 143/65
--- NOTE | 2019-08-03 17:00 | NUR ---
PAGED AGAIN TO DR ACEVEDO HE SAID HE WILL CALL BACK
--- NOTE | 2019-08-03 17:45 | NUR ---
DR ACEVEDO RETURNED THE CALL AND GOT DISCHARGE ORDER
--- NOTE | 2019-08-03 17:45 | NUR ---
DR ACEVEDO RETURNED THE CALL
--- NOTE | 2019-08-03 18:36 | NUR ---
PT WENT HOME IN SAFE CONDITION WITH HIS
--- NOTE | 2019-08-03 18:40 | Discharge Summary ---
FINAL DIAGNOSES: 1. Electrolyte imbalance consisting of hypercalcemia and hyponatremia. 2. Liver cancer. 3. History of hypertension. 4. Thrombocytopenia. 5. Older medical problems include pancytopenia. 6, Metabolic encephalopathy HOSPITAL COURSE: A 63-year-old gentleman, admitted under my service as he was advised for evaluation in the emergency room department in view of hypercalcemia, the patient did not have a history of liver cancer and has not received chemotherapy or radiation treatment yet, and while in the hospital, the patient was seen by oncologist, Dr. Ventura for advice pertaining patient's treatment. The patient did have some altered mental status. However, ammonia levels were within normal limits. We did continue lactulose and went ahead and followup advised by Oncology to start with bisphosphonate treatment and IV hydration, and the patient did improve as far as hypercalcemia is concerned. Calcium level on admission was elevated. Calcium level was around 12.6, also did drop to 11. The patient at this time currently remains stable. According to lab data, basically the patient did improve and was eventually discharged from the hospital in stable condition. He is to follow up with a patient's PCP, oncologist. DISCHARGE MEDICATIONS: Per reconciliation list. ACTIVITY LEVEL: As tolerated. DIET: DISPOSITION: Follow up with the patient's primary care physician, Dr. Patric Pete. MD WALKER Iniguez/YON /[id number] MTDDung
== END 2019-08-03 18:32 | disposition home or self-care (01) | DRG 640 ==
LOC: ER 14:25 → MED/SURG3 18:05 → ER 21:20 → INTOOBSV 08-01 17:34 → OBSVTOIN 08-01 17:34
PROVIDERS: ADMIT Internal Medicine; ATTEND Internal Medicine
DX: E87.1 Hypo-osmolality and hyponatremia (principal); G93.41 Metabolic encephalopathy; C22.0 Liver cell carcinoma; K76.6 Portal hypertension; D61.818 Other pancytopenia; I10 Essential (primary) hypertension; E11.9 Type 2 diabetes mellitus without complications; D69.6 Thrombocytopenia, unspecified; D64.9 Anemia, unspecified; K21.9 Gastro-esophageal reflux disease without esophagitis; E78.5 Hyperlipidemia, unspecified; K74.60 Unspecified cirrhosis of liver; Z90.49 Acquired absence of other specified parts of digestive tract; E83.52 Hypercalcemia; K70.30 Alcoholic cirrhosis of liver without ascites
CPT/HCPCS: 36415; 71045; 80048; 80053; 81001; 82140; 82550; 82553; 82948; 84484; 85025; 87635; 93005; 96360; 99284; G0378; J2430; J7030

== ENCOUNTER → 2019-10-16 | Outpatient (CLI) | payer OTHER ==
[~2019-10-16] MED LIST changes: +ASPIRIN EC81 MG PO; +FERROUS SULFAT325 MG PO; +Folic acid PO; +GLIPIZIDE5 MG PO; +IOPAMIDOL 370 MG/ML 200 ML INFUS..BTL INJ ONE; +IRBESARTAN300 MG PO; +LACTULOSE10 GM/15 M PO; +PROPRANOLOL HCL20 MG PO; +SODIUM CHLORIDE 0.9% 50ML 50 ML ONE
[2019-10-16 09:24] LABS: BLOOD UREA NITROGEN 5 mg/dL (7-26); BUN/CREATININE RATIO 6 (6-25); CREATININE, SERUM 0.79 mg/dL (0.72-1.25); EST GLOMERULAR FILTRATION RATE > 60 ML/MIN (60-)
--- NOTE | 2019-10-16 13:27 | Diagnostic Imaging Report ---
EXAM: CT Abdomen and Pelvis WITHOUT and WITH intravenous contrast - liver mass protocol INDICATION: Liver mass, hepatic cirrhosis COMPARISON: CT abdomen and pelvis of 07/04/2019 TECHNIQUE: Abdomen and pelvis were scanned utilizing a multidetector helical scanner from the lung base to the pubic symphysis before and after administration of IV contrast. Coronal and sagittal reformations were obtained. Liver mass protocol was used. Scan was performed prior to contrast administration and during arterial, portal venous, and 5 minute delay phase. IV CONTRAST: 100 mL of Isovue 370 ORAL CONTRAST: Water COMPLICATIONS: None RADIATION DOSE: Total DLP: 2724 mGy*cm Dose modulation, iterative reconstruction, and/or weight based adjustment of the mA/kV was utilized to reduce the radiation dose to as low as reasonably achievable. FINDINGS: LOWER THORAX: 8 mm lingular groundglass pulmonary nodule. No focal lung base consolidation. HEPATOBILIARY: Cirrhotic liver morphology. Multiple arterially enhancing masses throughout the liver which demonstrate washout on delayed phases are consistent with hepatocellular carcinoma. The largest of these measures up to 10.9 x 5.8 x 6.5 cm involving segments 4/8. Segment 7 mass measures up to 5.8 x 7.1 cm. Anterior hepatic dome lesion measures up to 3.2 x 3.1 cm. Unremarkable gallbladder. SPLEEN: Splenomegaly to 20 cm. PANCREAS: No focal masses or ductal dilatation. ADRENALS: Unchanged left adrenal adenoma. KIDNEYS/URETERS: No hydronephrosis, stones, or solid mass lesions. PELVIC ORGANS/BLADDER: Coarse calcifications of the prostate. PERITONEUM / RETROPERITONEUM: Moderate volume ascites in the abdomen and pelvis. LYMPH NODES: No lymphadenopathy. VESSELS: Scattered atherosclerotic calcifications of the nonaneurysmal abdominal aorta and major branches. GI TRACT: No abnormal bowel thickening. No bowel obstruction. BONES AND SOFT TISSUES: No acute osseous injury. No suspicious lytic or blastic lesions. Diffuse subcutaneous soft tissue edema. IMPRESSION: Numerous arterially enhancing liver masses with associated delayed washout are consistent with hepatocellular carcinoma. The largest of these lesions measures up to 10.9 x 5.8 x 6.5 cm. Sequela of portal hypertension including splenomegaly to 20 cm and moderate volume abdominal and pelvic ascites. Signed by: Carissa Rodriguez MD on 10/16/2019 1:24 PM
== END ==
LOC: CT 08:34
PROVIDERS: ATTEND Internal Medicine
DX: C22.9 Malignant neoplasm of liver, not specified as primary or secondary (principal)
CPT/HCPCS: 36415; 74178; 82565; 84520; Q9967

== ENCOUNTER 2019-12-24 02:33 | Emergency (ER) | payer MEDICARE, OTHER ==
[~2019-12-24] VITALS: Ht 180.3 cm; Wt 149.7 kg
[~2019-12-24 02:33] MED LIST changes: -IOPAMIDOL 370 MG/ML 200 ML INFUS..BTL INJ ONE; -SODIUM CHLORIDE 0.9% 50ML 50 ML ONE
[2019-12-24 02:49] LABS: BASOPHILS % 0.5 % (0.0-1.0); EOSINOPHILS # (AUTO) 0.1 (0.0-0.4); HEMATOCRIT 28.6 % (38.2-49.6); HEMOGLOBIN 9.4 g/dL (14.0-18.0); LYMPHOCYTES # (AUTO) 0.9 (1.0-3.2); LYMPHOCYTES % 13.6 % (18.0-39.1); MEAN CORPUSCULAR HEMOGLOBIN 28.1 pg (28-32); MEAN CORPUSCULAR HGB CONC 32.9 g/dL (31-35); MEAN CORPUSCULAR VOLUME 85.4 fL (81-99); MONOCYTES # (AUTO) 0.9 (0.2-0.8); MONOCYTES % 14.4 % (4.4-11.3); NEUTROPHILS # (AUTO) 4.2 (2.1-6.9); NEUTROPHILS % 67.8 % (38.7-80.0); PLATELET COUNT 147 x10e3/uL (140-360); RED BLOOD COUNT 3.35 x10e6/uL (4.3-5.7)
[2019-12-24 02:58] LABS: INR 1.34; PARTIAL THROMBOPLASTIN TIME 34.3 seconds (23.8-35.5); PROTHROMBIN TIME 17.2 seconds (11.9-14.5)
[2019-12-24 03:08] LABS: ALBUMIN 2.1 g/dL (3.5-5.0); ALBUMIN/GLOBULIN RATIO 0.5 (0.8-2.0); ANION GAP 14.8 mmol/L (8-16); CALCIUM 9.2 mg/dL (8.4-10.2); CREATININE, SERUM 1.97 mg/dL (0.72-1.25); POTASSIUM 4.8 mmol/L (3.5-5.1)
[2019-12-24 03:11] LABS: AMPHETAMINES SCREEN,URINE NEGATIVE (NEGATIVE); BENZODIAZEPINES SCREEN,URINE NEGATIVE (NEGATIVE); BILIRUBIN,URINE SMALL (NEGATIVE); CLARITY,URINE CLOUDY (CLEAR); COLOR,URINE YELLOW (YELLOW); KETONES,URINE TRACE (NEGATIVE); LEUKOCYTE ESTERASE ,URINE SMALL (NEGATIVE); NITRITE,URINE NEGATIVE (NEGATIVE); PHENCYCLIDINE SCREEN,URINE NEGATIVE (NEGATIVE); PROTEIN,URINE DIPSTICK TRACE (NEGATIVE); URINE UROBILINOGEN 0.2 mg/dL (0.2 - 1)
--- NOTE | 2019-12-24 03:13 | Diagnostic Imaging Report ---
History:Unresponsive Comparison studies: None Technique: Axial images were obtained from the skull base to the vertex. Coronal and sagittal images reconstructed from the axial data. Dose modulation, iterative reconstruction, and/or weight based adjustment of the mA/kV was utilized to reduce the radiation dose to as low as reasonably achievable. Intravenous contrast: None Findings: Scalp/skull: No abnormalities. Extra-axial spaces: No masses. No fluid collections. Brain sulci: Mildly prominent. Ventricles: Mild compensatory dilatation. No hydrocephalus. Parenchyma: Subtle hypodensities in the supratentorial white matter are small vessel ischemic changes. No masses, hemorrhage, acute or chronic cortical vascular insults. Sellar/suprasellar region: No abnormalities. Craniocervical junction: Patent foramen magnum. No Chiari one malformation. Incidental findings: Subtle calcifications in the carotid siphons and basilar artery. Impression: No acute intracranial abnormalities. Chronic findings: 1. Mild generalized volume loss. 2. Mild supratentorial white matter small vessel ischemic changes. Signed by: Dr. Pee Cao M.D. on 12/24/2019 3:10 AM
[2019-12-24 03:14] LABS: CREATINE KINASE MB 1.4 ng/mL (0-5.0)
--- NOTE | 2019-12-24 03:16 | Emergency Department Note ---
History of Present Illnes History of Present Illness Chief Complaint: Neurological History of Present Illness This is a 64 year old male PRESENTS TO ED WITH REPORT OF AMS SINCE APPROX 2300; PT RESPONDS WITH FACIAL GRIMACE TO PAINFUL STIMULI; HOWEVER, PT IS NOT FOLLOWING COMMANDS; PERRLA; family states they noticed him acting this way since 1130 pm when he woke up, pt had a paracentesis at [facility] yesterday, pt has h/o alcoholic cirrhosis and liver cancer. . Historian: Family Member, Head Sulfide Operator/EMS History limited by: other (pt has ams, not following commands, not answering questions) Painter Hand Required: No Onset (how long ago): hour(s) (3) Location: none Quality: ams Radiation: Reports non-radiation Severity: unable to specify Onset quality: unable to specify Duration (how long): hour(s) (3) Timing of current episode: unable to specify Progression: unchanged Chronicity: recurrent (h/o encephalopathy in the past) Context: Reports recent surgery (paracentesis yesterday) Past Medical/Family History Physician Review I have reviewed the patient's past medical and family history. Any updates have been documented here. Past Medical History Recent Fever: No Clinical Suspicion of Infectio: Yes New/Unexplained Change in Ment: Yes Past Medical History: Hypertension, Diabetes, Anemia, GERD, Hyperlipedemia Other Medical History: Liver cancer, liver cirrhosis, fluid retention Past Surgical History: Appendectomy Other Surgery: PARACENTESIS 12/23/2019 AT [facility] Social History Smoking Cessation: Former smoker Counseling Performed: No Alcohol Use: None Any Illegal Drug Use: No Other Last Tetanus: UNK Any Pre-Existing Lines (PICC,: No Review of Systems ROS Narrative Unable to obtain ROS: Unable to obtain due to, altered mental status Physical Exam Related Data Allergies: Coded Allergies: No Known Allergies (Unverified , 05/01/19) Triage Vital Signs Vital Signs Date Time Temp Pulse Resp B/P (MAP) Pulse Ox O2 Delivery O2 Flow Rate FiO2 12/24/19 02:48 97.0 87 16 108/59 100 Room Air Vital signs reviewed: Yes Physical Exam CONSTITUTIONAL Constitutional: Present well-developed, Present well-nourished HENT HENT: Present normocephalic, Present atraumatic, Present oropharynx clear/moist, Present nose normal HENT L/R: Present left ext ear normal, Present right ext ear normal EYES Eyes: Reports PERRL, Reports conjunctivae normal NECK Neck: Present ROM normal PULMONARY Pulmonary: Present effort normal, Present breath sounds normal CARDIOVASCULAR Cardiovascular: Present regular rhythm, Present heart sounds normal, Present c apillary refill normal, Present normal rate GASTROINTESTINAL Abdominal: Present soft, Present bowel sounds normal, Present other (ascites present) GENITOURINARY Genitourinary: Present exam deferred SKIN Skin: Present warm, Present dry MUSCULOSKELETAL Musculoskeletal: Present ROM normal NEUROLOGICAL Neurological: Present other (responds to painful stimuli only) PSYCHOLOGICAL Psychological: Present mood/affect normal, Present judgement normal Results Laboratory Result Diagram: 12/24/19 0240 Laboratory Laboratory Tests Test 12/24/19 03:02 12/24/19 02:40 Urine Color Yellow (YELLOW) Urine Clarity Cloudy (CLEAR) Urine pH 5.5 (5 - 7) Urine Specific [place] 1.025 (1.010-1.025) Urine Protein Trace (NEGATIVE) Urine Glucose (UA) Negative (NEGATIVE) Urine Ketones Trace (NEGATIVE) Urine Blood Negative (NEGATIVE) Urine Nitrite Negative (NEGATIVE) Urine Bilirubin Small (NEGATIVE) Urine Urobilinogen 0.2 mg/dL (0.2 - 1) Urine Leukocyte Esterase Small (NEGATIVE) Urine RBC 0-5 /HPF (0-5) Urine WBC 11-20 /HPF (0-5) Urine Epithelial Cells Few /LPF (NONE) Urine Amorphous Sediment Many (FEW) Urine Bacteria Moderate /HPF (NONE) Urine Opiates Screen Negative (NEGATIVE) Urine Methadone Screen Negative (NEGATIVE) Urine Barbiturates Screen Negative (NEGATIVE) Urine Phencyclidine Screen Negative (NEGATIVE) Urine Amphetamines Screen Negative (NEGATIVE) Urine Methamphetamines Screen Negative (NEGATIVE) Urine Benzodiazepines Screen Negative (NEGATIVE) Urine Cocaine Screen Negative (NEGATIVE) Urine Cannabinoids Screen Negative (NEGATIVE) White Blood Count 6.24 x10e3/uL (4.8-10.8) Red Blood Count 3.35 x10e6/uL (4.3-5.7) Hemoglobin 9.4 g/dL (14.0-18.0) Hematocrit 28.6 % (38.2-49.6) Mean Corpuscular Volume 85.4 fL (81-99) Mean Corpuscular Hemoglobin 28.1 pg (28-32) Mean Corpuscular Hemoglobin Concent 32.9 g/dL (31-35) Red Cell Distribution Width 18.0 % (11.7-14.4) Platelet Count 147 x10e3/uL (140-360) Neutrophils (%) (Auto) 67.8 % (38.7-80.0) Lymphocytes (%) (Auto) 13.6 % (18.0-39.1) Monocytes (%) (Auto) 14.4 % (4.4-11.3) Eosinophils (%) (Auto) 1.0 % (0.0-6.0) Basophils (%) (Auto) 0.5 % (0.0-1.0) Neutrophils # (Auto) 4.2 (2.1-6.9) Lymphocytes # (Auto) 0.9 (1.0-3.2) Monocytes # (Auto) 0.9 (0.2-0.8) Eosinophils # (Auto) 0.1 (0.0-0.4) Basophils # (Auto) 0.0 (0.0-0.1) Absolute Immature Granulocyte (auto 0.17 x10e3/uL (0-0.1) Prothrombin Time 17.2 seconds (11.9-14.5) Prothromb Time International Ratio 1.34 Activated Partial Thromboplast Time 34.3 seconds (23.8-35.5) Sodium Level 134 mmol/L (136-145) Potassium Level 4.8 mmol/L (3.5-5.1) Chloride Level 102 mmol/L (98-107) Carbon Dioxide Level 22 mmol/L (22-29) Anion Gap 14.8 mmol/L (8-16) Blood Urea Nitrogen 33 mg/dL (7-26) Creatinine 1.97 mg/dL (0.72-1.25) Estimat Glomerular Filtration Rate 34 ML/MIN (60-) BUN/Creatinine Ratio 17 (6-25) Glucose Level 148 mg/dL (74-118) Calcium Level 9.2 mg/dL (8.4-10.2) Total Bilirubin 1.5 mg/dL (0.2-1.2) Aspartate Amino Transf (AST/SGOT) 146 IU/L (5-34) Alanine Aminotransferase (ALT/SGPT) 112 IU/L (0-55) Alkaline Phosphatase 225 IU/L (40-150) Ammonia 307 UG/DL (31-123) Creatine Kinase 31 IU/L (30-200) Creatine Kinase MB 1.40 ng/mL (0-5.0) Troponin I 0.008 ng/mL (0-0.300) Total Protein 6.7 g/dL (6.5-8.1) Albumin 2.1 g/dL (3.5-5.0) Globulin 4.6 g/dL (2.3-3.5) Albumin/Globulin Ratio 0.5 (0.8-2.0) Laboratory Tests Test 12/24/19 03:02 12/24/19 02:40 White Blood Count 6.24 x10e3/uL (4.8-10.8) Red Blood Count 3.35 x10e6/uL (4.3-5.7) Hemoglobin 9.4 g/dL (14.0-18.0) Hematocrit 28.6 % (38.2-49.6) Mean Corpuscular Volume 85.4 fL (81-99) Mean Corpuscular Hemoglobin 28.1 pg (28-32) Mean Corpuscular Hemoglobin Concent 32.9 g/dL (31-35) Red Cell Distribution Width 18.0 % (11.7-14.4) Platelet Count 147 x10e3/uL (140-360) Neutrophils (%) (Auto) 67.8 % (38.7-80.0) Lymphocytes (%) (Auto) 13.6 % (18.0-39.1) Monocytes (%) (Auto) 14.4 % (4.4-11.3) Eosinophils (%) (Auto) 1.0 % (0.0-6.0) Basophils (%) (Auto) 0.5 % (0.0-1.0) Neutrophils # (Auto) 4.2 (2.1-6.9) Lymphocytes # (Auto) 0.9 (1.0-3.2) Monocytes # (Auto) 0.9 (0.2-0.8) Eosinophils # (Auto) 0.1 (0.0-0.4) Basophils # (Auto) 0.0 (0.0-0.1) Absolute Immature Granulocyte (auto 0.17 x10e3/uL (0-0.1) Prothrombin Time 17.2 seconds (11.9-14.5) Prothromb Time International Ratio 1.34 Activated Partial Thromboplast Time 34.3 seconds (23.8-35.5) Ammonia 307 UG/DL (31-123) Lab results reviewed: Yes Imaging Imaging results reviewed: Yes Impressions Procedure: [id number] CT/CT BRAIN WO Exam Date: Exam Time: REPORT STATUS: Signed History:Unresponsive Comparison studies: None Technique: Axial images were obtained from the skull base to the vertex. Coronal and sagittal images reconstructed from the axial data. Dose modulation, iterative reconstruction, and/or weight based adjustment of the mA/kV was utilized to reduce the radiation dose to as low as reasonably achievable. Intravenous contrast: None Findings: Scalp/skull: No abnormalities. Extra-axial spaces: No masses. No fluid collections. Brain sulci: Mildly prominent. Ventricles: Mild compensatory dilatation. No hydrocephalus. Parenchyma: Subtle hypodensities in the supratentorial white matter are small vessel ischemic changes. No masses, hemorrhage, acute or chronic cortical vascular insults. Sellar/suprasellar region: No abnormalities. Craniocervical junction: Patent foramen magnum. No Chiari one malformation. Incidental findings: Subtle calcifications in the carotid siphons and basilar artery. Impression: No acute intracranial abnormalities. Chronic findings: 1. Mild generalized volume loss. 2. Mild supratentorial white matter small vessel ischemic changes. Signed by: Dr. Chintan Cao M.D. on 12/24/2019 3:10 AM Dictated By: CHINTAN CAO MD, MD 9 Transcribed By: BELINDA on 12/24/19309 COPY TO: ELISABET SINGH MD~ Procedures 12 Lead ECG Interpretation ECG Interpretation : ECG: ECG 1 Painter Hand: Interpreted by ED physician Date: Dec 24, 2019 Time: 02:39 Prior ECG tracings: reviewed Rhythm: sinus rhythm Rate: normal BPM: 87 QRS axis: normal ST segments normal: Yes T waves normal: Yes Other findings: no other findings Clinical Impression: normal ECG Assessment & Plan Medical Decision Making [facility] pt with h/o liver cancer, cirrhosis with ams cbc, cmp, ekg, cardiac enzymes, ct brain , ammonia level, cxr, ua ordered to eval for leukocytosis, hepatic encephalopathy, cva, intracranial bleed, pne umonia, uti, electrolyte abnormality pt's ammonia level 307, pt has hepatic encephalopathy this facility is at capacity and has no bed availability, pt will need to be transferred to another hospital for further care i spoke with dr gutierrez at [facility] and he accepts pt for transfer Assessment & Plan Final Impression: (1) Hepatic encephalopathy (2) AMS (altered mental status) (3) UTI (urinary tract infection) Depart Disposition: TRANS TO OTHER [facility] Last Vital Signs Date Time Temp Pulse Resp B/P (MAP) Pulse Ox O2 Delivery O2 Flow Rate FiO2 12/24/19 03:04 87 14 107/59 99 Room Air 12/24/19 02:48 97.0 Home Meds Reported Medications Lactulose (LACTULOSE) 10 Gm/15 Ml Solution, 10 GM PO TID 08/01/19 Propranolol Hcl (PROPRANOLOL HCL) 20 Mg Tablet, 20 MG PO BID 07/31/19 Irbesartan (IRBESARTAN) 300 Mg Tablet, 300 MG PO DAILY 07/31/19 Aspirin (ASPIRIN EC) 81 Mg Tablet.dr, 81 MG PO DAILY, #30 TAB 07/31/19 Ferrous Sulfate (FERROUS SULFATE) 325 Mg Tablet, 325 MG PO BID 07/31/19 [Folic acid] No Conflict Check, 1 MG PO DAILY 07/31/19 Glipizide (GLIPIZIDE) 5 Mg Tablet, 5 MG PO BID, TAB 07/31/19 Multivits,Th W-Fe,Other Min (THERA-M) 1 Each Tablet, PO DAILY 07/02/19 Pantoprazole Sodium* (PROTONIX) 40 Mg Tablet.dr, 40 MG PO DAILY, TAB 07/02/19 Atorvastatin Calcium (ATORVASTATIN CALCIUM) 20 Mg Tablet, 20 MG PO HS, #30 TAB 05/01/19 Gabapentin (GABAPENTIN) 400 Mg Capsule, 400 MG PO TID, #30 CAP 05/01/19 Famotidine (PEPCID) 20 Mg Tablet, 40 MG PO BID, #60 TAB 05/01/19 Metformin Hcl (METFORMIN HCL) 500 Mg Tablet, 500 MG PO TID, #60 TAB 05/01/19 ELISABET SINGH MD Dec 24, 2019 03:16
[2019-12-24 03:17] LABS: AMORPHOUS SEDIMENT,URINE MANY (FEW); BACTERIA,URINE MODERATE /HPF; EPITHELIAL CELLS,URINE FEW /LPF; RBC,URINE 0-5 /HPF (0-5)
--- NOTE | 2019-12-24 03:24 | Diagnostic Imaging Report ---
EXAMINATION: CHEST SINGLE (PORTABLE) INDICATION: ams COMPARISON: None FINDINGS: TUBES and LINES: None. LUNGS: Low lung volumes versus eventration of the hemidiaphragms. No consolidations. PLEURA: No pleural effusion or pneumothorax. HEART AND MEDIASTINUM: The cardiomediastinal silhouette is unremarkable. IMPRESSION: Low lung volumes versus diaphragmatic eventration limits assessment of the lung bases. Lateral view may be helpful if clinically warranted. Otherwise, no acute process. Signed by: Matthew De MD on 12/24/2019 3:20 AM
[2019-12-24] MEDS ORDERED: CEFTRIAXONE SOD 1 GM/NS 50 ML 50 ML IV ONE ×2 (03:30→03:32)
== END 2019-12-24 05:15 | disposition other institution (70) ==
LOC: ER 02:43
DX: K72.90 Hepatic failure, unspecified without coma (principal); R41.82 Altered mental status, unspecified; N39.0 Urinary tract infection, site not specified; I10 Essential (primary) hypertension; E11.65 Type 2 diabetes mellitus with hyperglycemia; K74.60 Unspecified cirrhosis of liver; E78.5 Hyperlipidemia, unspecified; Z85.05 Personal history of malignant neoplasm of liver
CPT/HCPCS: 36415; 70450; 71045; 80053; 80307; 81001; 82140; 82550; 82553; 84484; 85025; 85610; 85730; 87040; 93005; 99284; J0696